=== PATIENT | male | born 1980 | race Caucasian/White ===

== ENCOUNTER 2019-07-20 19:10 | Emergency (ER) | payer SELFPAY ==
[2019-07-20 19:17] VITALS: BP 126/81; PULSE 94; RESP 18; TEMP 37; O2SAT 97; BMI 23.0
--- NOTE | 2019-07-20 19:31 | ED_ITS ---
Entered by Dot Sanchez, acting as scribe for Kailash Quan DO Jul 20, 2019 19:10 HPI - Psych General: Chief Complaint: Psychiatric Symptoms Stated Complaint: needs med refill, auditory hallucinations Time Seen by Provider: 07/20/19 19:32 PFSH ED PFSH: Social History Smoking and tobacco status: current every day smoker Current gender identity: Male Discharge Plan Discharge Patient Disposition: Left Without Being Seen Referrals: Wilma Malhotra MD [Family Provider] - Discharge Date/Time: 07/20/19 19:41 Coding Level of Care Code ED Cinder Crew Worker for Chg Fwd The documentation recorded by the scribe, Dot Sanchez, accurately reflects the service I personally performed and the decisions made by Avelina rowland Curtis L, DO Jul 20, 2019 19:10
--- NOTE | 2019-07-20 19:37 | PC.NURSE ---
PT DENIES SI, STATES HE ONLY CAME IN TO SEE IF HE COULD GET HIS CLONAZEPAM REFILLED, BUT DECIDED TO WAIT TILL TUESDAY BECAUSE HE HAS AN APPT WITH HIS DOCTOR ON THAT DAY. PT SIGNED OUT AMA, AGREED TO RETURN IF HE WANTED TO BE SEEN. PT ALSO DENIES HALLUCINATIONS.
== END 2019-07-20 19:41 | disposition left against medical advice (07) ==
PROVIDERS: Emergency Provider Family Medicine; Family Provider Family Medicine
DX: Z76.0 Encounter for issue of repeat prescription (principal); R44.0 Auditory hallucinations; F17.200 Nicotine dependence, unspecified, uncomplicated; Z53.21 Procedure and treatment not carried out due to patient leaving prior to being seen by health care provider
CPT/HCPCS: 99284

== ENCOUNTER 2019-08-02 00:23 | Emergency (ER) | payer SELFPAY ==
[2019-08-02 00:39] VITALS: BP 114/83; PULSE 86; RESP 18; TEMP 36.5; O2SAT 98; BMI 25.1
--- NOTE | 2019-08-02 00:45 | XR_ITS ---
WS: [id number] XR chest 1V portable [id number] REASON FOR EXAM: cough/congestion FINDINGS: The heart mediastinum are normal. There are scattered granulomas in both perihilar areas. The lung villaseñor are well aerated. There is no pneumonia, pleural effusion, pulmonary edema, no mass e ffect. The hilum and apices normal. No osseous abnormalities. XR/XR chest 1V portable [id number] IMPRESSION: Negative chest for active pathology. Calcified granulomas.
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
[2019-08-02 01:16] LABS: Basophils % 0.5 %; Eosinophils # 0.3 10^3/uL (0.0-0.8); Eosinophils % 4.5 %; Hematocrit 45.4 % (42.0-52.0); Hemoglobin 14.9 g/dL (11.7-16.6); Lymphocytes # 2.7 10^3/uL (0.8-4.8); Lymphocytes % 40.6 %; Mean Corpuscular HGB Conc 32.8 g/dL (30.0-36.0); Mean Corpuscular Hemoglobin 29.3 pg (28.0-34.0); Mean Corpuscular Volume 89.4 fL (80-94); Mean Platelet Volume 10.4 fL (7.4-10.4); Monocytes # 0.8 10^3/uL (0.2-0.9); Monocytes % 11.3 %; Neutrophils # 2.8 10^3/uL (1.8-7.7); Neutrophils % 42.9 %; Nucleated Red Blood Cells % 0 %; Platelet Count 334 10^3/cmm (130-400); Red Blood Count 5.08 10^6/uL (4.1-5.3); Red Cell Distribution Width 12.9 % (12.1-15.1); White Blood Count 6.6 10^3/uL (4.0-10.0)
[2019-08-02 01:45] LABS: Alanine Aminotransferase 19 U/L (0-41); Albumin Level 4.4 g/dL (3.5-5.2); Alkaline Phosphatase 101 IU/L (40-130); Anion Gap 14.4 (5-19); Aspartate Amino Transferase 20 U/L (0-40); Blood Urea Nitrogen 11 mg/dL (6-20); Calcium 9.6 mg/dL (8.5-10.5); Carbon Dioxide 28 mmol/L (22-29); Chloride 102 mmol/L (98-107); Globulin 3.8 g/dL (1.3-4.6); Glomerular Filtration Rate 74.5 mL/min (90-130); Glucose 103 mg/dL (65-115); NT Pro B Type Natriuretic Pept 25 pg/mL (0-125); Potassium 4.4 mmol/L (3.5-5.1); Sodium 140 mmol/L (136-145); Total Bilirubin 0.4 mg/dL (0.15-1.2); Total Protein 8.2 g/dL (6.6-8.7)
[2019-08-02] MEDS: dexamethasone 10 mg/mL INJ IM (01:58)
[2019-08-02 02:06] VITALS: BP 113/73; PULSE 86; RESP 16; O2SAT 96
== END 2019-08-02 02:06 | disposition home or self-care (01) ==
PROVIDERS: Physician Assistant; Emergency Provider Emergency Medicine; Family Provider Family Medicine
DX: J40 Bronchitis, not specified as acute or chronic (principal); F17.210 Nicotine dependence, cigarettes, uncomplicated; J84.10 Pulmonary fibrosis, unspecified
CPT/HCPCS: 12345; 36415; 71045; 80053; 83880; 85025; 96372; 96375; 99281; 99283; J1100

== ENCOUNTER 2019-08-03 18:27 | Emergency (ER) | payer SELFPAY ==
[2019-08-03 18:30] VITALS: BP 133/71; PULSE 111; RESP 17; TEMP 36.5; O2SAT 98; BMI 24.7
--- NOTE | 2019-08-03 18:35 | ED_ITS ---
Entered by Ingrid Tejeda, acting as scribe for May Temple HPI - General Adult General: Chief complaint: General Medical Stated complaint: COUGH Time Seen by Provider: 08/03/19 18:34 Source: patient Mode of arrival: ambulatory Limitations: no limitations History of Present Illness: HPI narrative: 39 yo m came to the er for a cough and has been going on for a week. Pt states that he was here a few days for a cough. Pt states that he just wants to get some meds and go home he does not want to be worked up. complaint: cough Onset (ago): week(s) (1 week) Location: chest (cough) Severity: mild Pain Consistency: intermittent Relieving factors: medication Exacerbating factors: none Associated symptoms: Reports cough; Deny chest pain, confusion, diaphoresis, dyspnea, headache(s), malaise, nausea, rash, palpitations, syncope or vomiting Review of Systems General: Reports: other (negative unless marked) Const: Denies: fever, chills, body aches, fatigue, malaise or diaphoresis Eyes: Denies: change in vision or blurry vision ENMT: Denies: throat pain, painful swallowing, hoarseness, ear pain, ear discharge, Change in hearing or nasal discharge Card: Denies: chest pain, palpitations, irregular heart rhythm, syncope, pre- syncope, shortness of breath on exertion or shortness of breath when lying down Resp: Reports: non-productive cough; Denies: shortness of breath, productive cough, wheezing, coughing up blood or chest congestion GI: Denies: abdominal pain, nausea, vomiting, vomiting blood, coffee grounds in vomit, diarrhea, constipation, cramping, blood in stool or black tarry stool : Denies: flank pain, difficulty urinating, painful urination, urinary frequency, urinary urgency, decreased urine ouput, urinary incontinence or blood in urine Musc: Denies: neck pain, back pain, extremity pain, extremity swelling, joint pain, joint swelling, joint warmth or joint stiffness Skin/Breast: Denies: rash, skin tenderness or yellow skin Neuro: Denies: headache, numbness in extremities, weakness in extremities, changes in sensation, lack of coordination, difficulty walking, dizziness, vertigo or confusion Endo: Denies: excessive thirst, tired all the time, cold intolerance, excessive sweating, flushing or hot flashes Chaparro/Lymph: Denies: easy bruising, easy bleeding, petechiae or enlarged lymph nodes All/Imm: Denies: hives, throat swelling, tongue swelling, facial swelling or acute wheezing PFSH ED PFSH: Social History Smoking and tobacco status: current every day smoker Current gender identity: Male Physical Exam Const: COMMON NORMALS: no apparent distress, oriented x3, no limitations, healthy appearing and well nourished EXAM LIMITATIONS: no altered mental status GENERAL APPEARANCE: cooperative, well kempt and well developed ORIENTATION/CONSCIOUSNESS: Yes awake HENMT: COMMON NORMALS: normocephalic, head/scalp atraumatic, hearing grossly normal bilaterally, external ears normal, EAC's normal, external nose normal and moist oral mucous membranes HEAD & SCALP: normal to inspection, normocephalic and atraumatic FACE & SINUS: normal facial exam and face symmetric NOSE: external nose normal and nares normal EXTERNAL EAR: Yes external ears normal EXTERNAL AUDITORY CANAL: EAC's normal MOUTH: oral and palatal mucosa normal and tongue normal Eye: COMMON NORMALS: PERRL, EOMs intact bilaterally, conjunctivae normal and no scleral icterus GENERAL EYE: normal appearance of both eyes and normal light reflex CONJUNCTIVA: Yes conjunctivae normal SCLERA: sclerae normal CORNEA: Yes corneas normal PUPIL: Yes PERRL DIRECT OPHTHALMOSCOPY: Yes normal light reflex Neck/C-Spine: COMMON NORMALS: full ROM, no lymphadenopathy, supple, no meningeal signs and no JVD GENERAL: Yes normal visual inspection and Yes trachea midline CERVICAL SPINE: Yes cervical ROM normal Chest: COMMONS NORMALS: inspection of chest normal and palpation of chest normal Resp: COMMON NORMALS: normal respiratory effort, no retractions, no use of accessory muscles and clear to auscultation bilaterally EFFORT & INSPECTION: Yes able to speak in complete sentences AUSCULTATION: clear to auscultation bilaterally Cardio: COMMON NORMALS: no JVD, regular rate, regular rhythm, S1 normal heart sound, S2 normal heart sound, no gallops, no clicks, no murmurs and no rub JUGULAR VENOUS DISTENTION: no JVD RATE: regular rate RHYTHM: regular rhyth m HEART SOUNDS: S1 normal and S2 normal GI: COMMON NORMALS: soft to palpation, non-tender, no hepatosplenomegaly and no masses INSPECTION: Yes normal to inspection PALPATION: Yes soft and Yes no hepatosplenomegaly : COMMON NORMALS: Yes no CVA tenderness BLADDER/KIDNEY EXAM: Yes no CVA tenderness Back/Pelvis: COMMON NORMALS: no CVA tenderness, thoracic and lumbar spine normal to inspection, no thoracic nor lumbar tenderness and thoraco-lumbar ROM normal Extremity: COMMON NORMALS: normal to inspection, full ROM, normal capillary refill, no joint enlargement, no clubbing, cyanosis or edema and no calf tenderness Neuro: COMMON NORMALS: oriented x3, CN's II-XII intact bilaterally, moves all extremities, no focal motor deficits and no sensory deficits noted MENINGEAL SIGNS: Yes no meningeal signs Psych: COMMON NORMALS: mental status grossly normal, thought process normal, cooperative, affect normal, speech normal and activity/motor behavior normal APPEARANCE: Yes well kempt SPEECH: Yes normal speech THOUGHT PROCESS: normal thought process Skin: COMMON NORMALS: no rashes or lesions noted, skin turgor normal, no jaundice, no petechiae and no mottling GENERAL SKIN EXAM: no rashes or lesions noted and turgor normal Course Vital Signs: Vital signs: Vital Signs Temperature 97.7 F 08/03/19 18:30 Pulse Rate 96 08/03/19 18:47 Respiratory Rate 18 08/03/19 18:47 Blood Pressure 133/71 08/03/19 18:47 Pulse Oximetry 98 08/03/19 18:47 MDM - General Adult MDM Narrative: Medical decision making narrative: Patient was refusing all work-up. He was seen here yesterday and diagnosed with bronchitis and placed on Zithromax but cannot fill it. He states that he can get this filled at a discounted rate at the [facility] [place] if prescribed by us. I will go ahead and do that. I see no acute life-threatening findings on exam other than mild tachycardia. Patient refuses all work-up but does agree to return should his symptoms change or worsen. Discharge Plan Discharge Patient Disposition: Home, Self-Care Clinical Impression: Bronchitis Condition: Stable Prescriptions: New Zithromax Z-Lui 250 mg tablet See Rx Instructions .ROUTE .COMPLEX Qty: 6 RF: 0 No Action azithromycin 250 mg tablet See Rx Instructions PO .COMPLEX Qty: 6 RF: 0 olanzapine [Zyprexa] 10 mg Tablet 20 mg PO DAILY RF: 0 albuterol sulfate 90 mcg/actuation HFA aerosol inhaler 2 inh INHALATION Q6H PRN (Reason: shortness of breath) Qty: 8 RF: 0 Discharge Orders: Discharge Order (Routine); Ordered 08/03/19 Ordered By: May Temple Referrals: Wilma Malhotra MD [Family Provider] - 1-3 days Discharge Diet: Advance as tolerated Discharge Activity: Increase activity as tolerated Patient Instructions: Acute Bronchitis (ED) Activity Restrictions/Additional Instructions: Please return to the ER immediately for any of the signs or symptoms listed on your discharge instruction sheets, worsening/changing of your symptoms, you are not getting better as quickly as expected, or for ANY other cause or concerns. Discharge Date/Time: 08/03/19 18:48 Coding Level of Care Code ED Busgirl for Chg Fwd The documentation recorded by the Nikhil byrne Stephanie Lyn, accurately reflects the service I personally performed and the decisions made by Windy rowland Eli N Aug 03, 2019 18:27
--- NOTE | 2019-08-03 18:40 | PC.NURSE ---
Patient expresses that he wanted a zpack today and maybe something for his nerves. States he was seen before and given a zpack but was not able to fill the medication, he was told that if he came to the ER then the [facility] pharmacy could fill the medication. Patient denies to provider during initial assessment stating he does not want a work up.
[2019-08-03] MEDS: ibuprofen 600 mg Tablet PO (18:46)
[2019-08-03] MEDS: azithromycin 250 mg Tablet 500 MG PO (18:46)
[2019-08-03 18:47] VITALS: BP 133/71; PULSE 96; RESP 18; O2SAT 98
== END 2019-08-03 18:48 | disposition home or self-care (01) ==
PROVIDERS: Emergency Provider Emergency Medicine; Family Provider Family Medicine
DX: J40 Bronchitis, not specified as acute or chronic (principal); F17.200 Nicotine dependence, unspecified, uncomplicated
CPT/HCPCS: 12345; 99281; 99283; Q0144

== ENCOUNTER 2019-10-23 17:12 | Emergency (ER) | payer SELFPAY ==
--- NOTE | 2019-10-23 17:26 | PC.NURSE ---
PAIN IS A GENERALIZED BODY ACHES FROM COUGHING. HISTORY OF BRONCHITIS.
[2019-10-23 17:27] VITALS: BP 124/86; PULSE 90; RESP 18; TEMP 36.9; O2SAT 98
--- NOTE | 2019-10-23 17:34 | XR_ITS ---
WS: [id number] PORTABLE CHEST HISTORY: cough COMPARISON: 08/02/2019 Lungs are clear and well expanded. No pleural effusion or pneumothorax. Cardiac size: Normal. Mediastinum/Aorta: Normal mediastinum. No osseous abnormality seen. XR/XR chest 1V portable [id number] IMPRESSION: Unremarkable portable chest.
--- NOTE | 2019-10-23 17:35 | ED_ITS ---
HPI - General Adult General: Stated complaint: cough/sob Time Seen by Provider: 10/23/19 17:21 History of Present Illness: HPI narrative: Patient complaining about cough x2- day denies fever chills any exposure to cold would he like to have something to eat while he is here and also wants a refill on his Fatou WHITE complaint: Cough Onset (ago): day(s) Associated symptoms: Reports cough; Deny chest pain, dyspnea, headache(s), nausea, rash or vomiting Treatments prior to arrival: none Review of Systems Const: Denies: fever(s), chills or body aches Eyes: Denies: change in vision or blurry vision ENMT: Denies: throat pain or nasal congestion Card: Denies: chest pain or dyspnea on exertion Resp: Reports: non-productive cough (Patient is a smoker 2 to 3 packs a day); Denies: dyspnea or productive cough GI: Denies: abdominal pain, nausea or vomiting : Denies: difficulty urinating Musc: Denies: extremity pain Skin/Breast: Denies: rash Neuro: Denies: headache(s) Psych: Denies: anxiety or depression Chaparro/Lymph: Denies: easy bruising PFSH ED PFSH: Medical History (Updated 08/20/19 @ 13:34 by Maya Ortiz DO) Anxiety Depression Schizophrenia Surgical History No pertinent past surgical history Social History Smoking and tobacco status: current every day smoker cigarettes Packs smoked per day: 0.5 Alcohol intake: never Current gender identity: Male Physical Exam Const: COMMON NORMALS: no acute distress, average body habitus and patient oriented x3 HENMT: COMMON NORMALS: normocephalic HEAD & SCALP: normal to inspection and normocephalic FACE & SINUS: normal facial exam Eye: COMMON NORMALS: conjunctivae normal GENERAL EYE: appearance normal, both eyes and all related structures CONJUNCTIVA: Yes conjunctivae normal Neck/C-Spine: COMMON NORMALS: no JVD Chest: COMMONS NORMALS: normal inspection of the chest Resp: COMMON NORMALS: normal respiratory effort and clear to auscultation bilaterally AUSCULTATION: clear to auscultation bilaterally Cardio: COMMON NORMALS: no JVD, regular rate and regular rhythm RATE: regular rate RHYTHM: regular rhythm GI: COMMON NORMALS: Normal to inspection, nondistended, normoactive bowel sounds present Extremity: COMMON NORMALS: normal to inspection and full ROM Neuro: COMMON NORMALS: patient oriented x3 Course Vital Signs: Vital signs: Vital Signs Temperature 98.5 F 10/23/19 17:27 Pulse Rate 90 10/23/19 17:27 Respiratory Rate 18 10/23/19 17:27 Blood Pressure 124/86 10/23/19 17:27 Pulse Oximetry 98 10/23/19 17:27 Discharge Plan Discharge Prescriptions: No Action clonazepam [Klonopin] 0.5 mg tablet 0.5 mg PO BID PRN (Reason: anxiety) Qty: 60 RF: 0 olanzapine [Zyprexa] 10 mg Tablet 20 mg PO DAILY RF: 0 Coding Level of Care Code ED Research Manufacturing Operator for Tracey Izquierdo
[2019-10-23 17:38] VITALS: BP 124/86; RESP 18; TEMP 36.9; O2SAT 96; BMI 23.0
== END 2019-10-23 18:03 | disposition home or self-care (01) ==
LOC: ER 18:05
PROVIDERS: Emergency Provider Nurse Practitioner Family; Family Provider Family Medicine; PCP Family Medicine
DX: R05 Cough (principal); R06.02 Shortness of breath; F17.210 Nicotine dependence, cigarettes, uncomplicated
CPT/HCPCS: 12345; 71045; 99281; 99282

== ENCOUNTER 2019-10-24 18:27 | Emergency (ER) | payer SELFPAY ==
[2019-10-24 18:37] VITALS: BP 120/69; PULSE 84; RESP 18; TEMP 36.8; O2SAT 97; BMI 23.0
--- NOTE | 2019-10-24 19:00 | XR_ITS ---
WS: [id number] PORTABLE CHEST HISTORY: cough, SOB COMPARISON: 10/23/2019 Lungs are clear and well expanded. No pleural effusion or pneumothorax. Cardiac size: Normal. Mediastinum/Aorta: Normal mediastinum. No osseous abnormality seen. XR/XR chest 1V portable [id number] IMPRESSION: Unremarkable portable chest.
--- NOTE | 2019-10-24 19:22 | ED_ITS ---
HPI - SOB/Dyspnea General: Chief Complaint: Shortness of Breath/Dyspnea Stated Complaint: sob,cough Time Seen by Provider: 10/24/19 19:18 History of Present Illness: HPI Narrative: Edgar is a pleasant 39-year-old male who comes in complaining of nonproductive cough for 1 day. He denies fever, chills, shortness of breath, vomiting, headache, neck pain or shortness of breath. Patient denies being around anybody ill but states this is because he is around smoke and he smokes. He denies any covert exposures. He is unaware of anything that makes his symptoms better or worse and he states that he has had this problem numerous times in the past. Associated symptoms: Deny abdominal pain, chest congestion, chest pain, diaphoresis, dizziness, extremity pain, fever(s), hemoptysis, lightheadedness, nausea, orthopnea, palpitations, polydipsia, polyuria, syncope or vomiting Review of Systems Const: Denies: fever(s), chills, body aches, fatigue, malaise, night sweats or diaphoresis Eyes: Denies: change in vision, blurry vision or blind spots ENMT: Denies: throat pain, odynophagia, hoarseness, ear or mastoid pain, ear discharge, change in hearing or nasal discharge Card: Denies: chest pain, palpitations, irregular heart rhythm, lightheadedness, syncope, pre-syncope, dyspnea on exertion or orthopnea Resp: Denies: dyspnea, productive cough, wheezing, hemoptysis or chest congestion GI: Denies: abdominal pain, nausea, vomiting, hematemesis, coffee ground emesis, heartburn, diarrhea, constipation, GI cramping, hematochezia or melena : Denies: flank pain, dysuria, urinary frequency, urinary urgency, oliguria, urinary incontinence or hematuria Musc: Denies: neck pain, back pain, extremity pain, extremity swelling, joint pain, joint swelling, joint redness, joint warmth or joint stiffness Skin/Breast: Denies: rash, pruritus, erythema, skin tenderness or jaundice Neuro: Denies: headache(s), numbness in extremities, weakness in extremities, sensory changes, lack of coordination, difficulty walking, dizziness, vertigo, confusion or Slurred speech present Endo: Denies: polyuria, polydipsia, tired all the time, cold intolerance, excessive sweating, flushing, hot flashes or heat intolerance Chaparro/Lymph: Denies: easy bruising, easy bleeding, petechiae, purpura or enlarged lymph nodes All/Imm: Denies: urticaria, throat swelling, tongue swelling, facial swelling or acute wheezing PFSH ED PFSH: Medical History Anxiety Depression Schizophrenia Surgical History No pertinent past surgical history Social History Smoking and tobacco status: current every day smoker cigarettes Packs smoked per day: 0.5 Alcohol intake: never Current gender identity: Male Physical Exam Const: COMMON NORMALS: no acute distress, patient oriented x3, no limitations, healthy appearing and well nourished EXAM LIMITATIONS: no altered mental s tatus GENERAL APPEARANCE: cooperative, well kempt and well developed HENMT: COMMON NORMALS: normocephalic, atraumatic, hearing grossly normal bilaterally, external ears normal, EAC's normal, Normal external nose present and moist oral mucous membranes HEAD & SCALP: normal to inspection, norm ocephalic and atraumatic FACE & SINUS: normal facial exam and face symmetric NOSE: Normal external nose present and Normal nares present EXTERNAL EAR: Yes external ears normal EXTERNAL AUDITORY CANAL: EAC's normal MOUTH: Normal oral and palatal mucosa present, lip normal and tongue normal Eye: COMMON NORMALS: Equal, round and reactive pupils present, EOMs intact bilaterally, conjunctivae normal and no scleral icterus GENERAL EYE: appearance normal, both eyes and all related structures ALIGNMENT: Yes alig nment normal PERIORBITAL: periorbital findings normal EYELID: eyelids normal CONJUNCTIVA: Yes conjunctivae normal SCLERA: sclerae normal PUPIL: Yes Equal, round and reactive pupils present Neck/C-Spine: COMMON NORMALS: full ROM, no lymphadenopathy, supple, no meningeal signs and no JVD GENERAL: Yes normal visual inspection and Yes trachea midline CERVICAL SPINE: Yes cervical ROM normal Chest: COMMONS NORMALS: normal inspection of the chest and normal palpation of entire chest wall Resp: COMMON NORMALS: normal respiratory effort, No retractions, No use of accessory muscles and clear to auscultation bilaterally EFFORT & INSPECTION: Yes able to speak in complete sentences AUSCULTATION: clear to auscultation bilaterally, no crackles, no rales, no rhonchi and no wheezes Cardio: COMMON NORMALS: no JVD, regular rate, regular rhythm, S1 normal heart sound present, S2 normal heart sound present, No gallops present (Cardio), No clicks present (Cardio), No murmurs present (Cardio) and No rub (Cardio) RATE: regular rate RHYTHM: regular rhythm HEART SOUNDS: S1 normal heart sound present, S2 normal heart sound present, no click, no gallops, no murmurs and no rubs GI: COMMON NORMALS: Soft to palpation, non-tender, No hepatosplenomegaly present and no masses PALPATION: Yes Soft to palpation, No Tenderness to palpation present (GI), No Guarding due to palpation present (GI), No Rigid due to palpation, Yes No hepatosplenomegaly present, No Hernia present, No Palpable mass present and No Pulsatile mass present : COMMON NORMALS: Yes no CVA tenderness BLADDER/KIDNEY EXAM: Yes no CVA tenderness Back/Pelvis: COMMON NORMALS: no CVA tenderness, thoracic and lumbar spine normal to inspection, no thoracic nor lumbar tenderness and thoraco-lumbar ROM normal Extremity: COMMON NORMALS: normal to inspection, full ROM, capillary refill normal, no joint enlargement, no clubbing, cyanosis or edema and no calf tenderness Neuro: COMMON NORMALS: patient oriented x3, CN's II-XII intact bilaterally, moves all extremities, no focal motor deficits and no sensory deficits noted MENINGEAL SIGNS: Yes no meningeal signs SPEECH: speech normal Psych: COMMON NORMALS: mental status grossly normal, Normal thought process present, cooperative, normal affect, speech normal and activity/motor behavior normal APPEARANCE: Yes well kempt SPEECH: Yes normal speech THOUGHT PROCESS: Normal thought process present Skin: COMMON NORMALS: no rashes or lesions noted, turgor normal, no jaundice, no petechiae and no mottling GENERAL SKIN EXAM: no rashes or lesions noted and turgor normal Course Vital Signs: Vital signs: Vital Signs Temperature 98.2 F 10/24/19 18:37 Pulse Rate 92 10/24/19 19:27 Respiratory Rate 18 10/24/19 19:27 Blood Pressure 127/78 10/24/19 19:27 Pulse Oximetry 93 10/24/19 19:27 MDM - SOB/Dyspnea MDM Narrative: Medical decision making narrative: Patient likely has underlying lung disease as he is a chronic smoker. I believe I will place him on amoxicillin for bronchitis. I see no sign of acute cardiac event, there is no pneumonia on his chest x-ray and his vital signs are stable with clear lung sounds. I believe this is likely viral bronchitis but per the patient's history he will likely have a bacterial superinfection or component to it. The patient refuses any further work-up but I do not believe blood work is likely to be helpful for for this patient. There is no evidence of pneumothorax, there is no widened mediastinum, and he does not exhibit any signs of sepsis. The patient agrees to return if his symptoms worsen. This time though he request discharge. Imaging Data^: CXR: My impression: No acute cardiopulmonary findings. Discharge Plan Discharge Patient Disposition: Home, Self-Care Clinical Impression: Cough Condition: Stable Prescriptions: New amoxicillin 500 mg capsule 500 mg PO TID 10 Days Qty: 30 RF: 0 No Action clonazepam [Klonopin] 0.5 mg tablet 0.5 mg PO BID PRN (Reason: anxiety) Qty: 60 RF: 0 ibuprofen 200 mg Tablet 200 - 800 mg PO PRN RF: 0 Discharge Orders: Discharge Order (Routine); Ordered 10/24/19 Ordered By: May Temple Referrals: Maya Ortiz DO [Primary Care Provider] - 1-3 days Discharge Diet: Advance as tolerated Discharge Activity: Increase activity as tolerated Patient Instructions: Acute Bronchitis (ED) Activity Restrictions/Additional Instructions: Please return to the ER immediately for any of the signs or symptoms listed on your discharge instruction sheets, worsening/changing of your symptoms, you are not getting better as quickly as expected, or for ANY other cause or concerns. Discharge Date/Time: 10/24/19 19:32 Coding Level of Care Code ED Manager Non Profit for [employer] Fwd Exam Comprehensive
[2019-10-24 19:27] VITALS: BP 127/78; PULSE 92; RESP 18; O2SAT 93
== END 2019-10-24 19:32 | disposition home or self-care (01) ==
PROVIDERS: Emergency Provider Emergency Medicine; PCP Family Medicine
DX: R05 Cough (principal); F17.210 Nicotine dependence, cigarettes, uncomplicated
CPT/HCPCS: 12345; 71045; 99281; 99282

== ENCOUNTER 2019-10-24 23:43 | Inpatient (IN) | payer SELFPAY ==
[2019-10-24 23:49] VITALS: BP 116/85; PULSE 83; RESP 86; TEMP 36.4; O2SAT 97; BMI 23.7
--- NOTE | 2019-10-24 23:52 | ECG_ITS ---
Measurements Intervals [place] Rate: 59 P: 14 VA: 130 QRS: 62 QRSD: 109 T: 43 QT: 384 QTc: 382 SINUS BRADYCARDIA Compared to ECG 12/05/2016 22:40:03 Sinus tachycardia no longer present Electronically Signed On 10-25-2019 16:45:36 CDT by Armando Chin M.D. [id number]
--- NOTE | 2019-10-24 23:54 | ED_ITS ---
HPI - Psych General: Chief Complaint: General Medical Stated Complaint: needs med refill Time Seen by Provider: 10/24/19 23:50 History of Present Illness: HPI Narrative: Edgar is a 39-year-old male who comes in complaining of hallucinations. He states he is hearing voices and seeing things that others are not saying. He has a history of schizophrenia. He states that the symptoms are becoming so aggravating that he is afraid he is going to hurt himself or someone else. He states he needs something to help him relax and he is requesting to go to the neuropsychiatric unit for treatment. Review of Systems General: Reports: Other (Patient not cooperative) PFS ED PFSH: Medical History Anxiety Depression Schizophrenia Surgical History No pertinent past surgical history Social History Smoking and tobacco status: current every day smoker cigarettes Packs smoked per day: 0.5 Alcohol intake: never Current gender identity: Male Physical Exam Const: COMMON NORMALS: no acute distress, patient oriented x3, no limitations, healthy appearing and well nourished EXAM LIMITATIONS: no altered mental status GENERAL APPEARANCE: cooperative and well developed HENMT: COMMON NORMALS: normocephalic, atraumatic, hearing grossly normal bilaterally, external ears normal, EAC's normal, Normal external nose present and moist oral mucous membranes HEAD & SCALP: normal to inspection, normocephalic and atraumatic FACE & SINUS: normal facial exam and face symmetric NOSE: Normal external nose present and Normal nares present EXTERNAL EAR: Yes external ears normal EXTERNAL AUDITORY CANAL: EAC's normal MOUTH: Normal oral and palatal mucosa present, lip normal and tongue normal Eye: COMMON NORMALS: Equal, round and reactive pupils present, EOMs intact bilaterally, conjunctivae normal and no scleral icterus GENERAL EYE: appearance normal, both eyes and all related structures ALIGNMENT: Yes alignment normal PERIORBITAL: periorbital findings normal EYELID: eyelids normal CONJUNCTIVA: Yes conjunctivae normal SCLERA: sclerae normal PUPIL: Yes Equal, round and reactive pupils present Neck/C-Spine: COMMON NORMALS: full ROM, no lymphadenopathy, supple, no meningeal signs and no JVD GENERAL: Yes normal visual inspection and Yes trachea midline CERVICAL SPINE: Yes cervical ROM normal Chest: COMMONS NORMALS: normal inspection of the chest and normal palpation of entire chest wall Resp: COMMON NORMALS: normal respiratory effort, No retractions, No use of accessory muscles and clear to auscultation bilaterally EFFORT & INSPECTION: Yes able to speak in complete sentences AUSCULTATION: clear to auscultation bilaterally, no crackles, no rales, no rhonchi and no wheezes Cardio: COMMON NORMALS: no JVD, regular rate, regular rhythm, S1 normal heart sound present, S2 normal heart sound present, No gallops present (Cardio), No clicks present (Cardio), No murmurs present (Cardio) and No rub (Cardio) RATE: regular rate RHYTHM: regular rhythm HEART SOUNDS: S1 normal heart sound present, S2 normal heart sound present, no click, no gallops, no murmurs and no rubs GI: COMMON NORMALS: Soft to palpation, non-tender, No hepatosplenomegaly present and no masses PALPATION: Yes Soft to palpation, No Tenderness to palpation present (GI), No Guarding due to palpation present (GI), No Rigid due to palpation, Yes No hepatosplenomegaly present, No Hernia present, No Palpable mass present and No Pulsatile mass present : COMMON NORMALS: Yes no CVA tenderness BLADDER/KIDNEY EXAM: Yes no CVA tenderness Back/Pelvis: COMMON NORMALS: no CVA tenderness, thoracic and lumbar spine normal to inspection, no thoracic nor lumbar tenderness and thoraco-lumbar ROM normal Extremity: COMMON NORMALS: normal to inspection, full ROM, capillary refill normal, no joint enlargement, no clubbing, cyanosis or edema and no calf tenderness Neuro: COMMON NORMALS: patient oriented x3, CN's II-XII intact bilaterally, moves all extremities, no focal motor deficits and no sensory deficits noted MENINGEAL SIGNS: Yes no meningeal signs SPEECH: speech normal Psych: ATTITUDE: Yes paranoid and Yes evasive ACTIVITY/MOTOR BEHAVIOR: Yes Avoids eye contact (attititude/behavior) SPEECH: Yes soft MOOD & AFFECT: Yes apathetic THOUGHT CONTENT: Yes Suicidality present and Yes Homicidality present Skin: COMMON NORMALS: no rashes or lesions noted, turgor normal, no jaundice, no petechiae and no mottling GENERAL SKIN EXAM: no rashes or lesions noted and turgor normal MDM - Psych MDM Narrative: Medical decision making narrative: The case was reviewed with Dr. Denny. He agrees to admission to the neuropsychiatric unit for further evaluation and care. Lab Data: Labs: Lab Results 10/24/19 10/25/19 Range/Units 00:08 00:03 WBC 6.2 (4.0-10.0) 10^3/ uL RBC 4.91 (4.1-5.3) 10^6/u L Hgb 14.7 (11.7-16.6) g/dL Hct 44.7 (42.0-52.0) % MCV 91.0 (80-94) fL MCH 29.9 (28.0-34.0) pg MCHC 32.9 (30.0-36.0) g/dL RDW 13.2 (12.1-15.1) % Plt Count 250 (130-400) 10^3/c mm MPV 10.0 (7.4-10.4) fL Neut % (Auto) 56.7 % Lymph % (Auto) 25.5 % [place] % (Auto) 10.6 % Eos % (Auto) 6.7 % Baso % (Auto) 0.3 % Neut # (Auto) 3.5 (1.8-7.7) 10^3/u L Lymph # (Auto) 1.6 (0.8-4.8) 10^3/u L [place] # (Auto) 0.7 (0.2-0.9) 10^3/u L Eos # (Auto) 0.4 (0.0-0.8) 10^3/u L Baso # (Auto) 0.0 (0.0-0.1) 10^3/u L Nucleated RBC % (a uto) 0 % Nucleated RBCs # 0.0 /100WBC Urine Color Yellow (Yellow) Urine Appearance Clear (CLEAR) Urine pH 7 (5-7) Ur Specific Gravit y 1.005 (1.005-1.030) Urine Protein Neg (Negative) Urine Glucose (UA) Norm (Normal) Urine Ketones Negative (Negative) Urine Blood Neg (Negative) Urine Nitrate Negative (Negative) Urine Bilirubin Neg (NEGATIVE) Urine Urobilinogen Norm (Negative) mg/dL Ur Leukocyte Carla ase Negative (Negative) Urine RBC Rare (0-2) /hpf Urine WBC Rare (0-5) /hpf Ur Squamous Epith Cells Rare (0-5) Urine Bacteria Trace (NONE) EKG Data^: EKG 1: Attestation: I personally reviewed and interpreted this EKG as follows: EKG interpretation date: 10/25/19 EKG interpretation time: 00:29 Interpretation: Sinus bradycardia at 59 beats a minute, no blocks, normal intervals, no acute ST-T wave changes. Discharge Plan Discharge Patient Disposition: Admitted As Inpatient Clinical Impression: Anxiety Schizophrenia Qualifiers: Schizophrenia type: unspecified Qualified Code(s): F20.9 - Schizophrenia, unspecified Condition: Stable Referrals: Maya Ortiz DO [Primary Care Provider] - Coding Level of Care Code ED Radio Communications Superintendent for Tracey Izquierdo
[2019-10-25] MEDS: OLANZapine 10 mg VIAL IM (00:15)
[2019-10-25 00:17] LABS: Basophils % 0.3 %; Eosinophils # 0.4 10^3/uL (0.0-0.8); Eosinophils % 6.7 %; Hematocrit 44.7 % (42.0-52.0); Hemoglobin 14.7 g/dL (11.7-16.6); Lymphocytes # 1.6 10^3/uL (0.8-4.8); Lymphocytes % 25.5 %; Mean Corpuscular HGB Conc 32.9 g/dL (30.0-36.0); Mean Corpuscular Hemoglobin 29.9 pg (28.0-34.0); Monocytes # 0.7 10^3/uL (0.2-0.9); Monocytes % 10.6 %; Neutrophils # 3.5 10^3/uL (1.8-7.7); Neutrophils % 56.7 %; Nucleated Red Blood Cells % 0 %; Platelet Count 250 10^3/cmm (130-400); Red Blood Count 4.91 10^6/uL (4.1-5.3); Red Cell Distribution Width 13.2 % (12.1-15.1); White Blood Count 6.2 10^3/uL (4.0-10.0)
[2019-10-25 00:28] LABS: Bilirubin Urine Neg (NEGATIVE); Blood Urine Neg (Negative); Glucose Urine UA Norm (Normal); Ketones Urine Negative (Negative); Leukocyte Esterase Urine Negative (Negative); Nitrate Urine Negative (Negative); Protein Urine Neg (Negative); RBC Urine RARE /hpf (0-2); Specific Gravity, Urine 1.005 (1.005-1.030); Squamous Epithelial Cell Urine RARE (0-5); Urine Appearance Clear (CLEAR); Urine Color Yellow (Yellow); Urobilinogen Urine Norm (Negative); WBC Urine RARE /hpf (0-5); pH Urine 7 (5-7)
[2019-10-25 00:29] LABS: Bacteria Urine TRACE
[2019-10-25 00:33] LABS: Amphetamines Screen Urine Negative (Negative); Barbiturates Screen Urine Negative (Negative); Benzodiazepines Screen Urine Negative (Negative); Cocaine Screen Urine Negative (Negative); Opiate Screen Urine Negative (Negative); PCP Screen Urine Negative (Negative); THC Screen Urine Positive (Negative)
[2019-10-25 00:39] LABS: Lithium 0.1 mmol/L (0.6-1.2)
[2019-10-25 00:45] LABS: Alanine Aminotransferase 27 U/L (0-41); Albumin Level 3.9 g/dL (3.5-5.2); Alkaline Phosphatase 86 IU/L (40-130); Anion Gap 12.8 (5-19); Aspartate Amino Transferase 33 U/L (0-40); Blood Urea Nitrogen 10 mg/dL (6-20); Calcium 8.4 mg/dL (8.5-10.5); Carbon Dioxide 27 mmol/L (22-29); Chloride 102 mmol/L (98-107); Creatinine Clr Calc Pharmacy 152.3505; Globulin 2.3 g/dL (1.3-4.6); Glomerular Filtration Rate 125.5 mL/min (90-130); Glucose 120 mg/dL (65-115); Osmolality Calculated 283 mOsm/kg (285-295); Phenytoin Dilantin 0.8 ug/mL (10-20); Potassium 3.8 mmol/L (3.5-5.1); Sodium 138 mmol/L (136-145); Thyroid Stimulating Hormone 0.85 uIU/mL (0.27-4.20); Total Bilirubin 0.2 mg/dL (0.15-1.2); Total Protein 6.2 g/dL (6.6-8.7); Valproic Acid Level 2.8 mcg/mL (50-100)
[2019-10-25 01:04] LABS: Acetaminophen < 5.0 ug/mL (10-30); Alcohol Level < 10 mg/dL (0-10); Salicylate < 0.3 mg/dL (3-10)
[2019-10-25 01:27] VITALS: BP 144/71; PULSE 63; RESP 18; TEMP 36.6; O2SAT 95
[2019-10-25 01:45] VITALS: BP 144/88; PULSE 59; RESP 22; TEMP 36.9; O2SAT 97
[2019-10-25 06:00] VITALS: BP 138/87; PULSE 67; RESP 20; TEMP 36.9; O2SAT 97
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
[2019-10-25 13:24] VITALS: BP 115/76; PULSE 74; RESP 18; TEMP 37; O2SAT 95
[2019-10-25 21:20] VITALS: BP 147/81; PULSE 71; RESP 24; TEMP 37.1; O2SAT 95
[2019-10-26 06:00] VITALS: RESP 20
[2019-10-26] MEDS: CLONazepam 0.5 mg Tablet PO ×2 (09:41→20:32)
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
[2019-10-26] MEDS: nicotine 21 mg Patch 1 PATCH TRANSDERMA (10:14)
--- NOTE | 2019-10-26 11:47 | P.PN_ITS ---
Subjective NPU Subjective: Interval history: Edgar presented today endorsing overwhelming anxiety but being resistant to discussions about restarting his Invega or other medications he is had in the past. He endorses a resistance to those medications secondary to side effects. We had initiated some as needed Klonopin to help with his irritability and anxiety given he had previously been on the Klonopin. However we are clear about concerns for long-term use as well as our desire not to initiated as a standing medication for post discharge. Mental Status Exam MSE Comments: This is a well-nourished well-developed white male with adequate dress limited grooming and eye contact. No abnormal movements except for psychomotor retardation. More cooperative with exam in no acute distress. Speech was more normal rate and volume. Mood described as better affect less irritable. Thought process more organized. Thought content: Patient denied any suicidal or homicidal ideation, there were no delusions reported but paranoia exists, but he seemed less guarded, he endorsed having less auditory and visual hallucinations. Attention and concentration were limited and memory was unreliable but none were formally tested. He is alert and oriented x3. Insight and judgment are impaired. Vitals/I&O/Wt Last Vital Signs Temp 98.3 F 10/26/19 22:00 Pulse 71 10/26/19 22:00 Resp 20 H 10/26/19 22:00 BP 115/77 10/26/19 22:00 Pulse Ox 96 10/26/19 22:00 Data NPU : 10/24/19 00:08 10/24/19 00:08 A&P Additional A&P Information (1) Anxiety: (2) Schizophrenia: (3) Nicotine dependence, cigarettes, with unspecified nicotine-induced d isorders: (4) Cannabis abuse: This is a 39-year-old white male with a long history of addiction and mental health issues including schizophrenia who presents off of medication and quite irritable on a 96-hour hold. 1. Continue current medication. We will offer restarting medications that have been noted as effective in is medical records. 2. Encourage individual, group and milieu therapy. 3. Continue to 15-minute checks for safety. 4. We will work to schedule outpatient resources and follow-up at discharge. Involuntary Hold Information 96 Hour Hold: 96 Hour Involuntary Admission: Yes 96 Hour Hold Ending Date: 11/03/19 96 Hour Hold Ending Time: 01:35 Attestations NPU Medical Necessity Statement*: Inpatient hospitalization is medically necessary and the clinically appropriate intervention at this time. We will offer medications and adjust as indicated. Likely length of stay 3-5 days. Coding Level of Care Code Acute Phlebotomy Tech for Tracey Izquierdo
[2019-10-26 14:00] VITALS: BP 116/78; PULSE 72; RESP 18; TEMP 37.2; O2SAT 98
[2019-10-26 22:00] VITALS: BP 115/77; PULSE 71; RESP 20; TEMP 36.8; O2SAT 96
[2019-10-27 06:00] VITALS: BP 109/71; PULSE 70; RESP 16; TEMP 36.8; O2SAT 96
[2019-10-27] MEDS: CLONazepam 0.5 mg Tablet PO ×2 (09:43→21:37)
--- NOTE | 2019-10-27 09:44 | PC.NURSE ---
PT CAME TO NURSES STATION ACTING ANXIOUS AND ACTING SLIGHTLY BIZARRE. ADMINISTERED CLONAZEPAM ORDERED. WILL CONT TO MONITOR AND FOLLOW UP NEEDED.
[2019-10-27] MEDS: nicotine 21 mg Patch 1 PATCH TRANSDERMA (10:19)
--- NOTE | 2019-10-27 12:53 | PM.NPN ---
Subjective NPU Subjective: Interval history: Patient presents today seemingly overly eager to discuss the increase in his currently as needed Klonopin and having every conversation involved if that can be increased can be made multiple doses and endorsing that is the only thing that will help his situation. Every medication for psychosis or mood stabilization that I identified he had some reason why he could not take it or why it did not help him. I expressed to him my concerns about using that as a primary treatment mechanism especially without a mood stabilizer on board. Mental Status Exam MSE Comments: This is a well-nourished well-developed white male with adequate dress limited grooming and eye contact. No abnormal movements. More cooperative with exam in no acute distress. Speech was more normal rate and volume. Mood described as pretty good, affect less irritable. Thought process more organized. Thought content: Patient denied any suicidal or homicidal ideation, there were no delusions reported and he appeared less guarded/paranoid, he endorsed having less auditory and visual hallucinations. Attention and concentration were limited and memory was unreliable but none were formally tested. He is alert and oriented x3. Insight and judgment are impaired. Vitals/I&O/Wt Last Vital Signs Temp 98.5 F 10/27/19 22:00 Pulse 101 H 10/27/19 22:00 Resp 18 10/27/19 22:00 BP 123/81 10/27/19 22:00 Pulse Ox 94 10/27/19 22:00 Data NPU : 10/24/19 00:08 10/24/19 00:08 A&P Additional A&P Information (1) Anxiety: (2) Schizophrenia: (3) Nicotine dependence, cigarettes, with unspecified nicotine-induced disorders: (4) Cannabis abuse: This is a 39-year-old white male with a long history of addiction and mental health issues including schizophrenia who presents off of medication and quite irritable on a 96-hour hold. 1. Continue current medication. We will offer restarting medications that have been noted as effective in is medical records. He remains resistant. 2. Encourage individual, group and milieu therapy. 3. Continue to 15-minute checks for safety. 4. We will work to schedule outpatient resources and follow-up at discharge. Involuntary Hold Information 96 Hour Hold: 96 Hour Involuntary Admission: Yes 96 Hour Hold Ending Date: 11/03/19 96 Hour Hold Ending Time: 01:35 Attestations NPU Medical Necessity Statement*: Inpatient hospitalization is medically necessary and the clinically appropriate intervention at this time. We will offer medications and adjust as indicated. Likely length of stay 2-4 days. Coding Level of Care Code Acute Strategic Planning Analyst for Tracey Izquierdo
[2019-10-27 14:00] VITALS: BP 118/78; PULSE 75; RESP 18; TEMP 37.2
[2019-10-27] MEDS: trazodone 50 mg Tablet PO (21:38)
[2019-10-27 22:00] VITALS: BP 123/81; PULSE 101; RESP 18; TEMP 36.9; O2SAT 94
[2019-10-28 06:00] VITALS: BP 116/83; PULSE 85; RESP 16; TEMP 36.8; O2SAT 98
[2019-10-28] MEDS: CLONazepam 0.5 mg Tablet PO (11:34)
--- NOTE | 2019-10-28 11:34 | PC.NURSE ---
Addendum entered by Sheree Chopra LPN 10/28/19 12:42: prn med effective no further c/o anxiety Original Note: PRN KLONOPIN 0.5 MG GIVEN PO PER PT C/O STATED ANXIETY. WILL CONT TO MONITOR
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
[2019-10-28 15:50] VITALS: BP 116/83; PULSE 85; RESP 16; TEMP 36.8; O2SAT 98
== END 2019-10-28 16:35 | disposition home or self-care (01) | DRG 885 ==
LOC: ER 10-25 00:33 → NP 10-25 01:22
PROVIDERS: Emergency Medicine; Admitting Provider Psychiatry & Neurology Psychiatry; PCP Family Medicine; Visit Provider Psychiatry & Neurology Psychiatry
DX: F20.9 Schizophrenia, unspecified (principal); F12.10 Cannabis abuse, uncomplicated; Z86.19 Personal history of other infectious and parasitic diseases; G89.29 Other chronic pain; M54.9 Dorsalgia, unspecified; Z79.891 Long term (current) use of opiate analgesic; F41.9 Anxiety disorder, unspecified; F32.9 Major depressive disorder, single episode, unspecified; F17.210 Nicotine dependence, cigarettes, uncomplicated
CPT/HCPCS: 12345; 36415; 80053; 80156; 80164; 80178; 80185; 80306; 80307; 81001; 84443; 85025; 93005; 96372; 99282; J3490

== ENCOUNTER 2019-11-04 17:08 | Emergency (ER) | payer SELFPAY ==
[2019-11-04 17:20] VITALS: BP 111/70; PULSE 102; RESP 18; TEMP 36.9; O2SAT 96; BMI 24.4
--- NOTE | 2019-11-04 17:35 | ED_ITS ---
HPI - Medical Clearance General Chief complaint: Medical Clearance Stated complaint: med refill Time Seen by Provider: 11/04/19 17:33 Related Information Home Medications Medication Instructions Recorded Confirmed ibuprofen 200 - 800 mg PO PRN 10/24/19 10/24/19 Previous Rx's Medication Instructions Recorded clonazepam [Klonopin] 0.5 mg PO BID PRN 30 Days #60 tab 10/28/19 Allergies Allergy/AdvReac Type Severity Reaction Status Date / Time haloperidol [From Haldol] Allergy ADR-Agitate Verified 08/20/19 13:18 d Course Vital Signs Temperature 98.5 F 11/04/19 17:20 Pulse Rate 102 H 11/04/19 17:20 Respiratory Rate 18 11/04/19 17:20 Blood Pressure 111/70 11/04/19 17:20 Pulse Oximetry 96 11/04/19 17:20 MDM - Medical Clearance MDM Narrative Medical decision making narrative: Physical exam all systems were negative except psych or patient is anxious denies any other problems heart rate is tachycardic blood pressure is good lungs are clear abdomen soft patient not suicidal or homicidal Discharge Plan Discharge Patient Disposition: Home, Self-Care Clinical Impression: Anxiety, Medication refill Condition: Stable Prescriptions: No Action ibuprofen 200 mg Tablet 200 - 800 mg PO PRN RF: 0 Klonopin 0.5 mg tablet 0.5 mg PO BID PRN (Reason: anxiety) 30 Days Qty: 60 RF: 1 Discharge Orders: Discharge Order (Routine); Ordered 11/04/19 Ordered By: Dejon Virgen Referrals: Maya Ortiz DO [Primary Care Provider] - Discharge Diet: Usual diet Discharge Activity: Resume usual activity Activity Restrictions/Additional Instructions: Follow-up with [facility] in the morning to see if they will refill your prescription
[2019-11-04 17:44] VITALS: RESP 18; TEMP 36.9; O2SAT 96
== END 2019-11-04 17:45 | disposition home or self-care (01) ==
PROVIDERS: Emergency Provider Nurse Practitioner Family; PCP Family Medicine
DX: Z76.0 Encounter for issue of repeat prescription (principal); F41.9 Anxiety disorder, unspecified
CPT/HCPCS: 99281; 99282

== ENCOUNTER 2019-11-25 12:44 | Emergency (ER) | payer SELFPAY ==
[2019-11-25 12:49] VITALS: BP 131/82; PULSE 83; RESP 18; TEMP 36.4; O2SAT 96; BMI 24.4
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
[2019-11-25 13:07] VITALS: BP 145/75; PULSE 70; RESP 16; O2SAT 97
== END 2019-11-25 13:08 | disposition home or self-care (01) ==
LOC: ER 13:09
PROVIDERS: Emergency Provider Family Medicine; PCP Family Medicine
DX: F41.9 Anxiety disorder, unspecified (principal); F17.210 Nicotine dependence, cigarettes, uncomplicated
CPT/HCPCS: 12345; 99283

== ENCOUNTER 2019-12-07 11:54 | Emergency (ER) | payer SELFPAY ==
[2019-12-07 12:00] VITALS: BP 118/72; PULSE 84; RESP 14; TEMP 36.2; O2SAT 95; BMI 24.4
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
== END 2019-12-07 12:20 | disposition home or self-care (01) ==
PROVIDERS: Emergency Provider Nurse Practitioner Family; PCP Family Medicine
DX: S60.410A Abrasion of right index finger, initial encounter (principal); X58.XXXA Exposure to other specified factors, initial encounter; F17.210 Nicotine dependence, cigarettes, uncomplicated
CPT/HCPCS: 12345; 99281

== ENCOUNTER 2019-12-27 14:30 | Inpatient (IN) | payer SELFPAY ==
[2019-12-27] VITALS (7 sets, daily range): BP systolic 100–134; BP diastolic 64–83; PULSE 66–94; RESP 16–20; TEMP 36.4–36.6; O2SAT 91–100; BMI 24.4
--- NOTE | 2019-12-27 14:59 | ECG_ITS ---
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 Measurements Intervals [place] Rate: 60 P: 24 CA: 120 QRS: 81 QRSD: 104 T: 57 QT: 383 QTc: 385 Interpretive Statements SINUS RHYTHM Compared to ECG 10/25/2019 00:29:43 Sinus bradycardia no longer present Electronically Signed On 12-28-2019 16:00:26 CDT by Armando Chin M.D. [id number]
--- NOTE | 2019-12-27 15:20 | ED_ITS ---
HPI - Psych General: Chief Complaint: Psychiatric Symptoms Stated Complaint: SI, OFF PSYCH MEDS 1 WEEK Time Seen by Provider: 12/27/19 14:59 Source: patient Mode of arrival: ambulatory Limitations: no limitations History of Present Illness: HPI Narrative: Edgar is a nice 39-year-old male who comes in complaining of suicidal ideation. Patient states he has been off his medicines for quite some time. Patient denies any other complaints or concerns. He states he is depressed and he just feels like he needs some help. He denies any other physical complaints he denies any ingestions or recent suicide attempts. Patient is withdrawn and not a good historian. Review of Systems Const: Denies: fever(s) Eyes: Denies: change in vision ENMT: Denies: throat pain Card: Denies: chest pain, palpitations, syncope, pre-syncope or dyspnea on exertion Resp: Denies: dyspnea, productive cough or non-productive cough GI: Denies: abdominal pain, nausea, vomiting or diarrhea : Denies: flank pain, dysuria, urinary frequency or urinary urgency Musc: Denies: neck pain, back pain or extremity pain Skin/Breast: Denies: rash or pruritus Neuro: Denies: headache(s), numbness in extremities, weakness in extremities or dizziness Chap[place]/Lymph: Denies: easy bruising or easy bleeding All/Imm: Denies: urticaria PFSH ED PFSH: Medical History Anxiety Depression Schizophrenia Surgical History No pertinent past surgical history Social History Smoking and tobacco status: current every day smoker cigarettes Packs smoked per day: 0.5 Alcohol intake: never Substance/Drug Use: never Current gender identity: Male Physical Exam Const: COMMON NORMALS: no acute distress, patient oriented x3, no limitations, healthy appearing and well nourished GENERAL APPEARANCE: cooperative, well kempt and well developed HENMT: COMMON NORMALS: normocephalic, atraumatic, external ears normal, EAC's normal and Normal external nose present HEAD & SCALP: normal to inspection, normocephalic and atraumatic FACE & SINUS: normal facial exam and face symmetric NOSE: Normal external nose present and Normal nares present EXTERNAL EAR: Yes external ears normal EXTERNAL AUDITORY CANAL: EAC's normal MOUTH: Normal oral and palatal mucosa present, lip normal and tongue normal Eye: COMMON NORMALS: Equal, round and reactive pupils present and conjunctivae normal GENERAL EYE: appearance normal, both eyes and all related structures ALIGNMENT: Yes alignment normal PERIORBITAL: periorbital findings normal EYELID: eyelids normal CONJUNCTIVA: Yes conjunctivae normal SCLERA: sclerae normal PUPIL: Yes Equal, round and reactive pupils present Neck/C-Spine: COMMON NORMALS: full ROM, no lymphadenopathy, supple, no meningeal signs and no JVD GENERAL: Yes normal visual inspection and Yes trachea midline Chest: COMMONS NORMALS: normal inspection of the chest and normal palpation of entire chest wall Resp: COMMON NORMALS: normal respiratory effort, No retractions and No use of accessory muscles EFFORT & INSPECTION: Yes able to speak in complete s entences and Yes symmetric chest movement AUSCULTATION: no crackles, no rales, no rhonchi and no wheezes Cardio: COMMON NORMALS: no JVD, regular rate, regular rhythm, S1 normal heart sound present and S2 normal heart sound present RATE: regular rate RHYTHM: regular rhythm HEART SOUNDS: S1 normal heart sound present, S2 normal heart sound present, no click, no gallops, no murmurs, no rubs and abnormal split S2 GI: COMMON NORMALS: Soft to palpation and No hepatosplenomegaly present PALPATION: Yes Soft to palpation, No Tenderness to palpation present (GI), No Guarding due to palpation present (GI), No Rigid due to palpation, Yes No hepatosplenomegaly present, No Hernia present, No Palpable mass present and No Pulsatile mass present : COMMON NORMALS: Yes no CVA tenderness BLADDER/KIDNEY EXAM: Yes no CVA tenderness Back/Pelvis: COMMON NORMALS: no CVA tenderness, thoracic and lumbar spine normal to inspection, no thoracic nor lumbar tenderness and thoraco-lumbar ROM normal Extremity: COMMON NORMALS: normal to inspection, full ROM, capillary refill normal, no joint enlargement, no clubbing, cyanosis or edema and no calf tenderness Neuro: COMMON NORMALS: patient oriented x3, CN's II-XII intact bilaterally, moves all extremities, no focal motor deficits and no sensory deficits noted MENINGEAL SIGNS: Yes no meningeal signs SPEECH: speech normal Psych: COMMON NORMALS: mental status grossly normal, Normal thought process present, cooperative, normal affect, speech normal and activity/motor behavior normal APPEARANCE: Yes well kempt SPEECH: Yes normal speech THOUGHT PROCESS: Normal thought process present Skin: COMMON NORMALS: no rashes or lesions noted, turgor normal, no jaundice, no petechiae and no mottling GENERAL SKIN EXAM: no rashes or lesions noted and turgor normal MDM - Psych MDM Narrative: Medical decision making narrative: The case was reviewed with Dr. Denny and he agrees to admission. Patient is voluntary admission at this time. An affidavit is placed on the chart in case the patient changes his mind and tries to leave. Lab Data: Attestation: I reviewed the patient's lab results. Labs: Lab Results 12/27/19 12/27/19 12/27/19 Range/Units 15:24 15:24 15:24 WBC 5.0 (4.0-10.0) 10^3/ uL RBC 5.26 (4.1-5.3) 10^6/u L Hgb 15.8 (11.7-16.6) g/dL Hct 47.8 (42.0-52.0) % MCV 90.9 (80-94) fL MCH 30.0 (28.0-34.0) pg MCHC 33.1 (30.0-36.0) g/dL RDW 13.1 (12.1-15.1) % Plt Count 309 (130-400) 10^3/c mm MPV 9.8 (7.4-10.4) fL Neut % (Auto) 47.5 % Lymph % (Auto) 32.3 % [place] % (Auto) 15.2 % Eos % (Auto) 4.2 % Baso % (Auto) 0.6 % Neut # (Auto) 2.35 (1.8-7.7) 10^3/u L Lymph # (Auto) 1.6 (0.8-4.8) 10^3/u L [place] # (Auto) 0.8 (0.2-0.9) 10^3/u L Eos # (Auto) 0.2 (0.0-0.8) 10^3/u L Baso # (Auto) 0.0 (0.0-0.1) 10^3/u L Nucleated RBC % (a uto) 0 % Nucleated RBCs # 0.0 /100WBC PT 13.00 (10.5-13.3) SECO NDS INR 0.95 (0.8-1.2) Sodium 141 (136-145) mmol/L Potassium 4.2 (3.5-5.1) mmol/L Chloride 103 (98-107) mmol/L Carbon Dioxide 29 (22-29) mmol/L Anion Gap 13.2 (5-19) BUN 12 (6-20) mg/dL Creatinine 1.0 (0.7-1.2) mg/dL GFR Calculation 83.2 L (90-130) mL/min Glucose 83 (65-115) mg/dL Calculated Osmolal ity 287 (285-295) mOsm/k g Calcium 10.0 (8.5-10.5) mg/dL Total Bilirubin 0.5 (0.15-1.2) mg/dL AST 28 (0-40) U/L ALT 25 (0-41) U/L Alkaline Phosphata se 88 (40-130) IU/L Total Protein 7.4 (6.6-8.7) g/dL Albumin 4.8 (3.5-5.2) g/dL Globulin 2.6 (1.3-4.6) g/dL TSH 0.69 (0.27-4.20) uIU/ mL Salicylates < 0.3 L (3-10) mg/dL Urine Opiates Scre en (Negative) ng/mL Acetaminophen < 5.0 L (10-30) ug/mL Ur Barbiturates Sc reen (Negative) ng/mL Phenytoin 0.8 L (10-20) ug/mL Valproic Acid 2.8 L (50-100) ug/mL Carbamazepine 2.0 L (4.0-12.0) ug/mL Ur Phencyclidine S crn (Negative) ng/mL Ur Amphetamines Sc reen (Negative) ng/mL U Benzodiazepines Scrn (Negative) ng/mL Urine Cocaine Scre en (Negative) ng/mL U Marijuana (THC) Screen (Negative) ng/mL Ethyl Alcohol < 10 (0-10) mg/dL 12/26/ Range/Units 15:42 WBC (4.0-10.0) 10^3/ uL RBC (4.1-5.3) 10^6/u L Hgb (11.7-16.6) g/dL Hct (42.0-52.0) % MCV (80-94) fL MCH (28.0-34.0) pg MCHC (30.0-36.0) g/dL RDW (12.1-15.1) % Plt Count (130-400) 10^3/c mm MPV (7.4-10.4) fL Neut % (Auto) % Lymph % (Auto) % [place] % (Auto) % Eos % (Auto) % Baso % (Auto) % Neut # (Auto) (1.8-7.7) 10^3/u L Lymph # (Auto) (0.8-4.8) 10^3/u L [place] # (Auto) (0.2-0.9) 10^3/u L Eos # (Auto) (0.0-0.8) 10^3/u L Baso # (Auto) (0.0-0.1) 10^3/u L Nucleated RBC % (a uto) % Nucleated RBCs # /100WBC PT (10.5-13.3) SECO NDS INR (0.8-1.2) Sodium (136-145) mmol/L Potassium (3.5-5.1) mmol/L Chloride (98-107) mmol/L Carbon Dioxide (22-29) mmol/L Anion Gap (5-19) BUN (6-20) mg/dL Creatinine (0.7-1.2) mg/dL GFR Calculation (90-130) mL/min Glucose (65-115) mg/dL Calculated Osmolal ity (285-295) mOsm/k g Calcium (8.5-10.5) mg/dL Total Bilirubin (0.15-1.2) mg/dL AST (0-40) U/L ALT (0-41) U/L Alkaline Phosphata se (40-130) IU/L Total Protein (6.6-8.7) g/dL Albumin (3.5-5.2) g/dL Globulin (1.3-4.6) g/dL TSH (0.27-4.20) uIU/ mL Salicylates (3-10) mg/dL Urine Opiates Scre en Negative (Negative) ng/mL Acetaminophen (10-30) ug/mL Ur Barbiturates Sc reen Negative (Negative) ng/mL Phenytoin (10-20) ug/mL Valproic Acid (50-100) ug/mL Carbamazepine (4.0-12.0) ug/mL Ur Phencyclidine S crn Negative (Negative) ng/mL Ur Amphetamines Sc reen Negative (Negative) ng/mL U Benzodiazepines Scrn Negative (Negative) ng/mL Urine Cocaine Scre en Negative (Negative) ng/mL U Marijuana (THC) Screen Positive H (Negative) ng/mL Ethyl Alcohol (0-10) mg/dL EKG Data^: EKG 1: Attestation: I personally reviewed and interpreted this EKG as follows: EKG interpretation date: 12/27/19 EKG interpretation time: 15:09 Interpretation: Normal sinus rhythm at 60 beats a minute, normal axis, no blocks, normal intervals. Discharge Plan Discharge Patient Disposition: Admitted As Inpatient Admit Provider: Scar Denny Clinical Impression: Suicidal ideation Condition: Stable Coding Level of Care Code ED Orthopaedic Surgeon for Chg Fwd Exam Comprehensive
--- NOTE | 2019-12-27 15:34 | PC.NURSE ---
Given 2 sandwiches and drinks
[2019-12-27 15:45] LABS: Basophils % 0.6 %; Eosinophils # 0.2 10^3/uL (0.0-0.8); Eosinophils % 4.2 %; Hematocrit 47.8 % (42.0-52.0); Hemoglobin 15.8 g/dL (11.7-16.6); Lymphocytes # 1.6 10^3/uL (0.8-4.8); Lymphocytes % 32.3 %; Mean Corpuscular HGB Conc 33.1 g/dL (30.0-36.0); Mean Corpuscular Volume 90.9 fL (80-94); Mean Platelet Volume 9.8 fL (7.4-10.4); Monocytes # 0.8 10^3/uL (0.2-0.9); Monocytes % 15.2 %; Neutrophils # 2.35 10^3/uL (1.8-7.7); Neutrophils % 47.5 %; Nucleated Red Blood Cells % 0 %; Platelet Count 309 10^3/cmm (130-400); Red Blood Count 5.26 10^6/uL (4.1-5.3); Red Cell Distribution Width 13.1 % (12.1-15.1)
[2019-12-27 15:53] LABS: INR 0.95 (0.8-1.2)
[2019-12-27 16:01] LABS: Amphetamines Screen Urine Negative (Negative); Barbiturates Screen Urine Negative (Negative); Benzodiazepines Screen Urine Negative (Negative); Cocaine Screen Urine Negative (Negative); Opiate Screen Urine Negative (Negative); PCP Screen Urine Negative (Negative); THC Screen Urine Positive (Negative)
[2019-12-27 16:06] LABS: Alanine Aminotransferase 25 U/L (0-41); Albumin Level 4.8 g/dL (3.5-5.2); Alkaline Phosphatase 88 IU/L (40-130); Anion Gap 13.2 (5-19); Aspartate Amino Transferase 28 U/L (0-40); Blood Urea Nitrogen 12 mg/dL (6-20); Carbon Dioxide 29 mmol/L (22-29); Chloride 103 mmol/L (98-107); Globulin 2.6 g/dL (1.3-4.6); Glomerular Filtration Rate 83.2 mL/min (90-130); Glucose 83 mg/dL (65-115); Osmolality Calculated 287 mOsm/kg (285-295); Phenytoin Dilantin 0.8 ug/mL (10-20); Potassium 4.2 mmol/L (3.5-5.1); Sodium 141 mmol/L (136-145); Thyroid Stimulating Hormone 0.69 uIU/mL (0.27-4.20); Total Bilirubin 0.5 mg/dL (0.15-1.2); Total Protein 7.4 g/dL (6.6-8.7); Valproic Acid Level 2.8 ug/mL (50-100)
[2019-12-27 16:44] LABS: Acetaminophen < 5.0 ug/mL (10-30); Alcohol Level < 10 mg/dL (0-10); Salicylate < 0.3 mg/dL (3-10)
[2019-12-28 06:00] VITALS: BP 102/61; PULSE 73; RESP 18; TEMP 36.7; O2SAT 94
[2019-12-28 14:00] VITALS: BP 109/73; PULSE 78; RESP 20; TEMP 36.7; O2SAT 96
--- NOTE | 2019-12-28 16:40 | P.SS_ITS ---
Short Stay Summary Providers Date of Admit/Discharge: 12/31/19 Attending Provider: Scar Denny MD Primary Care Provider: Maya Ortiz DO Chief Complaint: mhe HPI History of Present Illness Edgar Almazan is a 39 year old male who presented to the emergency room known to the provider from many visits to the emergency room, endorsing suicidal ideation, reporting he has been off of his medication, and denying any other complaints. He was reporting he needs some help but was quite withdrawn and was a fairly unengaged poor historian. He was admitted to the neuropsychiatric unit for definitive treatment of those issues. 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 I did meet with him briefly, and because he was mostly focused on getting medication and wanting to leave because he reported all he needed to do was get his medication and he would be fine, we discussed a possible vehicle, through which we could initiate his medication and have some consideration for either tapering him off of the Klonopin, or working with his outpatient provider to consider a process, based on their thoughts; but he was not interested in anything that took any time. He essentially wanted an immediate answer. I reviewed with him the history that he and I have together, which is that he has been out of assisted for only a limited period of time, and came to the hospital back in September and, at that time, was not doing well and was using. He was restarted on the medications that his outpatient team had him on, which included low dose Klonopin. Then he did not follow up at [facility] but did return to the emergency room with some questionable excuse or reason for why he did not make his appointment, and he was given some bridge medication to get to an appointment. That was in the beginning of November, and now he has run out of those medications, albeit several days before he should have, and he returns looking for a refill. We expressed this avoidance of the outpatient milieu and having t hem as the people that get to know him well and can make decisions based on that, as a necessary component which he has been avoiding. So, we discussed a plan which included continuing inpatient, which he did not want and said he was leaving AMA. But then, multiple times, he tried to reengage this copywriter to get some pills, a monthly script, something prescribed to him. But we discussed the risks, benefits, and alternatives of preceding that way, and he understood and had no choice but to accept that is how we would proceed with the benzodiazepines. He was a poor historian and an expert from his last hospitalization is included to give some historical background. given that he is not engaged in giving a full history with valuable historical data for understanding his circumstance. Mental Status This is a slender, white male, with adequate dress, grooming, and limited eye contact. No abnormal movements, except for mild psychomotor agitation. Semi- cooperative with exam in no acute distress. Speech was increased rate and decreased volume. Mood described as okay; affect congruent. Thought process, organized. Thought content: patient denied any suicidal or homicidal ideation, there were no delusions reported or noted, patient denied any auditory or visual hallucinations. Attention, concentration, and memory appeared intact but none were formally tested. He is alert and oriented times three. Insight and judgment are limited. Impulse control is limited. Assessment This is a 39 year old, white male, with a long history of schizophrenia and addiction, who presents with a UDS positive for marijuana only, but requesting a refill of his benzodiazepine without engaging in good kassy with outpatient treatment since his hospitalization here in September, who presents wanting refills on his benzodiazepines mostly, and when that was refused, he requested to leave against medical advise. Continue current medications, except we will not write for Klonopin, given overuse and lack of engagement in outpatient treatment. Encourage individual, group, and milieu therapy. Continue q-15 minute checks for safety. Encourage treatment at a sober living facility, after discharge, at the highest level of care to which he is willing to commit. Given absence of credibly lethality, and the fact that he is not on a 96-hour hold/is a voluntary patient, he will be allowed to leave against medical advise. Per his September 2019 [facility] IP eval: History of Present Illness Edgar Almazan is a 39 year old male who presents poor historian with fairly little to add. He presented to the emergency room with hallucinations endorsing irritability and concerns that he might get so worked up that he might harm someone else. He presents today very irritable and more less resistant to the interview. He was able to identify that he has been here multiple times before which is confirmed throughout chart search. His last hospitalization was in 2016 and excerpt from that hospitalization is provided below. He denies any significant changes in his psychosocial circumstance over the last couple years. He endorsed recent cannabis use but denied other illicit drug use which was confirmed by his UDS. He endorsed lethality being a better condition to speak in the morning. Per his last [facility] eval: History of Present Illness Date of Service: Mar 30, 2017 Chief Complaint: I came here to get a refill only Klonopins. HPI: Mr. Almazan is a 36-year-old male that is known to our behavioral health services to the previous diagnosis of acute psychosis in the context of polysubstance abuse who presented to the emergency department yesterday expressing suicidal ideation with a plan to jump off a bridge. 96 hour hold was placed at that time and affidavits are reviewed on the chart. The patient reports that he was kicked out of the [facility] last month and has been sleeping in his car since then. He reports that he went to his control officer appointment yesterday and told her that he wanted to come to the hospital because his Klonopin had been stolen and he wanted a refill. Patient is very irritable and disorganized during the interview and reports that there is a conspiracy involving the police and an underground organization in [place] where many people are being killed. Reports that there are 150 guys in the field that ran off into the keenan. He reports that people in the hospital must also be on the conspiracy if they're willing to keep him in the hospital against his will. Psychiatric review of systems. The patient denies that he ever threatened suicide and reports I feel suicidal all the time, not right now. He describes his mood as happy but proceeds to express homicidal/aggressive ideation, threatening to start harming people on the unit if he needs to ( I'm gonna start knockin' mother- f-ers out. ) Demanding to go to assisted instead of the hospital. He is very disorganized in his mood reporting otherwise. Is depressed and the nondepressed suicidal but not suicidal. He is apparently very paranoid and disorganized as well as impulsive, irritable, angry and agitated. He denies having any hallucinations. Patient stands up and is verbally threatening to this provider pain to be excused with security present during the interview due to his history of violence on the [facility]. PAST PSYCHIATRIC HISTORY: -Last hospitalization on the [facility] X2 in 2015 last admission was in the summer of 2016 at which time he was intoxicated with numerous different drugs and threatening this provider and destroying property in the hospital punching numerous holes in the wall due to demands to be discharged. He has had previous diagnoses of psychosis unspecified versus schizophrenia/bipolar disorder and anxiety. During his most recent admission to the [facility] he was stabilized on Invega 9 mg daily and was continued on Prozac 20 mg daily and Klonopin 1 mg twice daily at that time. -Currently does not have an outpatient mental health provider reports that he goes to acute care for his Klonopin refills. Reports that he does not need any other psychotropic medications. -Other Past medications have included Risperdal and Zyprexa per records. PAST FAMILY PSYCHIATRIC HISTORY: -Noncontributory per records. Unobtainable at this time due to patient agitation. SOCIAL HISTORY: -Unobtainable at this time due to patient agitation. He has a history of metham phetamine use and urine drug screen was also positive for amphetamines and MDMA during his last admission. Only positive for marijuana during this admission. PAST MEDICAL HISTORY: -Unobtainable at this time due to patient agitation. Per records- Hepatitis C Chronic back pain with Narcotic dependence Surgeries: (Liver biopsy, Knee surgery). Home Meds/Allergies Home Medications and Allergies Allergies Allergy/AdvReac Type Severity Reaction Status Date / Time haloperidol [From Haldol] Allergy ADR-Agitate Verified 12/07/19 12:14 d PFSH Acute PFSH: Medical History Anxiety Depression Schizophrenia Surgical History No pertinent past surgical history Social History Smoking and tobacco status: current every day smoker cigarettes Packs smoked per day: 0.5 Alcohol intake: never Substance/Drug Use: never Current gender identity: Male Vitals/I&O/Wt Last Vital Signs Temp 98.0 F 12/28/19 14:00 Pulse 78 12/28/19 14:00 Resp 20 H 12/28/19 14:00 BP 109/73 12/28/19 14:00 Pulse Ox 96 12/28/19 14:00 Weight last 48 hrs Weight 79.379 kg Hospital Course Hospital Course: Patient presented to the emergency room endorsing lethality and being off of his medication, and starting to feel unstable. He was admitted to the neuropsychiatric unit for definitive treatment of those issues, but he very quickly asked that he be discharged once it seemed to him that he might not get his wish as far as having the Klonopin prescribed the way it was without any kind of stipulation. He demanded to be discharged against medical advise, although he continued to lobby for the entire time prior to walking out the door for some kind of script to be written of some sort. It was recommended to him that he walk in to [facility], call [facility] and connect with them and follow through on that connection if there is any chance that he is going to be prescribed the Klonopin by this system. During the hospitalization, the patient had routine laboratory studies which were within normal limits, except for a few outliers. Additionally, the patient had a general medical evaluation which was within normal limits and revealed no new acute processes. Discharge Summary: At the time of discharge the patient denied all lethality, was absent psychosis, and mood and anxiety were well managed. The patient endorsed a plan to avoid all drugs of abuse and to follow-up with outpatient services, as recommended. The patient requested to leave against medical advise, and given the absence of credible lethality, he was allowed to discharge. Diagnoses at Discharge Discharge Diagnosis (1) Cannabis abuse: Status: Acute (2) Anxiety: Status: Chronic (3) Schizophrenia: Status: Chronic Qualifiers: Schizophrenia type: unspecified Qualified Code(s): F20.9 - Schizophrenia, unspecified (4) Nicotine dependence, cigarettes, with unspecified nicotine-induced disorders: Status: Chronic Discharge Plan Discharge Patient Disposition: Left Against Medical Advice Condition: Stable Prescriptions: Discontinued clonazepam [Klonopin] 0.5 mg tablet 0.5 mg PO BID PRN (Reason: anxiety) 30 Days Qty: 60 RF: 1 Discharge Orders: Discharge Order (Routine); Ordered 12/28/19 Ordered By: Scar Denny Referrals: [facility] [Outside] (Call to reschedule your psychiatric assessment) Maya Ortiz DO [Primary Care Provider] - Discharge Diet: Regular Discharge Activity: Resume usual activity Patient Instructions: Anxiety (DC) Discharge Date/Time: 12/28/19 17:40 Attestations Medical Necessity Statement*: Inpatient hospitalization was medically indicated, but not desired by the patient, and the patient demanded to be discharged and given the absence of credible lethality, he was allowed to discharge against medical advise. Time Spent in Patient Care*: greater than 30 min Specific Discharge Activities: Specific discharge activities: educating patient, discussing with counseling case manager/social workers/dc planners, documenting/other paperwork and evaluating patient/reviewing data Status at Discharge: Cognitive status at discharge: cognitively intact , Behavioral status at discharge: cooperative , Functional status at discharge: independent ambulation Overall status at discharge: patient is back to baseline Quality Metrics Clinical Quality Measures: During this hospital stay, did patient experience: None Coding Level of Care Code Acute Bead Stringer for Tracey Fwd Diagnoses Cannabis abuse F12.10 Anxiety F41.9 Schizophrenia F20.9 Schizophrenia type: unspecified Nicotine dependence, cigarettes, with unspecified nicotine-induced disorders F17.219
[2019-12-28 17:20] VITALS: BP 109/73; PULSE 78; RESP 20; TEMP 36.7; O2SAT 96
== END 2019-12-28 17:40 | disposition left against medical advice (07) | DRG 885 ==
LOC: ER 15:15 → NP 17:00
PROVIDERS: Admitting Provider Psychiatry & Neurology Psychiatry; Emergency Provider Emergency Medicine; PCP Family Medicine; Visit Provider Psychiatry & Neurology Psychiatry
DX: F20.9 Schizophrenia, unspecified (principal); R45.851 Suicidal ideations; F11.20 Opioid dependence, uncomplicated; F41.8 Other specified anxiety disorders; F17.210 Nicotine dependence, cigarettes, uncomplicated; F12.10 Cannabis abuse, uncomplicated; B19.20 Unspecified viral hepatitis C without hepatic coma; G89.29 Other chronic pain; M54.9 Dorsalgia, unspecified; Z53.29 Procedure and treatment not carried out because of patient's decision for other reasons
CPT/HCPCS: 12345; 36415; 80053; 80156; 80164; 80185; 80306; 80307; 84443; 85025; 85610; 93005; 99284

== ENCOUNTER 2020-01-11 15:08 | Emergency (ER) | payer SELFPAY ==
[2020-01-11 15:15] VITALS: BP 132/50; PULSE 68; RESP 16; TEMP 36.8; O2SAT 96; BMI 23.0
[2020-01-11 15:36] VITALS: BP 132/50; PULSE 79; RESP 18; O2SAT 96
[2020-01-11 15:38] LABS: Basophils % 0.3 %; Eosinophils # 0.2 10^3/uL (0.0-0.8); Eosinophils % 1.7 %; Hematocrit 45.3 % (42.0-52.0); Hemoglobin 14.6 g/dL (11.7-16.6); Lymphocytes # 1.3 10^3/uL (0.8-4.8); Lymphocytes % 13.2 %; Mean Corpuscular HGB Conc 32.2 g/dL (30.0-36.0); Mean Corpuscular Hemoglobin 29.4 pg (28.0-34.0); Mean Corpuscular Volume 91.1 fL (80-94); Mean Platelet Volume 9.9 fL (7.4-10.4); Monocytes # 0.8 10^3/uL (0.2-0.9); Neutrophils # 7.27 10^3/uL (1.8-7.7); Neutrophils % 76.3 %; Nucleated Red Blood Cells % 0 %; Platelet Count 305 10^3/cmm (130-400); Red Blood Count 4.97 10^6/uL (4.1-5.3); Red Cell Distribution Width 13.8 % (12.1-15.1); White Blood Count 9.5 10^3/uL (4.0-10.0)
[2020-01-11 16:01] LABS: Alanine Aminotransferase 45 U/L (0-41); Albumin Level 4.4 g/dL (3.5-5.2); Alkaline Phosphatase 83 IU/L (40-130); Anion Gap 13.3 (5-19); Aspartate Amino Transferase 50 U/L (0-40); Blood Urea Nitrogen 11 mg/dL (6-20); Calcium 9.3 mg/dL (8.5-10.5); Carbon Dioxide 31 mmol/L (22-29); Chloride 102 mmol/L (98-107); Globulin 2.8 g/dL (1.3-4.6); Glomerular Filtration Rate 83.2 mL/min (90-130); Glucose 99 mg/dL (65-115); Osmolality Calculated 290 mOsm/kg (285-295); Potassium 4.3 mmol/L (3.5-5.1); Salicylate 0.5 mg/dL (3-10); Sodium 142 mmol/L (136-145); Total Bilirubin 0.3 mg/dL (0.15-1.2); Total Protein 7.2 g/dL (6.6-8.7)
[2020-01-11 16:03] LABS: Acetaminophen < 5.0 ug/mL (10-30); Alcohol Level < 10 mg/dL (0-10)
[2020-01-11 16:09] LABS: Amphetamines Screen Urine Negative (Negative); Barbiturates Screen Urine Negative (Negative); Benzodiazepines Screen Urine Negative (Negative); Cocaine Screen Urine Negative (Negative); Opiate Screen Urine Negative (Negative); PCP Screen Urine Negative (Negative); THC Screen Urine Negative (Negative)
--- NOTE | 2020-01-11 16:55 | W.ED.PSYCH ---
HPI - Psych General: Chief Complaint: Psychiatric Symptoms Stated Complaint: SI Time Seen by Provider: 01/11/20 15:23 Source: patient Mode of arrival: ambulatory Limitations: no limitations History of Present Illness: HPI Narrative: This unfortunate gentleman presents to the emergency department because he is homeless. He states that he was released from skilled nursing about 5 months ago and has essentially not been assisted since then. He has been in the [facility] but he has been kicked out so he is ineligible for another year. He would like to go to [facility] in [place] but they require an ID which he does not have. He is therefore here to see if he can be helped. Of note is he was discharged from our psych facility 2 weeks ago. He denies suicidal or homicidal ideation. He claims he has stopped using drugs. He appears pleasant and contrite. He states that he has been sleeping in his car. complaint: other Review of Systems General: Reports: 10 or more systems reviewed and unremarkable except in HPI and below Const: Denies: fever(s), chills or body aches Eyes: Denies: change in vision or blurry vision ENMT: Denies: throat pain, enlarged tonsils, odynophagia, hoarseness, mouth pain or swelling of lips/tongue Card: Denies: palpitations, irregular heart rhythm, edema or swelling of feet/ankles Resp: Denies: dyspnea, productive cough or non-productive cough GI: Denies: abdominal pain, nausea or vomiting : Denies: flank pain, dysuria, urinary frequency, urinary urgency or urinary hesitancy Musc: Denies: neck pain, back pain or extremity swelling Skin/Breast: Denies: rash, pruritus or erythema Neuro: Denies: headache(s), numbness in extremities or weakness in extremities Endo: Denies: polyuria, polydipsia or tired all the time PFS ED PFSH: Medical History Anxiety Depression Methamphetamine use Schizophrenia Surgical History No pertinent past surgical history Social History Smoking and tobacco status: current every day smoker cigarettes Packs smoked per day: 0.5 Alcohol intake: never Current gender identity: Male Physical Exam Const: COMMON NORMALS: no acute distress, average body habitus, patient oriented x3, no limitations, healthy appearing, alert and well nourished HENMT: COMMON NORMALS: normocephalic, atraumatic and moist oral mucous membranes HEAD & SCALP: normocephalic and atraumatic Neck/C-Spine: COMMON NORMALS: no meningeal signs and no JVD Resp: COMMON NORMALS: normal respiratory effort, No retractions, No use of accessory muscles, clear to auscultation bilaterally and percussion normal AUSCULTATION: clear to auscultation bilaterally PERCUSSION: percussion normal Cardio: COMMON NORMALS: no JVD, regular rate, regular rhythm, S1 normal heart sound present, S2 normal heart sound present, No gallops present (Cardio), No clicks present (Cardio), No murmurs present (Cardio), No rub (Cardio) and Peripheral pulses 2+ throughout RATE: regular rate RHYTHM: regular rhythm HEART SOUNDS: S1 normal heart sound present and S2 normal heart sound present PERIPHERAL PULSES: Peripheral pulses 2+ throughout GI: COMMON NORMALS: Normal to inspection, nondistended, normoactive bowel sounds present, Soft to palpation, non-tender, No hepatosplenomegaly present, no masses and no bruits PALPATION: Yes Soft to palpation and Yes No hepatosplenomegaly present Extremity: COMMON NORMALS: normal to inspection, full ROM, capillary refill normal, no calf tenderness and no pedal edema Neuro: COMMON NORMALS: patient oriented x3 SENSORIUM/ORIENTATION: Yes alert MENINGEAL SIGNS: Yes no meningeal signs Skin: COMMON NORMALS: no rashes or lesions noted, no wounds, turgor normal, no jaundice, no petechiae and no mottling GENERAL SKIN EXAM: no rashes or lesions noted and turgor normal MDM - Psych MDM Narrative: Medical decision making narrative: This unfortunate 39-year-old gentleman he is probably living a consequence of his former life. He was a drug user and was in skilled nursing until about 5 months ago. Since then he has had a hard time living. He is homeless and was in a alf until he was kicked out. He is trying to get to another alf in [place], about 100 miles away. I had our home health care case manager in the ED call the [facility] in [place] and they require identification which the patient does not have. He is also required to go there as they do not reserve beds, it is first come, first served. We looked through our system to see if we had a copy of his ID so we could print it out and he can use it, but we do not so that was not successful. Evaluation in the ED was unremarkable. He was not suicidal or homicidal and was not pyschotic. He therefore did not meet admission criteria. He said he will go to his step father to see if he can help him, he is advised to obtain an ID shortly so he can be helped. Medical Records: Attestation: I reviewed the patient's medical records. Lab Data: Attestation: I reviewed the patient's lab results. Labs: Lab Results 01/11/20 01/11/20 01/11/20 Range/Units 15:32 15:32 15:40 WBC 9.5 (4.0-10.0) 10^3/ uL RBC 4.97 (4.1-5.3) 10^6/u L Hgb 14.6 (11.7-16.6) g/dL Hct 45.3 (42.0-52.0) % MCV 91.1 (80-94) fL MCH 29.4 (28.0-34.0) pg MCHC 32.2 (30.0-36.0) g/dL RDW 13.8 (12.1-15.1) % Plt Count 305 (130-400) 10^3/c mm MPV 9.9 (7.4-10.4) fL Neut % (Auto) 76.3 % Lymph % (Auto) 13.2 % [place] % (Auto) 8.0 % Eos % (Auto) 1.7 % Baso % (Auto) 0.3 % Neut # (Auto) 7.27 (1.8-7.7) 10^3/u L Lymph # (Auto) 1.3 (0.8-4.8) 10^3/u L [place] # (Auto) 0.8 (0.2-0.9) 10^3/u L Eos # (Auto) 0.2 (0.0-0.8) 10^3/u L Baso # (Auto) 0.0 (0.0-0.1) 10^3/u L Nucleated RBC % (a uto) 0 % Nucleated RBCs # 0.0 /100WBC Sodium 142 (136-145) mmol/L Potassium 4.3 (3.5-5.1) mmol/L Chloride 102 (98-107) mmol/L Carbon Dioxide 31 H (22-29) mmol/L Anion Gap 13.3 (5-19) BUN 11 (6-20) mg/dL Creatinine 1.0 (0.7-1.2) mg/dL GFR Calculation 83.2 L (90-130) mL/min Glucose 99 (65-115) mg/dL Calculated Osmolal ity 290 (285-295) mOsm/k g Calcium 9.3 (8.5-10.5) mg/dL Total Bilirubin 0.3 (0.15-1.2) mg/dL AST 50 H (0-40) U/L ALT 45 H (0-41) U/L Alkaline Phosphata se 83 (40-130) IU/L Total Protein 7.2 (6.6-8.7) g/dL Albumin 4.4 (3.5-5.2) g/dL Globulin 2.8 (1.3-4.6) g/dL Salicylates 0.5 L (3-10) mg/dL Urine Opiates Scre en Negative (Negative) ng/mL Acetaminophen < 5.0 L (10-30) ug/mL Ur Barbiturates Sc reen Negative (Negative) ng/mL Ur Phencyclidine S crn Negative (Negative) ng/mL Ur Amphetamines Sc reen Negative (Negative) ng/mL U Benzodiazepines Scrn Negative (Negative) ng/mL Urine Cocaine Scre en Negative (Negative) ng/mL U Marijuana (THC) Screen Negative (Negative) ng/mL Ethyl Alcohol < 10 (0-10) mg/dL Discharge Plan Discharge Patient Disposition: Home Clinical Impression: Homeless single person Condition: Stable Prescriptions: Continued clonazepam [Klonopin] 0.5 mg tablet 0.5 mg PO BID PRN (Reason: anxiety) 30 Days Qty: 60 RF: 1 Discharge Orders: Discharge Order (Routine); Ordered 01/11/20 Ordered By: Jaime Flores Referrals: Maya Ortiz DO [Primary Care Provider] - 1-3 days Activity Restrictions/Additional Instructions: Return for any new or worsening symptoms. It is important for you to obtain a form of identification so you can be admitted to a alf where he can be assisted. Follow-up with your primary care provider within 3 days. Discharge Date/Time: 01/11/20 17:12 Coding Level of Care Code ED Home And Family Living Professor for Tracey Izquierdo
[2020-01-11 17:09] VITALS: BP 118/71; PULSE 79; RESP 18; TEMP 37.2; O2SAT 96
== END 2020-01-11 17:12 | disposition home or self-care (01) ==
PROVIDERS: Emergency Medicine; Emergency Provider Family Medicine; PCP Family Medicine
DX: Z59.0 Homelessness (principal); F17.210 Nicotine dependence, cigarettes, uncomplicated
CPT/HCPCS: 12345; 36415; 80053; 80306; 80307; 85025; 99284

== ENCOUNTER 2020-01-12 03:45 | Emergency (ER) | payer SELFPAY ==
[2020-01-12 03:51] VITALS: BP 118/83; PULSE 68; RESP 15; TEMP 36.7; O2SAT 98; BMI 23.0
--- NOTE | 2020-01-12 04:05 | ED_ITS ---
Documented by User: KATE Herrera 01/12/20 04:30 HPI - Psych General: Chief Complaint: Psychiatric Symptoms Stated Complaint: si Time Seen by Provider: 01/12/20 04:04 History of Present Illness: HPI Narrative: Patient is a 39-year-old male who comes to the ED with SI. Patient has a past medical history of methamphetamine use, anxiety and schizophrenia. Patient is currently homeless states that he is depressed and thinking about suicide. Patient says with the stress of being homeless he is getting more depressed. He endorses having low energy. His sleep is normal and unaffected. He denies any visual hallucinations but does endorse auditory hallucinations. He says he hears voices coming from the ground, but they do not say anything in particular are telling him to hurt himself or hurt anybody else. Denies any recent alcohol or drug use. Denies HI Associated symptoms: Reports auditory hallucinations, depression and suicidal ideation; Deny homicidal ideation Review of Systems Const: Denies: fever(s), chills or fatigue Eyes: Denies: change in vision or eye discomfort ENMT: Denies: throat pain, odynophagia, nasal discharge or nasal congestion Card: Denies: chest pain, palpitations, edema, swelling of feet/ankles, dyspnea on exertion or orthopnea Resp: Denies: dyspnea, productive cough or non-productive cough GI: Denies: abdominal pain, nausea, vomiting, diarrhea, constipation or hematochezia : Denies: flank pain, difficulty urinating, dysuria or hematuria Musc: Denies: neck pain, back pain or extremity swelling Skin/Breast: Denies: rash or new lesions Neuro: Denies: headache(s), numbness in extremities or weakness in extremities Psych: Reports: depression, auditory hallucinations and suicidal ideation; Denies: homicidal ideation PFSH ED PFSH: Medical History Anxiety Depression Methamphetamine use Schizophrenia Surgical History No pertinent past surgical history Social History Smoking and tobacco status: current every day smoker cigarettes Packs smoked per day: 0.5 Alcohol intake: never Current gender identity: Male Physical Exam Const: COMMON NORMALS: no acute distress, patient oriented x3 and alert GENERAL APPEARANCE: cooperative and comfortable HENMT: COMMON NORMALS: normocephalic HEAD & SCALP: normocephalic MOUTH: Normal oral and palatal mucosa present THROAT: posterior oropharynx normal and uvula midline Eye: COMMON NORMALS: Equal, round and reactive pupils present PUPIL: Yes Equal, round and reactive pupils present Neck/C-Spine: COMMON NORMALS: supple GENERAL: Yes normal visual inspection Resp: COMMON NORMALS: normal respiratory effort, No retractions, No use of accessory muscles and clear to auscultation bilaterally AUSCULTATION: clear to auscultation bilaterally Cardio: COMMON NORMALS: regular rate, regular rhythm, S1 normal heart sound present, S2 normal heart sound present, No gallops present (Cardio), No clicks present (Cardio), No murmurs present (Cardio) and Peripheral pulses 2+ throughout RATE: regular rate RHYTHM: regular rhythm HEART SOUNDS: S1 normal heart sound present and S2 normal heart sound present PERIPHERAL PULSES: Peripheral pulses 2+ throughout GI: COMMON NORMALS: Normal to inspection, nondistended, normoactive bowel sounds present, Soft to palpation, non-tender and no masses PALPATION: Yes Soft to palpation : COMMON NORMALS: Yes no CVA tenderness BLADDER/KIDNEY EXAM: Yes no CVA tenderness Back/Pelvis: COMMON NORMALS: no CVA tenderness Neuro: COMMON NORMALS: patient oriented x3 and moves all extremities SENSORIUM/ORIENTATION: Yes alert Psych: COMMON NORMALS: Normal thought process present and cooperative APPEARANCE: Yes grossly normal ATTITUDE: Yes calm ACTIVITY/MOTOR BEHAVIOR: Yes Avoids eye contact (attititude/behavior) SPEECH: Yes excessive and Yes rapid MOOD & AFFECT: Yes euthymic mood THOUGHT PROCESS: Normal thought process present THOUGHT CONTENT: Yes Suicidality present, No Homicidality present and Yes Hallucination(s) present auditory (Hears voices coming from the ground. They do not tell him anything in particular.); not visual and not tactile ATTENTION/CONCENTRATION: Yes attention grossly intact and Yes concentration grossly intact MEMORY/COGNITION: Yes memory grossly intact and Yes cognition grossly intact INSIGHT: Fair insight present (Psych) JUDGEMENT: Fair judgement present (Psych) Skin: COMMON NORMALS: no rashes or lesions noted GENERAL SKIN EXAM: no rashes or lesions noted and dry skin MDM - Psych MDM Narrative: Medical decision making narrative: I performed the initial history and physical exam of patient. I ordered labs and contacted Dr. Denny about patient as well. Dr. Denny says he wants to come into the ED and talk with patient personally and then he will decide care plan. I discussed patient case with Dr. Hernandez and signing patient care over to him. Lab Data: Labs: Lab Results 01/12/20 01/12/20 01/12/20 Range/Units 04:17 04:17 04:18 WBC 6.9 (4.0-10.0) 10^3/ uL RBC 4.60 (4.1-5.3) 10^6/u L Hgb 13.5 (11.7-16.6) g/dL Hct 42.0 (42.0-52.0) % MCV 91.3 (80-94) fL MCH 29.3 (28.0-34.0) pg MCHC 32.1 (30.0-36.0) g/dL RDW 14.0 (12.1-15.1) % Plt Count 273 (130-400) 10^3/c mm MPV 10.3 (7.4-10.4) fL Neut % (Auto) 53.9 % Lymph % (Auto) 28.5 % Larue % (Auto) 13.3 % Eos % (Auto) 3.6 % Baso % (Auto) 0.4 % Neut # (Auto) 3.73 (1.8-7.7) 10^3/u L Lymph # (Auto) 2.0 (0.8-4.8) 10^3/u L Larue # (Auto) 0.9 (0.2-0.9) 10^3/u L Eos # (Auto) 0.3 (0.0-0.8) 10^3/u L Baso # (Auto) 0.0 (0.0-0.1) 10^3/u L Nucleated RBC % (a uto) 0 % Nucleated RBCs # 0.0 /100WBC Sodium 140 (136-145) mmol/L Potassium 4.2 (3.5-5.1) mmol/L Chloride 104 (98-107) mmol/L Carbon Dioxide 25 (22-29) mmol/L Anion Gap 15.2 (5-19) BUN 16 (6-20) mg/dL Creatinine 0.8 (0.7-1.2) mg/dL GFR Calculation 107.6 (90-130) mL/min Glucose 102 (65-115) mg/dL Calculated Osmolal ity 287 (285-295) mOsm/k g Calcium 8.7 (8.5-10.5) mg/dL Total Bilirubin 0.2 (0.15-1.2) mg/dL AST 39 (0-40) U/L ALT 36 (0-41) U/L Alkaline Phosphata se 81 (40-130) IU/L Total Protein 6.1 L (6.6-8.7) g/dL Albumin 3.7 (3.5-5.2) g/dL Globulin 2.4 (1.3-4.6) g/dL Urine Color Yellow (Yellow) Urine Appearance Clear (CLEAR) Urine pH 6.5 (5-7) Ur Specific Gravit y 1.010 (1.005-1.030) Urine Protein Neg (Negative) Urine Glucose (UA) Norm (Normal) Urine Ketones Negative (Negative) Urine Blood Neg (Negative) Urine Nitrate Negative (Negative) Urine Bilirubin Neg (NEGATIVE) Urine Urobilinogen Norm (Negative) mg/dL Ur Leukocyte Carla ase Negative (Negative) Salicylates 1.9 L (3-10) mg/dL Urine Opiates Scre en (Negative) ng/mL Acetaminophen < 5.0 L (10-30) ug/mL Ur Barbiturates Sc reen (Negative) ng/mL Ur Phencyclidine S crn (Negative) ng/mL Ur Amphetamines Sc reen (Negative) ng/mL U Benzodiazepines Scrn (Negative) ng/mL Urine Cocaine Scre en (Negative) ng/mL U Marijuana (THC) Screen (Negative) ng/mL Ethyl Alcohol < 10 (0-10) mg/dL 01/12/20 Range/Units 04:18 WBC (4.0-10.0) 10^3/ uL RBC (4.1-5.3) 10^6/u L Hgb (11.7-16.6) g/dL Hct (42.0-52.0) % MCV (80-94) fL MCH (28.0-34.0) pg MCHC (30.0-36.0) g/dL RDW (12.1-15.1) % Plt Count (130-400) 10^3/c mm MPV (7.4-10.4) fL Neut % (Auto) % Lymph % (Auto) % Larue % (Auto) % Eos % (Auto) % Baso % (Auto) % Neut # (Auto) (1.8-7.7) 10^3/u L Lymph # (Auto) (0.8-4.8) 10^3/u L Larue # (Auto) (0.2-0.9) 10^3/u L Eos # (Auto) (0.0-0.8) 10^3/u L Baso # (Auto) (0.0-0.1) 10^3/u L Nucleated RBC % (a uto) % Nucleated RBCs # /100WBC Sodium (136-145) mmol/L Potassium (3.5-5.1) mmol/L Chloride (98-107) mmol/L Carbon Dioxide (22-29) mmol/L Anion Gap (5-19) BUN (6-20) mg/dL Creatinine (0.7-1.2) mg/dL GFR Calculation (90-130) mL/min Glucose (65-115) mg/dL Calculated Osmolal ity (285-295) mOsm/k g Calcium (8.5-10.5) mg/dL Total Bilirubin (0.15-1.2) mg/dL AST (0-40) U/L ALT (0-41) U/L Alkaline Phosphata se (40-130) IU/L Total Protein (6.6-8.7) g/dL Albumin (3.5-5.2) g/dL Globulin (1.3-4.6) g/dL Urine Color (Yellow) Urine Appearance (CLEAR) Urine pH (5-7) Ur Specific Gravit y (1.005-1.030) Urine Protein (Negative) Urine Glucose (UA) (Normal) Urine Ketones (Negative) Urine Blood (Negative) Urine Nitrate (Negative) Urine Bilirubin (NEGATIVE) Urine Urobilinogen (Negative) mg/dL Ur Leukocyte Carla ase (Negative) Salicylates (3-10) mg/dL Urine Opiates Scre en Negative (Negative) ng/mL Acetaminophen (10-30) ug/mL Ur Barbiturates Sc reen Negative (Negative) ng/mL Ur Phencyclidine S crn Negative (Negative) ng/mL Ur Amphetamines Sc reen Negative (Negative) ng/mL U Benzodiazepines Scrn Negative (Negative) ng/mL Urine Cocaine Scre en Negative (Negative) ng/mL U Marijuana (THC) Screen Positive H (Negative) ng/mL Ethyl Alcohol (0-10) mg/dL Discharge Plan Discharge Patient Disposition: Home Clinical Impression: Methamphetamine use, Homeless single person, Anxiety, Schizophrenia, Cannabis a buse Condition: Stable Prescriptions: No Action clonazepam [Klonopin] 0.5 mg tablet 0.5 mg PO BID PRN (Reason: anxiety) 30 Days Qty: 60 RF: 1 Discharge Orders: Discharge Order (Routine); Ordered 01/12/20 Ordered By: Kailash Quan Discharge Diet: Usual diet Discharge Activity: Resume usual activity Activity Restrictions/Additional Instructions: Follow-up with [facility] [place] as directed by Dr. Denny. Discharge Date/Time: 01/12/20 07:41 Sign Out Sign Out Data: Patient Sign Out occurred on 01/12/20 at 04:29. Patient's care was discussed, and care was transferred from to May Temple. Patient Sign Out occurred on 01/12/20 at 07:36. Patient's care was discussed, and care was transferred from to Kailash Quan DO. Coding Level of Care Code ED Tax Examining Technician for Chg Fwd Exam Comprehensive Documented by User: May Temple 01/12/20 04:32 HPI - Psych General: Chief Complaint: Psychiatric Symptoms Stated Complaint: si Time Seen by Provider: 01/12/20 04:04 PFS ED PFSH: Medical History Anxiety Depression Methamphetamine use Schizophrenia Surgical History No pertinent past surgical history Social History Smoking and tobacco status: current every day smoker cigarettes Packs smoked per day: 0.5 Alcohol intake: never Current gender identity: Male MDM - Psych Lab Data: Labs: Lab Results 01/12/20 01/12/20 01/12/20 Range/Units 04:17 04:17 04:18 WBC 6.9 (4.0-10.0) 10^3/ uL RBC 4.60 (4.1-5.3) 10^6/u L Hgb 13.5 (11.7-16.6) g/dL Hct 42.0 (42.0-52.0) % MCV 91.3 (80-94) fL MCH 29.3 (28.0-34.0) pg MCHC 32.1 (30.0-36.0) g/dL RDW 14.0 (12.1-15.1) % Plt Count 273 (130-400) 10^3/c mm MPV 10.3 (7.4-10.4) fL Neut % (Auto) 53.9 % Lymph % (Auto) 28.5 % Larue % (Auto) 13.3 % Eos % (Auto) 3.6 % Baso % (Auto) 0.4 % Neut # (Auto) 3.73 (1.8-7.7) 10^3/u L Lymph # (Auto) 2.0 (0.8-4.8) 10^3/u L Larue # (Auto) 0.9 (0.2-0.9) 10^3/u L Eos # (Auto) 0.3 (0.0-0.8) 10^3/u L Baso # (Auto) 0.0 (0.0-0.1) 10^3/u L Nucleated RBC % (a uto) 0 % Nucleated RBCs # 0.0 /100WBC Sodium 140 (136-145) mmol/L Potassium 4.2 (3.5-5.1) mmol/L Chloride 104 (98-107) mmol/L Carbon Dioxide 25 (22-29) mmol/L Anion Gap 15.2 (5-19) BUN 16 (6-20) mg/dL Creatinine 0.8 (0.7-1.2) mg/dL GFR Calculation 107.6 (90-130) mL/min Glucose 102 (65-115) mg/dL Calculated Osmolal ity 287 (285-295) mOsm/k g Calcium 8.7 (8.5-10.5) mg/dL Total Bilirubin 0.2 (0.15-1.2) mg/dL AST 39 (0-40) U/L ALT 36 (0-41) U/L Alkaline Phosphata se 81 (40-130) IU/L Total Protein 6.1 L (6.6-8.7) g/dL Albumin 3.7 (3.5-5.2) g/dL Globulin 2.4 (1.3-4.6) g/dL Urine Color Yellow (Yellow) Urine Appearance Clear (CLEAR) Urine pH 6.5 (5-7) Ur Specific Gravit y 1.010 (1.005-1.030) Urine Protein Neg (Negative) Urine Glucose (UA) Norm (Normal) Urine Ketones Negative (Negative) Urine Blood Neg (Negative) Urine Nitrate Negative (Negative) Urine Bilirubin Neg (NEGATIVE) Urine Urobilinogen Norm (Negative) mg/dL Ur Leukocyte Carla ase Negative (Negative) Salicylates 1.9 L (3-10) mg/dL Urine Opiates Scre en (Negative) ng/mL Acetaminophen < 5.0 L (10-30) ug/mL Ur Barbiturates Sc reen (Negative) ng/mL Ur Phencyclidine S crn (Negative) ng/mL Ur Amphetamines Sc reen (Negative) ng/mL U Benzodiazepines Scrn (Negative) ng/mL Urine Cocaine Scre en (Negative) ng/mL U Marijuana (THC) Screen (Negative) ng/mL Ethyl Alcohol < 10 (0-10) mg/dL 01/12/20 Range/Units 04:18 WBC (4.0-10.0) 10^3/ uL RBC (4.1-5.3) 10^6/u L Hgb (11.7-16.6) g/dL Hct (42.0-52.0) % MCV (80-94) fL MCH (28.0-34.0) pg MCHC (30.0-36.0) g/dL RDW (12.1-15.1) % Plt Count (130-400) 10^3/c mm MPV (7.4-10.4) fL Neut % (Auto) % Lymph % (Auto) % Larue % (Auto) % Eos % (Auto) % Baso % (Auto) % Neut # (Auto) (1.8-7.7) 10^3/u L Lymph # (Auto) (0.8-4.8) 10^3/u L Larue # (Auto) (0.2-0.9) 10^3/u L Eos # (Auto) (0.0-0.8) 10^3/u L Baso # (Auto) (0.0-0.1) 10^3/u L Nucleated RBC % (a uto) % Nucleated RBCs # /100WBC Sodium (136-145) mmol/L Potassium (3.5-5.1) mmol/L Chloride (98-107) mmol/L Carbon Dioxide (22-29) mmol/L Anion Gap (5-19) BUN (6-20) mg/dL Creatinine (0.7-1.2) mg/dL GFR Calculation (90-130) mL/min Glucose (65-115) mg/dL Calculated Osmolal ity (285-295) mOsm/k g Calcium (8.5-10.5) mg/dL Total Bilirubin (0.15-1.2) mg/dL AST (0-40) U/L ALT (0-41) U/L Alkaline Phosphata se (40-130) IU/L Total Protein (6.6-8.7) g/dL Albumin (3.5-5.2) g/dL Globulin (1.3-4.6) g/dL Urine Color (Yellow) Urine Appearance (CLEAR) Urine pH (5-7) Ur Specific Gravit y (1.005-1.030) Urine Protein (Negative) Urine Glucose (UA) (Normal) Urine Ketones (Negative) Urine Blood (Negative) Urine Nitrate (Negative) Urine Bilirubin (NEGATIVE) Urine Urobilinogen (Negative) mg/dL Ur Leukocyte Carla ase (Negative) Salicylates (3-10) mg/dL Urine Opiates Scre en Negative (Negative) ng/mL Acetaminophen (10-30) ug/mL Ur Barbiturates Sc reen Negative (Negative) ng/mL Ur Phencyclidine S crn Negative (Negative) ng/mL Ur Amphetamines Sc reen Negative (Negative) ng/mL U Benzodiazepines Scrn Negative (Negative) ng/mL Urine Cocaine Scre en Negative (Negative) ng/mL U Marijuana (THC) Screen Positive H (Negative) ng/mL Ethyl Alcohol (0-10) mg/dL EKG Data^: EKG 1: Attestation: I personally reviewed and interpreted this EKG as follows: EKG interpretation date: 01/12/20 EKG interpretation time: 04:10 Interpretation: Normal sinus rhythm at 61 beats a minute, benign early repolarization, no acute ST-T wave changes. Discharge Plan Discharge Patient Disposition: Home Clinical Impression: Methamphetamine use, Homeless single person, Anxiety, Schizophrenia, Cannabis abuse Condition: Stable Prescriptions: No Action clonazepam [Klonopin] 0.5 mg tablet 0.5 mg PO BID PRN (Reason: anxiety) 30 Days Qty: 60 RF: 1 Discharge Orders: Discharge Order (Routine); Ordered 01/12/20 Ordered By: Kailash Quan Discharge Diet: Usual diet Discharge Activity: Resume usual activity Activity Restrictions/Additional Instructions: Follow-up with [facility] [place] as directed by Dr. Denny. Discharge Date/Time: 01/12/20 07:41 Sign Out Sign Out Data: Patient Sign Out occurred on 01/12/20 at 04:29. Patient's care was discussed, and care was transferred from to May Temple. Patient Sign Out occurred on 01/12/20 at 07:36. Patient's care was discussed, and care was transferred from to Kailash Quan DO. Coding Level of Care Code ED Tax Examining Technician for Chg Fwd Exam Comprehensive Documented by User: Kailash Quan DO 01/14/20 15:44 HPI - Psych General: Chief Complaint: Psychiatric Symptoms Stated Complaint: si Time Seen by Provider: 01/12/20 04:04 PFSH ED PFSH: Medical History Anxiety Depression Methamphetamine use Schizophrenia Surgical History No pertinent past surgical history Social History Smoking and tobacco status: current every day smoker cigarettes Packs smoked per day: 0.5 Alcohol intake: never Current gender identity: Male MDM - Psych MDM Narrative: Medical decision making narrative: Signed out to me by Dr. Hernandez initially seen by Michael Byers. Patient has suicidal ideation reviewed the chart with Dr. Denny who came to the ER to see the patient. He does not feel the patient needs to be admitted at this time see his consultation note patient was discharged home per his recommendation. Lab Data: Labs: Lab Results 01/12/20 01/12/20 01/12/20 Range/Units 04:17 04:17 04:18 WBC 6.9 (4.0-10.0) 10^3/ uL RBC 4.60 (4.1-5.3) 10^6/u L Hgb 13.5 (11.7-16.6) g/dL Hct 42.0 (42.0-52.0) % MCV 91.3 (80-94) fL MCH 29.3 (28.0-34.0) pg MCHC 32.1 (30.0-36.0) g/dL RDW 14.0 (12.1-15.1) % Plt Count 273 (130-400) 10^3/c mm MPV 10.3 (7.4-10.4) fL Neut % (Auto) 53.9 % Lymph % (Auto) 28.5 % Larue % (Auto) 13.3 % Eos % (Auto) 3.6 % Baso % (Auto) 0.4 % Neut # (Auto) 3.73 (1.8-7.7) 10^3/u L Lymph # (Auto) 2.0 (0.8-4.8) 10^3/u L Larue # (Auto) 0.9 (0.2-0.9) 10^3/u L Eos # (Auto) 0.3 (0.0-0.8) 10^3/u L Baso # (Auto) 0.0 (0.0-0.1) 10^3/u L Nucleated RBC % (a uto) 0 % Nucleated RBCs # 0.0 /100WBC Sodium 140 (136-145) mmol/L Potassium 4.2 (3.5-5.1) mmol/L Chloride 104 (98-107) mmol/L Carbon Dioxide 25 (22-29) mmol/L Anion Gap 15.2 (5-19) BUN 16 (6-20) mg/dL Creatinine 0.8 (0.7-1.2) mg/dL GFR Calculation 107.6 (90-130) mL/min Glucose 102 (65-115) mg/dL Calculated Osmolal ity 287 (285-295) mOsm/k g Calcium 8.7 (8.5-10.5) mg/dL Total Bilirubin 0.2 (0.15-1.2) mg/dL AST 39 (0-40) U/L ALT 36 (0-41) U/L Alkaline Phosphata se 81 (40-130) IU/L Total Protein 6.1 L (6.6-8.7) g/dL Albumin 3.7 (3.5-5.2) g/dL Globulin 2.4 (1.3-4.6) g/dL Urine Color Yellow (Yellow) Urine Appearance Clear (CLEAR) Urine pH 6.5 (5-7) Ur Specific Gravit y 1.010 (1.005-1.030) Urine Protein Neg (Negative) Urine Glucose (UA) Norm (Normal) Urine Ketones Negative (Negative) Urine Blood Neg (Negative) Urine Nitrate Negative (Negative) Urine Bilirubin Neg (NEGATIVE) Urine Urobilinogen Norm (Negative) mg/dL Ur Leukocyte Carla ase Negative (Negative) Salicylates 1.9 L (3-10) mg/dL Urine Opiates Scre en (Negative) ng/mL Acetaminophen < 5.0 L (10-30) ug/mL Ur Barbiturates Sc reen (Negative) ng/mL Ur Phencyclidine S crn (Negative) ng/mL Ur Amphetamines Sc reen (Negative) ng/mL U Benzodiazepines Scrn (Negative) ng/mL Urine Cocaine Scre en (Negative) ng/mL U Marijuana (THC) Screen (Negative) ng/mL Ethyl Alcohol < 10 (0-10) mg/dL 01/12/20 Range/Units 04:18 WBC (4.0-10.0) 10^3/ uL RBC (4.1-5.3) 10^6/u L Hgb (11.7-16.6) g/dL Hct (42.0-52.0) % MCV (80-94) fL MCH (28.0-34.0) pg MCHC (30.0-36.0) g/dL RDW (12.1-15.1) % Plt Count (130-400) 10^3/c mm MPV (7.4-10.4) fL Neut % (Auto) % Lymph % (Auto) % Larue % (Auto) % Eos % (Auto) % Baso % (Auto) % Neut # (Auto) (1.8-7.7) 10^3/u L Lymph # (Auto) (0.8-4.8) 10^3/u L Larue # (Auto) (0.2-0.9) 10^3/u L Eos # (Auto) (0.0-0.8) 10^3/u L Baso # (Auto) (0.0-0.1) 10^3/u L Nucleated RBC % (a uto) % Nucleated RBCs # /100WBC Sodium (136-145) mmol/L Potassium (3.5-5.1) mmol/L Chloride (98-107) mmol/L Carbon Dioxide (22-29) mmol/L Anion Gap (5-19) BUN (6-20) mg/dL Creatinine (0.7-1.2) mg/dL GFR Calculation (90-130) mL/min Glucose (65-115) mg/dL Calculated Osmolal ity (285-295) mOsm/k g Calcium (8.5-10.5) mg/dL Total Bilirubin (0.15-1.2) mg/dL AST (0-40) U/L ALT (0-41) U/L Alkaline Phosphata se (40-130) IU/L Total Protein (6.6-8.7) g/dL Albumin (3.5-5.2) g/dL Globulin (1.3-4.6) g/dL Urine Color (Yellow) Urine Appearance (CLEAR) Urine pH (5-7) Ur Specific Gravit y (1.005-1.030) Urine Protein (Negative) Urine Glucose (UA) (Normal) Urine Ketones (Negative) Urine Blood (Negative) Urine Nitrate (Negative) Urine Bilirubin (NEGATIVE) Urine Urobilinogen (Negative) mg/dL Ur Leukocyte Carla ase (Negative) Salicylates (3-10) mg/dL Urine Opiates Scre en Negative (Negative) ng/mL Acetaminophen (10-30) ug/mL Ur Barbiturates Sc reen Negative (Negative) ng/mL Ur Phencyclidine S crn Negative (Negative) ng/mL Ur Amphetamines Sc reen Negative (Negative) ng/mL U Benzodiazepines Scrn Negative (Negative) ng/mL Urine Cocaine Scre en Negative (Negative) ng/mL U Marijuana (THC) Screen Positive H (Negative) ng/mL Ethyl Alcohol (0-10) mg/dL Discharge Plan Discharge Patient Disposition: Home Clinical Impression: Methamphetamine use, Homeless single person, Anxiety, Schizophrenia, Cannabis abuse Condition: Stable Prescriptions: No Action clonazepam [Klonopin] 0.5 mg tablet 0.5 mg PO BID PRN (Reason: anxiety) 30 Days Qty: 60 RF: 1 Discharge Orders: Discharge Order (Routine); Ordered 01/12/20 Ordered By: Kailash Quan Discharge Diet: Usual diet Discharge Activity: Resume usual activity Activity Restrictions/Additional Instructions: Follow-up with [facility] [place] as directed by Dr. Denny. Discharge Date/Time: 01/12/20 07:41 Sign Out Sign Out Data: Patient Sign Out occurred on 01/12/20 at 04:29. Patient's care was discussed, and care was transferred from to May Temple. Patient Sign Out occurred on 01/12/20 at 07:36. Patient's care was discussed, and care was transferred from to Kailash Quan DO. Coding Level of Care Code ED Tax Examining Technician for [place] Fwd Exam Comprehensive
--- NOTE | 2020-01-12 04:37 | ECG_ITS ---
[facility] Test Date: 2020-01-12 Pat Name: Edgar Almazan Department: Room: Gender: Male Visual Supervisor: : 1980 Requested By: Michael Byers Order Number: [id number] Ponce MD: Zhen Tristan M.D. Measurements Intervals [place] Rate: 61 P: 46 [place]: 134 QRS: 69 QRSD: 104 T: 59 QT: 396 QTc: 401 Interpretive Statements SINUS RHYTHM WITH SINUS ARRHYTHMIA Compared to ECG 12/27/2019 15:09:21 No significant changes Electronically Signed On 01-13-2020 18:09:59 CDT by Zhen Tristan M.D. [email or web address] [id number] f
[2020-01-12 04:56] LABS: Basophils % 0.4 %; Eosinophils # 0.3 10^3/uL (0.0-0.8); Eosinophils % 3.6 %; Hemoglobin 13.5 g/dL (11.7-16.6); Lymphocytes % 28.5 %; Mean Corpuscular HGB Conc 32.1 g/dL (30.0-36.0); Mean Corpuscular Hemoglobin 29.3 pg (28.0-34.0); Mean Corpuscular Volume 91.3 fL (80-94); Mean Platelet Volume 10.3 fL (7.4-10.4); Monocytes # 0.9 10^3/uL (0.2-0.9); Monocytes % 13.3 %; Neutrophils # 3.73 10^3/uL (1.8-7.7); Neutrophils % 53.9 %; Nucleated Red Blood Cells % 0 %; Platelet Count 273 10^3/cmm (130-400); White Blood Count 6.9 10^3/uL (4.0-10.0)
[2020-01-12 05:11] LABS: Alanine Aminotransferase 36 U/L (0-41); Albumin Level 3.7 g/dL (3.5-5.2); Alkaline Phosphatase 81 IU/L (40-130); Anion Gap 15.2 (5-19); Aspartate Amino Transferase 39 U/L (0-40); Blood Urea Nitrogen 16 mg/dL (6-20); Calcium 8.7 mg/dL (8.5-10.5); Carbon Dioxide 25 mmol/L (22-29); Chloride 104 mmol/L (98-107); Creatinine Clr Calc Pharmacy 131.7159; Globulin 2.4 g/dL (1.3-4.6); Glomerular Filtration Rate 107.6 mL/min (90-130); Glucose 102 mg/dL (65-115); Osmolality Calculated 287 mOsm/kg (285-295); Potassium 4.2 mmol/L (3.5-5.1); Salicylate 1.9 mg/dL (3-10); Sodium 140 mmol/L (136-145); Total Bilirubin 0.2 mg/dL (0.15-1.2); Total Protein 6.1 g/dL (6.6-8.7)
[2020-01-12 05:19] LABS: Acetaminophen < 5.0 ug/mL (10-30); Alcohol Level < 10 mg/dL (0-10)
[2020-01-12 05:31] LABS: Add Urine Microscopic? NO
[2020-01-12 05:43] LABS: Amphetamines Screen Urine Negative (Negative); Barbiturates Screen Urine Negative (Negative); Benzodiazepines Screen Urine Negative (Negative); Cocaine Screen Urine Negative (Negative); Opiate Screen Urine Negative (Negative); PCP Screen Urine Negative (Negative); THC Screen Urine Positive (Negative)
[2020-01-12 05:47] LABS: Bilirubin Urine Neg (NEGATIVE); Blood Urine Neg (Negative); Glucose Urine UA Norm (Normal); Ketones Urine Negative (Negative); Leukocyte Esterase Urine Negative (Negative); Nitrate Urine Negative (Negative); Protein Urine Neg (Negative); Urine Appearance Clear (CLEAR); Urine Color Yellow (Yellow); Urobilinogen Urine Norm (Negative); pH Urine 6.5 (5-7)
--- NOTE | 2020-01-12 06:36 | PC.NURSE ---
DR CIFUENTES HERE TALKING TO PT AT THIS TIME ABOUT HIS CARE.
[2020-01-12 07:40] VITALS: BP 146/87; PULSE 80; RESP 18; O2SAT 97
--- NOTE | 2020-01-12 07:51 | P.CONIM_ITS ---
Providers/Reason for Consult Consulting Physican/Specialty*: Scar Denny M.D. Psychiatry Reason for Consult*: Evaluation for safety for discharge. Requesting Physcian: Michael Byers Attending Physician: Kailash Quan M.D. Psych Consult HPI History of Present Illness Edgar Almazan is a 39 year old male who presented to the emergency room reporting that he needed a place to stay. The local homeless half-way angle back to for about a year and he started trying to get to the [employer] mission in [place]. He was evaluated by a different emergency room doctor and discharged last evening. He returned this morning reporting that he still didn't have a place to stay and at one point had endorsed wanting to go to neuropsych unit and some whisperings of lethality. A psychiatric evaluation was requested due to that issue. Edgar is known to this brief writer from his discharge t wice recently where he stayed overnight only to demand and may discharge the next morning. At the heart of the issue is his desire to have Klonopin prescribed to him. After his last discharge where Klonopin prescription was refused he did go to his follow-up appointment at the [facility] where he was evaluated and recommendation for medication for schizophrenia was suggested. He refused the medication that was recommended. That was 2 days ago. So we discussed the fact that if he were admitted to the hospital he would not get any Klonopin. We discussed the importance of him following up and accepting the antipsychotic medication for his wellness. He reported that Klonopin is the only medication that works for him and we discussed the fact that I doubted that that was true. Additionally we discussed his safety and he never at any point during our interview suggested that he was having thoughts to hurt or kill himself or anyone else. He spoke at length about his being homeless and having conflicts with his family and having no place to stay. He discussed that his parking officer recommended that he get the [place] but he just doesn't have the resources to get there. We discussed the fact that he follow through on some of the recommendations that we have made he would likely have Medicaid by now and might be able to utilize that resource just reinforcing that him having follow- up for schizophrenia could have multiple benefits. Ultimately he requested to be discharged and reported a plan to try to get [place] someway. An excerpt of his last evaluation by this brief writer a couple weeks ago is included below and there have been no substantive changes per his report. Per last [facility] eval: History of Present Illness Edgar Almazan is a 39 year old male who presented to the emergency room known to the provider from many visits to the emergency room, endorsing suicidal ideation, reporting he has been off of his medication, and denying any other complaints. He was reporting he needs some help but was quite withdrawn and was a fairly unengaged poor historian. He was admitted to the neuropsychiatric unit for definitive treatment of those issues. This morning, once it was clear to him that this brief writer had no plans of starting his Klonopin, during the hospitalization, or of giving him refills, he asked to leave against medical advise. I did meet with him briefly, and because he was mostly focused on getting medication and wanting to leave because he reported all he needed to do was get his medication and he would be fine, we discussed a possible vehicle, through which we could initiate his medication and have some consideration for either tapering him off of the Klonopin, or working with his outpatient provider to consider a process, based on their thoughts; but he was not interested in anything that took any time. He essentially wanted an immediate answer. I reviewed with him the history that he and I have together, which is that he has been out of custodial for only a limited period of time, and came to the hospital back in September and, at that time, was not doing well and was using. He was restarted on the medications that his outpatient team had him on, which included low dose Klonopin. Then he did not follow up at [facility] but did return to the emergency room with some questionable excuse or reason for why he did not make his appointment, and he was given some bridge medication to get to an appointment. That was in the beginning of November, and now he has run out of those medications, albeit several days before he should have, and he returns looking for a refill. We expressed this avoidance of the outpatient milieu and having them as the people that get to know him well and can make decisions based on that, as a necessary component which he has been avoiding. So, we discussed a plan which included continuing inpatient, which he did not want and said he was leaving AMA. But then, multiple times, he tried to reengage this brief writer to get some pills, a monthly script, something prescribed to him. But we discussed the risks, benefits, and alternatives of preceding that way, and he understood and had no choice but to accept that is how we would proceed with the benzodiazepines. He was a poor historian and an expert from his last hospitalization is included to give some historical background. given that he is not engaged in giving a full history with valuable historical data for understanding his circumstance. Mental Status This is a slender, white male, with adequate dress, grooming, and limited eye contact. No abnormal movements, except for mild psychomotor agitation. Semi- cooperative with exam in no acute distress. Speech was increased rate and decreased volume. Mood described as okay; affect congruent. Thought process, organized. Thought content: patient denied any suicidal or homicidal ideation, there were no delusions reported or noted, patient denied any auditory or visual hallucinations. Attention, concentration, and memory appeared intact but none were formally tested. He is alert and oriented times three. Insight and judgment are limited. Impulse control is limited. Assessment This is a 39 year old, white male, with a long history of schizophrenia and addiction, who presents with a UDS positive for marijuana only, but requesting a refill of his benzodiazepine without engaging in good kassy with outpatient treatment since his hospitalization here in September, who presents wanting refills on his benzodiazepines mostly, and when that was refused, he requested to leave against medical advise. Continue current medications, except we will not write for Klonopin, given overuse and lack of engagement in outpatient treatment. Encourage individual, group, and milieu therapy. Continue q-15 minute checks for safety. Encourage treatment at a sober living facility, after discharge, at the highest level of care to which he is willing to commit. Given absence of credibly lethality, and the fact that he is not on a 96-hour hold/is a voluntary patient, he will be allowed to leave against medical advise. Per his September 2019 [facility] eval: History of Present Illness Edgar Almazan is a 39 year old male who presents poor historian with fairly little to add. He presented to the emergency room with hallucinations endorsing irritability and concerns that he might get so worked up that he might harm someone else. He presents today very irritable and more less resistant to the interview. He was able to identify that he has been here multiple times before which is confirmed throughout chart search. His last hospitalization was in 2017 and excerpt from that hospitalization is provided below. He denies any significant changes in his psychosocial circumstance over the last couple years. He endorsed recent cannabis use but denied other illicit drug use which was confirmed by his UDS. He endorsed lethality being a better condition to speak in the morning. Per his last [facility] eval: History of Present Illness Date of Service: Mar 30, 2017 Chief Complaint: I came here to get a refill only Klonopins. HPI: Mr. Almazan is a 36-year-old male that is known to our behavioral health services to the previous diagnosis of acute psychosis in the context of polysubstance abuse who presented to the emergency department yesterday expressing suicidal ideation with a plan to jump off a bridge. 96 hour hold was placed at that time and affidavits are reviewed on the chart. The patient reports that he was kicked out of the [facility] last month and has been sleeping in his car since then. He reports that he went to his parking officer appointment yesterday and told her that he wanted to come to the hospital because his Klonopin had been stolen and he wanted a refill. Patient is very irritable and disorganized during the interview and reports that there is a conspiracy involving the police and an underground organization in [place] where many people are being killed. Reports that there are 150 guys in the field that ran off into the keen[place]. He reports that people in the hospital must also be on the conspiracy if they're willing to keep him in the hospital against his will. Psychiatric review of systems. The patient denies that he ever threatened suicide and reports I feel suicidal all the time, not right now. He describes his mood as happy but proceeds to express homicidal/aggressive ideation, threatening to start harming people on the unit if he needs to ( I'm gonna start knockin' mother- f-ers out. ) Demanding to go to custodial instead of the hospital. He is very disorganized in his mood reporting otherwise. Is depressed and the nondepressed suicidal but not suicidal. He is apparently very paranoid and disorganized as well as impulsive, irritable, angry and agitated. He denies having any hallucinations. Patient stands up and is verbally threatening to this provider pain to be excused with security present during the interview due to his history of violence on the [facility]. PAST PSYCHIATRIC HISTORY: -Last hospitalization on the NPU X2 in 2015 last admission was in the summer of 2016 at which time he was intoxicated with numerous different drugs and threatening this provider and destroying property in the hospital punching numerous holes in the wall due to demands to be discharged. He has had previous diagnoses of psychosis unspecified versus schizophrenia/bipolar disorder and anxiety. During his most recent admission to the [facility] he was stabilized on Invega 9 mg daily and was continued on Prozac 20 mg daily and Klonopin 1 mg twice daily at that time. -Currently does not have an outpatient mental health provider reports that he goes to acute care for his Klonopin refills. Reports that he does not need any other psychotropic medications. -Other Past medications have included Risperdal and Zyprexa per records. PAST FAMILY PSYCHIATRIC HISTORY: -Noncontributory per records. Unobtainable at this time due to patient agitation. SOCIAL HISTORY: -Unobtainable at this time due to patient agitation. He has a history of methamphetamine use and urine drug screen was also positive for amphetamines and MDMA during his last admission. Only positive for marijuana during this admission. PAST MEDICAL HISTORY: -Unobtainable at this time due to patient agitation. Per records- Hepatitis C Chronic back pain with Narcotic dependence Surgeries: (Liver biopsy, Knee surgery). PFSH NPU PFSH: Medical History Anxiety Depression Methamphetamine use Schizophrenia Surgical History No pertinent past surgical history Social History Smoking and tobacco status: current every day smoker cigarettes Packs smoked per day: 0.5 Alcohol intake: never Current gender identity: Male Mental Status Exam MSE Comments: This is a well-nourished, well-developed, white male, unkempt with adequate eye contact. No abnormal movements except for psychomotor retardation. Cooperative with exam in no acute distress. Speech was decreased rate and volume. Mood described as tired; affect congruent. Thought process, organized. Thought content: patient denied any suicidal or homicidal ideation, there were no delusions reported but some paranoid and persecutory ideation was apparent, patient denied any auditory or visual hallucinations. Attention, concentration, and appeared intact but memory was mostly reliable but none were formally tested. He is alert and oriented times three. Insight and judgment are limited and impulse control is limited.. Vitals/I&O/Wt Last Vital Signs Temp 98.1 F 01/12/20 03:51 Pulse 80 01/12/20 07:40 Resp 18 01/12/20 07:40 BP 146/87 01/12/20 07:40 Pulse Ox 97 01/12/20 07:40 Weight last 48 hrs Weight 74.843 kg A&P Assessment and plan (1) Anxiety: Status: Chronic (2) Cannabis abuse: Status: Acute (3) Schizophrenia: Status: Chronic (4) Nicotine dependence, cigarettes, with unspecified nicotine-induced disorders: Status: Chronic (5) Methamphetamine use: Status: Acute (6) Homeless single person: Status: Acute Additional A&P Information This is a 39-year-old white male with a long history of addiction and mental health issues including schizophrenia who presents off of medication and homeless looking for half-way and/or ride to [place] 1. Continue to encourage engagement in outpatient treatment and initiation of appropriate medications. 2. No credible lethality present. 3. Agree with allowing patient to discharge. Involuntary Hold Information 96 Hour Hold: 96 Hour Involuntary Admission: No 96 Hour Hold Ending Date: 11/03/19 96 Hour Hold Ending Time: 01:35 Attestations NPU Medical Necessity Statement*: Inpatient hospitalization is not medically necessary nor is it clinically appropriate intervention at this time. Patient appropriate for outpatient treatment and needs to be on his antipsychotics and abuses Klonopin and should not be written for that medication. Agree with discharge. Coding Level of Care Code Acute Cream Gatherer for Tracey Izquierdo Diagnoses Anxiety F41.9 Cannabis abuse F12.10 Schizophrenia F20.9 Nicotine dependence, cigarettes, with unspecified nicotine-induced disorders F17.219 Methamphetamine use F15.10 Homeless single person Z59.0
--- NOTE | 2020-01-12 08:08 | ED_ITS ---
HPI - Psych General: Chief Complaint: Psychiatric Symptoms Stated Complaint: si Time Seen by Provider: 01/12/20 04:04 [facility] ED PFSH: Medical History Anxiety Depression Methamphetamine use Schizophrenia Surgical History No pertinent past surgical history Social History Smoking and tobacco status: current every day smoker cigarettes Packs smoked per day: 0.5 Alcohol intake: never Current gender identity: Male MDM - Psych MDM Narrative: Medical decision making narrative: Patient initially seen by KATE Herrera and then signed out to Dr. Hernandez. Dr. Hernandez had consulted Dr. Denny for admission he wanted to come and see the patient in the emergency room. Dr. Denny came and seen the patient emergency room discussed with me he does not feel the patient needs admission at this time. See his consultation note for details he instructed that the patient could be discharged and referred to [facility]. Patient was discharged as per his recommendations. Lab Data: Labs: Lab Results 01/12/20 01/12/20 01/12/20 Range/Units 04:17 04:17 04:18 WBC 6.9 (4.0-10.0) 10^3/ uL RBC 4.60 (4.1-5.3) 10^6/u L Hgb 13.5 (11.7-16.6) g/dL Hct 42.0 (42.0-52.0) % MCV 91.3 (80-94) fL MCH 29.3 (28.0-34.0) pg MCHC 32.1 (30.0-36.0) g/dL RDW 14.0 (12.1-15.1) % Plt Count 273 (130-400) 10^3/c mm MPV 10.3 (7.4-10.4) fL Neut % (Auto) 53.9 % Lymph % (Auto) 28.5 % Stephenson % (Auto) 13.3 % Eos % (Auto) 3.6 % Baso % (Auto) 0.4 % Neut # (Auto) 3.73 (1.8-7.7) 10^3/u L Lymph # (Auto) 2.0 (0.8-4.8) 10^3/u L Stephenson # (Auto) 0.9 (0.2-0.9) 10^3/u L Eos # (Auto) 0.3 (0.0-0.8) 10^3/u L Baso # (Auto) 0.0 (0.0-0.1) 10^3/u L Nucleated RBC % (a uto) 0 % Nucleated RBCs # 0.0 /100WBC Sodium 140 (136-145) mmol/L Potassium 4.2 (3.5-5.1) mmol/L Chloride 104 (98-107) mmol/L Carbon Dioxide 25 (22-29) mmol/L Anion Gap 15.2 (5-19) BUN 16 (6-20) mg/dL Creatinine 0.8 (0.7-1.2) mg/dL GFR Calculation 107.6 (90-130) mL/min Glucose 102 (65-115) mg/dL Calculated Osmolal ity 287 (285-295) mOsm/k g Calcium 8.7 (8.5-10.5) mg/dL Total Bilirubin 0.2 (0.15-1.2) mg/dL AST 39 (0-40) U/L ALT 36 (0-41) U/L Alkaline Phosphata se 81 (40-130) IU/L Total Protein 6.1 L (6.6-8.7) g/dL Albumin 3.7 (3.5-5.2) g/dL Globulin 2.4 (1.3-4.6) g/dL Urine Color Yellow (Yellow) Urine Appearance Clear (CLEAR) Urine pH 6.5 (5-7) Ur Specific Gravit y 1.010 (1.005-1.030) Urine Protein Neg (Negative) Urine Glucose (UA) Norm (Normal) Urine Ketones Negative (Negative) Urine Blood Neg (Negative) Urine Nitrate Negative (Negative) Urine Bilirubin Neg (NEGATIVE) Urine Urobilinogen Norm (Negative) mg/dL Ur Leukocyte Carla ase Negative (Negative) Salicylates 1.9 L (3-10) mg/dL Urine Opiates Scre en (Negative) ng/mL Acetaminophen < 5.0 L (10-30) ug/mL Ur Barbiturates Sc reen (Negative) ng/mL Ur Phencyclidine S crn (Negative) ng/mL Ur Amphetamines Sc reen (Negative) ng/mL U Benzodiazepines Scrn (Negative) ng/mL Urine Cocaine Scre en (Negative) ng/mL U Marijuana (THC) Screen (Negative) ng/mL Ethyl Alcohol < 10 (0-10) mg/dL 01/12/20 Range/Units 04:18 WBC (4.0-10.0) 10^3/ uL RBC (4.1-5.3) 10^6/u L Hgb (11.7-16.6) g/dL Hct (42.0-52.0) % MCV (80-94) fL MCH (28.0-34.0) pg MCHC (30.0-36.0) g/dL RDW (12.1-15.1) % Plt Count (130-400) 10^3/c mm MPV (7.4-10.4) fL Neut % (Auto) % Lymph % (Auto) % Stephenson % (Auto) % Eos % (Auto) % Baso % (Auto) % Neut # (Auto) (1.8-7.7) 10^3/u L Lymph # (Auto) (0.8-4.8) 10^3/u L Stephenson # (Auto) (0.2-0.9) 10^3/u L Eos # (Auto) (0.0-0.8) 10^3/u L Baso # (Auto) (0.0-0.1) 10^3/u L Nucleated RBC % (a uto) % Nucleated RBCs # /100WBC Sodium (136-145) mmol/L Potassium (3.5-5.1) mmol/L Chloride (98-107) mmol/L Carbon Dioxide (22-29) mmol/L Anion Gap (5-19) BUN (6-20) mg/dL Creatinine (0.7-1.2) mg/dL GFR Calculation (90-130) mL/min Glucose (65-115) mg/dL Calculated Osmolal ity (285-295) mOsm/k g Calcium (8.5-10.5) mg/dL Total Bilirubin (0.15-1.2) mg/dL AST (0-40) U/L ALT (0-41) U/L Alkaline Phosphata se (40-130) IU/L Total Protein (6.6-8.7) g/dL Albumin (3.5-5.2) g/dL Globulin (1.3-4.6) g/dL Urine Color (Yellow) Urine Appearance (CLEAR) Urine pH (5-7) Ur Specific Gravit y (1.005-1.030) Urine Protein (Negative) Urine Glucose (UA) (Normal) Urine Ketones (Negative) Urine Blood (Negative) Urine Nitrate (Negative) Urine Bilirubin (NEGATIVE) Urine Urobilinogen (Negative) mg/dL Ur Leukocyte Carla ase (Negative) Salicylates (3-10) mg/dL Urine Opiates Scre en Negative (Negative) ng/mL Acetaminophen (10-30) ug/mL Ur Barbiturates Sc reen Negative (Negative) ng/mL Ur Phencyclidine S crn Negative (Negative) ng/mL Ur Amphetamines Sc reen Negative (Negative) ng/mL U Benzodiazepines Scrn Negative (Negative) ng/mL Urine Cocaine Scre en Negative (Negative) ng/mL U Marijuana (THC) Screen Positive H (Negative) ng/mL Ethyl Alcohol (0-10) mg/dL Discharge Plan Discharge Patient Disposition: Home Clinical Impression: Methamphetamine use, Homeless single person, Anxiety, Schizophrenia, Cannabis abuse Condition: Stable Prescriptions: No Action clonazepam [Klonopin] 0.5 mg tablet 0.5 mg PO BID PRN (Reason: anxiety) 30 Days Qty: 60 RF: 1 Discharge Orders: Discharge Order (Routine); Ordered 01/12/20 Ordered By: Kailash Quan Discharge Diet: Usual diet Discharge Activity: Resume usual activity Activity Restrictions/Additional Instructions: Follow-up with [facility] as directed by Dr. Denny. Discharge Date/Time: 01/12/20 07:41 Sign Out Sign Out Data: Patient Sign Out occurred on 01/12/20 at 04:29. Patient's care was discussed, and care was transferred from to [facility]. Patient Sign Out occurred on 01/12/20 at 07:36. Patient's care was discussed, and care was transferred from to Kailash Quan DO. Coding Level of Care Code ED Senior Vice President for Tracey Izquierdo
== END 2020-01-12 07:41 | disposition home or self-care (01) ==
PROVIDERS: Physician Assistant; Emergency Provider Family Medicine
DX: F41.9 Anxiety disorder, unspecified (principal); F20.9 Schizophrenia, unspecified; F15.90 Other stimulant use, unspecified, uncomplicated; F12.90 Cannabis use, unspecified, uncomplicated; Z59.0 Homelessness; F17.210 Nicotine dependence, cigarettes, uncomplicated
CPT/HCPCS: 12345; 80053; 80306; 80307; 81003; 85025; 93005; 99284

== ENCOUNTER 2020-01-16 21:47 | Emergency (ER) | payer SELFPAY ==
[2020-01-16 21:51] VITALS: BP 117/74; PULSE 87; RESP 18; TEMP 36.2; O2SAT 98; BMI 24.4
== END 2020-01-17 00:22 | disposition left against medical advice (07) ==
LOC: ER 21:55
PROVIDERS: Emergency Provider Emergency Medicine
DX: Z53.21 Procedure and treatment not carried out due to patient leaving prior to being seen by health care provider (principal)
CPT/HCPCS: 99281

== ENCOUNTER 2020-01-21 23:57 | Emergency (ER) | payer SELFPAY ==
[2020-01-22 00:12] VITALS: BP 112/69; PULSE 62; RESP 18; TEMP 35.9; O2SAT 99; BMI 24.4
--- NOTE | 2020-01-22 00:22 | ED_ITS ---
HPI - General Adult General: Chief complaint: General Medical Stated complaint: med refill Time Seen by Provider: 01/22/20 00:18 History of Present Illness: HPI narrative: Patient is a 39-year-old male who comes to the ED because he is homeless. Patient has no complaints and says he feels fine. Denies medical or psych complaints. Associated symptoms: Deny chest pain, dyspnea, headache(s), nausea, rash, palpitations or vomiting Review of Systems Const: Denies: fever(s), chills or fatigue Eyes: Denies: change in vision or eye discomfort ENMT: Denies: throat pain, odynophagia, nasal discharge or nasal congestion Card: Denies: chest pain, palpitations, edema, swelling of feet/ankles, dyspnea on exertion or orthopnea Resp: Denies: dyspnea, productive cough or non-productive cough GI: Denies: abdominal pain, nausea, vomiting, diarrhea, constipation or hematochezia : Denies: flank pain, difficulty urinating, dysuria or hematuria Musc: Denies: neck pain, back pain or extremity swelling Skin/Breast: Denies: rash or new lesions Neuro: Denies: headache(s), numbness in extremities or weakness in extremities Psych: Denies: suicidal ideation or homicidal ideation PFS ED PFSH: Medical History Anxiety Depression Methamphetamine use Schizophrenia Surgical History No pertinent past surgical history Social History Smoking and tobacco status: current every day smoker cigarettes Packs smoked per day: 0.5 Alcohol intake: never Current gender identity: Male Physical Exam Const: COMMON NORMALS: no acute distress, patient oriented x3, healthy appearing and alert GENERAL APPEARANCE: cooperative and comfortable HENMT: COMMON NORMALS: normocephalic HEAD & SCALP: normocephalic MOUTH: Normal oral and palatal mucosa present THROAT: posterior oropharynx normal and uvula midline Neck/C-Spine: COMMON NORMALS: supple GENERAL: Yes normal visual inspection Resp: COMMON NORMALS: normal respiratory effort, No retractions, No use of accessory muscles and clear to auscultation bilaterally AUSCULTATION: clear to auscultation bilaterally Cardio: COMMON NORMALS: regular rate, regular rhythm, S1 normal heart sound present, S2 normal heart sound present, No gallops present (Cardio), No clicks present (Cardio), No murmurs present (Cardio) and Peripheral pulses 2+ throughout RATE: regular rate RHYTHM: regular rhythm HEART SOUNDS: S1 normal heart sound present and S2 normal heart sound present PERIPHERAL PULSES: Peripheral pulses 2+ throughout GI: COMMON NORMALS: Normal to inspection, nondistended, normoactive bowel sounds present, Soft to palpation, non-tender and no masses PALPATION: Yes Soft to palpation : COMMON NORMALS: Yes no CVA tenderness BLADDER/KIDNEY EXAM: Yes no CVA tenderness Back/Pelvis: COMMON NORMALS: no CVA tenderness Extremity: COMMON NORMALS: normal to inspection Neuro: COMMON NORMALS: patient oriented x3 and moves all extremities SENSORIUM/ORIENTATION: Yes alert Psych: COMMON NORMALS: mental status grossly normal, Normal thought process present, cooperative, speech normal, denies homicidal ideation and denies suicidal ideation SPEECH: Yes normal speech THOUGHT PROCESS: Normal thought process present Skin: COMMON NORMALS: no rashes or lesions noted GENERAL SKIN EXAM: no rashes or lesions noted and dry skin Course Vital Signs: Vital signs: Vital Signs Temperature 96.6 F L 01/22/20 00:12 Pulse Rate 62 01/22/20 00:12 Respiratory Rate 18 01/22/20 00:12 Blood Pressure 112/69 01/22/20 00:12 Pulse Oximetry 99 01/22/20 00:12 MDM - General Adult MDM Narrative: Medical decision making narrative: Patient is a 39-year-old ma le comes to the ED because he is homeless. He had no medical or psych complaints. Patient was told to come contact [facility] and will return to the hospital tomorrow during the day to be put in touch with some potential services that could assist him. Patient understood and agreed with plan. Discharge Plan Discharge Patient Disposition: Home Clinical Impression: Homeless Condition: Stable Prescriptions: No Action clonazepam [Klonopin] 0.5 mg tablet 0.5 mg PO BID PRN (Reason: anxiety) 30 Days Qty: 60 RF: 1 Discharge Orders: Discharge Order (Routine); Ordered 01/22/20 Ordered By: Michael Byers Discharge Diet: Regular Discharge Activity: Resume usual activity Activity Restrictions/Additional Instructions: Follow-up with medical provider as directed. Contact [facility] tomorrow during the day to see if they have any services that can assist you. Return to the ER or your medical provider if condition worsens. Please read and understand discharge instructions. If any questions, please ask. 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
[2020-01-22 01:20] VITALS: BP 126/78; PULSE 74; RESP 14; TEMP 36.6; O2SAT 99
== END 2020-01-22 01:22 | disposition home or self-care (01) ==
PROVIDERS: Emergency Provider Physician Assistant
DX: Z59.0 Homelessness (principal); F17.210 Nicotine dependence, cigarettes, uncomplicated
CPT/HCPCS: 12345; 99281

== ENCOUNTER 2020-02-24 01:08 | Inpatient (IN) | payer SELFPAY ==
[2020-02-24] VITALS (7 sets, daily range): BP systolic 105–115; BP diastolic 58–74; PULSE 66–84; RESP 15–18; TEMP 36.7–37.2; O2SAT 96–100; BMI 24.4
--- NOTE | 2020-02-24 02:11 | W.ED.PSYCH ---
HPI - Psych General: Chief Complaint: Psychiatric Symptoms Stated Complaint: si, self check in Time Seen by Provider: 02/24/20 01:38 History of Present Illness: HPI Narrative: 39-year-old male presents saying he has had suicidal ideation. He states his plan was to jump off of a bridge. He is attempted suicide in the past. He has been depressed. He is homeless currently, which is affecting his depression as well. He denies any medical complaints. MD complaint: suicidal ideation and feels depressed Onset (ago): day(s) Duration: constant History of same: Yes Relieving factors: none Exacerbating factors: none Context: not taking psychiatric medications Associated psychiatric symptoms: depression and suicidal ideation Associated symptoms: Deny auditory hallucinations or visual hallucinations If self harm: admits thoughts of self harm Review of Systems Const: Denies: fever(s) or chills Eyes: Denies: change in vision ENMT: Denies: swelling of lips/tongue or sinus pain Card: Denies: chest pain, palpitations or irregular heart rhythm Resp: Denies: dyspnea, productive cough, non-productive cough or wheezing GI: Denies: abdominal pain, nausea, vomiting or melena : Denies: difficulty urinating Musc: Denies: neck pain or back pain Skin/Breast: Denies: rash, pruritus or erythema Neuro: Denies: headache(s), dizziness or vertigo Psych: Denies: anxiety, visual hallucinations or auditory hallucinations PFSH ED PFSH: Medical History (Updated 02/24/20 @ 03:08 by Yves Tucker DO) Anxiety Depression Methamphetamine use Schizophrenia Surgical History No pertinent past surgical history Social History Smoking and tobacco status: current every day smoker cigarettes Packs smoked per day: 0.5 Alcohol intake: never Current gender identity: Male Physical Exam Const: GENERAL APPEARANCE: well developed ORIENTATION/CONSCIOUSNESS: Yes oriented to person, Yes oriented to place and Yes oriented to time HENMT: COMMON NORMALS: normocephalic, external ears normal and Normal external nose present HEAD & SCALP: normocephalic FACE & SINUS: normal facial exam NOSE: Normal external nose present and No nasal discharge present EXTERNAL EAR: Yes external ears normal MOUTH: tongue normal Eye: COMMON NORMALS: Equal, round and reactive pupils present, EOMs intact bilaterally and conjunctivae normal EYELID: eyelids normal CONJUNCTIVA: Yes conjunctivae normal PUPIL: Yes Equal, round and reactive pupils present Neck/C-Spine: GENERAL: No tracheal deviation Chest: COMMONS NORMALS: normal inspection of the chest CHEST: No tenderness Resp: COMMON NORMALS: clear to auscultation bilaterally EFFORT & INSPECTION: No tachypneic, No respiratory distress, No retractions, No uses accessory muscles and No tracheal deviation AUSCULTATION: clear to auscultation bilaterally, no rhonchi, no wheezes and lung sounds not diminished Cardio: COMMON NORMALS: regular rate and regular rhythm RATE: regular rate RHYTHM: regular rhythm HEART SOUNDS: no murmurs PERIPHERAL PULSES: radial pulses present GI: INSPECTION: No abdominal distension AUSCULTATION: No Hyperactive bowel sounds present and No Hypoactive bowel sounds present PALPATION: No Guarding due to palpation present (GI) and No Rigid due to palpation PERCUSSION: no dullness to percussion and no tympanic to percussion Neuro: SENSORIUM/ORIENTATION: Yes oriented to person, Yes oriented to place and Yes oriented to time Psych: COMMON NORMALS: Normal thought process present and speech normal APPEARANCE: Yes grossly normal ATTITUDE: Yes calm ACTIVITY/MOTOR BEHAVIOR: Yes appropriate eye contact SPEECH: Yes normal speech MOOD & AFFECT: Yes depressed mood THOUGHT PROCESS: Normal thought process present THOUGHT CONTENT: Yes Suicidality present ATTENTION/CONCENTRATION: Yes attention grossly intact MEMORY/COGNITION: Yes memory grossly intact INSIGHT: Fair insight present (Psych) JUDGEMENT: Fair judgement present (Psych) Skin: COMMON NORMALS: no rashes or lesions noted GENERAL SKIN EXAM: no rashes or lesions noted MDM - Psych MDM Narrative: Medical decision making narrative: Patient is medically very stable. He has been very cooperative here. Unknown whether this is a case of someone who is homeless looking for a place to stay, or if he truly is suicidal. He states his plan is to jump off a bridge, which is a fairly lethal plan. Spoke with psychiatry. They will accept. Lab Data: Labs: Lab Results 02/24/20 02/24/20 02/24/20 Range/Units 01:50 01:50 02:10 WBC 5.6 (4.0-10.0) 10^3/ uL RBC 5.27 (4.1-5.3) 10^6/u L Hgb 15.9 (11.7-16.6) g/dL Hct 48.0 (42.0-52.0) % MCV 91.1 (80-94) fL MCH 30.2 (28.0-34.0) pg MCHC 33.1 (30.0-36.0) g/dL RDW 12.9 (12.1-15.1) % Plt Count 274 (130-400) 10^3/c mm MPV 9.9 (7.4-10.4) fL Neut % (Auto) 49.0 % Lymph % (Auto) 34.4 % [place] % (Auto) 12.4 % Eos % (Auto) 3.4 % Baso % (Auto) 0.4 % Neut # (Auto) 2.73 (1.8-7.7) 10^3/u L Lymph # (Auto) 1.9 (0.8-4.8) 10^3/u L [place] # (Auto) 0.7 (0.2-0.9) 10^3/u L Eos # (Auto) 0.2 (0.0-0.8) 10^3/u L Baso # (Auto) 0.0 (0.0-0.1) 10^3/u L Nucleated RBC % (a uto) 0 % Nucleated RBCs # 0.0 /100WBC Sodium (136-145) mmol/L Potassium (3.5-5.1) mmol/L Chloride (98-107) mmol/L Carbon Dioxide (22-29) mmol/L Anion Gap (5-19) BUN (6-20) mg/dL Creatinine (0.7-1.2) mg/dL GFR Calculation (90-130) mL/min Glucose (65-115) mg/dL Calculated Osmolal ity (285-295) mOsm/k g Calcium (8.5-10.5) mg/dL Total Bilirubin (0.15-1.2) mg/dL AST (0-40) U/L ALT (0-41) U/L Alkaline Phosphata se (40-130) IU/L Total Protein (6.6-8.7) g/dL Albumin (3.5-5.2) g/dL Globulin (1.3-4.6) g/dL Urine Color Yellow (Yellow) Urine Appearance Clear (CLEAR) Urine pH 5 (5-7) Ur Specific Gravit y 1.025 (1.005-1.030) Urine Protein Neg (Negative) Urine Glucose (UA) Norm (Normal) Urine Ketones Negative (Negative) Urine Blood Neg (Negative) Urine Nitrate Negative (Negative) Urine Bilirubin Neg (Negative) Urine Urobilinogen 1 H (Negative) mg/dL Ur Leukocyte Carla ase Negative (Negative) Salicylates (3-10) mg/dL Urine Opiates Scre en Negative (Negative) ng/mL Acetaminophen (10-30) ug/mL Ur Barbiturates Sc reen Negative (Negative) ng/mL Ur Phencyclidine S crn Negative (Negative) ng/mL Ur Amphetamines Sc reen Negative (Negative) ng/mL U Benzodiazepines Scrn Negative (Negative) ng/mL Urine Cocaine Scre en Negative (Negative) ng/mL U Marijuana (THC) Screen Positive H (Negative) ng/mL Ethyl Alcohol (0-10) mg/dL 02/24/20 Range/Units 02:10 WBC (4.0-10.0) 10^3/ uL RBC (4.1-5.3) 10^6/u L Hgb (11.7-16.6) g/dL Hct (42.0-52.0) % MCV (80-94) fL MCH (28.0-34.0) pg MCHC (30.0-36.0) g/dL RDW (12.1-15.1) % Plt Count (130-400) 10^3/c mm MPV (7.4-10.4) fL Neut % (Auto) % Lymph % (Auto) % [place] % (Auto) % Eos % (Auto) % Baso % (Auto) % Neut # (Auto) (1.8-7.7) 10^3/u L Lymph # (Auto) (0.8-4.8) 10^3/u L [place] # (Auto) (0.2-0.9) 10^3/u L Eos # (Auto) (0.0-0.8) 10^3/u L Baso # (Auto) (0.0-0.1) 10^3/u L Nucleated RBC % (a uto) % Nucleated RBCs # /100WBC Sodium 137 (136-145) mmol/L Potassium 4.0 (3.5-5.1) mmol/L Chloride 102 (98-107) mmol/L Carbon Dioxide 29 (22-29) mmol/L Anion Gap 10.0 (5-19) BUN 11 (6-20) mg/dL Creatinine 0.8 (0.7-1.2) mg/dL GFR Calculation 107.6 (90-130) mL/min Glucose 108 (65-115) mg/dL Calculated Osmolal ity 284 L (285-295) mOsm/k g Calcium 9.9 (8.5-10.5) mg/dL Total Bilirubin 0.5 (0.15-1.2) mg/dL AST 34 (0-40) U/L ALT 32 (0-41) U/L Alkaline Phosphata se 96 (40-130) IU/L Total Protein 7.2 (6.6-8.7) g/dL Albumin 4.6 (3.5-5.2) g/dL Globulin 2.6 (1.3-4.6) g/dL Urine Color (Yellow) Urine Appearance (CLEAR) Urine pH (5-7) Ur Specific Gravit y (1.005-1.030) Urine Protein (Negative) Urine Glucose (UA) (Normal) Urine Ketones (Negative) Urine Blood (Negative) Urine Nitrate (Negative) Urine Bilirubin (Negative) Urine Urobilinogen (Negative) mg/dL Ur Leukocyte Carla ase (Negative) Salicylates 0.6 L (3-10) mg/dL Urine Opiates Scre en (Negative) ng/mL Acetaminophen < 5.0 L (10-30) ug/mL Ur Barbiturates Sc reen (Negative) ng/mL Ur Phencyclidine S crn (Negative) ng/mL Ur Amphetamines Sc reen (Negative) ng/mL U Benzodiazepines Scrn (Negative) ng/mL Urine Cocaine Scre en (Negative) ng/mL U Marijuana (THC) Screen (Negative) ng/mL Ethyl Alcohol < 10 (0-10) mg/dL Discharge Plan Discharge Patient Disposition: Admitted As Inpatient Clinical Impression: Suicidal ideation Condition: Stable Coding Level of Care Code ED Biofuels 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
[2020-02-24 02:14] LABS: Add Urine Microscopic? NO
[2020-02-24 02:16] LABS: Basophils % 0.4 %; Eosinophils # 0.2 10^3/uL (0.0-0.8); Eosinophils % 3.4 %; Hemoglobin 15.9 g/dL (11.7-16.6); Lymphocytes # 1.9 10^3/uL (0.8-4.8); Lymphocytes % 34.4 %; Mean Corpuscular HGB Conc 33.1 g/dL (30.0-36.0); Mean Corpuscular Hemoglobin 30.2 pg (28.0-34.0); Mean Corpuscular Volume 91.1 fL (80-94); Mean Platelet Volume 9.9 fL (7.4-10.4); Monocytes # 0.7 10^3/uL (0.2-0.9); Monocytes % 12.4 %; Neutrophils # 2.73 10^3/uL (1.8-7.7); Nucleated Red Blood Cells % 0 %; Platelet Count 274 10^3/cmm (130-400); Red Blood Count 5.27 10^6/uL (4.1-5.3); Red Cell Distribution Width 12.9 % (12.1-15.1); White Blood Count 5.6 10^3/uL (4.0-10.0)
[2020-02-24 02:21] LABS: Bilirubin Urine Neg (Negative); Blood Urine Neg (Negative); Glucose Urine UA Norm (Normal); Ketones Urine Negative (Negative); Leukocyte Esterase Urine Negative (Negative); Nitrate Urine Negative (Negative); Protein Urine Neg (Negative); Specific Gravity, Urine 1.025 (1.005-1.030); Urine Appearance Clear (CLEAR); Urine Color Yellow (Yellow); Urobilinogen Urine 1 mg/dL (Negative); pH Urine 5 (5-7)
[2020-02-24 02:29] LABS: Amphetamines Screen Urine Negative (Negative); Barbiturates Screen Urine Negative (Negative); Benzodiazepines Screen Urine Negative (Negative); Cocaine Screen Urine Negative (Negative); Opiate Screen Urine Negative (Negative); PCP Screen Urine Negative (Negative); THC Screen Urine Positive (Negative)
[2020-02-24 02:32] LABS: Alanine Aminotransferase 32 U/L (0-41); Albumin Level 4.6 g/dL (3.5-5.2); Alkaline Phosphatase 96 IU/L (40-130); Aspartate Amino Transferase 34 U/L (0-40); Blood Urea Nitrogen 11 mg/dL (6-20); Calcium 9.9 mg/dL (8.5-10.5); Carbon Dioxide 29 mmol/L (22-29); Chloride 102 mmol/L (98-107); Globulin 2.6 g/dL (1.3-4.6); Glomerular Filtration Rate 107.6 mL/min (90-130); Glucose 108 mg/dL (65-115); Osmolality Calculated 284 mOsm/kg (285-295); Salicylate 0.6 mg/dL (3-10); Sodium 137 mmol/L (136-145); Total Bilirubin 0.5 mg/dL (0.15-1.2); Total Protein 7.2 g/dL (6.6-8.7)
[2020-02-24 02:36] LABS: Acetaminophen < 5.0 ug/mL (10-30); Alcohol Level < 10 mg/dL (0-10)
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
== END 2020-02-24 18:17 | disposition left against medical advice (07) | DRG 881 ==
LOC: ER 03:08 → NP 03:19
PROVIDERS: Emergency Medicine; Admitting Provider Psychiatry & Neurology Psychiatry; Visit Provider Psychiatry & Neurology Psychiatry
DX: F32.9 Major depressive disorder, single episode, unspecified (principal); R45.851 Suicidal ideations; Z91.5 Personal history of self-harm; Z59.0 Homelessness; F12.10 Cannabis abuse, uncomplicated; B19.20 Unspecified viral hepatitis C without hepatic coma; F41.9 Anxiety disorder, unspecified; F20.9 Schizophrenia, unspecified; G89.29 Other chronic pain; M54.9 Dorsalgia, unspecified; Z79.891 Long term (current) use of opiate analgesic; F17.210 Nicotine dependence, cigarettes, uncomplicated; Z53.29 Procedure and treatment not carried out because of patient's decision for other reasons
CPT/HCPCS: 12345; 80053; 80306; 80307; 81003; 85025; 99284

== ENCOUNTER 2020-03-02 21:49 | Inpatient (IN) | payer SELFPAY ==
[2020-03-02 21:55] VITALS: BP 125/83; PULSE 75; RESP 16; TEMP 36; O2SAT 96; BMI 24.4
--- NOTE | 2020-03-02 22:06 | ED_ITS ---
HPI - Psych General: Chief Complaint: Psychiatric Symptoms Stated Complaint: suicidal Time Seen by Provider: 03/02/20 22:04 History of Present Illness: HPI Narrative: Patient says he is wanting to kill himself and throw himself in front of a car car. He said he was headed up to [place] and looked down the ground seen cigarette [place] and startedgetting short of breath by looking at cigarette butts and said that he said he wanted to kill himself by jumping out in front of a car. He is not happy with where he is staying and that he wants get up to [place] he said he is willing to get on schizophrenia meds now. He is desiring help MD complaint: suicidal ideation Onset (ago): day(s) Duration: constant and getting worse History of same: Yes Relieving factors: none Context: not taking psychiatric medications and significant life stressor Associated psychiatric symptoms: depression and suicidal ideation Associated symptoms: Reports no associated symptoms, depression and suicidal ideation If self harm: admits thoughts of self harm and has plan Review of Systems Const: Denies: fever(s), chills or body aches Eyes: Denies: change in vision or blurry vision ENMT: Denies: throat pain or nasal congestion Card: Denies: chest pain or dyspnea on exertion Resp: Denies: dyspnea, productive cough or non-productive cough GI: Denies: abdominal pain, nausea or vomiting : Denies: difficulty urinating Musc: Denies: extremity pain Skin/Breast: Denies: rash Neuro: Denies: headache(s) Psych: Reports: depression and suicidal ideation; Denies: anxiety Chaparro/Lymph: Denies: easy bruising [facility] ED PFSH: Medical History (Updated 03/03/20 @ 00:01 by ADAMARIS Mike) Anxiety Depression Methamphetamine use Schizophrenia Surgical History No pertinent past surgical history Social History Smoking and tobacco status: current every day smoker cigarettes Packs smoked per day: 0.5 Alcohol intake: never Current gender identity: Male Physical Exam Const: COMMON NORMALS: no acute distress, average body habitus and patient oriented x3 HENMT: COMMON NORMALS: normocephalic HEAD & SCALP: normal to inspection and normocephalic FACE & SINUS: normal facial exam Eye: COMMON NORMALS: conjunctivae normal GENERAL EYE: appearance normal, both eyes and all related structures CONJUNCTIVA: Yes conjunctivae normal Neck/C-Spine: COMMON NORMALS: no JVD Chest: COMMONS NORMALS: normal inspection of the chest Resp: COMMON NORMALS: normal respiratory effort and clear to auscultation bilaterally AUSCULTATION: clear to auscultation bilaterally Cardio: COMMON NORMALS: no JVD, regular rate and regular rhythm RATE: regular rate RHYTHM: regular rhythm GI: COMMON NORMALS: Normal to inspection, nondistended, normoactive bowel sounds present Extremity: COMMON NORMALS: normal to inspection and full ROM Neuro: COMMON NORMALS: patient oriented x3 MDM - Psych MDM Narrative: Medical decision making narrative: Dr. Denny agreed to take patient for admission Lab Data: Labs: Lab Results 03/02/20 03/02/20 03/02/20 Range/Units 22:05 22:05 22:21 WBC 6.0 (4.0-10.0) 10^3/ uL RBC 5.15 (4.1-5.3) 10^6/u L Hgb 15.4 (11.7-16.6) g/dL Hct 46.5 (42.0-52.0) % MCV 90.3 (80-94) fL MCH 29.9 (28.0-34.0) pg MCHC 33.1 (30.0-36.0) g/dL RDW 12.7 (12.1-15.1) % Plt Count 283 (130-400) 10^3/c mm MPV 9.8 (7.4-10.4) fL Neut % (Auto) 43.8 % Lymph % (Auto) 39.5 % [place] % (Auto) 12.4 % Eos % (Auto) 3.5 % Baso % (Auto) 0.5 % Neut # (Auto) 2.64 (1.8-7.7) 10^3/u L Lymph # (Auto) 2.4 (0.8-4.8) 10^3/u L [place] # (Auto) 0.8 (0.2-0.9) 10^3/u L Eos # (Auto) 0.2 (0.0-0.8) 10^3/u L Baso # (Auto) 0.0 (0.0-0.1) 10^3/u L Nucleated RBC % (a uto) 0 % Nucleated RBCs # 0.0 /100WBC Sodium 140 (136-145) mmol/L Potassium 4.2 (3.5-5.1) mmol/L Chloride 101 (98-107) mmol/L Carbon Dioxide 28 (22-29) mmol/L Anion Gap 15.2 (5-19) BUN 12 (6-20) mg/dL Creatinine 0.9 (0.7-1.2) mg/dL GFR Calculation 93.9 (90-130) mL/min Glucose 102 (65-115) mg/dL Calculated Osmolal ity 290 (285-295) mOsm/k g Calcium 9.7 (8.5-10.5) mg/dL Total Bilirubin 0.4 (0.15-1.2) mg/dL AST 24 (0-40) U/L ALT 31 (0-41) U/L Alkaline Phosphata se 108 (40-130) IU/L Total Protein 7.4 (6.6-8.7) g/dL Albumin 4.7 (3.5-5.2) g/dL Globulin 2.7 (1.3-4.6) g/dL Urine Color Yellow (Yellow) Urine Appearance Clear (CLEAR) Urine pH 6 (5-7) Ur Specific Gravit y 1.020 (1.005-1.030) Urine Protein Neg (Negative) Urine Glucose (UA) Norm (Normal) Urine Ketones Negative (Negative) Urine Blood Neg (Negative) Urine Nitrate Negative (Negative) Urine Bilirubin Neg (Negative) Urine Urobilinogen 1 H (Negative) mg/dL Ur Leukocyte Carla ase Negative (Negative) Salicylates < 0.3 L (3-10) mg/dL Urine Opiates Scre en (Negative) ng/mL Acetaminophen < 5.0 L (10-30) ug/mL Ur Barbiturates Sc reen (Negative) ng/mL Ur Phencyclidine S crn (Negative) ng/mL Ur Amphetamines Sc reen (Negative) ng/mL U Benzodiazepines Scrn (Negative) ng/mL Urine Cocaine Scre en (Negative) ng/mL U Marijuana (THC) Screen (Negative) ng/mL Ethyl Alcohol < 10 (0-10) mg/dL 03/02/20 Range/Units 22:21 WBC (4.0-10.0) 10^3/ uL RBC (4.1-5.3) 10^6/u L Hgb (11.7-16.6) g/dL Hct (42.0-52.0) % MCV (80-94) fL MCH (28.0-34.0) pg MCHC (30.0-36.0) g/dL RDW (12.1-15.1) % Plt Count (130-400) 10^3/c mm MPV (7.4-10.4) fL Neut % (Auto) % Lymph % (Auto) % [place] % (Auto) % Eos % (Auto) % Baso % (Auto) % Neut # (Auto) (1.8-7.7) 10^3/u L Lymph # (Auto) (0.8-4.8) 10^3/u L [place] # (Auto) (0.2-0.9) 10^3/u L Eos # (Auto) (0.0-0.8) 10^3/u L Baso # (Auto) (0.0-0.1) 10^3/u L Nucleated RBC % (a uto) % Nucleated RBCs # /100WBC Sodium (136-145) mmol/L Potassium (3.5-5.1) mmol/L Chloride (98-107) mmol/L Carbon Dioxide (22-29) mmol/L Anion Gap (5-19) BUN (6-20) mg/dL Creatinine (0.7-1.2) mg/dL GFR Calculation (90-130) mL/min Glucose (65-115) mg/dL Calculated Osmolal ity (285-295) mOsm/k g Calcium (8.5-10.5) mg/dL Total Bilirubin (0.15-1.2) mg/dL AST (0-40) U/L ALT (0-41) U/L Alkaline Phosphata se (40-130) IU/L Total Protein (6.6-8.7) g/dL Albumin (3.5-5.2) g/dL Globulin (1.3-4.6) g/dL Urine Color (Yellow) Urine Appearance (CLEAR) Urine pH (5-7) Ur Specific Gravit y (1.005-1.030) Urine Protein (Negative) Urine Glucose (UA) (Normal) Urine Ketones (Negative) Urine Blood (Negative) Urine Nitrate (Negative) Urine Bilirubin (Negative) Urine Urobilinogen (Negative) mg/dL Ur Leukocyte Carla ase (Negative) Salicylates (3-10) mg/dL Urine Opiates Scre en Negative (Negative) ng/mL Acetaminophen (10-30) ug/mL Ur Barbiturates Sc reen Negative (Negative) ng/mL Ur Phencyclidine S crn Negative (Negative) ng/mL Ur Amphetamines Sc reen Negative (Negative) ng/mL U Benzodiazepines Scrn Positive H (Negative) ng/mL Urine Cocaine Scre en Negative (Negative) ng/mL U Marijuana (THC) Screen Negative (Negative) ng/mL Ethyl Alcohol (0-10) mg/dL Discharge Plan Discharge Patient Disposition: Admitted As Inpatient Clinical Impression: Suicidal ideation Schizophrenia Qualifiers: Schizophrenia type: other Qualified Code(s): F20.89 - Other schizophrenia Condition: Stable Coding Level of Care Code ED Ship Surveyor for Tracey Fwd Exam Comprehensive
[2020-03-02 22:14] LABS: Basophils % 0.5 %; Eosinophils # 0.2 10^3/uL (0.0-0.8); Eosinophils % 3.5 %; Hematocrit 46.5 % (42.0-52.0); Hemoglobin 15.4 g/dL (11.7-16.6); Lymphocytes # 2.4 10^3/uL (0.8-4.8); Lymphocytes % 39.5 %; Mean Corpuscular HGB Conc 33.1 g/dL (30.0-36.0); Mean Corpuscular Hemoglobin 29.9 pg (28.0-34.0); Mean Corpuscular Volume 90.3 fL (80-94); Mean Platelet Volume 9.8 fL (7.4-10.4); Monocytes # 0.8 10^3/uL (0.2-0.9); Monocytes % 12.4 %; Neutrophils # 2.64 10^3/uL (1.8-7.7); Neutrophils % 43.8 %; Nucleated Red Blood Cells % 0 %; Platelet Count 283 10^3/cmm (130-400); Red Blood Count 5.15 10^6/uL (4.1-5.3); Red Cell Distribution Width 12.7 % (12.1-15.1)
[2020-03-02 22:22] LABS: Add Urine Microscopic? NO
[2020-03-02 22:33] LABS: Amphetamines Screen Urine Negative (Negative); Barbiturates Screen Urine Negative (Negative); Benzodiazepines Screen Urine Positive (Negative); Cocaine Screen Urine Negative (Negative); Opiate Screen Urine Negative (Negative); PCP Screen Urine Negative (Negative); THC Screen Urine Negative (Negative)
[2020-03-02 22:34] LABS: Bilirubin Urine Neg (Negative); Blood Urine Neg (Negative); Glucose Urine UA Norm (Normal); Ketones Urine Negative (Negative); Leukocyte Esterase Urine Negative (Negative); Nitrate Urine Negative (Negative); Protein Urine Neg (Negative); Urine Appearance Clear (CLEAR); Urine Color Yellow (Yellow); Urobilinogen Urine 1 mg/dL (Negative); pH Urine 6 (5-7)
[2020-03-02 22:41] LABS: Alanine Aminotransferase 31 U/L (0-41); Albumin Level 4.7 g/dL (3.5-5.2); Alkaline Phosphatase 108 IU/L (40-130); Anion Gap 15.2 (5-19); Aspartate Amino Transferase 24 U/L (0-40); Blood Urea Nitrogen 12 mg/dL (6-20); Calcium 9.7 mg/dL (8.5-10.5); Carbon Dioxide 28 mmol/L (22-29); Chloride 101 mmol/L (98-107); Globulin 2.7 g/dL (1.3-4.6); Glomerular Filtration Rate 93.9 mL/min (90-130); Glucose 102 mg/dL (65-115); Osmolality Calculated 290 mOsm/kg (285-295); Potassium 4.2 mmol/L (3.5-5.1); Sodium 140 mmol/L (136-145); Total Bilirubin 0.4 mg/dL (0.15-1.2); Total Protein 7.4 g/dL (6.6-8.7)
[2020-03-02 22:51] LABS: Acetaminophen < 5.0 ug/mL (10-30); Alcohol Level < 10 mg/dL (0-10); Salicylate < 0.3 mg/dL (3-10)
[2020-03-03 00:41] VITALS: BP 107/68; PULSE 82; RESP 16; TEMP 36.6; O2SAT 99
--- NOTE | 2020-03-03 00:43 | PC.NURSE ---
all dangerous items removed from exam room
[2020-03-03 00:45] VITALS: BP 116/74; PULSE 72; RESP 16; O2SAT 96
[2020-03-03 00:46] VITALS: RESP 16
[2020-03-03 02:29] VITALS: BP 107/68; PULSE 82; RESP 20; TEMP 36.6; O2SAT 99
[2020-03-03 06:00] VITALS: BP 96/59; PULSE 62; RESP 17; TEMP 36.8; O2SAT 95
--- NOTE | 2020-03-03 14:32 | PM.NDC ---
Diagnoses at Discharge Discharge Diagnosis (1) Suicidal ideation: Status: Resolved Problem details: The patient denies suicidal or homicidal ideation, plan or intent. (2) Schizophrenia: Status: Chronic Qualifiers: Schizophrenia type: other Qualified Code(s): F20.89 - Other schizophrenia Reason for Visit Reason for Visit: suicidal Hospital Course Discharge Summary The patient came and suicidal, stating that he wanted to jump in front of a car. Today he feels much better and denies suicidal or homicidal ideation, plan or intent. He is asking for a plan, which is not recognized to his affective for schizophrenia and is denied. He says he wants to leave. Involuntary Hold Information 96 Hour Hold: 96 Hour Involuntary Admission: No 96 Hour Hold Ending Date: 11/03/19 96 Hour Hold Ending Time: 01:35 Mental Status Exam MSE Comments: This is a well-nourished, well-developed, white male, unkempt with adequate eye contact. No abnormal movements except for psychomotor retardation. Cooperative with exam in no acute distress. Speech was decreased rate and volume. Mood described as tired; affect congruent. Thought process, organized. Thought content: patient denied any suicidal or homicidal ideation, there were no delusions reported but some paranoid and persecutory ideation was apparent, patient denied any auditory or visual hallucinations. Attention, concentration, and appeared intact but memory was mostly reliable but none were formally tested. He is alert and oriented times three. Insight and judgment are limited and impulse control is limited. Physical Exam Narrative: EXAM NARRATIVE: Const: GENERAL APPEARANCE: well developed ORIENTATION/CONSCIOUSNESS: oriented to person, oriented to place and oriented to time HENMT: normocephalic FACE & SINUS: normal facial exam NOSE: Normal external nose present and No nasal discharge present EXTERNAL EAR: external ears normal MOUTH: tongue normal Eye: Equal, round and reactive pupils present, EOMs intact bilaterally and conjunctivae normal EYELID: eyelids normal PUPIL: Equal, round and reactive pupils present Neck/C-Spine: GENERAL: No tracheal deviation Chest: normal inspection of the chest CHEST: No tenderness Resp: EFFORT & INSPECTION: No tachypneic, No respiratory distress, No retractions, No uses accessory muscles and No tracheal deviation AUSCULTATION: clear to auscultation bilaterally, no rhonchi, no wheezes and lung sounds not diminished Cardio: RATE: regular rate RHYTHM: regular rhythm HEART SOUNDS: no murmurs PERIPHERAL PULSES: radial pulses present GI: INSPECTION: No abdominal distension AUSCULTATION: No Hyperactive bowel sounds present and No Hypoactive bowel sounds present PALPATION: No Guarding due to palpation present (GI) and No Rigid due to palpation PERCUSSION: no dullness to percussion and no tympanic to percussion Neuro: SENSORIUM/ORIENTATION: oriented to person, oriented to place and oriented to time Psych: Normal thought process present and speech normal APPEARANCE: grossly normal ATTITUDE: calm ACTIVITY/MOTOR BEHAVIOR: appropriate eye contact SPEECH: normal speech MOOD & AFFECT: depressed mood CONTENT: Suicidality absent ATTENTION/CONCENTRATION: attention grossly intact MEMORY/COGNITION: memory grossly intact INSIGHT: Fair insight JUDGEMENT: Fair judgement Skin: no rashes or lesions noted Discharge Data Data Completed and Pending: Labs from last 24 hours 03/02/20 03/02/20 03/02/20 22:21 22:21 22:05 WBC RBC Hgb Hct MCV MCH MCHC RDW Plt Count MPV Neut % (Auto) Lymph % (Auto) [place] % (Auto) Eos % (Auto) Baso % (Auto) Neut # (Auto) Lymph # (Auto) [place] # (Auto) Eos # (Auto) Baso # (Auto) Nucleated RBC % (a uto) Nucleated RBCs # Sodium 140 Potassium 4.2 Chloride 101 Carbon Dioxide 28 Anion Gap 15.2 BUN 12 Creatinine 0.9 GFR Calculation 93.9 Glucose 102 Calculated Osmolal ity 290 Calcium 9.7 Total Bilirubin 0.4 AST 24 ALT 31 Alkaline Phosphata se 108 Total Protein 7.4 Albumin 4.7 Globulin 2.7 Urine Color Yellow Urine Appearance Clear Urine pH 6 Ur Specific Gravit y 1.020 Urine Protein Neg Urine Glucose (UA) Norm Urine Ketones Negative Urine Blood Neg Urine Nitrate Negative Urine Bilirubin Neg Urine Urobilinogen 1 H Ur Leukocyte Carla ase Negative Salicylates < 0.3 L Urine Opiates Scre en Negative Acetaminophen < 5.0 L Ur Barbiturates Sc reen Negative Ur Phencyclidine S crn Negative Ur Amphetamines Sc reen Negative U Benzodiazepines Scrn Positive H Urine Cocaine Scre en Negative U Marijuana (THC) Screen Negative Ethyl Alcohol < 10 03/02/20 22:05 WBC 6.0 RBC 5.15 Hgb 15.4 Hct 46.5 MCV 90.3 MCH 29.9 MCHC 33.1 RDW 12.7 Plt Count 283 MPV 9.8 Neut % (Auto) 43.8 Lymph % (Auto) 39.5 [place] % (Auto) 12.4 Eos % (Auto) 3.5 Baso % (Auto) 0.5 Neut # (Auto) 2.64 Lymph # (Auto) 2.4 [place] # (Auto) 0.8 Eos # (Auto) 0.2 Baso # (Auto) 0.0 Nucleated RBC % (a uto) 0 Nucleated RBCs # 0.0 Sodium Potassium Chloride Carbon Dioxide Anion Gap BUN Creatinine GFR Calculation Glucose Calculated Osmolal ity Calcium Total Bilirubin AST ALT Alkaline Phosphata se Total Protein Albumin Globulin Urine Color Urine Appearance Urine pH Ur Specific Gravit y Urine Protein Urine Glucose (UA) Urine Ketones Urine Blood Urine Nitrate Urine Bilirubin Urine Urobilinogen Ur Leukocyte Carla ase Salicylates Urine Opiates Scre en Acetaminophen Ur Barbiturates Sc reen Ur Phencyclidine S crn Ur Amphetamines Sc reen U Benzodiazepines Scrn Urine Cocaine Scre en U Marijuana (THC) Screen Ethyl Alcohol Vitals: Last Vital Signs Temp 98.2 F 03/03/20 06:00 Pulse 62 03/03/20 06:00 Resp 17 03/03/20 06:00 BP 96/59 03/03/20 06:00 Pulse Ox 95 03/03/20 06:00 Discharge Plan Discharge Patient Disposition: Home Condition: Stable Prescriptions: Discontinued clonazepam [Klonopin] 0.5 mg tablet 0.5 mg PO BID PRN (Reason: anxiety) 30 Days Qty: 60 RF: 1 Discharge Orders: Discharge Order (Routine); Ordered 03/03/20 Ordered By: Samm Quijano Referrals: [facility] [Other] (Please Call [facility] for appointment for intake.) Discharge Diet: Usual diet Discharge Activity: Resume usual activity Discharge Attestations NPU Time Spent in Discharge Care*: greater than 30 min Specific Discharge Activities: Specific discharge activities: educating patient, discussing with pcp/other providers, discussing with caseworker intake/social workers/dc planners, documenting/other paperwork and evaluating patient/reviewing data Other discharge activites (optional): Risk assessment. Status at Discharge: Cognitive status at discharge: cognitively intact, Behavioral status at discharge: cooperative, Functional status at discharge: independent ambulation Overall status at discharge: patient is back to baseline Coding Level of Care Code Acute Floor Scrubber for Chg Fwd Diagnoses Suicidal ideation R45.851 Schizophrenia F20.89 Schizophrenia type: other
[2020-03-03 15:10] VITALS: BP 96/59; PULSE 62; RESP 17; TEMP 36.8; O2SAT 95
== END 2020-03-03 15:11 | disposition home or self-care (01) | DRG 885 ==
LOC: ER 03-03 00:01 → NP 03-03 00:14
PROVIDERS: Emergency Medicine; Admitting Provider Psychiatry & Neurology Psychiatry; Emergency Provider Psychiatry & Neurology Psychiatry; Visit Provider Psychiatry & Neurology Psychiatry
DX: F20.89 Other schizophrenia (principal); R45.851 Suicidal ideations; F41.8 Other specified anxiety disorders; F17.210 Nicotine dependence, cigarettes, uncomplicated
CPT/HCPCS: 12345; 80053; 80306; 80307; 81003; 85025; 99284

== ENCOUNTER 2020-03-11 00:37 | Emergency (ER) | payer SELFPAY ==
[2020-03-11 00:50] VITALS: BP 104/64; PULSE 69; RESP 14; TEMP 36.2; O2SAT 98; BMI 25.1
--- NOTE | 2020-03-11 00:58 | W.ED.ANXIETY ---
HPI - Anxiety General: Chief Complaint: Anxiety Stated Complaint: anxiety Time Seen by Provider: 03/11/20 00:58 History of Present Illness: MD complaint: anxiety Onset (ago): hour(s) Severity: mild Place: outdoors History of similar episodes: Yes Provoking factors: emotional stress (homeless) Relieving factors: nothing (Patient currently does not take any meds for his anxiety.) Associated symptoms: Deny chest pain, chills, fever(s), headache(s), nausea, palpitations or vomiting Review of Systems Const: Denies: fever(s), chills or fatigue Eyes: Denies: change in vision or eye discomfort ENMT: Denies: throat pain, odynophagia, nasal discharge or nasal congestion Card: Denies: chest pain, palpitations, edema, swelling of feet/ankles, dyspnea on exertion or orthopnea Resp: Denies: dyspnea, productive cough or non-productive cough GI: Denies: abdominal pain, nausea, vomiting, diarrhea, constipation or hematochezia : Denies: flank pain, difficulty urinating, dysuria or hematuria Musc: Denies: neck pain, back pain or extremity swelling Skin/Breast: Denies: rash or new lesions Neuro: Denies: headache(s), numbness in extremities or weakness in extremities Psych: Reports: anxiety; Denies: suicidal ideation or homicidal ideation PFSH ED PFSH: Medical History Anxiety Depression Methamphetamine use Schizophrenia Surgical History No pertinent past surgical history Social History Smoking and tobacco status: current every day smoker cigarettes Packs smoked per day: 0.5 Alcohol intake: never Current gender identity: Male Physical Exam Const: COMMON NORMALS: no acute distress, patient oriented x3 and alert GENERAL APPEARANCE: cooperative, comfortable and anxious HENMT: COMMON NORMALS: normocephalic HEAD & SCALP: normocephalic MOUTH: Normal oral and palatal mucosa present THROAT: posterior oropharynx normal and uvula midline Eye: COMMON NORMALS: Equal, round and reactive pupils present PUPIL: Yes Equal, round and reactive pupils present Neck/C-Spine: COMMON NORMALS: supple GENERAL: Yes normal visual inspection Resp: COMMON NORMALS: normal respiratory effort, No retractions, No use of accessory muscles and clear to auscultation bilaterally AUSCULTATION: clear to auscultation bilaterally Cardio: COMMON NORMALS: regular rate, regular rhythm, S1 normal heart sound present, S2 normal heart sound present, No gallops present (Cardio), No clicks present (Cardio), No murmurs present (Cardio) and Peripheral pulses 2+ throughout RATE: regular rate RHYTHM: regular rhythm HEART SOUNDS: S1 normal heart sound present and S2 normal heart sound present PERIPHERAL PULSES: Peripheral pulses 2+ throughout GI: COMMON NORMALS: Normal to inspection, nondistended, normoactive bowel sounds present, Soft to palpation, non-tender and no masses PALPATION: Yes Soft to palpation : COMMON NORMALS: Yes no CVA tenderness BLADDER/KIDNEY EXAM: Yes no CVA tenderness Back/Pelvis: COMMON NORMALS: no CVA tenderness Extremity: COMMON NORMALS: normal to inspection Neuro: COMMON NORMALS: patient oriented x3 and moves all extremities SENSORIUM/ORIENTATION: Yes alert Psych: COMMON NORMALS: Normal thought process present and speech normal APPEARANCE: Yes grossly normal ATTITUDE: Yes calm ACTIVITY/MOTOR BEHAVIOR: Yes appropriate eye contact SPEECH: Yes normal speech MOOD & AFFECT: Yes anxious (mild) THOUGHT PROCESS: Normal thought process present THOUGHT CONTENT: Yes Normal thought content present ATTENTION/CONCENTRATION: Yes attention grossly intact and Yes concentration grossly intact MEMORY/COGNITION: Yes memory grossly intact and Yes cognition grossly intact INSIGHT: Good insight present (Psych) JUDGEMENT: Good judgement present (Psych) Skin: COMMON NORMALS: no rashes or lesions noted GENERAL SKIN EXAM: no rashes or lesions noted and dry skin Course Vital Signs: Vital signs: Vital Signs Temperature 97.6 F 03/11/20 01:06 Pulse Rate 69 03/11/20 01:20 Respiratory Rate 16 03/11/20 01:20 Blood Pressure 106/66 03/11/20 01:20 Pulse Oximetry 99 03/11/20 01:20 MDM - Anxiety MDM Narrative: Medical decision making narrative: Patient is a 39-year-old male who comes to the ED with anxiety. Patient is homeless and has a history of anxiety and schizophrenia. Denies SI or HI. Patient was given 1 g of Ativan p.o. and discharge. Patient will follow up with dental assistant medical assistant in 5 to 7 days. Return to ED precautions given. Patient understood and agree with plan. Discharge Plan Discharge Patient Disposition: Home Clinical Impression: Anxiety Condition: Stable Discharge Orders: Discharge Order (Routine); Ordered 03/11/20 Ordered By: Michael Byers Discharge Diet: Regular Discharge Activity: Resume usual activity Patient Instructions: Anxiety (ED) Activity Restrictions/Additional Instructions: Follow-up with medical provider as directed. Return to the ER or your medical provider if condition worsens or you develop other psychiatric symptoms. Please read and understand discharge instructions. If any questions, please ask. Discharge Date/Time: 03/11/20 01:21 Coding Level of Care Code ED Caramel Candy Maker Helper for Adelitag Fwd Exam Comprehensive
[2020-03-11 01:06] VITALS: BP 106/66; PULSE 62; RESP 16; TEMP 36.4; O2SAT 99
[2020-03-11] MEDS: LORazepam 1 mg Tablet PO (01:17)
[2020-03-11 01:20] VITALS: BP 106/66; PULSE 69; RESP 16; O2SAT 99
== END 2020-03-11 01:21 | disposition home or self-care (01) ==
PROVIDERS: Emergency Provider Physician Assistant
DX: F41.9 Anxiety disorder, unspecified (principal); F17.210 Nicotine dependence, cigarettes, uncomplicated
CPT/HCPCS: 12345; 99281; 99283

== ENCOUNTER 2020-03-18 18:31 | Emergency (ER) | payer SELFPAY ==
[2020-03-18 19:41] VITALS: BP 127/73; PULSE 87; RESP 14; TEMP 36.5; O2SAT 97; BMI 24.4
--- NOTE | 2020-03-18 20:08 | W.ED.ANXIETY ---
HPI - Anxiety General: Chief Complaint: Anxiety Stated Complaint: anxiety, depression Time Seen by Provider: 03/18/20 20:04 History of Present Illness: HPI narrative: Patient states he needs a place to stay. Patient says he is not depressed or suicidal or homicidal. Patient states he did not get his Klonopin prescription filled that Dr. Quijano had wrote. Patient says he does have a history of anxiety MD complaint: anxiety Onset (ago): year(s) History of similar episodes: Yes Associated symptoms: Deny chest pain, chills, fever(s), headache(s), nausea or vomiting Review of Systems Const: Denies: fever(s), chills or body aches Eyes: Denies: change in vision or blurry vision ENMT: Denies: throat pain or nasal congestion Card: Denies: chest pain or dyspnea on exertion Resp: Denies: dyspnea, productive cough or non-productive cough GI: Denies: abdominal pain, nausea or vomiting : Denies: difficulty urinating Musc: Denies: extremity pain Skin/Breast: Denies: rash Neuro: Denies: headache(s) Psych: Reports: anxiety; Denies: depression (Patient on my interview with him states he is not depressed he was just looking for a place to stay tonight), suicidal ideation or homicidal ideation [place]/Lymph: Denies: easy bruising [facility] ED PFSH: Medical History (Updated 03/18/20 @ 20:12 by ADAMARIS Mike) Anxiety Depression Methamphetamine use Schizophrenia Surgical History No pertinent past surgical history Social History Smoking and tobacco status: current every day smoker cigarettes Packs smoked per day: 0.5 Alcohol intake: never Current gender identity: Male Physical Exam Const: COMMON NORMALS: no acute distress Psych: COMMON NORMALS: mental status grossly normal, cooperative and normal affect OTHER: Again questioned patient about depression patient is he is not really depressed he is anxious says he just needs a place to stay patient appears to be able to make good judgments Course Vital Signs: Vital signs: Vital Signs Temperature 97.7 F 03/18/20 19:41 Pulse Rate 87 03/18/20 19:41 Respiratory Rate 16 03/18/20 20:11 Blood Pressure 127/73 03/18/20 19:41 Pulse Oximetry 98 03/18/20 20:11 Discharge Plan Discharge Patient Disposition: Home Clinical Impression: Anxiety, Homelessness Condition: Stable Discharge Orders: Discharge Order (Routine); Ordered 03/18/20 Ordered By: Dejon Virgen Patient Instructions: Anxiety (ED) Activity Restrictions/Additional Instructions: Contact your brother sleeping stay with him again go to the homeless residential. Take your medication as you have been prescribed. Follow-up behavioral health care as needed. If you have any homicidal thoughts or suicidal thoughts please return here immediately Discharge Date/Time: 03/18/20 20:12 Coding Level of Care Code ED Regional Environmental Manager for Chg Fwd Exam Expanded Problem Focused
[2020-03-18 20:11] VITALS: RESP 16; O2SAT 98
--- NOTE | 2020-03-18 21:49 | PC.SOCIAL ---
Called to the ED waiting room to give patient options on homeless shelters. Patient was given information on the 2 shelters here [place] [facility] and one in [place]. He reports he is not a so [facility] would not be an option. He says he has not been to either [facility] or [facility]. He was told they may not accept anyone at night but he could try. He complains of not feeling well again and being cold. He is very soft spoken and hard to understand because he is speaking so quietly. Asked him if he was detoxing and he didn't thing he was. Reports he gets subutex prescribed through [facility]. He says he is from [place] and thinks he has a way to get back there.
== END 2020-03-18 20:12 | disposition home or self-care (01) ==
PROVIDERS: Emergency Provider Nurse Practitioner Family
DX: F41.9 Anxiety disorder, unspecified (principal); Z59.0 Homelessness; F17.210 Nicotine dependence, cigarettes, uncomplicated
CPT/HCPCS: 12345; 99282

== ENCOUNTER 2020-03-19 02:36 | Emergency (ER) | payer SELFPAY ==
[2020-03-19 02:40] VITALS: BP 150/92; PULSE 93; RESP 16; TEMP 36.2; O2SAT 99; BMI 24.4
--- NOTE | 2020-03-19 02:46 | ED_ITS ---
HPI - General Adult General: Chief complaint: General Medical Stated complaint: foot pain, headache Time Seen by Provider: 03/19/20 02:37 Source: patient Mode of arrival: ambulatory Limitations: no limitations History of Present Illness: HPI narrative: 39-year-old male who is well-known to the ER states has been having bilateral foot pain as he states he is homeless and has been walking with bad shoes. He states his pain is a 5 out of 10. Denies any other injuries. Patient denies any other complaints at this time. He states he had a mild headache earlier but since resolved. Associated symptoms: Deny chest pain, dyspnea, headache(s), nausea, rash or vomiting Review of Systems Const: Denies: fever(s), chills, body aches or change in appetite Eyes: Denies: blurry vision or eye discomfort ENMT: Denies: throat pain or dental pain Card: Denies: chest pain Resp: Denies: dyspnea GI: Denies: abdominal pain, nausea, vomiting or diarrhea : Denies: dysuria Musc: Denies: neck pain or back pain Skin/Breast: Denies: rash Neuro: Denies: headache(s) Psych: Denies: depression Chaparro/Lymph: Denies: easy bruising All/Imm: Denies: urticaria PFSH ED PFSH: Medical History (Updated 03/19/20 @ 02:44 by Jefe Hennessy MD) Anxiety Depression Methamphetamine use Schizophrenia Surgical History No pertinent past surgical history Social History Smoking and tobacco status: current every day smoker cigarettes Packs smoked per day: 0.5 Alcohol intake: never Current gender identity: Male Physical Exam Const: COMMON NORMALS: no acute distress, patient oriented x3 and healthy appearing HENMT: COMMON NORMALS: normocephalic and atraumatic HEAD & SCALP: normocephalic and atraumatic Eye: COMMON NORMALS: Equal, round and reactive pupils present and EOMs intact bilaterally PUPIL: Yes Equal, round and reactive pupils present Neck/C-Spine: COMMON NORMALS: full ROM and supple Chest: COMMONS NORMALS: normal inspection of the chest and normal palpation of entire chest wall Resp: COMMON NORMALS: normal respiratory effort, No retractions, No use of accessory muscles and clear to auscultation bilaterally AUSCULTATION: clear to auscultation bilaterally Cardio: COMMON NORMALS: regular rate, regular rhythm and No murmurs present (Cardio) RATE: regular rate RHYTHM: regular rhythm GI: COMMON NORMALS: Normal to inspection, nondistended, normoactive bowel sounds present, Soft to palpation, non-tender and no masses PALPATION: Yes Soft to palpation Extremity: COMMON NORMALS: full ROM NARRATIVE EXTREMITY EXAM: Blisters to bilateral feet Neuro: COMMON NORMALS: patient oriented x3, moves all extremities and no focal motor deficits Psych: COMMON NORMALS: mental status grossly normal, Normal thought process present and cooperative THOUGHT PROCESS: Normal thought process present Skin: COMMON NORMALS: no rashes or lesions noted and no wounds GENERAL SKIN EXAM: no rashes or lesions noted Course Vital Signs: Vital signs: Vital Signs Temperature 97.2 F L 03/19/20 02:40 Pulse Rate 93 03/19/20 02:40 Respiratory Rate 16 03/19/20 02:40 Blood Pressure 150/92 03/19/20 02:40 Pulse Oximetry 99 03/19/20 02:40 MDM - General Adult MDM Narrative: Medical decision making narrative: Edgar presents here with foot pain from walking. He does have a couple small blisters but no signs of any infection. Patient given Toradol here and is stable for discharge. Discharge Plan Discharge Patient Disposition: Home Clinical Impression: Bilateral foot pain Condition: Stable Discharge Orders: Discharge Order (Routine); Ordered 03/19/20 Ordered By: Jefe Hennessy Discharge Diet: Advance as tolerated Discharge Activity: Resume usual activity Patient Instructions: Arthralgia (ED) Coding Level of Care Code ED Arts Administrator Or Manager for Tracey Izquierdo
[2020-03-19] MEDS: ketorolac 60 mg/2 mL INJ IM (02:51)
[2020-03-19 02:53] VITALS: BP 150/92; PULSE 88; RESP 16; O2SAT 98
== END 2020-03-19 02:54 | disposition home or self-care (01) ==
PROVIDERS: Emergency Provider Emergency Medicine
DX: M79.671 Pain in right foot (principal); M79.672 Pain in left foot; F17.210 Nicotine dependence, cigarettes, uncomplicated
CPT/HCPCS: 12345; 96372; 99281; 99283; J1885

== ENCOUNTER 2020-03-26 17:55 | Inpatient (IN) | payer SELFPAY ==
[2020-03-26 18:13] VITALS: BP 122/67; PULSE 83; RESP 18; TEMP 36.6; O2SAT 98; BMI 24.4
--- NOTE | 2020-03-26 18:36 | ECG_ITS ---
[facility] Test Date: 2020-03-26 Pat Name: Edgar Almazan Department: Room: Gender: Male Sales Advisor: : 1980 Requested By: May Hopson Order Number: [id number] Ponce MD: ARYA SEARS Measurements Intervals [place] Rate: 63 P: 13 IA: 137 QRS: 53 QRSD: 109 T: 38 QT: 377 QTc: 387 Interpretive Statements SINUS RHYTHM Compared to ECG 01/12/2020 04:10:55 Sinus arrhythmia no longer present Electronically Signed On 03-27-2020 21:05:05 CDT by ARYA SEARS [id number]
[2020-03-26] MEDS: LORazepam 2 mg Tablet PO (18:57)
--- NOTE | 2020-03-26 19:06 | ED_ITS ---
HPI - Psych General: Chief Complaint: Psychiatric Symptoms Stated Complaint: Anxiety Time Seen by Provider: 03/26/20 18:16 Source: patient Mode of arrival: ambulatory Limitations: no limitations History of Present Illness: HPI Narrative: Edgar is a 39-year-old male well- known to me from previous visits. He comes in stating he is suicidal with a plan to cut his wrist. Patient states he is homeless and this makes him feel hopeless and depressed. He otherwise denies any complaints. Patient has been hospitalized multiple times in the past for similar problems. Review of Systems Const: Denies: fever(s), chills, body aches, fatigue, malaise or diaphoresis Eyes: Denies: change in vision, blurry vision, photophobia, eye discomfort, eye discharge, eye redness or yellow eyes ENMT: Denies: throat pain, odynophagia, hoarseness, swelling of lips/tongue, ear or mastoid pain, ear discharge, change in hearing or nasal discharge Card: Denies: chest pain, palpitations, irregular heart rhythm, edema, lightheadedness, syncope, pre-syncope, dyspnea on exertion or orthopnea Resp: Denies: dyspnea, productive cough, non-productive cough, wheezing, hemoptysis or chest congestion GI: Denies: abdominal pain, nausea, vomiting, hematemesis, coffee ground emesis, heartburn, diarrhea, constipation, GI cramping, hematochezia or melena : Denies: flank pain, dysuria, urinary frequency, urinary urgency or hematuria Musc: Denies: neck pain, back pain, extremity pain, extremity swelling, joint pain, joint swelling, joint redness, joint warmth or joint stiffness Skin/Breast: Denies: rash, pruritus, erythema, skin pain or skin tenderness Neuro: Denies: headache(s), numbness in extremities, weakness in extremities, sensory changes, lack of coordination, difficulty walking, dizziness, vertigo, confusion, Slurred speech present or seizure-like activity Chaparro/Lymph: Denies: easy bruising, easy bleeding, petechiae, purpura or en larged lymph nodes All/Imm: Denies: urticaria, throat swelling, tongue swelling, facial swelling or acute wheezing PFS ED PFSH: Medical History Anxiety Depression Methamphetamine use Schizophrenia Surgical History No pertinent past surgical history Social History Smoking and tobacco status: current every day smoker cigarettes Packs smoked per day: 0.5 Alcohol intake: never Current gender identity: Male Physical Exam Const: COMMON NORMALS: no acute distress, patient oriented x3, no limitations and alert GENERAL APPEARANCE: cooperative HENMT: COMMON NORMALS: normocephalic, atraumatic, external ears normal, EAC's normal and Normal external nose present HEAD & SCALP: normal to inspection, normocephalic and atraumatic FACE & SINUS: normal facial exam and face symmetric NOSE: Normal external nose present and Normal nares present EXTERNAL EAR: Yes external ears normal EXTERNAL AUDITORY CANAL: EAC's normal MOUTH: Normal oral and palatal mucosa present, lip normal and tongue normal Eye: COMMON NORMALS: Equal, round and reactive pupils present and conjunctivae normal GENERAL EYE: appearance normal, both eyes and all related structures ALIGNMENT: Yes alignment normal PERIORBITAL: periorbital findings normal EYELID: eyelids normal CONJUNCTIVA: Yes conjunctivae normal SCLERA: sclerae normal PUPIL: Yes Equal, round and reactive pupils present Neck/C-Spine: COMMON NORMALS: full ROM, no lymphadenopathy, supple, no meningeal signs and no JVD GENERAL: Yes normal visual inspection and Yes trachea midline Chest: COMMONS NORMALS: normal inspection of the chest and normal palpation of entire chest wall Resp: COMMON NORMALS: normal respiratory effort, No retractions, No use of accessory muscles and clear to auscultation bilaterally EFFORT & INSPECTION: Yes able to speak in complete sentences and Yes symmetric chest movement AUSCULTATION: clear to auscultation bilaterally, no crackles, no rales, no rhonchi and no wheezes Cardio: COMMON NORMALS: no JVD, regular rate, regular rhythm, S1 normal heart sound present and S2 normal heart sound present RATE: regular rate RHYTHM: regular rhythm HEART SOUNDS: S1 normal heart sound present, S2 normal heart sound present, no click, no gallops, no murmurs and no rubs GI: COMMON NORMALS: Soft to palpation and No hepatosplenomegaly present PALPATION: Yes Soft to palpation, No Tenderness to palpation present (GI), No Guarding due to palpation present (GI), No Rigid due to palpation, Yes No hepatosplenomegaly present, No Hernia present, No Palpable mass present and No Pulsatile mass present : COMMON NORMALS: Yes no CVA tenderness BLADDER/KIDNEY EXAM: Yes no CVA tenderness Back/Pelvis: COMMON NORMALS: no CVA tenderness, thoracic and lumbar spine normal to inspection, no thoracic nor lumbar tenderness and thoraco-lumbar ROM normal Extremity: COMMON NORMALS: normal to inspection, full ROM, capillary refill normal, no joint enlargement, no clubbing, cyanosis or edema and no calf tenderness Neuro: COMMON NORMALS: patient oriented x3, CN's II-XII intact bilaterally, moves all extremities, no focal motor deficits and no sensory deficits noted SENSORIUM/ORIENTATION: Yes alert MENINGEAL SIGNS: Yes no meningeal signs SPEECH: speech normal Psych: COMMON NORMALS: mental status grossly normal, Normal thought process present, cooperative, normal affect, speech normal and activity/motor behavior normal SPEECH: Yes normal speech THOUGHT PROCESS: Normal thought process present Skin: COMMON NORMALS: no rashes or lesions noted, turgor normal, no jaundice, no petechiae and no mottling GENERAL SKIN EXAM: no rashes or lesions noted and turgor normal MDM - Psych MDM Narrative: Medical decision making narrative: The case was reviewed with Dr. Khan, he agrees to admit the patient for further evaluation and care. EKG Data^: EKG 1: Attestation: I personally reviewed and interpreted this EKG as follows: EKG interpretation date: 03/26/20 EKG interpretation time: 18:44 Interpretation: Normal sinus rhythm at 63 beats a minute, no blocks, normal intervals, no acute ST-T wave changes. Discharge Plan Discharge Patient Disposition: Admitted As Inpatient Clinical Impression: Suicidal ideation Condition: Stable Prescriptions: No Action No Known Home Medications RF: 0 Coding Level of Care Code ED Senior Quality Manager for [facility] [employer] [facility] [employer] [place]
[2020-03-26 19:18] LABS: Basophils % 0.4 %; Eosinophils # 0.1 10^3/uL (0.0-0.8); Eosinophils % 1.5 %; Hematocrit 42.6 % (42.0-52.0); Hemoglobin 13.9 g/dL (11.7-16.6); Lymphocytes # 1.9 10^3/uL (0.8-4.8); Lymphocytes % 27.7 %; Mean Corpuscular HGB Conc 32.6 g/dL (30.0-36.0); Mean Corpuscular Hemoglobin 30.5 pg (28.0-34.0); Mean Corpuscular Volume 93.6 fL (80-94); Mean Platelet Volume 10.3 fL (7.4-10.4); Monocytes # 0.6 10^3/uL (0.2-0.9); Neutrophils # 4.12 10^3/uL (1.8-7.7); Neutrophils % 61.1 %; Nucleated Red Blood Cells % 0 %; Platelet Count 275 10^3/cmm (130-400); Red Blood Count 4.55 10^6/uL (4.1-5.3); White Blood Count 6.8 10^3/uL (4.0-10.0)
[2020-03-26 19:24] LABS: Add Urine Microscopic? YES; Bilirubin Urine Neg (Negative); Blood Urine Neg (Negative); Glucose Urine UA Norm (Normal); Ketones Urine Negative (Negative); Leukocyte Esterase Urine Negative (Negative); Nitrate Urine Negative (Negative); Protein Urine Neg (Negative); Specific Gravity, Urine 1.015 (1.005-1.030); Urine Appearance Hazy (CLEAR); Urine Color Yellow (Yellow); Urobilinogen Urine Norm (Negative); pH Urine 7 (5-7)
[2020-03-26 19:33] LABS: Anion Gap 10.9 (5-19); Blood Urea Nitrogen 14 mg/dL (6-20); Carbon Dioxide 30 mmol/L (22-29); Chloride 104 mmol/L (98-107); Potassium 3.9 mmol/L (3.5-5.1); Sodium 141 mmol/L (136-145)
[2020-03-26 19:34] LABS: Alanine Aminotransferase 26 U/L (0-41); Albumin Level 4.4 g/dL (3.5-5.2); Alkaline Phosphatase 95 IU/L (40-130); Aspartate Amino Transferase 23 U/L (0-40); Calcium 9.4 mg/dL (8.5-10.5); Globulin 2.4 g/dL (1.3-4.6); Glomerular Filtration Rate 107.6 mL/min (90-130); Glucose 85 mg/dL (65-115); Osmolality Calculated 292 mOsm/kg (285-295); Total Bilirubin 0.2 mg/dL (0.15-1.2); Total Protein 6.8 g/dL (6.6-8.7)
[2020-03-26 19:49] LABS: Acetaminophen < 5.0 ug/mL (10-30); Alcohol Level < 10 mg/dL (0-10); Salicylate < 0.3 mg/dL (3-10)
[2020-03-26 20:03] LABS: Add Urine Culture? No; Amorphous Sediment Urine 3+ /hpf; Bacteria Urine TRACE /hpf; RBC Urine 0-4 /hpf (0-2)
[2020-03-26 21:13] VITALS: BP 113/70; PULSE 95; O2SAT 98
[2020-03-26 21:16] LABS: Amphetamines Screen Urine Negative (Negative); Barbiturates Screen Urine Negative (Negative); Benzodiazepines Screen Urine Negative (Negative); Cocaine Screen Urine Negative (Negative); Opiate Screen Urine Negative (Negative); PCP Screen Urine Negative (Negative); THC Screen Urine Positive (Negative)
--- NOTE | 2020-03-26 21:57 | PC.NURSE ---
Report called to Britt MOREL on the NPU unit.
[2020-03-26 22:46] VITALS: BP 119/82; PULSE 76; RESP 17; TEMP 36.4; O2SAT 98
[2020-03-27 05:37] VITALS: BP 125/82; PULSE 66; RESP 17; TEMP 36.9; O2SAT 97
[2020-03-27 13:48] VITALS: BP 113/74; PULSE 70; RESP 20; TEMP 36.1; O2SAT 96
[2020-03-27 14:50] VITALS: BP 113/74; PULSE 70; RESP 20; TEMP 36.1; O2SAT 96
--- NOTE | 2020-03-27 14:52 | PM.SDS ---
Short Stay Summary Providers Date of Admit/Discharge: 03/27/20 Attending Provider: Ori Khan MD Chief Complaint: Anxiety HPI History of Present Illness Edgar Almazan is a 39 year old male who is now admitted to the neuropsychiatric unit for the fifth time with complaint of having suicidal thoughts of slashing his wrist. He is a homeless man who is well-known to this facility. He struggles to maintain his personal life. With each hospitalization, he has become much more self-directed and what he is looking for and using the system for his own advantage. In the past he has come to the emergency room in the hospital specifically looking for benzodiazepines. He has a history of benzodiazepine abuse. But primarily he is homeless and from time to time needs brief periods of supervision. The patient was admitted last night with a complaint of suicidal ideation with the intention of slashing his wrist. Less than 24 hours later, he has rejected attempts by social work to find placement at the [facility] homeless [facility] in [place] and says that he is ready to leave and go stay with friends. He denies suicidal or homicidal ideation. He denies the presence of auditory or visual hallucinations. He does ask if I know any physicians that we will prescribe Klonopin to him. Otherwise he makes no requests. Past psychiatric history is well-documented in his 4 prior hospitalizations the last being only 4 weeks ago. Review of Systems Narrative: Review of Systems Constitutional: Complains of: Fatigue Eyes: Complains of: No eye symptoms ENT/Mouth: Complains of: No ENTM symptoms Cardiovascular: Complains of: No cardiac symptoms Respiratory: Complains of: No respiratory symptoms GI: Complains of: No GI symptoms Neuro: Complains of: No neuro symptoms Musculoskeletal: Complains of: No musculoskeletal symptoms Skin: Complains of: No skin symptoms Hematologic/Lymphatic: Complains of: No hematologic/lymphatic symptoms Endocrine: Complains of: No endocrine symptoms : Complains of: No symptoms Psych: Denies complaints of: Depression, Suicide ideation Home Meds/Allergies Home Medications and Allergies Home Medications Medication Instructions Recorded Confirmed Type No Known Home Medications 03/26/20 03/26/20 History Allergies Allergy/AdvReac Type Severity Reaction Status Date / Time haloperidol [From Haldol] AdvReac ADR-Agitate Verified 03/26/20 18:15 d PFSH Acute PFSH: Medical History Anxiety Depression Methamphetamine use Schizophrenia Surgical History No pertinent past surgical history Social History Smoking and tobacco status: current every day smoker cigarettes Packs smoked per day: 0.5 Alcohol intake: never Current gender identity: Male Vitals/I&O/Wt Last Vital Signs Temp 97 F L 03/27/20 14:50 Pulse 70 03/27/20 14:50 Resp 20 H 03/27/20 14:50 BP 113/74 03/27/20 14:50 Pulse Ox 96 03/27/20 14:50 Weight last 48 hrs Weight 79.379 kg Physical Exam Narrative: EXAM NARRATIVE: Discharge Mental Status Exam: Appearance: hygiene is good; no gross neurological deficits., gait is unremarkable; AIMS=0 Speech: Speech is of normal rate and rhythm and easily understood. Thought processes: Thought processes are abstract. Judgment is adequate for safety. Associations: intact Psychotic processes: There is no indication of guarding or paranoia. There is no attention to the internal stimuli. Auditory and visual hallucinations are denied. Judgment: Insight is fair. Problem solving skills are adequate for safety. Orientation: The patient is oriented to person, place time and situation. Memory: no deficits noted in immediate, intermediate, or remote spheres. Attention: The patient is alert and interpersonally engaged. Language: Verbalizations are coherent. Fund of knowledge: Fund of knowledge is adequate. Affect/Mood: Affect is consistent with a euthymic mood. denied suicidal ideation Affective range is appropriate. Psychosis: perception unimpaired except through cognitive distortion; reality testing intact. Diagnoses at Discharge Discharge Diagnosis (1) Suicidal ideation: Status: Acute (2) Homeless single person: Status: Acute Other Information Additional DC diagnoses/information: The patient was admitted to the adult psychiatric unit and entered into the form of individual and group therapies as part of the unit protocol. They were provided 24-hour access to medication supervision and therapeutic activities by trained psychiatric nursing. Before he could be engaged in a therapeutic program, he decided found a place to go and stay that was safe. He was no longer having suicidal thoughts. HE was permitted to leave. Discharge Plan Discharge Patient Disposition: Home Condition: Stable Prescriptions: No Action No Known Home Medications RF: 0 Discharge Orders: Discharge Order (Routine); Ordered 03/27/20 Ordered By: Ori Khan Referrals: [facility] [Outside] Discharge Date/Time: 03/27/20 15:08 Attestations Medical Necessity Statement*: Patient was discharged. Time Spent in Patient Care*: greater than 30 min Status at Discharge: Cognitive status at discharge: cognitively intact, Behavioral status at discharge: cooperative, Quality Metrics Clinical Quality Measures: During this hospital stay, did patient experience: None Coding Level of Care Code Acute Digital Sales Executive for Chg Fwd Diagnoses Suicidal ideation R45.851 Homeless single person Z59.0
--- NOTE | 2020-03-28 16:46 | PC.RESP ---
Smoking Cessation information sent to patient.
== END 2020-03-27 15:08 | disposition home or self-care (01) | DRG 880 ==
LOC: ER 19:34 → NP 21:32
PROVIDERS: Family Medicine; Admitting Provider Psychiatry & Neurology Psychiatry; Visit Provider Psychiatry & Neurology Psychiatry
DX: F41.8 Other specified anxiety disorders (principal); R45.851 Suicidal ideations; Z76.5 Malingerer [conscious simulation]; F20.9 Schizophrenia, unspecified; F17.210 Nicotine dependence, cigarettes, uncomplicated; Z59.0 Homelessness
CPT/HCPCS: 12345; 36415; 80053; 80306; 80307; 81001; 85025; 93005; 99284

== ENCOUNTER 2020-04-01 14:54 | Emergency (ER) | payer SELFPAY ==
[2020-04-01 15:05] VITALS: BP 119/75; PULSE 97; RESP 18; TEMP 36.7; O2SAT 98; BMI 24.4
--- NOTE | 2020-04-01 15:58 | W.ED.ANXIETY ---
HPI - Anxiety General: Chief Complaint: Anxiety Stated Complaint: mhe Time Seen by Provider: 04/01/20 15:34 Source: patient Mode of arrival: ambulatory Limitations: no limitations History of Present Illness: HPI narrative: 39-year-old male is very well-known to the ER states that he is ran out of his Klonopin and has been having increasing anxiety. He states he felt like he had an anxiety attack. He denies any suicidal homicidal ideations. Patient denies any worsening or improving factors. MD complaint: anxiety Associated symptoms: Deny chest pain, chills, fever(s), headache(s), nausea or vomiting Review of Systems Const: Denies: fever(s), chills, body aches or change in appetite Eyes: Denies: blurry vision or eye discomfort ENMT: Denies: throat pain or dental pain Card: Denies: chest pain Resp: Denies: dyspnea GI: Denies: abdominal pain, nausea, vomiting or diarrhea : Denies: dysuria Musc: Denies: neck pain or back pain Skin/Breast: Denies: rash Neuro: Denies: headache(s) Psych: Reports: anxiety; Denies: depression Chaparro/Lymph: Denies: easy bruising All/Imm: Denies: urticaria PFSH ED PFSH: Medical History Anxiety Depression Methamphetamine use Schizophrenia Surgical History No pertinent past surgical history Social History Smoking and tobacco status: current every day smoker cigarettes Packs smoked per day: 0.5 Alcohol intake: never Current gender identity: Male Physical Exam Const: COMMON NORMALS: no acute distress, patient oriented x3 and healthy appearing HENMT: COMMON NORMALS: normocephalic and atraumatic HEAD & SCALP: normocephalic and atraumatic Eye: COMMON NORMALS: Equal, round and reactive pupils present and EOMs intact bilaterally PUPIL: Yes Equal, round and reactive pupils present Neck/C-Spine: COMMON NORMALS: full ROM and supple Chest: COMMONS NORMALS: normal inspection of the chest and normal palpation of entire chest wall Resp: COMMON NORMALS: normal respiratory effort, No retractions, No use of accessory muscles and clear to auscultation bilaterally AUSCULTATION: clear to auscultation bilaterally Cardio: COMMON NORMALS: regular rate, regular rhythm and No murmurs present (Cardio) RATE: regular rate RHYTHM: regular rhythm GI: COMMON NORMALS: Normal to inspection, nondistended, normoactive bowel sounds present, Soft to palpation, non-tender and no masses PALPATION: Yes Soft to palpation Extremity: COMMON NORMALS: normal to inspection and full ROM Neuro: COMMON NORMALS: patient oriented x3, moves all extremities and no focal motor deficits Psych: COMMON NORMALS: mental status grossly normal, Normal thought process present and cooperative MOOD & AFFECT: Yes anxious THOUGHT PROCESS: Normal thought process present Skin: COMMON NORMALS: no rashes or lesions noted and no wounds GENERAL SKIN EXAM: no rashes or lesions noted Course Vital Signs: Vital signs: Vital Signs Temperature 98.1 F 04/01/20 15:05 Pulse Rate 97 04/01/20 15:05 Respiratory Rate 18 04/01/20 15:05 Blood Pressure 119/75 04/01/20 15:05 Pulse Oximetry 98 04/01/20 15:05 MDM - Anxiety MDM Narrative: Medical decision making narrative: Patient presents here with anxiety. We will give him Ativan here and prescribe him Vistaril. He is to follow-up with his PCP. Patient is not suicidal or homicidal. Patient is stable for discharge is return if worsening. Discharge Plan Discharge Patient Disposition: Home Clinical Impression: Anxiety Condition: Stable Prescriptions: New Vistaril 25 mg capsule 25 mg PO Q8H PRN (Reason: anxiety) Qty: 30 RF: 0 Discharge Orders: Discharge Order (Routine); Ordered 04/01/20 Ordered By: Jefe Hennessy Discharge Diet: Advance as tolerated Discharge Activity: Resume usual activity Patient Instructions: Anxiety (ED) Coding Level of Care Code ED Php Magento Developer for Tracey Izquierdo
[2020-04-01] MEDS: LORazepam 1 mg Tablet PO (16:09)
[2020-04-01 16:11] VITALS: RESP 18; TEMP 36.7; O2SAT 98
== END 2020-04-01 16:11 | disposition home or self-care (01) ==
PROVIDERS: Emergency Provider Emergency Medicine
DX: F41.9 Anxiety disorder, unspecified (principal); F17.210 Nicotine dependence, cigarettes, uncomplicated
CPT/HCPCS: 12345; 99281; 99283

== ENCOUNTER 2020-04-03 21:04 | Emergency (ER) | payer SELFPAY ==
[2020-04-03 21:17] VITALS: BP 145/85; PULSE 119; RESP 17; TEMP 37.1; O2SAT 98; BMI 24.4
--- NOTE | 2020-04-03 21:29 | W.ED.ANXIETY ---
HPI - Anxiety General: Chief Complaint: Anxiety Stated Complaint: anxiety Time Seen by Provider: 04/03/20 21:08 Source: patient Mode of arrival: ambulatory Limitations: no limitations History of Present Illness: HPI narrative: 39-year-old male who is well-known to the ED states he has been having anxiety and is out of his Klonopin. He is requesting a Klonopin refill. He denies any SI or HI. Denies any worsening or improving factors. Associated symptoms: Deny chest pain, chills, fever(s), headache(s), nausea or vomiting Review of Systems Const: Denies: fever(s), chills, body aches or change in appetite Eyes: Denies: blurry vision or eye discomfort ENMT: Denies: throat pain or dental pain Card: Denies: chest pain Resp: Denies: dyspnea GI: Denies: abdominal pain, nausea, vomiting or diarrhea : Denies: dysuria Musc: Denies: neck pain or back pain Skin/Breast: Denies: rash Neuro: Denies: headache(s) Psych: Reports: anxiety Chaparro/Lymph: Denies: easy bruising All/Imm: Denies: urticaria PFS ED PFSH: Medical History (Updated 04/03/20 @ 21:29 by Jefe Hennessy MD) Anxiety Depression Methamphetamine use Schizophrenia Surgical History No pertinent past surgical history Social History Smoking and tobacco status: current every day smoker cigarettes Packs smoked per day: 0.5 Alcohol intake: never Current gender identity: Male Physical Exam Const: COMMON NORMALS: no acute distress, patient oriented x3 and healthy appearing HENMT: COMMON NORMALS: normocephalic and atraumatic HEAD & SCALP: normocephalic and atraumatic Eye: COMMON NORMALS: Equal, round and reactive pupils present and EOMs intact bilaterally PUPIL: Yes Equal, round and reactive pupils present Neck/C-Spine: COMMON NORMALS: full ROM and supple Chest: COMMONS NORMALS: normal inspection of the chest and normal palpation of entire chest wall Resp: COMMON NORMALS: normal respiratory effort, No retractions, No use of accessory muscles and clear to auscultation bilaterally AUSCULTATION: clear to auscultation bilaterally Cardio: COMMON NORMALS: regular rate, regular rhythm and No murmurs present (Cardio) RATE: regular rate RHYTHM: regular rhythm GI: COMMON NORMALS: Normal to inspection, nondistended, normoactive bowel sounds present, Soft to palpation, non-tender and no masses PALPATION: Yes Soft to palpation Extremity: COMMON NORMALS: normal to inspection and full ROM Neuro: COMMON NORMALS: patient oriented x3, moves all extremities and no focal motor deficits Psych: COMMON NORMALS: mental status grossly normal, Normal thought process present and cooperative THOUGHT PROCESS: Normal thought process present Skin: COMMON NORMALS: no rashes or lesions noted and no wounds GENERAL SKIN EXAM: no rashes or lesions noted Course Vital Signs: Vital signs: Vital Signs Temperature 98.8 F 04/03/20 21:17 Pulse Rate 119 H 04/03/20 21:17 Respiratory Rate 17 04/03/20 21:17 Blood Pressure 145/85 04/03/20 21:17 Pulse Oximetry 98 04/03/20 21:17 MDM - Anxiety MDM Narrative: Medical decision making narrative: Patient presents with anxiety requesting Klonopin. I informed him we cannot refill his Klonopin in the ER. He is well-appearing here and not suicidal or homicidal. Patient is stable for discharge. Discharge Plan Discharge Patient Disposition: Home Clinical Impression: Anxiety Condition: Stable Prescriptions: No Action Vistaril 25 mg capsule 25 mg PO Q8H PRN (Reason: anxiety) Qty: 30 RF: 0 Discharge Orders: Discharge Order (Routine); Ordered 04/03/20 Ordered By: Jefe Hennessy Discharge Diet: Advance as tolerated Discharge Activity: Resume usual activity Patient Instructions: Anxiety (ED) Coding Level of Care Code ED Wet Cleaner Machine for Chg Fwd Exam Comprehensive
[2020-04-03] MEDS: LORazepam 1 mg Tablet PO (21:40)
== END 2020-04-03 21:41 | disposition home or self-care (01) ==
PROVIDERS: Emergency Provider Emergency Medicine
DX: F41.9 Anxiety disorder, unspecified (principal); F17.210 Nicotine dependence, cigarettes, uncomplicated
CPT/HCPCS: 12345; 99281; 99282

== ENCOUNTER 2020-04-05 03:09 | Inpatient (IN) | payer SELFPAY ==
[2020-04-05 03:14] VITALS: BP 121/76; PULSE 78; RESP 20; TEMP 37.1; O2SAT 100; BMI 23.7
--- NOTE | 2020-04-05 03:18 | ECG_ITS ---
[facility] Test Date: 2020-04-05 Pat Name: Edgar Almazan Department: Room: Gender: Male [employer] Grinder: : 1980 Requested By: May Hopson Order Number: [id number] Ponce MD: Jenny Villarreal M.D. Measurements Intervals [place] Rate: 74 P: 49 OR: 130 QRS: 93 QRSD: 105 T: 55 QT: 373 QTc: 415 Interpretive Statements SINUS RHYTHM BORDERLINE RIGHT AXIS DEVIATION [QRS AXIS > 90] MINIMAL VOLTAGE CRITERIA FOR LVH, CONSIDER NORMAL VARIANT [MEETS CRITERIA IN ONE OF: R(aVL), S(V1), R(V5), R(V5/V6)+S(V1)] Compared to ECG 03/26/2020 18:44:36 No significant changes Electronically Signed On 04-05-2020 11:28:59 SLOT ROUTER by Jenny Villarreal M.D. [id number]
--- NOTE | 2020-04-05 03:20 | ED_ITS ---
HPI - General Adult General: Chief complaint: Psychiatric Symptoms Stated complaint: mhe Time Seen by Provider: 04/05/20 03:18 Source: patient Mode of arrival: ambulatory Limitations: no limitations History of Present Illness: HPI narrative: Edgar is a 39-year-old male well- known to me from previous visits. Comes in tonight stating suicidal. States his anxiety and depression are out of control. Patient also admits to homelessness. Patient does not have a specific plan on what he is going to do but he states he wants to come in to get help. Associated symptoms: Deny chest pain, dyspnea, headache(s), nausea, rash, palpitations, syncope or vomiting Review of Systems Const: Denies: fever(s) Eyes: Denies: change in vision or blurry vision ENMT: Denies: throat pain, hoarseness or swelling of lips/tongue Card: Denies: chest pain, palpitations, syncope, pre-syncope or dyspnea on exertion Resp: Denies: dyspnea, productive cough, non-productive cough, wheezing, change in phlegm color or hemoptysis GI: Denies: abdominal pain, nausea, vomiting or diarrhea : Denies: flank pain, dysuria, urinary frequency or urinary urgency Musc: Denies: neck pain, back pain or extremity pain Skin/Breast: Denies: rash or pruritus Neuro: Denies: headache(s), numbness in extremities, weakness in extremities or dizziness [place]/Lymph: Denies: easy bruising, easy bleeding, petechiae or purpura All/Imm: Denies: urticaria or throat swelling PFSH ED PFSH: Medical History Anxiety Depression Methamphetamine use Schizophrenia Surgical History No pertinent past surgical history Social History Smoking and tobacco status: current every day smoker cigarettes Packs smoked per day: 0.5 Alcohol intake: never Current gender identity: Male Physical Exam Const: COMMON NORMALS: no acute distress, patient oriented x3, no limitations and alert GENERAL APPEARANCE: cooperative HENMT: COMMON NORMALS: normocephalic, atraumatic, external ears normal, EAC's normal and Normal external nose present HEAD & SCALP: normal to inspection, normocephalic and atraumatic FACE & SINUS: normal facial exam and face symmetric NOSE: Normal external nose present and Normal nares present EXTERNAL EAR: Yes external ears normal EXTERNAL AUDITORY CANAL: EAC's normal MOUTH: Normal oral and palatal mucosa present, lip normal and tongue normal Eye: COMMON NORMALS: Equal, round and reactive pupils present and conjunctivae normal GENERAL EYE: appearance normal, both eyes and all related structures ALIGNMENT: Yes alignment normal PERIORBITAL: periorbital findings normal EYELID: eyelids normal CONJUNCTIVA: Yes conjunctivae normal SCLERA: sclerae normal PUPIL: Yes Equal, round and reactive pupils present Neck/C-Spine: COMMON NORMALS: full ROM, no lymphadenopathy, supple, no meningeal signs and no JVD GENERAL: Yes normal visual inspection and Yes trachea midline Chest: COMMONS NORMALS: normal inspection of the chest and normal palpation of entire chest wall Resp: COMMON NORMALS: normal respiratory effort, No retractions, No use of accessory muscles and clear to auscultation bilaterally EFFORT & INSPECTION: Yes able to speak in complete sentences and Yes symmetric chest movement AUSCULTATION: clear to auscultation bilaterally, no crackles, no rales, no rhonchi and no wheezes Cardio: COMMON NORMALS: no JVD, regular rate, regular rhythm, S1 normal heart sound present and S2 normal heart sound present RATE: regular rate RHYTHM: regular rhythm HEART SOUNDS: S1 normal heart sound present, S2 normal heart sound present, no click, no gallops, no murmurs and no rubs GI: COMMON NORMALS: Soft to palpation and No hepatosplenomegaly present PALPATION: Yes Soft to palpation, No Tenderness to palpation present (GI), No Guarding due to palpation present (GI), No Rigid due to palpation, Yes No hepatosplenomegaly present, No Hernia present, No Palpable mass present and No Pulsatile mass present : COMMON NORMALS: Yes no CVA tenderness BLADDER/KIDNEY EXAM: Yes no CVA tenderness Back/Pelvis: COMMON NORMALS: no CVA tenderness, thoracic and lumbar spine normal to inspection, no thoracic nor lumbar tenderness and thoraco-lumbar ROM normal Extremity: COMMON NORMALS: normal to inspection, full ROM, capillary refill normal, no joint enlargement, no clubbing, cyanosis or edema and no calf tenderness Neuro: COMMON NORMALS: patient oriented x3, CN's II-XII intact bilaterally, moves all extremities, no focal motor deficits and no sensory deficits noted SENSORIUM/ORIENTATION: Yes alert MENINGEAL SIGNS: Yes no meningeal signs SPEECH: speech normal Psych: COMMON NORMALS: mental status grossly normal, Normal thought process present, cooperative, normal affect, speech normal and activity/motor behavior normal SPEECH: Yes normal speech THOUGHT PROCESS: Normal thought process present Skin: COMMON NORMALS: no rashes or lesions noted, turgor normal, no jaundice, no petechiae and no mottling GENERAL SKIN EXAM: no rashes or lesions noted and turgor normal Course Vital Signs: Vital signs: Vital Signs Temperature 98.8 F 04/05/20 03:14 Pulse Rate 78 04/05/20 03:14 Respiratory Rate 20 H 04/05/20 03:14 Blood Pressure 121/76 04/05/20 03:14 Pulse Oximetry 100 04/05/20 03:14 MDM - General Adult MDM Narrative: Medical decision making narrative: Case reviewed with Dr. David sharpe, he agrees to admission. EKG Data^: EKG 1: Attestation: I personally reviewed and interpreted this EKG as follows: EKG interpretation date: 04/05/20 EKG interpretation time: 03:56 Interpretation: Normal sinus rhythm 74 beats a minute, LVH, no acute ST-T wave changes. Normal QTC. Discharge Plan Discharge Patient Disposition: Admitted As Inpatient Clinical Impression: Suicidal ideation, Anxiety, Schizophrenia Condition: Stable Prescriptions: No Action Vistaril 25 mg capsule 25 mg PO Q8H PRN (Reason: anxiety) Qty: 30 RF: 0 Coding Level of Care Code ED Batch Tank [employer] for Chg Fwd Exam Comprehensive
[2020-04-05 03:24] VITALS: BP 129/68; PULSE 78; RESP 18; O2SAT 98
[2020-04-05 04:10] VITALS: BP 136/74; PULSE 93; RESP 16; O2SAT 97
--- NOTE | 2020-04-05 04:24 | PC.NURSE ---
notified provider of pt's request for pain -throat pain 10/06. Provide pt with meal. Notified pt, no pain medication until after the lab/urine results, to ensure no overdose.
--- NOTE | 2020-04-05 04:25 | PC.NURSE ---
Provide pt with sandwich and drink, okayed by provider
[2020-04-05 04:26] LABS: Basophils % 0.5 %; Eosinophils # 0.3 10^3/uL (0.0-0.8); Eosinophils % 3.8 %; Hematocrit 40.2 % (42.0-52.0); Hemoglobin 13.6 g/dL (11.7-16.6); Lymphocytes # 1.5 10^3/uL (0.8-4.8); Lymphocytes % 17.7 %; Mean Corpuscular HGB Conc 33.8 g/dL (30.0-36.0); Mean Corpuscular Hemoglobin 30.4 pg (28.0-34.0); Mean Corpuscular Volume 89.7 fL (80-94); Mean Platelet Volume 10.1 fL (7.4-10.4); Monocytes # 1.1 10^3/uL (0.2-0.9); Monocytes % 12.6 %; Neutrophils # 5.69 10^3/uL (1.8-7.7); Neutrophils % 65.2 %; Nucleated Red Blood Cells % 0 %; Platelet Count 277 10^3/cmm (130-400); Red Blood Count 4.48 10^6/uL (4.1-5.3); Red Cell Distribution Width 12.7 % (12.1-15.1); White Blood Count 8.7 10^3/uL (4.0-10.0)
[2020-04-05] MEDS: LORazepam 1 mg Tablet PO (04:29)
[2020-04-05 04:46] LABS: Amphetamines Screen Urine Positive (Negative); Barbiturates Screen Urine Negative (Negative); Benzodiazepines Screen Urine Positive (Negative); Cocaine Screen Urine Negative (Negative); Opiate Screen Urine Negative (Negative); PCP Screen Urine Negative (Negative); THC Screen Urine Positive (Negative)
[2020-04-05 04:47] LABS: Alanine Aminotransferase 39 U/L (0-41); Albumin Level 4.2 g/dL (3.5-5.2); Alkaline Phosphatase 101 IU/L (40-130); Anion Gap 11.8 (5-19); Aspartate Amino Transferase 58 U/L (0-40); Blood Urea Nitrogen 12 mg/dL (6-20); Calcium 8.9 mg/dL (8.5-10.5); Carbon Dioxide 29 mmol/L (22-29); Chloride 103 mmol/L (98-107); Globulin 2.4 g/dL (1.3-4.6); Glomerular Filtration Rate 93.9 mL/min (90-130); Glucose 135 mg/dL (65-115); Osmolality Calculated 292 mOsm/kg (285-295); Potassium 3.8 mmol/L (3.5-5.1); Sodium 140 mmol/L (136-145); Total Bilirubin 0.6 mg/dL (0.15-1.2); Total Protein 6.6 g/dL (6.6-8.7)
[2020-04-05 04:54] LABS: Acetaminophen < 5.0 ug/mL (10-30); Alcohol Level < 10 mg/dL (0-10); Salicylate < 0.3 mg/dL (3-10)
--- NOTE | 2020-04-05 05:53 | PC.NURSE ---
Skin assessment revealed two scratches on right hip.
[2020-04-05 06:00] VITALS: BP 112/74; PULSE 91; RESP 19; TEMP 36.5; O2SAT 94
--- NOTE | 2020-04-05 10:51 | P.HP_ITS ---
Providers/Chief Complaint Admitting Physician: Scar Denny MD Chief Complaint: mhe HPI NPU History of Present Illness Edgar Almazan is a 39 year old male who presented to the emergency department with the following report: Chief complaint: Psychiatric Symptoms Stated complaint: mhe Time Seen by Provider: 04/05/20 03:18 Source: patient Mode of arrival: ambulatory Limitations: no limitations History of Present Illness: HPI narrative: Edgar is a 39-year-old male well- known to me from previous visits. Comes in tonight stating suicidal. States his anxiety and depression are out of control. Patient also admits to homelessness. Patient does not have a specific plan on what he is going to do but he states he wants to come in to get help. Associated symptoms: Deny chest pain, dyspnea, headache(s), nausea, rash, palpitations, syncope or vomiting> He was admitted to the neuropsychiatric unit for definitive treatment of those issues. Today he presents clearly out of that and likely an active withdrawal reporting that he is in pain and wants to and is anxious etc. All attempts to get him to really engage in a meaningful conversation for evaluation were thwarted by his level of lethargy and unresponsiveness. We reviewed a recent evaluation by this flex o writer operator and have included an excerpt below given his lack of ability to be an accurate historian. Per his 02/24/2020 inpatient evaluation: History of Present Illness Edgar Almazan is a 39 year old male who presented to the emergency department with the following report: Chief Complaint: Psychiatric Symptoms Stated Complaint: si, self check in Time Seen by Provider: 02/24/20 01:38 History of Present Illness: HPI Narrative: 39-year-old male presents saying he has had suicidal ideation. He states his plan was to jump off of a bridge. He is attempted suicide in the past. He has been depressed. He is homeless currently, which is affecting his depression as well. He denies any medical complaints. complaint: suicidal ideation and feels depressed Onset (ago): day(s) Duration: constant History of same: Yes Relieving factors: none Exacerbating factors: none Context: not taking psychiatric medications Associated psychiatric symptoms: depression and suicidal ideation Associated symptoms: Deny auditory hallucinations or visual hallucinations If self harm: admits thoughts of self harm He was admitted to the neuropsychiatric unit for definitive treatment of those issues. Unfortunately once on the unit Edgar behaved in the way that he has done now about 3 times this year where he presented to the emergency room procl aiming a need to be admitted and make dramatic changes and then within 24 hours of coming to the unit he is endorsing having to leave, and he discharges AMA. We spoke about the fact that his circumstances likely would not improve and that he allow psychiatric medication to be prescribed and taken and stopped his pursuit of Klonopin/benzodiazepines. We reviewed the previous note from this flex o writer operator which was a d?j? vu of this exact situation and he acknowledged that it represented an accurate reflection of his recent visits here and his psychosocial circumstances. An excerpt of that note is included below. Per his last [facility] eval 01/12/2020: History of Present Illness Edgar Almazan is a 39 year old male who presented to the emergency room reporting that he needed a place to stay. [place] [facility] [place] [facility] for about a year and he started trying to get to the [facility] [place]. He was evaluated by a different emergency room doctor and disc harged last evening. He returned this morning reporting that he still didn't have a place to stay and at one point had endorsed wanting to go to neuropsych unit and some whisperings of lethality. A psychiatric evaluation was requested due to that issue. Edgar is known to this flex o writer operator from his discharge twice recently where he stayed overnight only to demand and may discharge the next morning. At the heart of the issue is his desire to have Klonopin prescribed to him. After his last discharge where Klonopin prescription was refused he did go to his follow-up appointment at the [facility] where he was evaluated and recommendation for medication for schizophrenia was suggested. He refused the medication that was recommended. That was 2 days ago. So we discussed the fact that if he were admitted to the hospital he would not get any Klonopin. We discussed the importance of him following up and accepting the antipsychotic medication for his wellness. He reported that Klonopin is the only medication that works for him and we discussed the fact that I doubted that that was true. Additionally we discussed his safety and he never at any point during our interview suggested that he was having thoughts to hurt or kill himself or anyone else. He spoke at length about his being homeless and having conflicts with his family and having no place to stay. He discussed that his grant officer recommended that he get the [place] but he just doesn't have the resources to get there. We discussed the fact that he follow through on some of the recommendations that we have made he would likely have Medicaid by now and might be able to utilize that resource just reinforcing that him having follow- up for schizophrenia could have multiple benefits. Ultimately he requested to be discharged and reported a plan to try to get [place] someway. An excerpt of his last evaluation by this flex o writer operator a couple weeks ago is included below and there have been no substantive changes per his report. Per last [facility] eval: History of Present Illness Edgar Almazan is a 39 year old male who presented to the emergency room known to the provider from many visits to the emergency room, endorsing suicidal ideation, reporting he has been off of his medication, and denying any other complaints. He was reporting he needs some help but was quite withdrawn and was a fairly unengaged poor historian. He was admitted to the neuropsychiatric unit for definitive treatment of those issues. This morning, once it was clear to him that this flex o writer operator had no plans of starting his Klonopin, during the hospitaliz ation, or of giving him refills, he asked to leave against medical advise. I did meet with him briefly, and because he was mostly focused on getting medication and wanting to leave because he reported all he needed to do was get his medication and he would be fine, we discussed a possible vehicle, through which we could initiate his medication and have some consideration for either tapering him off of the Klonopin, or working with his outpatient provider to consider a process, based on their thoughts; but he was not interested in anything that took any time. He essentially wanted an immediate answer. I reviewed with him the history that he and I have together, which is that he has been out of assisted for only a limited period of time, and came to the hospital back in September and, at that time, was not doing well and was using. He was restarted on the medications that his outpatient team had him on, which included low dose Klonopin. Then he did not follow up at [facility] but did return to the emergency room with some questionable excuse or reason for why he did not make his appointment, and he was given some bridge medication to get to an appointment. That was in the beginning of November, and now he has run out of those medications, albeit several days before he should have, and he returns looking for a refill. We expressed this avoidance of the outpatient milieu and having them as the people that get to know him well and can make decisions based on that, as a necessary component which he has been avoiding. So, we discussed a plan which included continuing inpatient, which he did not want and said he was leaving AMA. But then, multiple times, he tried to reengage this flex o writer operator to get some pills, a monthly script, something prescribed to him. But we discussed the risks, benefits, and alter natives of preceding that way, and he understood and had no choice but to accept that is how we would proceed with the benzodiazepines. He was a poor historian and an expert from his last hospitalization is included to give some historical background. given that he is not engaged in giving a full history with valuable historical data for understanding his circumstance. Mental Status This is a slender, white male, with adequate dress, grooming, and limited eye contact. No abnormal movements, except for mild psychomotor agitation. Semi- cooperative with exam in no acute distress. Speech was increased rate and decreased volume. Mood described as okay; affect congruent. Thought process, organized. Thought content: patient denied any suicidal or homicidal ideation, there were no delusions reported or noted, patient denied any auditory or visual hallucinations. Attention, concentration, and memory appeared intact but none were formally tested. He is alert and oriented times three. Insight and judgment are limited. Impulse control is limited. Assessment This is a 39 year old, white male, with a long history of schizophrenia and addiction, who presents with a UDS positive for marijuana only, but requesting a refill of his benzodiazepine without engaging in good kassy with outpatient chapincito atment since his hospitalization here in September, who presents wanting refills on his benzodiazepines mostly, and when that was refused, he requested to leave against medical advise. Continue current medications, except we will not write for Klonopin, given overuse and lack of engagement in outpatient treatment. Encourage individual, group, and milieu therapy. Continue q-15 minute checks for safety. Encourage treatment at a sober living facility, after discharge, at the highest level of care to which he is willing to commit. Given absence of credibly lethality, and the fact that he is not on a 96-hour hold/is a voluntary patient, he will be allowed to leave against medical advise. Per his September 2019 [facility] IP eval: History of Present Illness Edgar Almazan is a 39 year old male who presents poor historian with fairly little to add. He presented to the emergency room with hallucinations endorsing irritability and concerns that he might get so worked up that he might harm someone else. He presents today very irritable and more less resistant to the interview. He was able to identify that he has been here multiple times before which is confirmed throughout chart search. His last hospitalization was in 2016 and excerpt from that hospitalization is provided below. He denies any significant changes in his psychosocial circumstance over the last couple years. He endorsed recent cannabis use but denied other illicit drug use which was confirmed by his UDS. He endorsed lethality being a better condition to speak in the morning. Per his last [facility] eval: History of Present Illness Date of Service: Mar 30, 2017 Chief Complaint: I came here to get a refill only Klonopins. HPI: Mr. Almazan is a 36-year-old male that is known to our behavioral health services to the previous diagnosis of acute psychosis in the context of polysubstance abuse who presented to the emergency department yesterday expressing suicidal ideation with a plan to jump off a bridge. 96 hour hold was placed at that time and affidavits are reviewed on the chart. The patient reports that he was kicked out of the [facility] house last month and has been sleeping in his car since then. He reports that he went to his grant officer appointment yesterday and told her that he wanted to come to the hospital because his Klonopin had been stolen and he wanted a refill. Patient is very irritable and disorganized during the interview and reports that there is a conspiracy involving the police and an underground organization in [place] where many people are being killed. Reports that there are 150 guys in the field that ran off into the [place]. He reports that people in the hospital must also be on the conspiracy if they're willing to keep him in the hospital against his will. Psychiatric review of systems. The patient denies that he ever threatened suicide and reports I feel suicidal all the time, not right now. He describes his mood as happy but proceeds to express homicidal/aggressive i deation, threatening to start harming people on the unit if he needs to ( I'm gonna start knockin' mother- f-ers out. ) Demanding to go to assisted instead of the hospital. He is very disorganized in his mood reporting otherwise. Is depressed and the nondepressed suicidal but not suicidal. He is apparently very paranoid and disorganized as well as impulsive, irritable, angry and agitated. He denies having any hallucinations. Patient stands up and is verbally threatening to this provider pain to be excused with security present during the interview due to his history of violence on the NPU. PAST PSYCHIATRIC HISTORY: -Last hospitalization on the NPU X2 in 2015 last admission was in the summer of 2016 at which time he was intoxicated with numerous different drugs and threatening this provider and destroying property in the hospital punching numerous holes in the wall due to demands to be discharged. He has had previous diagnoses of psychosis unspecified versus schizophrenia/bipolar disorder and anxiety. During his most recent admission to the NPU he was stabilized on Invega 9 mg daily and was continued on Prozac 20 mg daily and Klonopin 1 mg twice daily at that time. -Currently does not have an outpatient mental health provider reports that he goes to acute care for his Klonopin refills. Reports that he does not need any other psychotropic medications. -Other Past medications have included Risperdal and Zyprexa per records. PAST FAMILY PSYCHIATRIC HISTORY: -Noncontributory per records. Unobtainable at this time due to patient agitation. SOCIAL HISTORY: -Unobtainable at this time due to patient agitation. He has a history of methamphetamine use and urine drug screen was also positive for amphetamines and MDMA during his last admission. Only positive for marijuana during this admission. PAST MEDICAL HISTORY: -Unobtainable at this time due to patient agitation. Per records- Hepatitis C Chronic back pain with Narcotic dependence Surgeries: (Liver biopsy, Knee surgery). PENDING SALE TO [facility] NPU PFSH: Medical History Anxiety Depression Methamphetamine use Schizophrenia Surgical History No pertinent past surgical history Social History Smoking and tobacco status: current every day smoker cigarettes Packs smoked per day: 0.5 Alcohol intake: never Current gender identity: Male Mental status examination 02/24/2020: This is a slender white male with appendectomy and eye contact. No abnormal movements, cooperative with exam in no acute distress. Speech was normal rate and volume. Mood described as okay, affect anxious. Thought process organized. Thought content: Patient denied any suicidal or homicidal ideation, there were no delusions reported or noted, he denied any auditory visual hallucinations. Attention and concentration were intact and memory was mostly reliable but none were formally tested. He is alert and oriented x3. Insight and judgment are limited, impulse control is limited. Assessment: This is a 39-year-old white male with a long history of mental health difficulties as well as addiction who presents with reports of the need to finally start his medications and get on track with his recovery but then when he got to the neuropsychiatric unit he demanded to leave AGAINST MEDICAL ADVICE. 1. No medications initiated. 2. Continue every 15 minute checks while hospitalized. 3. Encourage individual, group and milieu therapy. 4. Encourage initiation of a sober living treatment facility at the highest level care to which he is willing to commit. 5. No credible lethality or grounds to initiate a 96-hour hold so he was discharged. Meds NPU Home Medications Medication Instructions Recorded Confirmed Last Taken Type hydroxyzine pamoate [Vistaril] 25 mg PO Q8H PRN #30 cap 04/01/20 Unknown Rx Allergies Allergy/AdvReac Type Severity Reaction Status Date / Time haloperidol [From Haldol] AdvReac ADR-Agitate Verified 04/05/20 03:21 d PENDING SALE TO [facility] NPU PFSH: Medical History Anxiety Depression Methamphetamine use Schizophrenia Surgical History No pertinent past surgical history Social History Smoking and tobacco status: current every day smoker cigarettes Packs smoked per day: 0.5 Alcohol intake: never Current gender identity: Male Mental Status Exam MSE Comments: This is a well-nourished, well-developed white male, unkempt with limited grooming and eye contact. No abnormal movements except for severe psychomotor retardation. Limited cooperation with exam in moderate distress. Speech was limited and decreased rate and volume. Mood described as depressed and anxious, affect subdued. Thought process linear. Thought content: Patient endorsed suicidal ideation denied homicidal ideation, there are no delusions r eported or noted, he denied any auditory or visual hallucinations. Attention and concentration were limited and memory was unreliable but none were formally tested. He is intermittently alert and oriented x3. Insight and judgment are impaired, impulse control is impaired. Vitals/I&O/Wt Last Vital Signs Temp 99.0 F 04/05/20 21:15 Pulse 88 04/05/20 21:15 Resp 18 04/05/20 21:15 BP 118/65 04/05/20 21:15 Pulse Ox 96 04/05/20 21:15 Weight last 48 hrs Weight 79.379 kg Weight 77.111 kg Data NPU : 04/05/20 03:46 04/05/20 03:46 A&P Assessment and plan (1) Suicidal ideation: Status: Acute (2) Homeless single person: Status: Acute (3) Methamphetamine use: Status: Acute (4) Cannabis abuse: Status: Acute (5) Anxiety: Status: Chronic (6) Schizophrenia: Status: Chronic Qualifiers: Schizophrenia type: unspecified Qualified Code(s): F20.9 - Sc hizophrenia, unspecified (7) Nicotine dependence, cigarettes, with unspecified nicotine-induced diso rders: Status: Chronic Additional A&P Information Edgar presents to the emergency room as he has multiple times homeless, not on his medication, actively using substances and not the greatest historian not able to actively participate in treatment and endorsing active suicidality. 1. Continue current patient. We will investigate possible medication and level of nonadherence in the morning. 2. Continue every 15 minute checks for safety. 3. Encourage individual, group and milieu therapy. 4. Generally the next outcome is, asking for benzodiazepines or discharge. 5. Encourage follow-up insulin treatment at the highest level of care to which he is willing to commit. Involuntary Hold Information 96 Hour Hold: 96 Hour Involuntary Admission: No 96 Hour Hold Ending Date: 11/03/19 96 Hour Hold Ending Time: 01:35 Attestations NPU Medical Necessity Statement*: Inpatient hospitalization is medically necessary and the clinically appropriate intervention at this time. We will monitor medications and make changes as indicated. He will be in the hospital for over 2 midnights. Likely length of stay 2 to 4 days because of his general unwillingness to actually engage in treatment. Coding Level of Care Code Acute Door Opener for g Fwd Diagnoses Suicidal ideation R45.851 Homeless single person Z59.0 Methamphetamine use F15.10 Cannabis abuse F12.10 Anxiety F41.9 Schizophrenia F20.9 Schizophrenia type: unspecified Nicotine dependence, cigarettes, with unspecified nicotine-induced disorders F17.219
[2020-04-05] MEDS: acetaminophen 325 mg Tablet 650 MG PO (11:31)
[2020-04-05 14:00] VITALS: BP 103/62; PULSE 93; RESP 20; TEMP 36; O2SAT 97
[2020-04-05 21:15] VITALS: BP 118/65; PULSE 88; RESP 18; TEMP 37.2; O2SAT 96
[2020-04-06] MEDS: benztropine 1 mg Tablet PO (01:29)
[2020-04-06] MEDS: OLANZapine 5 mg ODT PO (01:29)
--- NOTE | 2020-04-06 01:41 | PC.NURSE ---
PT NOTED TO BE AWAKE IN HIS ROOM. PT HAVING MULTIPLE EPISODES OF YELLING OUT AND CURSING AT UNKNOWN PERSON. PT GETTING LOUDER AND LOUDER. SECURITY CALLED FOR EXTRA STAFF SUPPORT AND PT GIVEN ZYPREXA FOR ANXIETY, AND COGENTIN FOR AUDITORY HALLUCINATIONS.
[2020-04-06 06:00] VITALS: RESP 15
[2020-04-06 14:00] VITALS: BP 119/74; PULSE 72; RESP 18; TEMP 37.2
[2020-04-06 16:50] VITALS: BP 119/74; PULSE 72; RESP 18; TEMP 37.2
--- NOTE | 2020-04-06 16:53 | PC.NURSE ---
CLIENT REQUESTING TO LEAVE AGAINST MEDICAL ADVICE DR CIFUENTES NOTIFIED CLIENT HAS FILLED OUT THE NECESSARY PAPERWORK AND IS PREPARING TO BE DISCHARGED AMA.
== END 2020-04-06 17:09 | disposition home or self-care (01) | DRG 880 ==
LOC: ER 04:12 → NP 04:15
PROVIDERS: Admitting Provider Psychiatry & Neurology Psychiatry; Emergency Provider Emergency Medicine; Visit Provider Psychiatry & Neurology Psychiatry
DX: F41.8 Other specified anxiety disorders (principal); F11.23 Opioid dependence with withdrawal; R45.851 Suicidal ideations; Z59.0 Homelessness; Z91.5 Personal history of self-harm; F12.10 Cannabis abuse, uncomplicated; B19.20 Unspecified viral hepatitis C without hepatic coma; G89.29 Other chronic pain; M54.9 Dorsalgia, unspecified; F17.210 Nicotine dependence, cigarettes, uncomplicated
CPT/HCPCS: 12345; 80053; 80306; 80307; 85025; 93005; 99284

== ENCOUNTER 2020-04-06 20:04 | Emergency (ER) | payer SELFPAY ==
[2020-04-06 20:14] VITALS: BP 113/80; PULSE 72; RESP 14; TEMP 36.6; O2SAT 97; BMI 24.4
[2020-04-06 20:48] VITALS: BP 115/68; PULSE 60; RESP 18; O2SAT 97
--- NOTE | 2020-04-06 21:31 | XR_ITS ---
WS: [id number] XR chest 2V* [id number] REASON FOR EXAM: cough FINDINGS: The chest is unchanged compared to previous examination of 10/24/2019. The heart and mediastinum are within normal limits. No active pulmonary parenchymal or pleural disease is noted. The bony thorax demonstrates no significant abnormality. XR/XR chest 2V* [id number] IMPRESSION: No acute chest abnormality.
--- NOTE | 2020-04-06 23:06 | ED_ITS ---
HPI - General Adult General: Chief complaint: General Medical Stated complaint: COUGH Time Seen by Provider: 04/06/20 20:48 History of Present Illness: HPI narrative: 39-year-old male, well-known to the emergency department, complains of cough and some shortness of breath. He was here yesterday, but did not complain of the symptoms. He says he has had this cough for several days. He denies any contact with anyone with coronavirus. He is homeless. He also asks about a ride to [employer]. Onset (ago): day(s) Radiation: non-radiation Severity: moderate Relieving factors: none Exacerbating factors: none Associated symptoms: Reports cough and dyspnea; Deny chest pain, fevers/chills, nausea, rash, palpitations or vomiting Review of Systems Const: Denies: fever(s) or chills Card: Denies: chest pain or palpitations Resp: Reports: dyspnea GI: Denies: nausea or vomiting Skin/Breast: Denies: rash [facility] ED PFSH: Medical History (Updated 04/06/20 @ 23:06 by Yves Tucker DO) Anxiety Depression Methamphetamine use Schizophrenia Surgical History No pertinent past surgical history Social History Smoking and tobacco status: current every day smoker cigarettes Packs smoked per day: 0.5 Alcohol intake: never Current gender identity: Male Physical Exam Const: GENERAL APPEARANCE: well developed and disheveled ORIENTATION/CONSCIOUSNESS: Yes oriented to person, Yes oriented to place and Yes oriented to time HENMT: COMMON NORMALS: normocephalic, external ears normal and Normal external nose present HEAD & SCALP: normocephalic FACE & SINUS: normal facial exam NOSE: Normal external nose present and No nasal discharge present EXTERNAL EAR: Yes external ears normal MOUTH: tongue normal THROAT: posterior oropharynx normal; no peritonsillar mass Eye: COMMON NORMALS: Equal, round and reactive pupils present, EOMs intact bilaterally and conjunctivae normal EYELID: eyelids normal CONJUNCTIVA: Yes conjunctivae normal PUPIL: Yes Equal, round and reactive pupils present Neck/C-Spine: GENERAL: No tracheal deviation Chest: COMMONS NORMALS: normal inspection of the chest CHEST: No tenderness Resp: COMMON NORMALS: clear to auscultation bilaterally EFFORT & INSPECTION: No tachypneic, No respiratory distress, No retractions, No uses accessory muscles and No tracheal deviation AUSCULTATION: clear to auscultation bilaterally, no rhonchi, no wheezes and lung sounds not diminished Cardio: COMMON NORMALS: regular rate and regular rhythm RATE: regular rate RHYTHM: regular rhythm HEART SOUNDS: no murmurs PERIPHERAL PULSES: radial pulses present GI: INSPECTION: No abdominal distension AUSCULTATION: No Hyperactive bowel sounds present and No Hypoactive bowel sounds present PALPATION: No Guarding due to palpation present (GI) and No Rigid due to palpation PERCUSSION: no dullness to percussion and no tympanic to percussion Neuro: SENSORIUM/ORIENTATION: Yes oriented to person, Yes oriented to place and Yes oriented to time Skin: COMMON NORMALS: no rashes or lesions noted GENERAL SKIN EXAM: no rashes or lesions noted Course Vital Signs: Vital signs: Vital Signs Temperature 97.9 F 04/06/20 20:14 Pulse Rate 60 04/06/20 20:48 Respiratory Rate 18 04/06/20 20:48 Blood Pressure 115/68 04/06/20 20:48 Pulse Oximetry 97 04/06/20 20:48 MDM - General Adult MDM Narrative: Medical decision making narrative: Chest x-ray is negative. He is given 1 dose of dexamethasone here and albuterol inhaler for home. He knows to isolate until he hears from us coronavirus test. Discharge Plan Discharge Patient Disposition: Home Clinical Impression: Bronchitis Condition: Stable Prescriptions: New albuterol sulfate 90 mcg/actuation aerosol powdr breath activated 2 inh INHALATION Q4H PRN (Reason: shortness of breath) Qty: 1 RF: 0 No Action Vistaril 25 mg capsule 25 mg PO Q8H PRN (Reason: anxiety) Qty: 30 RF: 0 Discharge Orders: Discharge Order (Routine); Ordered 04/06/20 Ordered By: Yves Tucker Discharge Diet: Advance as tolerated Discharge Activity: Increase activity as tolerated Patient Instructions: Acute Bronchitis (ED) Coding Level of Care Code ED Top Trimmer for Tracey Izquierdo
[2020-04-06] MEDS: dexamethasone 4 mg Tablet 10 MG PO (23:19)
[2020-04-06] MEDS: doxycycline 100 mg Tablet PO (23:20)
[2020-04-06 23:23] VITALS: BP 127/76; PULSE 69; RESP 16; O2SAT 96
[2020-04-09 11:23] LABS: Quest SARS-CoV-2 RNA NOT DETECTED (NOT DETECTED)
--- NOTE | 2020-04-09 17:47 | PC.NURSE ---
pt called and informed of covid results
--- NOTE | 2020-04-09 17:52 | PC.NURSE ---
Message left for pt to call back to receive his covid results
--- NOTE | 2020-04-10 17:13 | PC.NURSE ---
left another message with pt in attempts to give COVID results. sending letter to next of kin to have pt contact ER>
== END 2020-04-06 23:24 | disposition home or self-care (01) ==
PROVIDERS: Emergency Provider Emergency Medicine
DX: J40 Bronchitis, not specified as acute or chronic (principal); F17.210 Nicotine dependence, cigarettes, uncomplicated
CPT/HCPCS: 12345; 71046; 87635; 99281; 99283; J8540

== ENCOUNTER 2020-05-07 21:30 | Emergency (ER) | payer SELFPAY ==
[2020-05-07 21:42] VITALS: BP 126/73; PULSE 91; RESP 18; TEMP 36.6; O2SAT 96; BMI 24.4
--- NOTE | 2020-05-07 22:07 | ED_ITS ---
HPI - Anxiety General: Chief Complaint: Anxiety Stated Complaint: Anxiety/Depression Time Seen by Provider: 05/07/20 21:50 Source: patient Mode of arrival: ambulatory Limitations: no limitations History of Present Illness: HPI narrative: 39 year old male presents to the ED with complaint of anxiety with depression, reports now he is in a warm place, feels much better - reports no place to stay - has no place to go, reports depression symptoms due to homeless status. He denies suicidal/homicidal ideations plans or thoughts, states living with his brother and [id number], reports they fight all the time and is not a good place for him to be. He is requesting Klonopin upon exam. He is requesting something to eat in a warm place to stay. MD complaint: anxiety Severity: mild Quality: intermittent History of similar episodes: Yes Provoking factors: emotional stress Relieving factors: other (Being here) Exacerbating factors: thinking about event (No place to go) Associated symptoms: Deny chest pain, chills, diaphoresis, fever(s), headache(s), nausea, palpitations or vomiting Review of Systems General: Reports: 10 or more systems reviewed and unremarkable except in HPI and below Const: Denies: fever(s), chills or diaphoresis Eyes: Denies: blurry vision or eye redness ENMT: Denies: throat pain, dental pain or disequilibrium Card: Denies: chest pain, palpitations or irregular heart rhythm Resp: Denies: dyspnea, productive cough, non-productive cough or wheezing GI: Denies: abdominal pain, nausea or vomiting : Denies: dysuria Musc: Denies: back pain Skin/Breast: Denies: rash or pruritus Neuro: Denies: headache(s), weakness in extremities or behavioral changes Psych: Reports: anxiety, depression and auditory hallucinations (denies change from baseline, reports mumbling); Denies: sleeping less, sleeping more, change in appetite, irritability, visual hallucinations, tactile hallucinations, suicidal ideation or homicidal ideation [place]/Lymph: Denies: easy bruising PFSH ED PFSH: Medical History (Updated 05/07/20 @ 23:44 by MAJRORIE Almanza) Anxiety Depression Methamphetamine use Schizophrenia Surgical History No pertinent past surgical history Social History Smoking and tobacco status: current every day smoker cigarettes Packs smoked per day: 0.5 Alcohol intake: never Current gender identity: Male Physical Exam Const: COMMON NORMALS: no acute distress, patient oriented x3, healthy appearing and alert GENERAL APPEARANCE: cooperative, comfortable and well hydrated HENMT: COMMON NORMALS: normocephalic, Normal external nose present and moist oral mucous membranes HEAD & SCALP: normocephalic NOSE: Normal external nose present Eye: COMMON NORMALS: Equal, round and reactive pupils present and EOMs intact bilaterally GENERAL EYE: appearance normal, both eyes and all related structures PUPIL: Yes Equal, round and reactive pupils present Neck/C-Spine: COMMON NORMALS: full ROM and no lymphadenopathy GENERAL: Yes normal visual inspection and Yes trachea midline CERVICAL SPINE: Yes cervical ROM normal Lymph: LYMPHATIC: no lymphadenopathy noted Chest: COMMONS NORMALS: normal inspection of the chest Resp: COMMON NORMALS: normal respiratory effort and clear to auscultation bilaterally AUSCULTATION: clear to auscultation bilaterally Cardio: COMMON NORMALS: regular rhythm, S1 normal heart sound present and S2 normal heart sound present RHYTHM: regular rhythm HEART SOUNDS: S1 normal heart sound present and S2 normal heart sound present GI: COMMON NORMALS: Soft to palpation and non-tender INSPECTION: Yes normal to inspection PALPATION: Yes Soft to palpation : COMMON NORMALS: Yes no CVA tenderness BLADDER/KIDNEY EXAM: Yes no CVA tenderness Back/Pelvis: COMMON NORMALS: no CVA tenderness and thoracic and lumbar spine normal to inspection Extremity: COMMON NORMALS: normal to inspection and capillary refill normal Neuro: COMMON NORMALS: patient oriented x3 and no focal motor deficits SENSORIUM/ORIENTATION: Yes alert Psych: COMMON NORMALS: mental status grossly normal, cooperative, normal affect, speech normal, denies homicidal ideation and denies suicidal ideation APPEARANCE: Yes disheveled ATTITUDE: Yes calm, No Withdrawn affect present, No agitated and No aggressive ACTIVITY/MOTOR BEHAVIOR: Yes appropriate eye contact, No psychomotor agitation, No psychomotor slowing, Yes fidgeting and Yes restless SPEECH: Yes normal speech and No delayed MOOD & AFFECT: No depressed mood, No irritable, No sad, No tearful and No fearful THOUGHT PROCESS: Circumstantial thought process present, No confused and no flight of ideas THOUGHT CONTENT: Yes Normal thought content present, No Suicidality present, No Homicidality present, No Phobia(s) present, No delusions and Yes Hallucination(s) present (states mumbling - denies change, always there ) auditory ATTENTION/CONCENTRATION: Yes attention grossly intact MEMORY/COGNITION: Yes memory grossly intact INSIGHT: Good insight present (Psych) JUDGEMENT: Good judgement present (Psych) Skin: COMMON NORMALS: no rashes or lesions noted and turgor normal GENERAL SKIN EXAM: no rashes or lesions noted and turgor normal Course ED course: 39-year-old male patient presents to the emergency department with concerns plaints of anxiety with depression. Is requesting a place to stay, social services director contacted to assist with placement. Meal and drink was provided. He reports feeling much better, he is hopeful [facility] placement can be completed so he can follow-up with behavioral health for medication needed. He requested a new start in life, states has been in and out of [facility], reports unstable home life. He states feels safe and comfortable here. Denies suicidal/homicidal ideation plans or thoughts. I did discuss with him that Klonopin would not be prescribed, he is okay with that and agrees to try hydroxyzine which has been prescribed for him in the past. Vital Signs: Vital signs: Vital Signs Temperature 97.8 F 05/07/20 21:42 Pulse Rate 91 05/07/20 21:42 Respiratory Rate 18 05/07/20 21:42 Blood Pressure 126/73 05/07/20 21:42 Pulse Oximetry 96 05/07/20 21:42 Discharge Plan Discharge Patient Disposition: Home Clinical Impression: Anxiety, Homeless Condition: Stable Prescriptions: New hydroxyzine HCl 25 mg tablet 25 mg PO Q6H PRN (Reason: anxiety) Qty: 14 RF: 0 No Action albuterol sulfate 90 mcg/actuation aerosol powdr breath activated 2 inh INHALATION Q4H PRN (Reason: shortness of breath) Qty: 1 RF: 0 Vistaril 25 mg capsule 25 mg PO Q8H PRN (Reason: anxiety) Qty: 30 RF: 0 Discharge Orders: Discharge ED (Routine); Ordered 05/07/20 Ordered By: Ludivina Neely Discharge Diet: Usual diet Discharge Activity: Resume usual activity Patient Instructions: Anxiety (ED) Activity Restrictions/Additional Instructions: conference services director has provided instruction with entrance into homeless shelters please follow instructions provided Follow-up with behavioral health for appointment for anxiety treatment Return to the emergency department if you develop suicidal or homicidal ideation thoughts or plans Prescription has been provided for hydroxyzine to help with anxiety Coding Level of Care Code ED [employer] Extension Educator for Tracey Fwd Exam Comprehensive
[2020-05-07] MEDS: hyDROXYzine 25 mg Capsule PO (22:18)
--- NOTE | 2020-05-08 00:53 | PC.SOCIAL ---
Patient seen per provider request. He reports being homeless. I am familiar with this patient from previous encounters with similar circumstances. He was provided with local homeless resources. He reports he did not follow up with them. He was staying with family and it was not a good environment. He said he has been to [facility] in the past but believes it has been over a year. He promised to go over there in the morning and check on staying. He was also told to follow [facility] as he missed his last medication appointment. Provider said he could stay in the waiting room until he could go to [facility]. He was told this was only for this evening and he needed to follow through on more appropriate housing resources. Discussed this with Stephen in security.
--- NOTE | 2020-05-08 08:37 | DCPLANNER ---
mechanical project manager had message to help patient that is homeless. mechanical project manager called phone number [phone], there was no answer and not able to leave a message.
== END 2020-05-08 00:05 | disposition home or self-care (01) ==
PROVIDERS: Emergency Provider Nurse Practitioner Family
DX: F41.9 Anxiety disorder, unspecified (principal); Z59.0 Homelessness; F17.210 Nicotine dependence, cigarettes, uncomplicated
CPT/HCPCS: 12345; 99281; 99283

== ENCOUNTER 2020-05-14 17:14 | Observation (INO) | payer SELFPAY ==
[2020-05-14 17:27] VITALS: BP 138/85; PULSE 70; RESP 18; TEMP 36.5; O2SAT 97; BMI 23.7
[2020-05-14 17:30] VITALS: BP 126/79; PULSE 71; RESP 16; O2SAT 99
--- NOTE | 2020-05-14 17:30 | ED_ITS ---
Documented by User: MARJORIE Almanza 05/14/20 23:54 HPI - Psych General: Chief Complaint: Psychiatric Symptoms Stated Complaint: anxiety Time Seen by Provider: 05/14/20 17:19 Source: patient Mode of arrival: ambulatory Limitations: no limitations History of Present Illness: HPI Narrative: Pleasant 39-year-old male patient presents to the emergency department requesting admission to the psychiatric unit. He reports increased hallucinations, auditory, hears murmuring. He also states onset of suicidal ideations that started today. Reports thoughts of wanting to just go jump off a building or jump off a bridge. Reports increased depression symptoms with stress secondary to homeless status. States currently living with his brother and his brother's , reports living environment is hostile. Reports lots of arguing which makes him feel uncomfortable. States does not have another place to go. He reports living situation has increased his depression, increased schizophrenic symptoms, auditory hallucinations. MD complaint: suicidal ideation and feels depressed Onset (ago): day(s) (1) Duration: intermittent and getting worse History of same: Yes Relieving factors: medication Context: not taking psychiatric medications (Past 30 days) Associated psychiatric symptoms: suicidal ideation and auditory hallucinations Associated symptoms: Reports auditory hallucinations, depression and suicidal ideation; Deny visual hallucinations or homicidal ideation Treatments prior to arrival: none If self harm: admits thoughts of self harm Details of plan: States would jump off a building or bridge Review of Systems General: Reports: 10 or more systems reviewed and unremarkable except in HPI and below Const: Denies: fever(s), chills or diaphoresis Eyes: Denies: blurry vision or eye redness ENMT: Denies: throat pain, dental pain or disequilibrium Card: Denies: chest pain, palpitations or irregular heart rhythm Resp: Denies: dyspnea, productive cough, non-productive cough or wheezing GI: Denies: abdominal pain, nausea or vomiting : Denies: dysuria Musc: Denies: back pain Skin/Breast: Denies: rash or pruritus Neuro: Denies: headache(s), weakness in extremities or behavioral changes Psych: Reports: anxiety, depression, hopelessness, difficulty concentrating, auditory hallucinations and suicidal ideation; Denies: change in appetite, irritability, visual hallucinations or homicidal ideation [place]/Lymph: Denies: easy bruising [facility] ED PFSH: Medical History (Updated 05/14/20 @ 20:03 by Jefe Hennessy MD) Anxiety Depression Methamphetamine use Schizophrenia Surgical History No pertinent past surgical history Social History Smoking and tobacco status: current every day smoker cigarettes Packs smoked per day: 0.5 Alcohol intake: never Current gender identity: Male Physical Exam Const: COMMON NORMALS: no acute distress, average body habitus, patient oriented x3, healthy appearing, alert and well nourished GENERAL APPEARANCE: cooperative, comfortable, disheveled and well hydrated; not in distress, not combative and not ill appearing NUTRITIONAL APPEARANCE: thin ORIENTATION/CONSCIOUSNESS: Yes awake, Yes oriented to person, Yes oriented to place and Yes oriented to time HENMT: COMMON NORMALS: normocephalic, atraumatic, Normal external nose present and moist oral mucous membranes HEAD & SCALP: normocephalic and atraumatic FACE & SINUS: normal facial exam NOSE: Normal external nose present MOUTH: Normal oral and palatal mucosa present Eye: COMMON NORMALS: Equal, round and reactive pupils present and EOMs intact bilaterally GENERAL EYE: appearance normal, both eyes and all related structures PUPIL: Yes Equal, round and reactive pupils present Neck/C-Spine: COMMON NORMALS: full ROM and no lymphadenopathy GENERAL: Yes normal visual inspection and Yes trachea midline CERVICAL SPINE: Yes cervical ROM normal Lymph: LYMPHATIC: no lymphadenopathy noted Chest: COMMONS NORMALS: normal inspection of the chest Resp: COMMON NORMALS: normal respiratory effort and clear to auscultation bilaterally AUSCULTATION: clear to auscultation bilaterally Cardio: COMMON NORMALS: regular rhythm, S1 normal heart sound present, S2 normal heart sound present and Peripheral pulses 2+ throughout RHYTHM: regular rhythm HEART SOUNDS: S1 normal heart sound present and S2 normal heart sound present PERIPHERAL PULSES: Peripheral pulses 2+ throughout GI: COMMON NORMALS: Soft to palpation and non-tender INSPECTION: Yes normal to inspection PALPATION: Yes Soft to palpation : COMMON NORMALS: Yes no CVA tenderness BLADDER/KIDNEY EXAM: Yes no CVA tenderness Back/Pelvis: COMMON NORMALS: no CVA tenderness and thoracic and lumbar spine normal to inspection Extremity: COMMON NORMALS: normal to inspection and capillary refill normal Neuro: COMMON NORMALS: patient oriented x3 and no focal motor deficits SENSORIUM/ORIENTATION: Yes alert, Yes oriented to person, Yes oriented to place and Yes oriented to time Psych: COMMON NORMALS: mental status grossly normal, Normal thought process present, cooperative, normal affect, speech normal, activity/motor behavior normal and denies homicidal ideation APPEARANCE: Yes unkempt and Yes disheveled ATTITUDE: Yes calm ACTIVITY/MOTOR BEHAVIOR: Yes appropriate eye contact, Yes fidgeting and Yes Avoids eye contact (attititude/behavior) SPEECH: Yes normal speech MOOD & AFFECT: Yes Flat affect present THOUGHT PROCESS: Normal thought process present THOUGHT CONTENT: Yes Normal thought content present, Yes Suicidality present, No Homicidality present and No Phobia(s) present ATTENTION/CONCENTRATION: Yes attention grossly intact and Yes concentration grossly intact MEMORY/COGNITION: Yes memory grossly intact INSIGHT: Good insight present (Psych) JUDGEMENT: Good judgement present (Psych) Skin: COMMON NORMALS: no rashes or lesions noted and turgor normal GENERAL SKIN EXAM: no rashes or lesions noted and turgor normal MDM - Psych Lab Data: Labs: Lab Results 05/14/20 05/14/20 05/14/20 Range/Units 18:10 18:10 18:10 WBC 8.5 (4.0-10.0) 10^3/ uL RBC 5.40 H (4.1-5.3) 10^6/u L Hgb 16.1 (11.7-16.6) g/dL Hct 49.0 (42.0-52.0) % MCV 90.7 (80-94) fL MCH 29.8 (28.0-34.0) pg MCHC 32.9 (30.0-36.0) g/dL RDW 12.7 (12.1-15.1) % Plt Count 277 (130-400) 10^3/c mm MPV 9.8 (7.4-10.4) fL Neut % (Auto) 56.6 % Lymph % (Auto) 32.0 % [place] % (Auto) 9.3 % Eos % (Auto) 1.3 % Baso % (Auto) 0.4 % Neut # (Auto) 4.85 (1.8-7.7) 10^3/u L Lymph # (Auto) 2.7 (0.8-4.8) 10^3/u L [place] # (Auto) 0.8 (0.2-0.9) 10^3/u L Eos # (Auto) 0.1 (0.0-0.8) 10^3/u L Baso # (Auto) 0.0 (0.0-0.1) 10^3/u L Nucleated RBC % (a uto) 0 % Nucleated RBCs # 0.0 /100WBC Sodium 140 (136-145) mmol/L Potassium 5.0 (3.5-5.1) mmol/L Chloride 101 (98-107) mmol/L Carbon Dioxide 33 H (22-29) mmol/L Anion Gap 11.0 (5-19) BUN 11 (6-20) mg/dL Creatinine 0.9 (0.7-1.2) mg/dL GFR Calculation 93.9 (90-130) mL/min Glucose 94 (65-115) mg/dL Calculated Osmolal ity 289 (285-295) mOsm/k g Calcium 10.0 (8.5-10.5) mg/dL Total Bilirubin 0.4 (0.15-1.2) mg/dL AST 25 (0-40) U/L ALT 30 (0-41) U/L Alkaline Phosphata se 100 (40-130) IU/L Total Protein 7.6 (6.6-8.7) g/dL Albumin 4.6 (3.5-5.2) g/dL Globulin 3.0 (1.3-4.6) g/dL Urine Color (Yellow) Urine Appearance (CLEAR) Urine pH (5-7) Ur Specific Gravit y (1.005-1.030) Urine Protein (Negative) Urine Glucose (UA) (Normal) Urine Ketones (Negative) Urine Blood (Negative) Urine Nitrate (Negative) Urine Bilirubin (Negative) Urine Urobilinogen (Negative) mg/dL Ur Leukocyte Acrla ase (Negative) Salicylates 0.7 L (3-10) mg/dL Urine Opiates Scre en Negative (Negative) ng/mL Acetaminophen < 5.0 L (10-30) ug/mL Ur Barbiturates Sc reen Negative (Negative) ng/mL Ur Phencyclidine S crn Negative (Negative) ng/mL Ur Amphetamines Sc reen Negative (Negative) ng/mL U Benzodiazepines Scrn Negative (Negative) ng/mL Urine Cocaine Scre en Negative (Negative) ng/mL U Marijuana (THC) Screen Negative (Negative) ng/mL Ethyl Alcohol < 10 (0-10) mg/dL 05/14/20 Range/Units 18:10 WBC (4.0-10.0) 10^3/ uL RBC (4.1-5.3) 10^6/u L Hgb (11.7-16.6) g/dL Hct (42.0-52.0) % MCV (80-94) fL MCH (28.0-34.0) pg MCHC (30.0-36.0) g/dL RDW (12.1-15.1) % Plt Count (130-400) 10^3/c mm MPV (7.4-10.4) fL Neut % (Auto) % Lymph % (Auto) % [place] % (Auto) % Eos % (Auto) % Baso % (Auto) % Neut # (Auto) (1.8-7.7) 10^3/u L Lymph # (Auto) (0.8-4.8) 10^3/u L [place] # (Auto) (0.2-0.9) 10^3/u L Eos # (Auto) (0.0-0.8) 10^3/u L Baso # (Auto) (0.0-0.1) 10^3/u L Nucleated RBC % (a uto) % Nucleated RBCs # /100WBC Sodium (136-145) mmol/L Potassium (3.5-5.1) mmol/L Chloride (98-107) mmol/L Carbon Dioxide (22-29) mmol/L Anion Gap (5-19) BUN (6-20) mg/dL Creatinine (0.7-1.2) mg/dL GFR Calculation (90-130) mL/min Glucose (65-115) mg/dL Calculated Osmolal ity (285-295) mOsm/k g Calcium (8.5-10.5) mg/dL Total Bilirubin (0.15-1.2) mg/dL AST (0-40) U/L ALT (0-41) U/L Alkaline Phosphata se (40-130) IU/L Total Protein (6.6-8.7) g/dL Albumin (3.5-5.2) g/dL Globulin (1.3-4.6) g/dL Urine Color Straw (Yellow) Urine Appearance Clear (CLEAR) Urine pH 7 (5-7) Ur Specific Gravit y 1.005 (1.005-1.030) Urine Protein Neg (Negative) Urine Glucose (UA) Norm (Normal) Urine Ketones Negative (Negative) Urine Blood Neg (Negative) Urine Nitrate Negative (Negative) Urine Bilirubin Neg (Negative) Urine Urobilinogen Norm (Negative) mg/dL Ur Leukocyte Carla ase Negative (Negative) Salicylates (3-10) mg/dL Urine Opiates Scre en (Negative) ng/mL Acetaminophen (10-30) ug/mL Ur Barbiturates Sc reen (Negative) ng/mL Ur Phencyclidine S crn (Negative) ng/mL Ur Amphetamines Sc reen (Negative) ng/mL U Benzodiazepines Scrn (Negative) ng/mL Urine Cocaine Scre en (Negative) ng/mL U Marijuana (THC) Screen (Negative) ng/mL Ethyl Alcohol (0-10) mg/dL Discharge Plan Discharge Patient Disposition: Admitted As Inpatient Admit Provider: Scar Denny Clinical Impression: Suicidal ideation Condition: Stable Coding Level of Care Code ED [facility] [employer] Associate for Chg Fwd Exam Comprehensive Documented by User: Jefe Hennessy MD 05/14/20 20:05 HPI - Psych General: Chief Complaint: Psychiatric Symptoms Stated Complaint: anxiety Time Seen by Provider: 05/14/20 17:19 [facility] ED PFSH: Medical History (Updated 05/14/20 @ 20:03 by Jefe Hennessy MD) Anxiety Depression Methamphetamine use Schizophrenia Surgical History No pertinent past surgical history Social History Smoking and tobacco status: current every day smoker cigarettes Packs smoked per day: 0.5 Alcohol intake: never Current gender identity: Male MDM - Psych MDM Narrative: Medical decision making narrative: Edgar presents here with suicidal ideation. Patient was seen in the ER by Dr. Denny and will admit to the psychiatric unit for observation. Patient has been well-appearing here. Lab Data: Labs: Lab Results 05/14/20 05/14/20 05/14/20 Range/Units 18:10 18:10 18:10 WBC 8.5 (4.0-10.0) 10^3/ uL RBC 5.40 H (4.1-5.3) 10^6/u L Hgb 16.1 (11.7-16.6) g/dL Hct 49.0 (42.0-52.0) % MCV 90.7 (80-94) fL MCH 29.8 (28.0-34.0) pg MCHC 32.9 (30.0-36.0) g/dL RDW 12.7 (12.1-15.1) % Plt Count 277 (130-400) 10^3/c mm MPV 9.8 (7.4-10.4) fL Neut % (Auto) 56.6 % Lymph % (Auto) 32.0 % [place] % (Auto) 9.3 % Eos % (Auto) 1.3 % Baso % (Auto) 0.4 % Neut # (Auto) 4.85 (1.8-7.7) 10^3/u L Lymph # (Auto) 2.7 (0.8-4.8) 10^3/u L [place] # (Auto) 0.8 (0.2-0.9) 10^3/u L Eos # (Auto) 0.1 (0.0-0.8) 10^3/u L Baso # (Auto) 0.0 (0.0-0.1) 10^3/u L Nucleated RBC % (a uto) 0 % Nucleated RBCs # 0.0 /100WBC Sodium 140 (136-145) mmol/L Potassium 5.0 (3.5-5.1) mmol/L Chloride 101 (98-107) mmol/L Carbon Dioxide 33 H (22-29) mmol/L Anion Gap 11.0 (5-19) BUN 11 (6-20) mg/dL Creatinine 0.9 (0.7-1.2) mg/dL GFR Calculation 93.9 (90-130) mL/min Glucose 94 (65-115) mg/dL Calculated Osmolal ity 289 (285-295) mOsm/k g Calcium 10.0 (8.5-10.5) mg/dL Total Bilirubin 0.4 (0.15-1.2) mg/dL AST 25 (0-40) U/L ALT 30 (0-41) U/L Alkaline Phosphata se 100 (40-130) IU/L Total Protein 7.6 (6.6-8.7) g/dL Albumin 4.6 (3.5-5.2) g/dL Globulin 3.0 (1.3-4.6) g/dL Urine Color (Yellow) Urine Appearance (CLEAR) Urine pH (5-7) Ur Specific Gravit y (1.005-1.030) Urine Protein (Negative) Urine Glucose (UA) (Normal) Urine Ketones (Negative) Urine Blood (Negative) Urine Nitrate (Negative) Urine Bilirubin (Negative) Urine Urobilinogen (Negative) mg/dL Ur Leukocyte Carla ase (Negative) Salicylates 0.7 L (3-10) mg/dL Urine Opiates Scre en Negative (Negative) ng/mL Acetaminophen < 5.0 L (10-30) ug/mL Ur Barbiturates Sc reen Negative (Negative) ng/mL Ur Phencyclidine S crn Negative (Negative) ng/mL Ur Amphetamines Sc reen Negative (Negative) ng/mL U Benzodiazepines Scrn Negative (Negative) ng/mL Urine Cocaine Scre en Negative (Negative) ng/mL U Marijuana (THC) Screen Negative (Negative) ng/mL Ethyl Alcohol < 10 (0-10) mg/dL 05/14/ Range/Units 18:10 WBC (4.0-10.0) 10^3/ uL RBC (4.1-5.3) 10^6/u L Hgb (11.7-16.6) g/dL Hct (42.0-52.0) % MCV (80-94) fL MCH (28.0-34.0) pg MCHC (30.0-36.0) g/dL RDW (12.1-15.1) % Plt Count (130-400) 10^3/c mm MPV (7.4-10.4) fL Neut % (Auto) % Lymph % (Auto) % [place] % (Auto) % Eos % (Auto) % Baso % (Auto) % Neut # (Auto) (1.8-7.7) 10^3/u L Lymph # (Auto) (0.8-4.8) 10^3/u L [place] # (Auto) (0.2-0.9) 10^3/u L Eos # (Auto) (0.0-0.8) 10^3/u L Baso # (Auto) (0.0-0.1) 10^3/u L Nucleated RBC % (a uto) % Nucleated RBCs # /100WBC Sodium (136-145) mmol/L Potassium (3.5-5.1) mmol/L Chloride (98-107) mmol/L Carbon Dioxide (22-29) mmol/L Anion Gap (5-19) BUN (6-20) mg/dL Creatinine (0.7-1.2) mg/dL GFR Calculation (90-130) mL/min Glucose (65-115) mg/dL Calculated Osmolal ity (285-295) mOsm/k g Calcium (8.5-10.5) mg/dL Total Bilirubin (0.15-1.2) mg/dL AST (0-40) U/L ALT (0-41) U/L Alkaline Phosphata se (40-130) IU/L Total Protein (6.6-8.7) g/dL Albumin (3.5-5.2) g/dL Globulin (1.3-4.6) g/dL Urine Color Straw (Yellow) Urine Appearance Clear (CLEAR) Urine pH 7 (5-7) Ur Specific Gravit y 1.005 (1.005-1.030) Urine Protein Neg (Negative) Urine Glucose (UA) Norm (Normal) Urine Ketones Negative (Negative) Urine Blood Neg (Negative) Urine Nitrate Negative (Negative) Urine Bilirubin Neg (Negative) Urine Urobilinogen Norm (Negative) mg/dL Ur Leukocyte Carla ase Negative (Negative) Salicylates (3-10) mg/dL Urine Opiates Scre en (Negative) ng/mL Acetaminophen (10-30) ug/mL Ur Barbiturates Sc reen (Negative) ng/mL Ur Phencyclidine S crn (Negative) ng/mL Ur Amphetamines Sc reen (Negative) ng/mL U Benzodiazepines Scrn (Negative) ng/mL Urine Cocaine Scre en (Negative) ng/mL U Marijuana (THC) Screen (Negative) ng/mL Ethyl Alcohol (0-10) mg/dL Discharge Plan Discharge Patient Disposition: Admitted As Inpatient Admit Provider: Scar Denny Clinical Impression: Suicidal ideation Condition: Stable Coding Level of Care Code ED [facility] Clinical [employer] Associate for [facility] Fwd Exam Comprehensive
[2020-05-14 17:44] VITALS: BP 131/79; PULSE 74; RESP 18; O2SAT 98
[2020-05-14 18:29] LABS: Basophils % 0.4 %; Eosinophils # 0.1 10^3/uL (0.0-0.8); Eosinophils % 1.3 %; Hemoglobin 16.1 g/dL (11.7-16.6); Lymphocytes # 2.7 10^3/uL (0.8-4.8); Mean Corpuscular HGB Conc 32.9 g/dL (30.0-36.0); Mean Corpuscular Hemoglobin 29.8 pg (28.0-34.0); Mean Corpuscular Volume 90.7 fL (80-94); Mean Platelet Volume 9.8 fL (7.4-10.4); Monocytes # 0.8 10^3/uL (0.2-0.9); Monocytes % 9.3 %; Neutrophils # 4.85 10^3/uL (1.8-7.7); Neutrophils % 56.6 %; Nucleated Red Blood Cells % 0 %; Platelet Count 277 10^3/cmm (130-400); Red Cell Distribution Width 12.7 % (12.1-15.1); White Blood Count 8.5 10^3/uL (4.0-10.0)
[2020-05-14 18:38] LABS: Alanine Aminotransferase 30 U/L (0-41); Albumin Level 4.6 g/dL (3.5-5.2); Alkaline Phosphatase 100 IU/L (40-130); Aspartate Amino Transferase 25 U/L (0-40); Blood Urea Nitrogen 11 mg/dL (6-20); Carbon Dioxide 33 mmol/L (22-29); Chloride 101 mmol/L (98-107); Glomerular Filtration Rate 93.9 mL/min (90-130); Glucose 94 mg/dL (65-115); Osmolality Calculated 289 mOsm/kg (285-295); Salicylate 0.7 mg/dL (3-10); Sodium 140 mmol/L (136-145); Total Bilirubin 0.4 mg/dL (0.15-1.2); Total Protein 7.6 g/dL (6.6-8.7)
[2020-05-14 18:40] LABS: Acetaminophen < 5.0 ug/mL (10-30); Alcohol Level < 10 mg/dL (0-10)
[2020-05-14 20:01] LABS: Add Urine Microscopic? NO
[2020-05-14 20:15] LABS: Bilirubin Urine Neg (Negative); Blood Urine Neg (Negative); Glucose Urine UA Norm (Normal); Ketones Urine Negative (Negative); Leukocyte Esterase Urine Negative (Negative); Nitrate Urine Negative (Negative); Protein Urine Neg (Negative); Specific Gravity, Urine 1.005 (1.005-1.030); Urine Appearance Clear (CLEAR); Urine Color Straw (Yellow); Urobilinogen Urine Norm (Negative); pH Urine 7 (5-7)
[2020-05-14 20:23] LABS: Amphetamines Screen Urine Negative (Negative); Barbiturates Screen Urine Negative (Negative); Benzodiazepines Screen Urine Negative (Negative); Cocaine Screen Urine Negative (Negative); Opiate Screen Urine Negative (Negative); PCP Screen Urine Negative (Negative); THC Screen Urine Negative (Negative)
[2020-05-14 20:45] VITALS: BP 109/69; PULSE 78; RESP 16; TEMP 36.8; O2SAT 97
[2020-05-14 20:53] VITALS: BP 124/75; PULSE 59; RESP 18; TEMP 36.7; O2SAT 98
[2020-05-14 22:00] VITALS: BP 124/75; PULSE 59; RESP 18; TEMP 36.7; O2SAT 98
[2020-05-14] MEDS: trazodone 50 mg Tablet PO (22:13)
[2020-05-14] MEDS: hyDROXYzine 25 mg Capsule 50 MG PO (22:13)
[2020-05-15 06:00] VITALS: BP 110/66; PULSE 76; RESP 18; TEMP 36.7; O2SAT 97
--- NOTE | 2020-05-15 08:05 | PC.NURSE ---
INFLUENZA VACCINE 0.5 MG GIVEN IM IN RIGHT DELTOID. PT EDUCATED ON MED GIVEN AND VERBALIZED UNDERSTANDING. WILL CONT TO MONITOR INJECTION SITE FOR ANY REDNESS, SWELLING, OR IRRITATION. LOT [id number] EXP 11/26/20
--- NOTE | 2020-05-15 09:40 | P.SS_ITS ---
Short Stay Summary Providers Date of Admit/Discharge: 05/19/20 Attending Provider: Scar Denny MD Chief Complaint: anxiety HPI History of Present Illness Edgar Almazan is a 39 year old male who presented to the emergency department with the following report: Chief Complaint: Psychiatric Symptoms Stated Complaint: anxiety Time Seen by Provider: 05/14/20 17:19 Source: patient Mode of arrival: ambulatory Limitations: no limitations History of Present Illness: HPI Narrative: Pleasant 39-year-old male patient presents to the emergency department requesting admission to the psychiatric unit. He reports increased hallucinations, auditory, hears murmuring. He also states onset of suicidal ideations that started today. Reports thoughts of wanting to just go jump off a building or jump off a bridge. Reports increased depression symptoms with stress secondary to homeless status. States currently living with his brother and his brother's , reports living environment is hostile. Reports lots of arguing which makes him feel uncomfortable. States does not have another place to go. He reports living situation has increased his depression, increased schizophrenic symptoms, auditory hallucinations. MD complaint: suicidal ideation and feels depressed Onset (ago): day(s) (1) Duration: intermittent and getting worse History of same: Yes Relieving factors: medication Context: not taking psychiatric medications (Past 30 days) Associated psychiatric symptoms: suicidal ideation and auditory hallucinations Associated symptoms: Reports auditory hallucinations, depression and suicidal ideation; Deny visual hallucinations or homicidal ideation Treatments prior to arrival: none If self harm: admits thoughts of self harm Details of plan: States would jump off a building or bridge. He was admitted to the neuropsychiatric unit for definitive treatment of those issues. Edgar presented today much as he was expected to present already discussing being discharged to [place]. This is further confirmation of the malingering nature of his visits. He did not want to talk about anything, did not identifies a clear favor/supportive nature of what we are doing only wanted to make sure we could do it more expeditiously. An excerpt of his previous stay evaluation is included here for context. With a long conversation about his overutilization of the services and challenging him to follow through with his outpatient appointments and using those resources that help him get the resources we know he needs but will never be maximized with his current tanisha ction and behaviors. Per his 04/05/2020 [facility] inpatient eval: History of Present Illness Edgar Almazan is a 39 year old male who presented to the emergency department with the following report: Chief complaint: Psychiatric Symptoms Stated complaint: mhe Time Seen by Provider: 04/05/20 03:18 Source: patient Mode of arrival: ambulatory Limitations: no limitations History of Present Illness: HPI narrative: Edgar is a 39-year-old male well- known to me from previous visits. Comes in tonight stating suicidal. States his anxiety and depression are out of control. Patient also admits to homeless ness. Patient does not have a specific plan on what he is going to do but he states he wants to come in to get help. Associated symptoms: Deny chest pain, dyspnea, headache(s), nausea, rash, palpitations, syncope or vomiting> He was admitted to the neuropsychiatric unit for definitive treatment of those issues. Today he presents clearly out of that and likely an active withdrawal reporting that he is in pain and wants to and is anxious etc. All attempts to get him to really engage in a meaningful conversation for evaluation were thwarted by his level of lethargy and unresponsiveness. We reviewed a recent evaluation by this promotion writer and have included an excerpt below given his lack of ability to be an accurate historian. Per his 02/24/2020 inpatient evaluation: History of Present Illness Edgar Almazan is a 39 year old male who presented to the emergency department with the following report: Chief Complaint: Psychiatric Symptoms Stated Complaint: si, self check in Time Seen by Provider: 02/24/20 01:38 History of Present Illness: HPI Narrative: 39-year-old male presents saying he has had suicidal ideation. He states his plan was to jump off of a bridge. He is attempted suicide in the past. He has been depressed. He is homeless currently, which is affecting his depression as well. He denies any medical complaints. MD complaint: suicidal ideation and feels depressed Onset (ago): day(s) Duration: constant History of same: Yes Relieving factors: none Exacerbating factors: none Context: not taking psychiatric medications Associated psychiatric symptoms: depression and suicidal ideation Associated symptoms: Deny auditory hallucinations or visual hallucinations If self harm: admits thoughts of self harm He was admitted to the neuropsychiatric unit for definitive treatment of those issues. Unfortunately once on the unit Edgar behaved in the way that he has done now about 3 times this year where he presented to the emergency room proclaiming a need to be admitted and make dramatic changes and then within 24 hours of coming to the unit he is endorsing having to leave, and he discharges AMA. We spoke about the fact that his circumstances likely would not improve and that he allow psychiatric medication to be prescribed and taken and stopped his pursuit of Klonopin/benzodiazepines. We reviewed the previous note from this promotion writer which was a d?j? vu of this exact situation and he acknowledged that it represented an accurate reflection of his recent visits here and his psychosocial circumstances. An excerpt of that note is included below. Per his last [facility] eval 01/12/2020: History of Present Illness Edgar Almazan is a 39 year old male who presented to the emergency room reporting that he needed a place to stay. The local homeless detention angle back to for about a year and he started trying to get to the [facility] in [place]. He was evaluated by a different emergency room doctor and discharged last evening. He returned this morning reporting that he still didn't have a place to stay and at one point had endorsed wanting to go to neuropsych unit and some whisperings of lethality. A psychiatric evaluation was requested due to that issue. Edgar is known to this promotion writer from his discharge twice recently where he stayed overnight only to demand and may discharge the next morning. At the heart of the issue is his desire to have Klonopin prescribed to him. After his last discharge where Klonopin prescription was refused he did go to his follow-up appointment at the [facility] where he was evaluated and recommendation for medication for schizophrenia was suggested. He refused the medication that was recommended. That was 2 days ago. So we discussed the fact that if he were admitted to the hospital he would not get any Klonopin. We discussed the importance of him following up and accepting the antipsychotic medication for his wellness. He reported that Klonopin is the only medication that works for him and we discussed the fact that I doubted that that was true. Additionally we discussed his safety and he never at any point during our interview suggested that he was having thoughts to hurt or kill himself or anyone else. He spoke at length about his being homeless and having conflicts with his family and having no place to stay. He discussed that his senior major gifts officer recommended that he get the [place] but he just doesn't have the resources to get there. We discussed the fact that he follow through on some of the recommendations that we have made he would likely have Medicaid by now and might be able to utilize that resource just reinforcing that him having follow- up for schizophrenia could have multiple benefits. Ultimately he requested to be discharged and reported a plan to try to get [place] someway. An excerpt of his last evaluation by this promotion writer a couple weeks ago is included below and there have been no substantive changes per his report. Per last [facility] eval: History of Present Illness Edgar Almazan is a 39 year old male who presented to the emergency room known to the provider from many visits to the emergency room, endorsing suicidal ideation, reporting he has been off of his medication, and denying any other complaints. He was reporting he needs some help but was quite withdrawn and was a fairly unengaged poor historian. He was admitted to the neuropsychiatric unit for definitive treatment of those issues. This morning, once it was clear to him that this promotion writer had no plans of starting his Klonopin, during the hospitalization, or of giving him refills, he asked to leave against medical advise. I did meet with him briefly, and because he was mostly focused on getting medication and wanting to leave because he reported all he needed to do was get his medication and he would be fine, we discussed a possible vehicle, through which we could initiate his medication and have some consideration for either tapering him off of the Klonopin, or working with his outpatient provider to consider a process, based on their thoughts; but he was not interested in anything that took any time. He essentially wanted an immediate answer. I reviewed with him the history that he and I have together, which is that he has been out of [facility] for only a limited period of time, and came to the hospital back in September and, at that time, was not doing well and was using. He was restarted on the medications that his outpatient team had him on, which included low dose Klonopin. Then he did not follow up at [facility] but did return to the emergency room with some questionable excuse or reason for why he did not make his appointment, and he was given some bridge medication to get to an appointment. That was in the beginning of November, and now he has run out of those medications, albeit several days before he should have, and he returns looking for a refill. We expressed this avoidance of the outpatient milieu and having them as the people that get to know him well and can make decisions based on that, as a necessary component which he has been avoiding. So, we discussed a plan which included continuing inpatient, which he did not want and said he was leaving AMA. But then, multiple times, he tried to reengage this promotion writer to get some pills, a monthly script, something prescribed to him. But we discussed the risks, benefits, and alternatives of preceding that way, and he understood and had no choice but to accept that is how we would proceed with the benzodiazepines. He was a poor historian and an expert from his last hospitalization is included to give some historical background. given that he is not engaged in giving a full history with valuable historical data for understanding his circumstance. Mental Status This is a slender, white male, with adequate dress, grooming, and limited eye contact. No abnormal movements, except for mild psychomotor agitation. Semi- cooperative with exam in no acute distress. Speech was increased rate and decreased volume. Mood described as okay; affect congruent. Thought process, organized. Thought content: patient denied any suicidal or homicidal ideation, there were no delusions reported or noted, patient denied any auditory or visual hallucinations. Attention, concentration, and memory appeared intact but none were formally tested. He is alert and oriented times three. Insight and judgment are limited. Impulse control is limited. Assessment This is a 39 year old, white male, with a long history of schizophrenia and addiction, who presents with a UDS positive for marijuana only, but requesting a refill of his benzodiazepine without engaging in good kassy with outpatient treatment since his hospitalization here in September, who presents wanting refills on his benzodiazepines mostly, and when that was refused, he requested to leave against medical advise. Continue current medications, except we will not write for Klonopin, given overuse and lack of engagement in outpatient treatment. Encourage individual, group, and milieu therapy. Continue q-15 minute checks for safety. Encourage treatment at a sober living facility, after discharge, at the highest level of care to which he is willing to commit. Given absence of credibly lethality, and the fact that he is not on a 96-hour hold/is a voluntary patient, he will be allowed to leave against medical advise. Per his September 2019 [facility] IP eval: History of Present Illness Edgar Almazan is a 39 year old male who presents poor historian with fairly little to add. He presented to the emergency room with hallucinations endorsing irritability and concerns that he might get so worked up that he might harm someone else. He presents today very irritable and more less resistant to the interview. He was able to identify that he has been here multiple times before which is confirmed throughout chart search. His last hospitalization was in 2016 and excerpt from that hospitalization is provided below. He denies any significant changes in his psychosocial circumstance over the last couple years. He endorsed recent cannabis use but denied other illicit drug use which was confirmed by his UDS. He endorsed lethality being a better condition to speak in the morning. Per his last [facility] eval: History of Present Illness Date of Service: Mar 30, 2017 Chief Complaint: I came here to get a refill only Klonopins. HPI: Mr. Almazan is a 36-year-old male that is known to our behavioral health services to the previous diagnosis of acute psychosis in the context of polysubstance abuse who presented to the emergency department yesterday expressing suicidal ideation with a plan to jump off a bridge. 96 hour hold was placed at that time and affidavits are reviewed on the chart. The patient reports that he was kicked out of the [facility] last month and has been sleeping in his car since then. He reports that he went to his senior major gifts officer appointment yesterday and told her that he wanted to come to the hospital because his Klonopin had been stolen and he wanted a refill. Patient is very irritable and disorganized during the interview and reports that there is a conspiracy involving the police and an underground organization in [place] where many people are being killed. Reports that there are 150 guys in the field that ran off into the [place]. He reports that people in the hospital must also be on the conspiracy if they're w illing to keep him in the hospital against his will. Psychiatric review of systems. The patient denies that he ever threatened suicide and reports I feel suicidal all the time, not right now. He describes his mood as happy but proceeds to express homicidal/aggressive ideation, threatening to start harming people on the unit if he needs to ( I'm gonna start knockin' mother- f-ers out. ) Demanding to go to [facility] instead of the hospital. He is very disorganized in his mood reporting otherwise. Is depressed and the nondepressed suicidal but not suicidal. He is apparently very paranoid and disorganized as well as impulsive, irritable, angry and agitated. He denies having any hallucinations. Patient stands up and is verbally threatening to this provider pain to be excused with security present during the interview due to his history of violence on the [facility]. PAST PSYCHIATRIC HISTORY: -Last hospitalization on the [facility] X2 in 2015 last admission was in the summer of 2016 at which time he was intoxicated with numerous different drugs and threatening this provider and destroying property in the hospital punching numerous holes in the wall due to demands to be discharged. He has had previous diagnoses of psychosis unspecified versus schizophrenia/bipolar disorder and anxiety. During his most recent admission to the [facility] he was stabilized on Invega 9 mg daily and was continued on Prozac 20 mg daily and Klonopin 1 mg twice daily at that time. -Currently does not have an outpatient mental health provider reports that he goes to acute care for his Klonopin refills. Reports that he does not need any other psychotropic medications. -Other Past medications have included Risperdal and Zyprexa per records. PAST FAMILY PSYCHIATRIC HISTORY: -Noncontributory per records. Unobtainable at this time due to patient agitation. SOCIAL HISTORY: -Unobtainable at this time due to patient agitation. He has a history of methamphetamine use and urine drug screen was also positive for amphetamines and MDMA during his last admission. Only positive for marijuana during this admission. PAST MEDICAL HISTORY: -Unobtainable at this time due to patient agitation. Per records- Hepatitis C Chronic back pain with Narcotic dependence Surgeries: (Liver biopsy, Knee surgery). [facility] PFSH: Medical History Anxiety Depression Methamphetamine use Schizophrenia Surgical History No pertinent past surgical history Social History Smoking and tobacco status: current every day smoker cigarettes Packs smoked per day: 0.5 Alcohol intake: never Current gender identity: Male Mental status examination 02/24/2020: This is a slender white male with appendectomy and eye contact. No abnormal movements, cooperative with exam in no acute distress. Speech was normal rate and volume. Mood described as okay, affect anxious. Thought process organized. Thought content: Patient denied any suicidal or homicidal ideation, there were no delusions reported or noted, he denied any auditory visual hallucinations. Attention and concentration were intact and memory was mostly reliable but none were formally tested. He is alert and oriented x3. Insight and judgment are limited, impulse control is limited. Assessment: This is a 39-year-old white male with a long history of mental health difficulties as well as addiction who presents with reports of the need to finally start his medications and get on track with his recovery but then when he got to the neuropsychiatric unit he demanded to leave AGAINST MEDICAL ADVICE. 1. No medications initiated. 2. Continue every 15 minute checks while hospitalized. 3. Encourage individual, group and milieu therapy. 4. Encourage initiation of a sober living treatment facility at the highest level care to which he is willing to commit. 5. No credible lethality or grounds to initiate a 96-hour hold so he was discharged. Current mental status examination: This is a slender white male with limited dress grooming and eye contact. No abnormal movements except for mild psychomotor agitation. Semi-cooperative with exam in mild distress. Speech was slightly anxious rate and volume. Mood described as okay affect irritable. Thought process linear. Content: He denied any suicidal homicidal ideation, delusions reported or noted, he denied auditory visual hallucinations but appeared to possibly be attending to internal stimuli. Attention and concentration were intact and memory was unreliable but none were formally tested. He was alert and oriented x3. Insight judgment limited impulse control is impaired. Assessment and plan. This is a 39-year-old white male with a long history of schizo affective disorder/psychotic disorder and addiction who presents desiring to get to [place] but still struggling with his mental health and addiction but continuing to be unable to engage with the system in a way that is functional only showing up in the emergency room when he requires or desires a place that is warm to sleep more in attempt to get benzodiazepines. 1. Continue current medication. Offered antipsychotic or mood stabilizer but he was not agreeable. 2. Encourage individual, group and milieu therapy. 3. Keep expected to discharge. 4. Encourage sober living treatment as aftercare at the highest level of care to which he is willing to commit. Home Meds/Allergies Home Medications and Allergies Home Medications Medication Instructions Recorded Confirmed Type No Known Home Medications 05/14/20 05/14/20 History Allergies Allergy/AdvReac Type Severity Reaction Status Date / Time haloperidol [From Haldol] AdvReac ADR-Agitate Verified 04/05/20 03:21 d PFSH Acute PFSH: Medical History (Updated 05/16/20 @ 00:00 by ) Anxiety Depression Methamphetamine use Schizophrenia Surgical History No pertinent past surgical history Social History Smoking and tobacco status: current every day smoker cigarettes Packs smoked per day: 0.5 Alcohol intake: never Current gender identity: Male Vitals/I&O/Wt Last Vital Signs Temp 98.1 F 05/15/20 06:00 Pulse 76 05/15/20 06:00 Resp 18 05/15/20 06:00 BP 110/66 05/15/20 06:00 Pulse Ox 97 05/15/20 06:00 Weight last 48 hrs Weight 77.111 kg Hospital Course Hospital Course Edgar presented to the emergency department desiring to be admitted at least in part due to the weather and circumstances. He was brought on to the neuropsychiatric unit under observation status with a plan to assist him in navigating himself to [place] where he has not worn out is welcome in the shelters like here, as the best option to connect him resources and avoid the hole in the [facility] community resources. He slowly acclimated to the individual, group and milieu therapies provided. He did not take any medicatio n. He showed limited improvement. He was able to contract for safety at the time of discharge. During the hospitalization he had routine laboratory studies which were within normal limits except for some outliers. Additionally he had a general medical evaluation which was also within normal limits and revealed no new acute processes. Discharge Summary At the time of discharge, he denied lethality and his psychosis was limited. His mood and anxiety were better managed. He endorsed a plan to avoid all drugs of abuse and follow-up with the aftercare recommendations of the treatment team. He was evaluated and deemed to be absent credible lethality, was a voluntary patient home we had great concerns for malingering and so he was discharged. Diagnoses at Discharge Discharge Diagnosis (1) Homeless single person: Status: Acute (2) Methamphetamine use: Status: Acute (3) Cannabis abuse: Status: Acute (4) Anxiety: Status: Chronic (5) Schizophrenia: Status: Chronic Qualifiers: Schizophrenia type: unspecified Qualified Code(s): F20.9 - Schizophrenia, unspecified (6) Nicotine dependence, cigarettes, with unspecified nicotine-induced disorders: Status: Chronic Discharge Plan Discharge Patient Disposition: Home Condition: Stable Prescriptions: Continued No Known Home Medications RF: 0 Discharge Orders: Discharge Order (Routine); Ordered 05/15/20 Ordered By: Scar Denny Referrals: [facility] [Other] (At discharge you will be sent to [facility] in [place], they will help coordinate housing resources for you. If you are at risk of becoming homeless or currently without a safe, stable place to stay, please call [phone] or visit us at [facility] [place] [address]. One of the [facility] service coordinators will meet with you to help identify resources and options that may meet your individual needs. Hours of Operation: Tuesday: 9am ? 5pm Tuesday: 9am ? noon and 1pm ? 5pm Tuesday: 9am ? 5pm : 10am ? 5pm Tuesday: 9am ? 5pm* *[facility] is closed the first Tuesday of every month ) [facility] [Other] (They also offer the buddhism program for recovery from substance abuse. ) [facility] [Other] (Please follow up for your walk in assessment within 3-5 days of discharge. No call-ahead is necessary, just walk in and be seen. Bring your I.D., social security card or number, and insurance information We accept Medicare, Medicaid, numerous private insurance providers and accept self-pay on a sliding scale for those who qualify. ) [facility] [Other] (Overnight ments detention from 03/30- when temperatures are predicted to be 32 degrees or lower. Open between 10pm and 4am. YOU MUST REGISTER AT ONE DOOR FIRST DUE TO COVID) Discharge Diet: Regular Discharge Activity: Resume usual activity Attestations Medical Necessity Statement*: Inpatient hospitalization was not medically necessary or the clinically appropriate intervention at this time. We continue to try to navigate our relationship with Edgar but recently his intersections with the hospital have been mostly transactional with him leaving before the ink is dry on his voluntary commitment first thing the next morning. We agreed to assist him in connecting with resources and try to challenge him to continue with outpatient treatment to maintain his functionality. There is no indication for inpatient hospitalization at this time. Time Spent in Patient Care*: greater than 30 min Specific Discharge Activities: Specific discharge activities: educating patient, discussing with gearcase assembler/social workers/dc planners, documenting/other paperwork and evaluating patient/reviewing data Status at Discharge: Cognitive status at discharge: cognitively intact , Behavioral status at discharge: cooperative , Quality Metrics Clinical Quality Measures: During this hospital stay, did patient experience: None Coding Level of Care Code Acute Flask Maker for g Fwd Diagnoses Homeless single person Z59.0 Methamphetamine use F15.10 Cannabis abuse F12.10 Anxiety F41.9 Schizophrenia F20.9 Schizophrenia type: unspecified Nicotine dependence, cigarettes, with unspecified nicotine-induced disorders F17.219
[2020-05-15 10:01] VITALS: BP 110/66; PULSE 76; RESP 18; TEMP 36.7; O2SAT 97
== END 2020-05-15 10:30 | disposition home or self-care (01) ==
LOC: ER 20:03 → NP 20:28
PROVIDERS: Nurse Practitioner Family; Admitting Provider Psychiatry & Neurology Psychiatry; Emergency Provider Emergency Medicine; Visit Provider Psychiatry & Neurology Psychiatry
DX: R45.851 Suicidal ideations (principal); F41.9 Anxiety disorder, unspecified; F32.9 Major depressive disorder, single episode, unspecified; R44.3 Hallucinations, unspecified; R44.0 Auditory hallucinations; F20.9 Schizophrenia, unspecified; F17.210 Nicotine dependence, cigarettes, uncomplicated
CPT/HCPCS: 12345; 36415; 80053; 80306; 80307; 81003; 85025; 90471; 90686; 99284; 99285; G0378

== ENCOUNTER 2020-06-06 16:13 | Emergency (ER) | payer SELFPAY ==
[2020-06-06 16:15] VITALS: BP 122/79; PULSE 89; RESP 18; TEMP 36.3; O2SAT 99; BMI 24.4
--- NOTE | 2020-06-06 16:45 | PC.PHAR ---
PT STATES HE HAS BEEN OUT OF HIS RISPERIDONE 1MG TAKES 1MG PO BID-EXT MED HISTORY SHOWS LAST FILLED ON 05/28/2020 25D/S
[2020-06-06 17:04] VITALS: BP 138/86; PULSE 88; RESP 14; O2SAT 96
--- NOTE | 2020-06-06 17:12 | W.ED.PSYCH ---
HPI - Psych General: Chief Complaint: Psychiatric Symptoms Stated Complaint: mhe/anxiety Time Seen by Provider: 06/06/20 17:11 Source: patient Mode of arrival: ambulatory Limitations: no limitations History of Present Illness: HPI Narrative: 39-year-old male patient comes in for being out of his medication. Patient appears well. Patient denies any suicidal or homicidal thoughts. Patient does not have his routine medication. Patient was recently kicked out of the house by his brother. Reassured patient that cost of risperidone is pretty reasonable. Patient will need a prescription he states. Review of Systems General: Reports: 10 or more systems reviewed and unremarkable except in HPI and below Psych: Reports: other PFS ED PFSH: Medical History (Updated 06/06/20 @ 17:27 by ADAMARIS Cancino) Anxiety Depression Methamphetamine use Schizophrenia Surgical History No pertinent past surgical history Social History Smoking and tobacco status: current every day smoker cigarettes Packs smoked per day: 0.5 Alcohol intake: never Current gender identity: Male Physical Exam Const: COMMON NORMALS: no acute distress and patient oriented x3 GENERAL APPEARANCE: cooperative HENMT: COMMON NORMALS: normocephalic and Normal external nose present HEAD & SCALP: normal to inspection and normocephalic NOSE: Normal external nose present MOUTH: Normal oral and palatal mucosa present Eye: GENERAL EYE: appearance normal, both eyes and all related structures Neck/C-Spine: COMMON NORMALS: full ROM Chest: COMMONS NORMALS: normal inspection of the chest Resp: COMMON NORMALS: normal respiratory effort EFFORT & INSPECTION: Yes able to speak in complete sentences Cardio: COMMON NORMALS: regular rate and regular rhythm RATE: regular rate RHYTHM: regular rhythm GI: COMMON NORMALS: non-tender Extremity: COMMON NORMALS: normal to inspection Neuro: COMMON NORMALS: patient oriented x3 and moves all extremities Psych: COMMON NORMALS: mental status grossly normal and cooperative Skin: COMMON NORMALS: no rashes or lesions noted GENERAL SKIN EXAM: no rashes or lesions noted MDM - Psych MDM Narrative: Medical decision making narrative: 39-year-old male patient comes in today needing a dose of his routine medication for schizophrenia. Patient has been without his medication and prescription. Patient is homeless and has recently been kicked out of the house by his brother. Patient denies any suicidal or homicidal thoughts. Patient appears well. Patient appears in no acute distress. We will get patient his dose of risperidone now and then write a prescription for 1 month. Patient should follow-up with behavioral health and social human services assistants for further care. Discharge Plan Discharge Patient Disposition: Home Clinical Impression: Schizophrenia Qualifiers: Schizophrenia type: unspecified Qualified Code(s): F20.9 - Schizophrenia, unspecified Condition: Stable Prescriptions: Continued risperidone 1 mg tablet 1 mg PO BID 30 Days Qty: 60 RF: 0 Discharge Orders: Discharge ED (Routine); Ordered 06/06/20 Ordered By: Jose L Duncan Discharge Diet: Usual diet Discharge Activity: Resume usual activity Activity Restrictions/Additional Instructions: Continue prescriptions as directed. Take risperidone 2 times a day. Healthy diet and exercise. Return to emergency department for new concerns. Coding Level of Care Code ED Legal Support Specialist for Tracey Izquierdo Exam Comprehensive
[2020-06-06] MEDS: risperiDONE 1 mg Tablet PO (18:28)
== END 2020-06-06 18:31 | disposition home or self-care (01) ==
PROVIDERS: Emergency Provider Nurse Practitioner Family
DX: F20.9 Schizophrenia, unspecified (principal); F17.210 Nicotine dependence, cigarettes, uncomplicated
CPT/HCPCS: 12345; 99284

== ENCOUNTER 2020-06-07 22:52 | Emergency (ER) | payer SELFPAY ==
[2020-06-07 22:55] VITALS: BP 143/84; PULSE 85; RESP 16; TEMP 36.2; O2SAT 98; BMI 24.4
--- NOTE | 2020-06-07 23:05 | ECG_ITS ---
[facility] Test Date: 2020-06-07 Pat Name: Edgar Almazan Department: Room: Gender: Male Hotel Maid: : 1980 Requested By: Ludivina Mishra Order Number: [id number] Ponce MD: Jenny Villarreal M.D. Measurements Intervals [place] Rate: 71 P: 45 ME: 135 QRS: 58 QRSD: 111 T: 44 QT: 371 QTc: 406 Interpretive Statements SINUS RHYTHM MODERATE INTRAVENTRICULAR CONDUCTION DELAY [110+ ms QRS DURATION] Compared to ECG 04/05/2020 03:56:10 Intraventricular conduction delay now present Electronically Signed On 06-09-2020 17:32:46 MECHANICAL HANDYMAN by Jenny Villarreal M.D. [id number]
--- NOTE | 2020-06-07 23:06 | ED_ITS ---
HPI - Psych General: Chief Complaint: Psychiatric Symptoms Stated Complaint: Homeless, SI now Time Seen by Provider: 06/07/20 22:53 Source: patient Mode of arrival: ambulatory Limitations: no limitations History of Present Illness: HPI Narrative: 39-year-old male patient presents to the emergency department with suicidal ideations. He reports worsening thoughts past 24 hours. States kicked out of his brother's house, has walked 10 miles to get to the hospital tonight. He reports is homeless, is requesting placement into homeless [facility]. He reports increased depression symptoms as his living situation is not stable. He denies homicidal ideation thoughts or plans; has history of psychiatric inpatient admission; he also has history of suicide attempt. When asked if he had a plan, reports thoughts of jumping off a bridge. States not getting along with his brother and his [id number]. MD complaint: suicidal ideation and feels depressed Onset (ago): day(s) (1-2) Duration: constant and getting worse History of same: Yes Relieving factors: none Exacerbating factors: medication and therapy Context: significant life stressor Associated psychiatric symptoms: depression and suicidal ideation Associated symptoms: Reports depression and suicidal ideation; Deny auditory hallucinations, visual hallucinations, delusions or homicidal ideation Treatments prior to arrival: none If self harm: admits thoughts of self harm and has plan Details of plan: Jumping off a bridge Review of Systems General: Reports: 10 or more systems reviewed and unremarkable except in HPI and below Const: Denies: fever(s), chills or diaphoresis Eyes: Denies: blurry vision or eye redness ENMT: Denies: throat pain, dental pain or disequilibrium Card: Denies: chest pain, palpitations, irregular heart rhythm, swelling of feet/ankles, dyspnea on exertion or orthopnea Resp: Denies: dyspnea, productive cough, non-productive cough, wheezing or chest congestion GI: Denies: abdominal pain, nausea, vomiting, diarrhea or constipation : Denies: difficulty urinating, dysuria, urinary urgency, urinary incontinence or hematuria Musc: Denies: back pain Skin/Breast: Denies: rash or pruritus Neuro: Denies: headache(s), weakness in extremities or behavioral changes Psych: Reports: anxiety, depression, hopelessness, difficulty concentrating and suicidal ideation; Denies: paranoia, visual hallucinations, auditory hallucinations or homicidal ideation [place]/Lymph: Denies: easy bruising [facility] ED PFS: Medical History (Updated 06/08/20 @ 00:30 by MARJORIE Almanza) Anxiety Depression Methamphetamine use Schizophrenia Surgical History No pertinent past surgical history Social History Smoking and tobacco status: current every day smoker cigarettes Packs smoked per day: 0.5 Alcohol intake: never Current gender identity: Male Physical Exam Const: COMMON NORMALS: no acute distress, patient oriented x3, healthy appearing and alert GENERAL APPEARANCE: cooperative, comfortable and well hydrated HENMT: COMMON NORMALS: normocephalic, Normal external nose present and moist oral mucous membranes HEAD & SCALP: normocephalic NOSE: Normal external nose present Eye: COMMON NORMALS: Equal, round and reactive pupils present and EOMs intact bilaterally GENERAL EYE: appearance normal, both eyes and all related structures PUPIL: Yes Equal, round and reactive pupils present Neck/C-Spine: COMMON NORMALS: full ROM and no lymphadenopathy GENERAL: Yes normal visual inspection and Yes trachea midline CERVICAL SPINE: Yes cervical ROM normal Lymph: LYMPHATIC: no lymphadenopathy noted Chest: COMMONS NORMALS: normal inspection of the chest and normal palpation of entire chest wall Resp: COMMON NORMALS: normal respiratory effort and clear to auscultation bilaterally AUSCULTATION: clear to auscultation bilaterally Cardio: COMMON NORMALS: regular rhythm, S1 normal heart sound present, S2 normal heart sound present and Peripheral pulses 2+ throughout RHYTHM: regular rhythm HEART SOUNDS: S1 normal heart sound present and S2 normal heart sound present PERIPHERAL PULSES: Peripheral pulses 2+ throughout GI: COMMON NORMALS: Soft to palpation and non-tender INSPECTION: Yes normal to inspection PALPATION: Yes Soft to palpation : COMMON NORMALS: Yes no CVA tenderness BLADDER/KIDNEY EXAM: Yes no CVA tenderness Back/Pelvis: COMMON NORMALS: no CVA tenderness and thoracic and lumbar spine normal to inspection Extremity: COMMON NORMALS: normal to inspection and capillary refill normal Neuro: COMMON NORMALS: patient oriented x3 and no focal motor deficits SENSORIUM/ORIENTATION: Yes alert Psych: COMMON NORMALS: mental status grossly normal, cooperative, normal affect, speech normal, activity/motor behavior normal, denies hallucinations and denies homicidal ideation APPEARANCE: Yes unkempt and Yes disheveled ATTITUDE: Yes calm, No paranoid, No Guarded attititude/behavior present, No aggressive and No hostile ACTIVITY/MOTOR BEHAVIOR: Yes appropriate eye contact SPEECH: Yes normal speech MOOD & AFFECT: Yes Flat affect present THOUGHT PROCESS: Circumstantial thought process present THOUGHT CONTENT: Yes Normal thought content present and No delusions ATTENTION/CONCENTRATION: Yes attention grossly intact and Yes attention grossly impaired MEMORY/COGNITION: Yes memory grossly intact INSIGHT: Good insight present (Psych) JUDGEMENT: Good judgement present (Psych) Skin: COMMON NORMALS: no rashes or lesions noted and turgor normal GENERAL SKIN EXAM: no rashes or lesions noted and turgor normal MDM - Psych MDM Narrative: Medical decision making narrative: 39-year-old male patient presents to the emergency department with increased depression symptoms x1 to 2 days; continued suicidal ideations, is requesting admission into the psychiatric unit as he does not have a place to stay and is homeless. Patient had discussion with Dr. Denny did not meet inpatient psychiatric admission requirements. Patient was discharged from the emergency department; food and drink was offered as well as social service referral due to homeless status. Patient became belligerent and verbally aggressive towards staff. [facility] was contacted along with security. He was removed from the premises. Lab Data: Labs: Lab Results 06/07/20 06/07/20 06/07/20 Range/Units 23:14 23:14 23:28 WBC 8.0 (4.0-10.0) 10^3/ uL RBC 5.22 (4.1-5.3) 10^6/u L Hgb 15.6 (11.7-16.6) g/dL Hct 46.7 (42.0-52.0) % MCV 89.5 (80-94) fL MCH 29.9 (28.0-34.0) pg MCHC 33.4 (30.0-36.0) g/dL RDW 12.4 (12.1-15.1) % Plt Count 296 (130-400) 10^3/c mm MPV 10.0 (7.4-10.4) fL Neut % (Auto) 56.9 % Lymph % (Auto) 31.6 % Douglas % (Auto) 8.4 % Eos % (Auto) 2.4 % Baso % (Auto) 0.4 % Neut # (Auto) 4.56 (1.8-7.7) 10^3/u L Lymph # (Auto) 2.5 (0.8-4.8) 10^3/u L Douglas # (Auto) 0.7 (0.2-0.9) 10^3/u L Eos # (Auto) 0.2 (0.0-0.8) 10^3/u L Baso # (Auto) 0.0 (0.0-0.1) 10^3/u L Nucleated RBC % (a uto) 0 % Nucleated RBCs # 0.0 /100WBC Sodium 137 (136-145) mmol/L Potassium 3.6 (3.5-5.1) mmol/L Chloride 100 (98-107) mmol/L Carbon Dioxide 28 (22-29) mmol/L Anion Gap 12.6 (5-19) BUN 14 (6-20) mg/dL Creatinine 0.8 (0.7-1.2) mg/dL GFR Calculation 107.6 (90-130) mL/min Glucose 143 H (65-115) mg/dL Calculated Osmolal ity 287 (285-295) mOsm/k g Calcium 9.3 (8.5-10.5) mg/dL Total Bilirubin 0.3 (0.15-1.2) mg/dL AST 31 (0-40) U/L ALT 42 H (0-41) U/L Alkaline Phosphata se 98 (40-130) IU/L Total Protein 7.3 (6.6-8.7) g/dL Albumin 4.4 (3.5-5.2) g/dL Globulin 2.9 (1.3-4.6) g/dL Urine Color Yellow (Yellow) Urine Appearance Clear (CLEAR) Urine pH 5 (5-7) Ur Specific Gravit y 1.020 (1.005-1.030) Urine Protein Neg (Negative) Urine Glucose (UA) Norm (Normal) Urine Ketones Negative (Negative) Urine Blood Neg (Negative) Urine Nitrate Negative (Negative) Urine Bilirubin Neg (Negative) Urine Urobilinogen Norm (Negative) mg/dL Ur Leukocyte Carla ase Negative (Negative) Salicylates < 0.3 L (3-10) mg/dL Urine Opiates Scre en (Negative) ng/mL Acetaminophen < 5.0 L (10-30) ug/mL Ur Barbiturates Sc reen (Negative) ng/mL Ur Phencyclidine S crn (Negative) ng/mL Ur Amphetamines Sc reen (Negative) ng/mL U Benzodiazepines Scrn (Negative) ng/mL Urine Cocaine Scre en (Negative) ng/mL U Marijuana (THC) Screen (Negative) ng/mL Ethyl Alcohol < 10 (0-10) mg/dL 06/07/20 Range/Units 23:28 WBC (4.0-10.0) 10^3/ uL RBC (4.1-5.3) 10^6/u L Hgb (11.7-16.6) g/dL Hct (42.0-52.0) % MCV (80-94) fL MCH (28.0-34.0) pg MCHC (30.0-36.0) g/dL RDW (12.1-15.1) % Plt Count (130-400) 10^3/c mm MPV (7.4-10.4) fL Neut % (Auto) % Lymph % (Auto) % Douglas % (Auto) % Eos % (Auto) % Baso % (Auto) % Neut # (Auto) (1.8-7.7) 10^3/u L Lymph # (Auto) (0.8-4.8) 10^3/u L Douglas # (Auto) (0.2-0.9) 10^3/u L Eos # (Auto) (0.0-0.8) 10^3/u L Baso # (Auto) (0.0-0.1) 10^3/u L Nucleated RBC % (a uto) % Nucleated RBCs # /100WBC Sodium (136-145) mmol/L Potassium (3.5-5.1) mmol/L Chloride (98-107) mmol/L Carbon Dioxide (22-29) mmol/L Anion Gap (5-19) BUN (6-20) mg/dL Creatinine (0.7-1.2) mg/dL GFR Calculation (90-130) mL/min Glucose (65-115) mg/dL Calculated Osmolal ity (285-295) mOsm/k g Calcium (8.5-10.5) mg/dL Total Bilirubin (0.15-1.2) mg/dL AST (0-40) U/L ALT (0-41) U/L Alkaline Phosphata se (40-130) IU/L Total Protein (6.6-8.7) g/dL Albumin (3.5-5.2) g/dL Globulin (1.3-4.6) g/dL Urine Color (Yellow) Urine Appearance (CLEAR) Urine pH (5-7) Ur Specific Gravit y (1.005-1.030) Urine Protein (Negative) Urine Glucose (UA) (Normal) Urine Ketones (Negative) Urine Blood (Negative) Urine Nitrate (Negative) Urine Bilirubin (Negative) Urine Urobilinogen (Negative) mg/dL Ur Leukocyte Carla ase (Negative) Salicylates (3-10) mg/dL Urine Opiates Scre en Negative (Negative) ng/mL Acetaminophen (10-30) ug/mL Ur Barbiturates Sc reen Negative (Negative) ng/mL Ur Phencyclidine S crn Negative (Negative) ng/mL Ur Amphetamines Sc reen Negative (Negative) ng/mL U Benzodiazepines Scrn Negative (Negative) ng/mL Urine Cocaine Scre en Negative (Negative) ng/mL U Marijuana (THC) Screen Negative (Negative) ng/mL Ethyl Alcohol (0-10) mg/dL Discharge Plan Discharge Patient Disposition: Home Clinical Impression: Suicidal ideation Depression Qualifiers: Depression Type: reactive depression Qualified Code(s): F32.9 - Major depressive disorder, single episode, unspecified Condition: Stable Prescriptions: No Action risperidone 1 mg tablet 1 mg PO BID 30 Days Qty: 60 RF: 0 Discharge Orders: Discharge ED (Routine); Ordered 06/08/20 Ordered By: Ludivina Neely Discharge Diet: Usual diet Discharge Activity: Resume usual activity Patient Instructions: Depression (ED), Suicide Prevention for Adults (ED) Activity Restrictions/Additional Instructions: Return the emergency department if you develop worsening symptoms Continue follow-up with your primary care provider Referral been made for homeless [facility] placement Coding Level of Care Code ED Trust Vault Custodian for Tracey Fwd Exam Comprehensive
[2020-06-07 23:36] LABS: Add Urine Microscopic? NO
[2020-06-07 23:45] LABS: Basophils % 0.4 %; Eosinophils # 0.2 10^3/uL (0.0-0.8); Eosinophils % 2.4 %; Hematocrit 46.7 % (42.0-52.0); Hemoglobin 15.6 g/dL (11.7-16.6); Lymphocytes # 2.5 10^3/uL (0.8-4.8); Lymphocytes % 31.6 %; Mean Corpuscular HGB Conc 33.4 g/dL (30.0-36.0); Mean Corpuscular Hemoglobin 29.9 pg (28.0-34.0); Mean Corpuscular Volume 89.5 fL (80-94); Monocytes # 0.7 10^3/uL (0.2-0.9); Monocytes % 8.4 %; Neutrophils # 4.56 10^3/uL (1.8-7.7); Neutrophils % 56.9 %; Nucleated Red Blood Cells % 0 %; Platelet Count 296 10^3/cmm (130-400); Red Blood Count 5.22 10^6/uL (4.1-5.3); Red Cell Distribution Width 12.4 % (12.1-15.1)
[2020-06-07 23:49] LABS: Bilirubin Urine Neg (Negative); Blood Urine Neg (Negative); Glucose Urine UA Norm (Normal); Ketones Urine Negative (Negative); Leukocyte Esterase Urine Negative (Negative); Nitrate Urine Negative (Negative); Protein Urine Neg (Negative); Urine Appearance Clear (CLEAR); Urine Color Yellow (Yellow); Urobilinogen Urine Norm (Negative); pH Urine 5 (5-7)
[2020-06-07 23:57] LABS: Amphetamines Screen Urine Negative (Negative); Barbiturates Screen Urine Negative (Negative); Benzodiazepines Screen Urine Negative (Negative); Cocaine Screen Urine Negative (Negative); Opiate Screen Urine Negative (Negative); PCP Screen Urine Negative (Negative); THC Screen Urine Negative (Negative)
[2020-06-08] LABS: Alanine Aminotransferase 42 U/L (0-41); Albumin Level 4.4 g/dL (3.5-5.2); Alkaline Phosphatase 98 IU/L (40-130); Anion Gap 12.6 (5-19); Aspartate Amino Transferase 31 U/L (0-40); Blood Urea Nitrogen 14 mg/dL (6-20); Calcium 9.3 mg/dL (8.5-10.5); Carbon Dioxide 28 mmol/L (22-29); Chloride 100 mmol/L (98-107); Globulin 2.9 g/dL (1.3-4.6); Glomerular Filtration Rate 107.6 mL/min (90-130); Glucose 143 mg/dL (65-115); Osmolality Calculated 287 mOsm/kg (285-295); Potassium 3.6 mmol/L (3.5-5.1); Sodium 137 mmol/L (136-145); Total Bilirubin 0.3 mg/dL (0.15-1.2); Total Protein 7.3 g/dL (6.6-8.7)
[2020-06-08 00:05] LABS: Acetaminophen < 5.0 ug/mL (10-30); Alcohol Level < 10 mg/dL (0-10); Salicylate < 0.3 mg/dL (3-10)
--- NOTE | 2020-06-08 01:28 | PC.NURSE ---
Patient requested to speak to me (charge nurse) regarding him being discharged. Patient was upset because we sen his blood and were not admitting him. Patient stated it was against the law to draw blood and not keep him. I advised him that the psychiatrist cleared him and he was cleared by the ER provider and would be discharged. Patient became angry and stated he would fuck me up and kill us all. Patient began yelling and cursing at staff. Security and law enforcement were called. R.D. from security arrived and asked the patient to leave the grounds and patient responded with i'll bring my boys up here and we'll beat your ass. Patient was escorted out the front door and met by law enforcement.
--- NOTE | 2020-06-09 14:29 | DCPLANNER ---
loan operations manager had message to speak with patient about getting [facility] a homeless [facility]. loan operations manager called [phone], unable to speak with patient and unable to leave a voicemail for patient.
== END 2020-06-08 00:35 | disposition home or self-care (01) ==
PROVIDERS: Emergency Provider Nurse Practitioner Family
DX: R45.851 Suicidal ideations (principal); F32.9 Major depressive disorder, single episode, unspecified; F17.210 Nicotine dependence, cigarettes, uncomplicated
CPT/HCPCS: 12345; 80053; 80306; 80307; 81003; 85025; 93005; 99284

== ENCOUNTER 2020-06-25 18:48 | Emergency (ER) | payer SELFPAY ==
[2020-06-25 19:03] VITALS: BP 121/78; PULSE 81; RESP 16; TEMP 36.6; O2SAT 98; BMI 23.7
--- NOTE | 2020-06-25 19:07 | ED_ITS ---
HPI - COVID General: Chief Complaint: COVID symptoms Stated Complaint: COVID SYMPTOMS/EXPOSED:NO TASTE/SMELL,ACHY Time Seen by Provider: 06/25/20 19:06 Triage information: No fever, cough or shortness of breath . No known COVID + exposure last 14 days History of Present Illness: HPI Narrative: Patient is a 40-year-old male comes to the ED with Covid symptoms. Patient says he started developing a dry cough, mild fever and lost his taste and smell. All the symptoms started today. Denies any chest pain, shortness of breath, nausea/vomiting, bladder or bowel symptoms. COVID 19 common symptoms: positive fever(s) and non-productive cough; negative chills, productive cough, dyspnea, fatigue, headache(s), throat pain, nasal congestion, nausea, vomiting or diarrhea COVID 19 other sytmptoms: negative chest pain COVID Results: SARS-CoV-2 RNA (RT-PCR) Not detected (NOT DETECTED) 04/06/20 21:48 04/06/20 Nasal/Oral Coronavirus 2019 PCR Pending 06/25/20 19:22 06/25/20 Review of Systems Const: Reports: fever(s) and other (Lost his taste and smell); Denies: chills or fatigue Eyes: Denies: change in vision or eye discomfort ENMT: Denies: throat pain, odynophagia, nasal discharge or nasal congestion Card: Denies: chest pain, palpitations, edema, swelling of feet/ankles, dyspnea on exertion or orthopnea Resp: Reports: non-productive cough; Denies: dyspnea or productive cough GI: Denies: abdominal pain, nausea, vomiting, diarrhea, constipation or hematochezia : Denies: flank pain, difficulty urinating, dysuria or hematuria Musc: Denies: neck pain, back pain or extremity swelling Skin/Breast: Denies: rash or new lesions Neuro: Denies: headache(s), numbness in extremities or weakness in extremities PFS ED PFSH: Medical History Anxiety Depression Methamphetamine use Schizophrenia Surgical History No pertinent past surgical history Social History Smoking and tobacco status: current every day smoker cigarettes Packs smoked per day: 0.5 Alcohol intake: never Current gender identity: Male Physical Exam Const: COMMON NORMALS: no acute distress, patient oriented x3, healthy appearing and alert GENERAL APPEARANCE: cooperative and comfortable HENMT: COMMON NORMALS: normocephalic HEAD & SCALP: normocephalic MOUTH: Normal oral and palatal mucosa present THROAT: posterior oropharynx normal and uvula midline Neck/C-Spine: COMMON NORMALS: supple GENERAL: Yes normal visual inspection Resp: COMMON NORMALS: normal respiratory effort, No retractions, No use of accessory muscles and clear to auscultation bilaterally EFFORT & INSPECTION: Yes able to speak in complete sentences, No tachypneic, No respiratory distress and No labored AUSCULTATION: clear to auscultation bilaterally Cardio: COMMON NORMALS: regular rate, regular rhythm, S1 normal heart sound present, S2 normal heart sound present, No gallops present (Cardio), No clicks present (Cardio), No murmurs present (Cardio) and Peripheral pulses 2+ throughout RATE: regular rate RHYTHM: regular rhythm HEART SOUNDS: S1 normal heart sound present and S2 normal heart sound present PERIPHERAL PULSES: Peripheral pulses 2+ throughout GI: COMMON NORMALS: Normal to inspection, nondistended, normoactive bowel sounds present, Soft to palpation, non-tender and no masses PALPATION: Yes Soft to palpation : COMMON NORMALS: Yes no CVA tenderness BLADDER/KIDNEY EXAM: Yes no CVA tenderness Back/Pelvis: COMMON NORMALS: no CVA tenderness Extremity: COMMON NORMALS: normal to inspection Neuro: COMMON NORMALS: patient oriented x3 and moves all extremities SENSORIUM/ORIENTATION: Yes alert Skin: GENERAL SKIN EXAM: dry skin Course Vital Signs: Vital signs: Vital Signs Temperature 97.8 F 06/25/20 19:03 Pulse Rate 81 06/25/20 19:03 Respiratory Rate 16 06/25/20 19:03 Blood Pressure 121/78 06/25/20 19:03 Pulse Oximetry 98 06/25/20 19:23 MDM - COVID MDM Narrative: Medical decision making narrative: Patient is a 40-year-old male who comes to the ED with Covid symptoms. Physical exam is unremarkable and lungs are clear to auscultation bilaterally and no signs of respiratory distress. Vitals stable. Covid testing performed and results pending. Chest x-ray showed no acute findings. Patient was discharged and given self quarantine instructions. Return to ED precautions given. Follow-up with PCP in 7 to 10 days for reevaluation. I told him hospital will contact him with Covid results. Patient understood and agreed with plan. Lab Data: Attestation: I reviewed the patient's lab results. Imaging Data: CXR: Attestation: I personally reviewed and interpreted this imaging study as follows: My impression: Chest x-ray showed no acute findings. COVID Results: SARS-CoV-2 RNA (RT-PCR) Not detected (NOT DETECTED) 04/06/20 21:48 04/06/20 Nasal/Oral Coronavirus 2019 PCR Pending 06/25/20 19:22 06/25/20 Discharge Plan Discharge Patient Disposition: Home Clinical Impression: Viral syndrome Condition: Stable Prescriptions: No Action risperidone 1 mg tablet 1 mg PO BID 30 Days Qty: 60 RF: 0 Discharge Orders: Discharge ED (Routine); Ordered 06/25/20 Ordered By: Michael Byers Discharge Diet: Regular Discharge Activity: Limit activity as instructed Patient Instructions: Viral Syndrome (ED) Activity Restrictions/Additional Instructions: Follow-up with medical provider as directed in 7-10 days. COVID testing was performed and sent to lab and results will be back in 1 to 2 days. [facility] should contact you to let you know Covid results, but you can also contact [facility] to find out results as well. Self quarantine until you get Covid results. If positive self quarantine for the next 12 days. Take ibuprofen or Tylenol for fevers. Drink plenty of fluids and stay hydrated. Symptom management with [id number] cough and nasal decongestant meds. Return to the ER or your medical provider if condition worsens. Please read and understand discharge instructions. If any questions, please ask Coding Level of Care Code ED Java Integration Developer for Tracey Izquierdo Exam Comprehensive
--- NOTE | 2020-06-25 19:07 | XR_ITS ---
WS: [id number] Exam: XR chest 1V portable [id number] Date/Time of Exam: 06/25/2020 7:12 PM Reason For Exam: covid symptoms Comparison 04/06/2020 Findings: The lungs are clear and fully expanded. Costophrenic angles are sharp. No infiltrates. Bronchovascula r relief appears normal. Cardiac silhouette is unremarkable. Bony elements are intact. XR/XR chest 1V portable [id number] IMPRESSION: Unremarkable chest radiograph.
[2020-06-25 19:23] VITALS: O2SAT 98
[2020-06-26 15:17] LABS: Coronavirus Test Green County DETECTED
--- NOTE | 2020-06-26 16:07 | PC.NURSE ---
Phone no longer in service. Letter sent to patient.
== END 2020-06-25 19:46 | disposition home or self-care (01) ==
PROVIDERS: Emergency Provider Physician Assistant
DX: B34.9 Viral infection, unspecified (principal); F17.210 Nicotine dependence, cigarettes, uncomplicated; U07.1 COVID-19
CPT/HCPCS: 12345; 71045; 87635; 99281; 99283

== ENCOUNTER 2020-06-29 14:21 | Emergency (ER) | payer SELFPAY ==
[2020-06-29 14:34] VITALS: BP 138/87; PULSE 65; RESP 18; TEMP 36.4; O2SAT 99; BMI 23.7
--- NOTE | 2020-06-29 14:42 | ED_ITS ---
HPI - Psych General: Chief Complaint: Psychiatric Symptoms Stated Complaint: SI, COVID + Time Seen by Provider: 06/29/20 14:34 Source: patient Mode of arrival: ambulatory Limitations: no limitations History of Present Illness: HPI Narrative: 40-year-old male who is very well- known to the ER states has been having depression and is out of his Risperdal and needs a refill. He states that he had suicidal thoughts early in the week but denies any current suicidal thoughts to me. Patient was recently Covid positive. Denies any symptoms. Denies any worsening improving factors. Associated symptoms: Reports depression Review of Systems Const: Denies: fever(s), chills, body aches or change in appetite Eyes: Denies: blurry vision or eye discomfort ENMT: Denies: throat pain or dental pain Card: Denies: chest pain Resp: Denies: dyspnea GI: Denies: abdominal pain, nausea, vomiting or diarrhea : Denies: dysuria Musc: Denies: neck pain or back pain Skin/Breast: Denies: rash Neuro: Denies: headache(s) Psych: Reports: depression Chaparro/Lymph: Denies: easy bruising All/Imm: Denies: urticaria PFSH ED PFSH: Medical History (Updated 06/29/20 @ 14:48 by Jefe Hennessy MD) Anxiety Depression Methamphetamine use Schizophrenia Surgical History No pertinent past surgical history Social History Smoking and tobacco status: current every day smoker cigarettes Packs smoked per day: 0.5 Alcohol intake: never Current gender identity: Male Physical Exam Const: COMMON NORMALS: no acute distress, patient oriented x3 and healthy appearing HENMT: COMMON NORMALS: normocephalic and atraumatic HEAD & SCALP: normocephalic and atraumatic Eye: COMMON NORMALS: Equal, round and reactive pupils present and EOMs intact bilaterally PUPIL: Yes Equal, round and reactive pupils present Neck/C-Spine: COMMON NORMALS: full ROM and supple Chest: COMMONS NORMALS: normal inspection of the chest and normal palpation of entire chest wall Resp: COMMON NORMALS: normal respiratory effort, No retractions, No use of accessory muscles and clear to auscultation bilaterally AUSCULTATION: clear t o auscultation bilaterally Cardio: COMMON NORMALS: regular rate, regular rhythm and No murmurs present (Cardio) RATE: regular rate RHYTHM: regular rhythm GI: COMMON NORMALS: Normal to inspection, nondistended, normoactive bowel sounds present, Soft to palpation, non-tender and no masses PALPATION: Yes Soft to palpation Extremity: COMMON NORMALS: normal to inspection and full ROM Neuro: COMMON NORMALS: patient oriented x3, moves all extremities and no focal motor deficits Psych: COMMON NORMALS: mental status grossly normal, Normal thought process present and cooperative THOUGHT PROCESS: Normal thought process present Skin: COMMON NORMALS: no rashes or lesions noted and no wounds GENERAL SKIN EXAM: no rashes or lesions noted MDM - Psych MDM Narrative: Medical decision making narrative: Edgar presents here with depression is chronic in nature. He denies any suicidal homicidal thoughts to me. I did have psychiatrist Dr. Denny evaluate him and he agrees he is not actively suicidal and recommended start him on risperidone. Patient is stable for discharge and return if worsening. Discharge Plan Discharge Patient Disposition: Home Clinical Impression: Depression Qualifiers: Depression Type: unspecified Qualified Code(s): F32.9 - Major depressive disorder, single episode, unspecified Condition: Stable Prescriptions: Continued risperidone 1 mg tablet 1 mg PO BID 30 Days Qty: 60 RF: 0 Discharge Orders: Discharge ED (Routine); Ordered 06/29/20 Ordered By: Jefe Hennessy Discharge Diet: Advance as tolerated Discharge Activity: Resume usual activity Patient Instructions: Depression (ED) Coding Level of Care Code ED Assistant Shift Supervisor for Tracey Fwd Exam Comprehensive
--- NOTE | 2020-06-29 14:48 | PM.PSYCN ---
Providers/Reason for Consult Consulting Physican/Specialty*: Scar Denny MD. Psychiatry. Reason for Consult*: Safety for discharge. Requesting Physcian: Jefe Hennessy Psych Consult HPI History of Present Illness Edgar Almazan is a 40 year old male presenting to department and due to some mention of suicidal thoughts without a plan a psychiatric consult was requested. Edgar is known to this freelance writer from multiple inpatient hospitalizations. He was able to clearly articulate the absence of any thoughts to harm himself, kill himself or harm feeling well. He reports that he had been started on risk for gall and had run out of the medication. He identified that he has stable housing at this point with someone who is allowing him to stay with him. He reports that overall he is doing well and that the mention of suicidal thinking was simply because of a knee-jerk response about how he has thoughts like it regularly, denies any real feelings or thoughts like that and has no desire for inpatient hospitalization. He has had 7+ evaluations/consults since the beginning 2019 all of which have quickly turned to discharges as he was clearly having secondary gains. We have since challenged him to utilize [facility] [place] appropriately and seek more intense treatment for his substance use issues. He was just advised that he is positive for Covid and instructed what to do should his symptoms worsen. Psychiatric history: As above. Remainder of his substance abuse, developmental, family, psychosocial, legal and medical histories are unchanged since the last evaluation except for some increase in stability because he has had a place to stay at least recently. [facility] NPU PFS: Medical History (Updated 06/29/20 @ 14:48 by Jefe Hennessy MD) Anxiety Depression Methamphetamine use Schizophrenia Surgical History No pertinent past surgical history Social History Smoking and tobacco status: current every day smoker cigarettes Packs smoked per day: 0.5 Alcohol intake: never Current gender identity: Male Mental Status Exam MSE Comments: This is a well-nourished, well-developed white male, with limited grooming and eye contact. No abnormal movements except for psychomotor retardation. Cooperative with exam in no acute distress. Speech was decreased rate and volume. Mood described as okay, affect subdued. Thought process organized. Thought content: Patient denied suicidal or homicidal ideation, there are no delusions reported or noted, he denied any auditory or visual hallucinations. Attention and concentration were intact and memory was reliable but none were formally tested. He is alert and oriented x3. Insight and judgment are improving, impulse control is impaired, but improving. Vitals/I&O/Wt Last Vital Signs Temp 97.6 F 06/29/20 14:34 Pulse 65 06/29/20 14:34 Resp 18 06/29/20 14:34 BP 138/87 06/29/20 14:34 Pulse Ox 99 06/29/20 14:34 Weight last 48 hrs Weight 77.111 kg A&P Assessment and plan (1) Viral syndrome: Status: Acute (2) Depression: Status: Acute Qualifiers: Depression Type: unspecified Qualified Code(s): F32.9 - Major depressive disorder, single episode, unspecified (3) Homeless single person: Status: Acute (4) Methamphetamine use: Status: Acute (5) Cannabis abuse: Status: Acute (6) Anxiety: Status: Chronic (7) Schizophrenia: Status: Chronic Qualifiers: Schizophrenia type: unspecified Qualified Code(s): F20.9 - Schizophrenia, unspecified (8) Nicotine dependence, cigarettes, with unspecified nicotine-induced disorders: Status: Chronic Additional A&P Information This is a 40-year-old white male with a long history of schizophrenia and addiction to multiple substances who presents with some overall stability, recent positive Covid PCR, interest in a possible medication refill and not desiring inpatient services. 1. Continue current medication. Agree giving Risperdal refill would be a supportive intervention. 2. No credible lethality or need for antidepressant. 3. Encourage follow-up at outpatient services. 4. Encourage engaging or continuing sober living treatment at the highest level of care to which he is willing to commit. Involuntary Hold Information 96 Hour Hold: 96 Hour Involuntary Admission: No 96 Hour Hold Ending Date: 11/03/19 96 Hour Hold Ending Time: 01:35 Attestations NPU Medical Necessity Statement*: N/A. Please see primary provider note for details, but no need for inpatient psychiatric services at this time. Coding Level of Care Code Acute Brick Molder Hand for Tracey Izquierdo Diagnoses Viral syndrome B34.9 Depression F32.9 Depression Type: unspecified Homeless single person Z59.0 Methamphetamine use F15.10 Cannabis abuse F12.10 Anxiety F41.9 Schizophrenia F20.9 Schizophrenia type: unspecified Nicotine dependence, cigarettes, with unspecified nicotine-induced disorders F17.219
--- NOTE | 2020-06-29 14:58 | PC.NURSE ---
Pt reports he did not know he was COVID positive despite a letter being sent. Pt now notified of being COVID positive.
== END 2020-06-29 14:59 | disposition home or self-care (01) ==
PROVIDERS: Emergency Provider Emergency Medicine
DX: F32.9 Major depressive disorder, single episode, unspecified (principal); F17.210 Nicotine dependence, cigarettes, uncomplicated
CPT/HCPCS: 12345; 99284

== ENCOUNTER 2020-07-01 20:55 | Emergency (ER) | payer SELFPAY ==
[2020-07-01 21:48] VITALS: BP 158/99; PULSE 78; RESP 18; TEMP 36.3; O2SAT 99; BMI 25.1
--- NOTE | 2020-07-02 00:08 | W.ED.GENADLT ---
HPI - General Adult General: Chief complaint: General Medical Stated complaint: stress unit Time Seen by Provider: 07/01/20 23:59 Source: patient Mode of arrival: ambulatory Limitations: no limitations History of Present Illness: HPI narrative: 40-year-old male states he just found out today that he was diagnosed with Covid. He was diagnosed 4 to 5 days ago. He states that he 1 make sure he did not need any treatment. He denies any symptoms. He denies any fever body aches or shortness of breath. He also states that he is homeless and would like a place a Tuesday and was inquiring about the stress unit. He denies any suicidal or homicidal ideations. Associated symptoms: Deny chest pain, dyspnea, headache(s), nausea, rash or vomiting Review of Systems Const: Denies: fever(s), chills, body aches or change in appetite Eyes: Denies: blurry vision or eye discomfort ENMT: Denies: throat pain or dental pain Card: Denies: chest pain Resp: Denies: dyspnea GI: Denies: abdominal pain, nausea, vomiting or diarrhea : Denies: dysuria Musc: Denies: neck pain or back pain Skin/Breast: Denies: rash Neuro: Denies: headache(s) Psych: Denies: depression Chaparro/Lymph: Denies: easy bruising All/Imm: Denies: urticaria PFSH ED PFSH: Medical History Anxiety Depression Methamphetamine use Schizophrenia Surgical History No pertinent past surgical history Social History Smoking and tobacco status: current every day smoker cigarettes Packs smoked per day: 0.5 Alcohol intake: never Current gender identity: Male Physical Exam Const: COMMON NORMALS: no acute distress, patient oriented x3 and healthy appearing HENMT: COMMON NORMALS: normocephalic and atraumatic HEAD & SCALP: normocephalic and atraumatic Eye: COMMON NORMALS: Equal, round and reactive pupils present and EOMs intact bilaterally PUPIL: Yes Equal, round and reactive pupils present Neck/C-Spine: COMMON NORMALS: full ROM and supple Chest: COMMONS NORMALS: normal inspection of the chest and normal palpation of entire chest wall Resp: COMMON NORMALS: normal respiratory effort, No retractions, No use of accessory muscles and clear to auscultation bilaterally AUSCULTATION: clear to auscultation bilaterally Cardio: COMMON NORMALS: regular rate, regular rhythm and No murmurs present (Cardio) RATE: regular rate RHYTHM: regular rhythm GI: COMMON NORMALS: Normal to inspection, nondistended, normoactive bowel sounds present, Soft to palpation, non-tender and no masses PALPATION: Yes Soft to palpation Extremity: COMMON NORMALS: normal to inspection and full ROM Neuro: COMMON NORMALS: patient oriented x3, moves all extremities and no focal motor deficits Psych: COMMON NORMALS: mental status grossly normal, Normal thought process present and cooperative THOUGHT PROCESS: Normal thought process present Skin: COMMON NORMALS: no rashes or lesions noted and no wounds GENERAL SKIN EXAM: no rashes or lesions noted Course Vital Signs: Vital signs: Vital Signs Temperature 97.4 F L 07/01/20 21:48 Pulse Rate 78 07/01/20 21:48 Respiratory Rate 18 07/01/20 21:48 Blood Pressure 158/99 07/01/20 21:48 Pulse Oximetry 99 07/01/20 21:48 MDM - General Adult MDM Narrative: Medical decision making narrative: Edgar presents here as a history of Covid. He has no Covid symptoms and is well-appearing. He is homeless and stated to me that he wants a place to stay. He denies any suicidal or homicidal ideations to me. I did speak to Dr. Denny of psychiatry who knows him well who agrees he is stable for discharge. Patient stable for discharge is return if worsening. He understands agrees to plan. Discharge Plan Discharge Patient Disposition: Home Clinical Impression: Homeless single person, COVID-19 Condition: Stable Prescriptions: No Action risperidone 1 mg tablet 1 mg PO BID 30 Days Qty: 60 RF: 0 Discharge Orders: Discharge ED (Routine); Ordered 07/02/20 Ordered By: Jefe Hennessy Discharge Diet: Advance as tolerated Discharge Activity: Resume usual activity Patient Instructions: Depression (ED) Coding Level of Care Code ED Research Consultant for Tracey Izquierdo
--- NOTE | 2020-07-02 00:18 | PC.NURSE ---
Pt in COVID waiting room. NO needs
--- NOTE | 2020-07-02 00:18 | PC.NURSE ---
Pt in COVID waiting room, no needs
[2020-07-02 00:19] VITALS: BP 104/68; PULSE 67; RESP 14; O2SAT 98
== END 2020-07-02 00:20 | disposition home or self-care (01) ==
PROVIDERS: Emergency Provider Emergency Medicine
DX: Z59.0 Homelessness (principal); U07.1 COVID-19; F17.210 Nicotine dependence, cigarettes, uncomplicated
CPT/HCPCS: 12345; 99281

== ENCOUNTER 2020-07-02 00:46 | Emergency (ER) | payer SELFPAY ==
[2020-07-02 01:36] VITALS: BP 104/62; PULSE 64; RESP 14; TEMP 36.8; O2SAT 98; BMI 18.3
--- NOTE | 2020-07-02 01:47 | W.ED.GENADLT ---
HPI - General Adult General: Chief complaint: General Medical Stated complaint: stress unit Time Seen by Provider: 07/02/20 01:41 Source: patient Mode of arrival: ambulatory Limitations: no limitations History of Present Illness: HPI narrative: 40-year-old male is very well-known to the ER. I just seen him roughly 1 hour ago. He states he went outside is very cold and he could not find a place to go. He told me word for word that he came back in and trying to get out of the cold. I asked him if he had any medical complaints he said no had any psychiatric complaints and he told me no. He does have Covid but he states he is not have any symptoms. Associated symptoms: Deny chest pain, dyspnea, headache(s), nausea, rash or vomiting Review of Systems Const: Denies: fever(s), chills, body aches or change in appetite Eyes: Denies: blurry vision or eye discomfort ENMT: Denies: throat pain or dental pain Card: Denies: chest pain Resp: Denies: dyspnea GI: Denies: abdominal pain, nausea, vomiting or diarrhea : Denies: dysuria Musc: Denies: neck pain or back pain Skin/Breast: Denies: rash Neuro: Denies: headache(s) Psych: Denies: depression Chaparro/Lymph: Denies: easy bruising All/Imm: Denies: urticaria PFSH ED PFSH: Medical History (Updated 07/02/20 @ 03:34 by Jefe Hennessy MD) Anxiety Depression Methamphetamine use Schizophrenia Surgical History No pertinent past surgical history Social History Smoking and tobacco status: current every day smoker cigarettes Packs smoked per day: 0.5 Alcohol intake: never Current gender identity: Male Physical Exam Const: COMMON NORMALS: no acute distress, patient oriented x3 and healthy appearing HENMT: COMMON NORMALS: normocephalic and atraumatic HEAD & SCALP: normocephalic and atraumatic Eye: COMMON NORMALS: Equal, round and reactive pupils present and EOMs intact bilaterally PUPIL: Yes Equal, round and reactive pupils present Neck/C-Spine: COMMON NORMALS: full ROM and supple Chest: COMMONS NORMALS: normal inspection of the chest and normal palpation of entire chest wall Resp: COMMON NORMALS: normal respiratory effort, No retractions, No use of accessory muscles and clear to auscultation bilaterally AUSCULTATION: clear to auscultation bilaterally Cardio: COMMON NORMALS: regular rate, regular rhythm and No murmurs present (Cardio) RATE: regular rate RHYTHM: regular rhythm GI: COMMON NORMALS: Normal to inspection, nondistended, normoactive bowel sounds present, Soft to palpation, non-tender and no masses PALPATION: Yes Soft to palpation Extremity: COMMON NORMALS: normal to inspection and full ROM Neuro: COMMON NORMALS: patient oriented x3, moves all extremities and no focal motor deficits Psych: COMMON NORMALS: mental status grossly normal, Normal thought process present and cooperative THOUGHT PROCESS: Normal thought process present Skin: COMMON NORMALS: no rashes or lesions noted and no wounds GENERAL SKIN EXAM: no rashes or lesions noted Course Vital Signs: Vital signs: Vital Signs Temperature 98.2 F 07/02/20 01:36 Pulse Rate 64 07/02/20 01:36 Respiratory Rate 14 07/02/20 01:36 Blood Pressure 104/62 07/02/20 01:36 Pulse Oximetry 98 07/02/20 01:36 MDM - General Adult MDM Narrative: Medical decision making narrative: Edgar presents with homelessness. He told me he wanted to get out of the cold. He denies any medical complaints at this time or suicidality. He is stable for discharge and is to follow-up his PCP. Discharge Plan Discharge Patient Disposition: Home Clinical Impression: Homeless single person, COVID-19 Condition: Stable Prescriptions: No Action risperidone 1 mg tablet 1 mg PO BID 30 Days Qty: 60 RF: 0 Discharge Orders: Discharge ED (Routine); Ordered 07/02/20 Ordered By: Jefe Hennessy Discharge Diet: Advance as tolerated Discharge Activity: Resume usual activity Patient Instructions: Upper Respiratory Infection (ED) Coding Level of Care Code ED Tanyard Worker for Adelitag Fwd Exam Comprehensive
--- NOTE | 2020-07-02 03:35 | PC.NURSE ---
Pt resting with eyes closed in covid waiting room.
--- NOTE | 2020-07-02 04:49 | PC.NURSE ---
Pt resting with eyes closed in chair in [facility] waiting room
[2020-07-02 05:43] VITALS: RESP 14; O2SAT 95
== END 2020-07-02 05:46 | disposition home or self-care (01) ==
PROVIDERS: Emergency Provider Emergency Medicine
DX: Z59.0 Homelessness (principal); U07.1 COVID-19; F17.210 Nicotine dependence, cigarettes, uncomplicated
CPT/HCPCS: 12345; 99281

== ENCOUNTER 2020-07-07 18:35 | Emergency (ER) | payer SELFPAY ==
[2020-07-07 18:54] VITALS: BP 114/77; PULSE 74; RESP 14; TEMP 36.9; O2SAT 99; BMI 24.4
--- NOTE | 2020-07-07 18:54 | W.ED.PSYCH ---
HPI - Psych General: Chief Complaint: Psychiatric Symptoms Stated Complaint: Hearing voices, trying to get into stress unit Time Seen by Provider: 07/07/20 18:49 Source: patient Mode of arrival: ambulatory Limitations: no limitations History of Present Illness: HPI Narrative: 40-year-old male states that he wants to go to the stress unit. Tells me that he is abandoned in this town and is homeless and has nowhere to go. He states he did go to [place] for a homeless assisted. He states he has been hearing voices denies any suicidal homicidal ideations. He denies any worsening or improving factors. Associated symptoms: Deny depression Review of Systems Const: Denies: fever(s), chills, body aches or change in appetite Eyes: Denies: blurry vision or eye discomfort ENMT: Denies: throat pain or dental pain Card: Denies: chest pain Resp: Denies: dyspnea GI: Denies: abdominal pain, nausea, vomiting or diarrhea : Denies: dysuria Musc: Denies: neck pain or back pain Skin/Breast: Denies: rash Neuro: Denies: headache(s) Psych: Denies: depression Chaparro/Lymph: Denies: easy bruising All/Imm: Denies: urticaria PFSH ED PFSH: Medical History (Updated 07/07/20 @ 19:57 by Jefe Hennessy MD) Anxiety Depression Methamphetamine use Schizophrenia Surgical History No pertinent past surgical history Social History Smoking and tobacco status: current every day smoker cigarettes Packs smoked per day: 0.5 Alcohol intake: never Current gender identity: Male Physical Exam Const: COMMON NORMALS: no acute distress, patient oriented x3 and healthy appearing HENMT: COMMON NORMALS: normocephalic and atraumatic HEAD & SCALP: normocephalic and atraumatic Eye: COMMON NORMALS: Equal, round and reactive pupils present and EOMs intact bilaterally PUPIL: Yes Equal, round and reactive pupils present Neck/C-Spine: COMMON NORMALS: full ROM and supple Chest: COMMONS NORMALS: normal inspection of the chest and normal palpation of entire chest wall Resp: COMMON NORMALS: normal respiratory effort, No retractions, No use of accessory muscles and clear to auscultation bilaterally AUSCULTATION: clear to auscultation bilaterally Cardio: COMMON NORMALS: regular rate, regular rhythm and No murmurs present (Cardio) RATE: regular rate RHYTHM: regular rhythm GI: COMMON NORMALS: Normal to inspection, nondistended, normoactive bowel sounds present, Soft to palpation, non-tender and no masses PALPATION: Yes Soft to palpation Extremity: COMMON NORMALS: normal to inspection and full ROM Neuro: COMMON NORMALS: patient oriented x3, moves all extremities and no focal motor deficits Psych: COMMON NORMALS: mental status grossly normal, Normal thought process present and cooperative THOUGHT PROCESS: Normal thought process present Skin: COMMON NORMALS: no rashes or lesions noted and no wounds GENERAL SKIN EXAM: no rashes or lesions noted MDM - Psych MDM Narrative: Medical decision making narrative: Edgar presents here with depression homelessness. He informed me he really wanted a place to stay had no suicidal complaints to me specifically. I did have Dr. Denny speak to him and he does not feel it he warrants admission and will discharge him. He is to follow-up and return if worsening. He understands agrees to plan. Discharge Plan Discharge Patient Disposition: Home Clinical Impression: Homeless single person, Depression Condition: Stable Prescriptions: No Action risperidone 1 mg tablet 1 mg PO BID 30 Days Qty: 60 RF: 0 Discharge Orders: Discharge ED (Routine); Ordered 07/07/20 Ordered By: Jefe Hennessy Discharge Activity: Resume usual activity Patient Instructions: Depression (ED) Coding Level of Care Code ED Special Agent In Charge for Tracey Fwsanthosh Exam Comprehensive
== END 2020-07-07 22:03 | disposition home or self-care (01) ==
PROVIDERS: Emergency Provider Emergency Medicine
DX: F32.9 Major depressive disorder, single episode, unspecified (principal); Z59.0 Homelessness; F17.210 Nicotine dependence, cigarettes, uncomplicated
CPT/HCPCS: 12345; 99284

== ENCOUNTER 2020-07-13 09:08 | Emergency (ER) | payer SELFPAY ==
[2020-07-13 09:18] VITALS: BP 131/93; PULSE 71; RESP 16; TEMP 36.2; O2SAT 100; BMI 24.4
[2020-07-13 09:22] VITALS: RESP 18
[2020-07-13] MEDS: ibuprofen 600 mg Tablet PO (09:31)
--- NOTE | 2020-07-13 09:34 | ED_ITS ---
HPI - Extremity Problem General: Chief complaint: Extremity Problem,Nontraumatic Stated complaint: COLD/ARM PAIN Time Seen by Provider: 07/13/20 09:22 History of Present Illness: HPI Narrative: Patient complains about left elbow pain related to the cold says joint started hurting because he has been out walking the cold. Denies any injury to his other extremities does not complain about cold or frostbite. MD Complaint: joint pain Onset (ago): hour(s) Pain Consistency: constant Location: left and upper extremity Severity scale (1-10): 3 Quality: aching Radiation: none Relieving factors: immobilization Exacerbating factors: range of motion Associated symptoms: Reports no associated symptoms; Deny chest pain, fever(s) or rash Context: other (Has been out in the cold. But patient is not sleeping and cold just been walking around) Review of Systems Narrative: Well-known to the ER patient says he is homeless. Patient not aware of shelters that been made available during his cold weather here in [place] now he is aware. Const: Denies: fever(s), chills or body aches Eyes: Denies: change in vision or blurry vision ENMT: Denies: throat pain or nasal congestion Card: Denies: chest pain or dyspnea on exertion Resp: Denies: dyspnea, productive cough or non-productive cough GI: Denies: abdominal pain, nausea or vomiting : Denies: difficulty urinating Musc: Reports: joint pain (Left elbow area hurting since he has been on the cold no injury); Denies: extremity pain Skin/Breast: Denies: rash Neuro: Denies: headache(s) Psych: Denies: anxiety or depression Chaparro/Lymph: Denies: easy bruising PFS ED PFSH: Medical History (Updated 07/13/20 @ 09:27 by ADAMARIS Mike) Anxiety Depression Methamphetamine use Schizophrenia Surgical History No pertinent past surgical history Social History Smoking and tobacco status: current every day smoker cigarettes Packs smoked per day: 0.5 Alcohol intake: never Current gender identity: Male Physical Exam Narrative: EXAM NARRATIVE: Physical exam appears normal no evidence of being cold Const: COMMON NORMALS: no acute distress, average body habitus and patient oriented x3 HENMT: COMMON NORMALS: normocephalic HEAD & SCALP: normal to inspection and normocephalic FACE & SINUS: normal facial exam Eye: COMMON NORMALS: conjunctivae normal GENERAL EYE: appearance normal, both eyes and all related structures CONJUNCTIVA: Yes conjunctivae normal Neck/C-Spine: COMMON NORMALS: no JVD Chest: COMMONS NORMALS: normal inspection of the chest Resp: COMMON NORMALS: normal respiratory effort and clear to auscultation bilaterally AUSCULTATION: clear to auscultation bilaterally Cardio: COMMON NORMALS: no JVD GI: INSPECTION: Yes normal to inspection Extremity: COMMON NORMALS: normal to inspection and full ROM LEFT UPPER EXTREMITY: Yes upper arm (Normal) and Yes elbow joint (Normal) OTHER: All extremities are warm patient denies. Cold neurovascular status intact Neuro: COMMON NORMALS: patient oriented x3 Course Vital Signs: Vital signs: Vital Signs Temperature 97.2 F L 07/13/20 09:18 Pulse Rate 71 07/13/20 09:18 Respiratory Rate 18 07/13/20 09:22 Blood Pressure 131/93 07/13/20 09:18 Pulse Oximetry 100 07/13/20 09:18 MDM - Extremity (Nontraumatic) MDM Narrative: Medical decision making narrative: Patient been made aware [facility] have us and are the [facility] here in [place]. Patient states she is going to go to those. Discharge Plan Discharge Patient Disposition: Home Clinical Impression: Arthralgia Qualifiers: Joint pain location: elbow Laterality: left Qualified Code(s): M25.522 - Pain in left elbow Condition: Stable Prescriptions: No Action risperidone 1 mg tablet 1 mg PO BID 30 Days Qty: 60 RF: 3 Discharge Orders: Discharge ED (Routine); Ordered 07/13/20 Ordered By: Dejon Virgen Discharge Diet: Usual diet Discharge Activity: Increase activity as tolerated Patient Instructions: Arthralgia (ED) Activity Restrictions/Additional Instructions: Can take ibuprofen for pain are Tylenol also. [facility]. Follow-up with your primary care as needed. Coding Level of Care Code ED Dietary Cook for Tracey Izquierdo
[2020-07-13 09:36] VITALS: RESP 18
== END 2020-07-13 09:36 | disposition home or self-care (01) ==
PROVIDERS: Emergency Provider Nurse Practitioner Family
DX: M25.522 Pain in left elbow (principal); F17.210 Nicotine dependence, cigarettes, uncomplicated
CPT/HCPCS: 99282

== ENCOUNTER 2020-07-20 12:07 | Emergency (ER) | payer SELFPAY ==
[2020-07-20 12:13] VITALS: BP 132/66; PULSE 80; RESP 18; TEMP 36.5; O2SAT 98; BMI 24.4
--- NOTE | 2020-07-20 12:21 | ED_ITS ---
HPI - General Adult General: Chief complaint: General Medical Stated complaint: THROAT PAIN, LOSING TASTE IN MOUTH Time Seen by Provider: 07/20/20 12:17 Source: patient Mode of arrival: ambulatory Limitations: no limitations History of Present Illness: HPI narrative: 40-year-old male is very well-known to the ER states he had a sore throat over the last 3 to 4 days. He denies any vomiting or diarrhea. He denies any fevers. He states pain is a 2 out of 10. He has had no difficulty swallowing. He denies worsening or improving factors. Associated symptoms: Deny chest pain, dyspnea, headache(s), nausea, rash or vomiting Review of Systems Const: Denies: fever(s), chills, body aches or change in appetite Eyes: Denies: blurry vision or eye discomfort ENMT: Reports: throat pain Card: Denies: chest pain Resp: Denies: dyspnea GI: Denies: abdominal pain, nausea, vomiting or diarrhea : Denies: dysuria Musc: Denies: neck pain or back pain Skin/Breast: Denies: rash Neuro: Denies: headache(s) Psych: Denies: depression Chaparro/Lymph: Denies: easy bruising All/Imm: Denies: urticaria PFSH ED PFSH: Medical History (Updated 07/20/20 @ 12:21 by Jefe Hennessy MD) Anxiety Depression Methamphetamine use Schizophrenia Surgical History No pertinent past surgical history Social History Smoking and tobacco status: current every day smoker cigarettes Packs smoked per day: 0.5 Alcohol intake: never Current gender identity: Male Physical Exam Const: COMMON NORMALS: no acute distress, patient oriented x3 and healthy appearing HENMT: COMMON NORMALS: normocephalic and atraumatic HEAD & SCALP: normocephalic and atraumatic THROAT: posterior oropharynx normal, tonsils normal and uvula midline Eye: COMMON NORMALS: Equal, round and reactive pupils present and EOMs intact bilaterally PUPIL: Yes Equal, round and reactive pupils present Neck/C-Spine: COMMON NORMALS: full ROM and supple Chest: COMMONS NORMALS: normal inspection of the chest and normal palpation of entire chest wall Resp: COMMON NORMALS: normal respiratory effort, No retractions, No use of accessory muscles and clear to auscultation bilaterally AUSCULTATION: clear to auscultation bilaterally Cardio: COMMON NORMALS: regular rate, regular rhythm and No murmurs present (Cardio) RATE: regular rate RHYTHM: regular rhythm GI: COMMON NORMALS: Normal to inspection, nondistended, normoactive bowel sounds present, Soft to palpation, non-tender and no masses PALPATION: Yes Soft to palpation Extremity: COMMON NORMALS: normal to inspection and full ROM Neuro: COMMON NORMALS: patient oriented x3, moves all extremities and no focal motor deficits Psych: COMMON NORMALS: mental status grossly normal, Normal thought process present and cooperative THOUGHT PROCESS: Normal thought process present Skin: COMMON NORMALS: no rashes or lesions noted and no wounds GENERAL SKIN EXAM: no rashes or lesions noted Course Vital Signs: Vital signs: Vital Signs Temperature 97.7 F 07/20/20 12:13 Pulse Rate 80 07/20/20 12:13 Respiratory Rate 18 07/20/20 12:13 Blood Pressure 132/66 07/20/20 12:13 Pulse Oximetry 98 07/20/20 12:13 MDM - General Adult MDM Narrative: Medical decision making narrative: Edgar presents with a sore throat. His exam here is benign he has no signs of abscess or pharyngitis. He is stable for discharge and is to take ibuprofen. He is to return if worsening. He understands agrees to plan Discharge Plan Discharge Patient Disposition: Home Clinical Impression: Sore throat Condition: Stable Prescriptions: No Action risperidone 1 mg tablet 1 mg PO BID 30 Days Qty: 60 RF: 3 Discharge Orders: Discharge ED (Routine); Ordered 07/20/20 Ordered By: Jefe Hennessy Discharge Diet: Advance as tolerated Discharge Activity: Resume usual activity Patient Instructions: Strep Throat (ED) Coding Level of Care Code ED Director Geophysical Laboratory for Tracey Izquierdo
[2020-07-20] MEDS: naproxen 500 mg Tablet PO (12:32)
== END 2020-07-20 12:32 | disposition home or self-care (01) ==
PROVIDERS: Emergency Provider Emergency Medicine
DX: J02.9 Acute pharyngitis, unspecified (principal); F17.210 Nicotine dependence, cigarettes, uncomplicated
CPT/HCPCS: 99282

== ENCOUNTER 2020-07-22 04:49 | Emergency (ER) | payer SELFPAY ==
[2020-07-22 04:53] VITALS: BP 129/82; PULSE 82; RESP 18; TEMP 36.7; O2SAT 97; BMI 24.4
--- NOTE | 2020-07-22 05:02 | ED_ITS ---
HPI - Psych General: Chief Complaint: Psychiatric Symptoms Stated Complaint: hearing voices Time Seen by Provider: 07/22/20 04:51 Source: patient Mode of arrival: ambulatory Limitations: no limitations History of Present Illness: HPI Narrative: 40-year-old male who is very well- known to the ER states to me that he is homeless he is sick of being homeless. He states that while he is on the streets he hears voices at times. He denies any suicidal or homicidal thoughts. Patient is well-appearing here. He denies any hallucinations currently. He denies any worsening improving factors. Associated symptoms: Reports auditory hallucinations; Deny depression Review of Systems Const: Denies: fever(s), chills, body aches or change in appetite Eyes: Denies: blurry vision or eye discomfort ENMT: Denies: throat pain or dental pain Card: Denies: chest pain Resp: Denies: dyspnea GI: Denies: abdominal pain, nausea, vomiting or diarrhea : Denies: dysuria Musc: Denies: neck pain or back pain Skin/Breast: Denies: rash Neuro: Denies: headache(s) Psych: Reports: auditory hallucinations; Denies: depression Chaparro/Lymph: Denies: easy bruising All/Imm: Denies: urticaria PFSH ED PFSH: Medical History (Updated 07/22/20 @ 04:58 by Jefe Hennessy MD) Anxiety Depression Methamphetamine use Schizophrenia Surgical History No pertinent past surgical history Social History Smoking and tobacco status: current every day smoker cigarettes Packs smoked per day: 0.5 Alcohol intake: never Current gender identity: Male Physical Exam Const: COMMON NORMALS: no acute distress, patient oriented x3 and healthy appearing HENMT: COMMON NORMALS: normocephalic and atraumatic HEAD & SCALP: normocephalic and atraumatic Eye: COMMON NORMALS: Equal, round and reactive pupils present and EOMs intact bilaterally PUPIL: Yes Equal, round and reactive pupils present Neck/C-Spine: COMMON NORMALS: full ROM and supple Chest: COMMONS NORMALS: normal inspection of the chest and normal palpation of entire chest wall Resp: COMMON NORMALS: normal respiratory effort, No retractions, No use of accessory muscles and clear to auscultation bilaterally AUSCULTATION: clear to auscultation bilaterally Cardio: COMMON NORMALS: regular rate, regular rhythm and No murmurs present (Cardio) RATE: regular rate RHYTHM: regular rhythm GI: COMMON NORMALS: Normal to inspection, nondistended, normoactive bowel sounds present, Soft to palpation, non-tender and no masses PALPATION: Yes Soft to palpation Extremity: COMMON NORMALS: normal to inspection and full ROM Neuro: COMMON NORMALS: patient oriented x3, moves all extremities and no focal motor deficits Psych: COMMON NORMALS: mental status grossly normal, Normal thought process present and cooperative THOUGHT PROCESS: Normal thought process present Skin: COMMON NORMALS: no rashes or lesions noted and no wounds GENERAL SKIN EXAM: no rashes or lesions noted MDM - Psych MDM Narrative: Medical decision making narrative: Patient presents with hallucinations that are chronic in nature. He has no suicidal or homicidal thoughts. He is well-appearing here and is stable for discharge. He is to follow-up outpatient. He is return if worsening. He understands and agrees to plan. Discharge Plan Discharge Patient Disposition: Home Clinical Impression: Homeless single person, Hearing voices Condition: Stable Prescriptions: No Action risperidone 1 mg tablet 1 mg PO BID 30 Days Qty: 60 RF: 3 Discharge Orders: Discharge ED (Routine); Ordered 07/22/20 Ordered By: Jefe Hennessy Discharge Diet: Advance as tolerated Discharge Activity: Resume usual activity Patient Instructions: Depression (ED) Coding Level of Care Code ED Derrick Engineer for Tracey Izquierdo
[2020-07-22 05:05] VITALS: BP 107/87; PULSE 60; RESP 18; O2SAT 96
== END 2020-07-22 05:10 | disposition home or self-care (01) ==
PROVIDERS: Emergency Provider Emergency Medicine
DX: R44.0 Auditory hallucinations (principal); Z59.0 Homelessness; F17.210 Nicotine dependence, cigarettes, uncomplicated
CPT/HCPCS: 99281

== ENCOUNTER 2020-07-27 16:54 | Emergency (ER) | payer SELFPAY ==
[2020-07-27 16:59] VITALS: BP 145/95; PULSE 73; RESP 18; TEMP 36.3; O2SAT 100; BMI 24.4
--- NOTE | 2020-07-27 17:19 | ED_ITS ---
HPI - General Adult General: Chief complaint: General Medical Stated complaint: Wants to see doctor about medication Time Seen by Provider: 07/27/20 17:08 Source: patient Mode of arrival: ambulatory Limitations: no limitations History of Present Illness: HPI narrative: Patient is a 40-year-old male who presents to ED today telling me he would like to use our phone and would like a place to rest. Patient tells me he is currently homeless. He apparently had been staying at his brother's home but states he no longer wants to stay there. He tells me he has a tent and is currently hitch hiking. He states he had 10 more miles to go and just wanted a place to rest . He tells me he did stop at the homeless assisted but that the individual there was rude to him. Patient te lls me he is not suicidal or homicidal. I asked him repeatedly what I could do for him today-he responded to use our phone and to get him something to eat. Associated symptoms: Reports no associated symptoms; Deny chest pain, dyspnea, headache(s) or rash Treatments prior to arrival: none Review of Systems Const: Denies: fever(s) or chills Eyes: Denies: change in vision Card: Denies: chest pain Resp: Denies: dyspnea GI: Denies: abdominal pain Musc: Denies: neck pain, back pain, extremity pain or joint pain Skin/Breast: Denies: rash Neuro: Denies: headache(s) Psych: Denies: visual hallucinations, auditory hallucinations, suicidal ideation or homicidal ideation [facility] ED PFSH: Medical History (Updated 07/22/20 @ 04:58 by Jefe Hennessy MD) Anxiety Depression Methamphetamine use Schizophrenia Surgical History No pertinent past surgical history Social History Smoking and tobacco status: current every day smoker cigarettes Packs smoked per day: 0.5 Alcohol intake: never Current gender identity: Male Physical Exam Const: COMMON NORMALS: no acute distress, average body habitus, patient oriented x3, no limitations, healthy appearing, alert and well nourished GENERAL APPEARANCE: cooperative ORIENTATION/CONSCIOUSNESS: Yes awake, Yes oriented to person, Yes oriented to place and Yes oriented to time HENMT: COMMON NORMALS: normocephalic and atraumatic HEAD & SCALP: normocephalic and atraumatic Resp: COMMON NORMALS: normal respiratory effort and clear to auscultation bilaterally AUSCULTATION: clear to auscultation bilaterally Cardio: COMMON NORMALS: regular rate and regular rhythm RATE: regular rate RHYTHM: regular rhythm Neuro: COMMON NORMALS: patient oriented x3, moves all extremities and gait normal SENSORIUM/ORIENTATION: Yes alert, Yes oriented to person, Yes oriented to place and Yes oriented to time Psych: COMMON NORMALS: mental status grossly normal, Normal thought process present, cooperative, normal affect, speech normal, denies hallucinations, denie s homicidal ideation and denies suicidal ideation APPEARANCE: Yes grossly normal ATTITUDE: Yes calm ACTIVITY/MOTOR BEHAVIOR: Yes appropriate eye contact and Yes hyperactivity SPEECH: Yes normal speech MOOD & AFFECT: Yes euthymic mood THOUGHT PROCESS: Normal thought process present THOUGHT CONTENT: Yes Normal thought content present ATTENTION/CONCENTRATION: Yes attention grossly intact and Yes concentration grossly intact MEMORY/COGNITION: Yes memory grossly intact and Yes cognition grossly intact INSIGHT: Fair insight present (Psych) JUDGEMENT: Fair judgement present (Psych) Skin: COMMON NORMALS: no rashes or lesions noted GENERAL SKIN EXAM: no rashes or lesions noted Course Vital Signs: Vital signs: Vital Signs Temperature 97.4 F L 07/27/20 16:59 Pulse Rate 73 07/27/20 16:59 Respiratory Rate 18 07/27/20 16:59 Blood Pressure 145/95 07/27/20 16:59 Pulse Oximetry 100 07/27/20 16:59 MDM - General Adult MDM Narrative: Medical decision making narrative: Patient is not suicidal or homicidal. He is not acutely psychotic. I have no grounds to place patient on any type of mental hold. Patient tells me he would like to use her telephone and get something to eat. Both of these were provided for patient. Patient is stable to be discharged at this time. Discharge Plan Discharge Patient Disposition: Home Clinical Impression: Homeless single person Condition: Stable Prescriptions: No Action risperidone 1 mg tablet 1 mg PO BID 30 Days Qty: 60 RF: 3 Discharge Orders: Discharge ED (Routine); Ordered 07/27/20 Ordered By: Glory Reyes Coding Level of Care Code ED Bilingual Teacher Assistant for Tracey Izquierdo
== END 2020-07-27 17:35 | disposition home or self-care (01) ==
PROVIDERS: Emergency Provider Physician Assistant
DX: Z59.0 Homelessness (principal); F17.210 Nicotine dependence, cigarettes, uncomplicated
CPT/HCPCS: 99281

== ENCOUNTER 2020-07-30 15:49 | Emergency (ER) | payer SELFPAY ==
[2020-07-30 16:09] VITALS: BP 114/69; PULSE 87; RESP 18; TEMP 36.5; O2SAT 97; BMI 25.8
--- NOTE | 2020-07-30 16:58 | W.ED.GENADLT ---
HPI - General Adult General: Chief complaint: General Medical Stated complaint: FEELING SICK, HOMELESS, WANTS HELP FINDING HALF-WAY Time Seen by Provider: 07/30/20 16:17 Source: patient Mode of arrival: ambulatory Limitations: no limitations History of Present Illness: HPI narrative: The patient is a 40 year old male with a history of anxiety, schizophrenia, who is currently homeless. He is here because he wants to go to a homeless detention in [place], [place]. He wants to get out of [place] as he believes it is not a healthy place for him to be in at this time. He however does not have the means to get to get to [place] and would like some assistance to get to [place]. He has no physical or psychiatric complaints. Associated symptoms: Deny dyspnea, headache(s), nausea, rash, palpitations or vomiting Review of Systems General: Reports: 10 or more systems reviewed and unremarkable except in HPI and below Const: Denies: fever(s), chills or body aches Eyes: Denies: change in vision or blurry vision ENMT: Denies: throat pain, enlarged tonsils, odynophagia, hoarseness, mouth pain or swelling of lips/tongue Card: Denies: palpitations, irregular heart rhythm, edema or swelling of feet/ankles Resp: Denies: dyspnea, productive cough or non-productive cough GI: Denies: abdominal pain, nausea or vomiting : Denies: flank pain, dysuria, urinary frequency, urinary urgency or urinary hesitancy Musc: Denies: neck pain, back pain or extremity swelling Skin/Breast: Denies: rash, pruritus or erythema Neuro: Denies: headache(s), numbness in extremities or weakness in extremities Endo: Denies: polyuria, polydipsia or tired all the time PFS ED PFSH: Medical History (Reviewed 07/30/20 @ 21:41 by Jaime Flores MD, [facility]) Anxiety Depression Methamphetamine use Schizophrenia Surgical History (Reviewed 07/30/20 @ 21:41 by Jaime Flores MD, [facility]) No pertinent past surgical history Social History (Reviewed 07/30/20 @ 21:41 by Jaime Flores MD, [facility]) Smoking and tobacco status: current every day smoker cigarettes Packs smoked per day: 0.5 Alcohol intake: never Current gender identity: Male Physical Exam Const: COMMON NORMALS: no acute distress, average body habitus, patient oriented x3, no limitations, healthy appearing, alert and well nourished HENMT: COMMON NORMALS: normocephalic, atraumatic and moist oral mucous membranes HEAD & SCALP: normocephalic and atraumatic Neck/C-Spine: COMMON NORMALS: no meningeal signs and no JVD Resp: COMMON NORMALS: normal respiratory effort, No retractions, No use of accessory muscles, clear to auscultation bilaterally and percussion normal AUSCULTATION: clear to auscultation bilaterally PERCUSSION: percussion normal Cardio: COMMON NORMALS: no JVD, regular rate, regular rhythm, S1 normal heart sound present, S2 normal heart sound present, No gallops present (Cardio), No clicks present (Cardio), No murmurs present (Cardio), No rub (Cardio) and Peripheral pulses 2+ throughout RATE: regular rate RHYTHM: regular rhythm HEART SOUNDS: S1 normal heart sound present and S2 normal heart sound present PERIPHERAL PULSES: Peripheral pulses 2+ throughout GI: COMMON NORMALS: Normal to inspection, nondistended, normoactive bowel sounds present, Soft to palpation, non-tender, No hepatosplenomegaly present, no masses and no bruits PALPATION: Yes Soft to palpation and Yes No hepatosplenomegaly present Extremity: COMMON NORMALS: normal to inspection, full ROM, capillary refill normal, no calf tenderness and no pedal edema Neuro: COMMON NORMALS: patient oriented x3 SENSORIUM/ORIENTATION: Yes alert MENINGEAL SIGNS: Yes no meningeal signs Skin: COMMON NORMALS: no rashes or lesions noted, no wounds, turgor normal, no jaundice, no petechiae and no mottling GENERAL SKIN EXAM: no rashes or lesions noted and turgor normal Course Vital Signs: Vital signs: Vital Signs Temperature 97.7 F 07/30/20 16:09 Pulse Rate 87 07/30/20 16:09 Respiratory Rate 18 07/30/20 16:09 Blood Pressure 114/69 07/30/20 16:09 Pulse Oximetry 97 07/30/20 16:09 MDM - General Adult MDM Narrative: Medical decision making narrative: 40 year old male who is homeless and needs to get to get to a homeless detention away from [place]. He found one in [place] but did not have the resources to get there. We contacted the head of security and he approved for the hospital to pay for a taxi ride to [place]. The patient is counseled that this will not be a regular occurrence and he needs to make the best of this current opportunity. He voiced understanding and all questions answered. Medical Records: Attestation: I reviewed the patient's medical records. Discharge Plan Discharge Patient Disposition: Home Clinical Impression: Homeless single person Condition: Stable Prescriptions: Continued risperidone 1 mg tablet 1 mg PO BID 30 Days Qty: 60 RF: 3 Discharge Orders: Discharge ED (Routine); Ordered 07/30/20 Ordered By: Jaime Flores Discharge Diet: Usual diet Discharge Activity: Resume usual activity Activity Restrictions/Additional Instructions: Return fir any new symptoms. Follow up with your primary care provider within 3 days. Continue your home medications. Coding Level of Care Code ED Lead Shipper for Tracey Izquierdo
--- NOTE | 2020-07-30 16:59 | PC.NURSE ---
Patient has made multiple statements while here in the ER concerning needing a ride to [place]. Patient has tried multiple times to get a ride up to [place] and has not been able to get one.
--- NOTE | 2020-07-30 17:11 | PC.NURSE ---
Spoke with patient concerning need to go to [place], kathleen stated he was accepted into a homeless half-way called [facility], and needs to get up there to save his spot. He explained that he has been speaking with a binder caser there.
== END 2020-07-30 17:13 | disposition home or self-care (01) ==
PROVIDERS: Emergency Provider Family Medicine
DX: Z59.0 Homelessness (principal); F17.210 Nicotine dependence, cigarettes, uncomplicated
CPT/HCPCS: 99281

== ENCOUNTER 2020-09-16 17:02 | Emergency (ER) | payer SELFPAY ==
[2020-09-16 17:53] VITALS: BP 128/78; PULSE 85; RESP 18; TEMP 36.9; O2SAT 97; BMI 25.1
--- NOTE | 2020-09-16 18:11 | W.ED.UPPEXIN ---
HPI - Extremity Injury (Upper) General: Chief Complaint: Extremity Injury, Upper Stated Complaint: Finger Injury Time Seen by Provider: 09/16/20 18:11 Source: patient Mode of arrival: ambulatory Limitations: no limitations History of Present Illness: HPI narrative: Patient is a 40-year-old male who presents to ED today with a complaint of a left finger injury. Patient states 2 to 3 days ago he smashed the finger but tells me he does not remember how. He states he has had pain since. complaint: injury to: left and finger Onset (ago): day(s) Other Extremity Injury: Left: fingers Other injuries: none Place: home Severity: moderate Exacerbating factors: movement of extremity and other (palpation) Context: direct blow and crush Associated symptoms: Reports no associated symptoms Review of Systems Musc: Reports: extremity pain (L 5th finger) and extremity swelling Neuro: Denies: numbness in extremities or sensory changes [facility] ED PFSH: Medical History (Updated 09/16/20 @ 18:56 by KATE Mckinney) Anxiety Depression Methamphetamine use Schizophrenia Surgical History No pertinent past surgical history Social History Smoking and tobacco status: current every day smoker cigarettes Packs smoked per day: 0.5 Alcohol intake: never Current gender identity: Male Physical Exam Const: COMMON NORMALS: no acute distress, patient oriented x3, no limitations and alert GENERAL APPEARANCE: cooperative Extremity: OTHER: swelling, erythema, and tenderness localized to L 5th distal phalanx; no obvious felon formation; there is no damage to nail bed/nail plate/nail fold; he does report that a small amount of pus came from under his cuticle but I do not appreciate any drainage at this time Neuro: COMMON NORMALS: patient oriented x3, moves all extremities, no focal motor deficits and no sensory deficits noted SENSORIUM/ORIENTATION: Yes alert Skin: NARRATIVE SKIN EXAM: see extremity assessment for pertinent skin findings Course Vital Signs: Vital signs: Vital Signs Temperature 98.5 F 09/16/20 17:53 Pulse Rate 85 09/16/20 17:53 Respiratory Rate 18 09/16/20 17:53 Blood Pressure 128/78 09/16/20 17:53 Pulse Oximetry 97 04/20/21 17:53 MDM - Extremity Injury (Upper) MDM Narrative: Medical decision making narrative: Patient has a non-displaced distal phalanx fracture. Finger on exam does raise some concern for infection. I will place patient on Keflex. Recommend close follow-up and return to the emergency department if this worsens. I have tried to get patient orthopedic follow-up however he states he is homeless and does not have a working phone number, no family member to contact, mailing address. I told him he can return to the emergency department tomorrow and try to speak to case management and they may be able to get him an appointment date and time. Imaging Data^: XR L finger: My impression: non-displaced distal phalanx fracture Discharge Plan Discharge Patient Disposition: Home Clinical Impression: Fracture of distal phalanx of finger of left hand Condition: Stable Prescriptions: New cephalexin 500 mg capsule 500 mg PO Q6H 7 Days Qty: 28 RF: 0 No Action risperidone 1 mg tablet 1 mg PO BID 30 Days Qty: 60 RF: 3 Discharge Orders: Discharge ED (Routine); Ordered 09/16/20 Ordered By: Glory Reyes Patient Instructions: Fractures - Phalanx (Finger), Finger Fracture (ED) Activity Restrictions/Additional Instructions: As you have mentioned there is no way to mail/call/or contact you in regards to orthopedic follow-up. You may return to the emergency department and speak to the front man tomorrow to see if case management could speak to you and try to get you your appointment. Stay in your finger splint for the next [address] you on antibiotics for the redness and swelling. You need to return to the emergency department for worsening redness, swelling, pain, discharge, or any other concerns you may have. Coding Level of Care Code ED Travel Money Advisor for Tracey Fwsanthosh Exam Expanded Problem Focused
--- NOTE | 2020-09-16 18:17 | XR_ITS ---
WS: [id number] 3 views of the left fifth finger, 09/16/2020 Clinical Data: trauma; 5th Comparison: None. Findings: There is a transverse undisplaced fracture of the mid portion of the distal phalanx of the left fifth finger. The remainder of the finger is unremarkable. The soft tissue shows minimal swelling of the distal phalanx.. XR/XR finger LT min 2V [id number] Impression: Fracture of the distal phalanx of the left fifth finger.
[2020-09-16] MEDS: ibuprofen 800 mg tablet PO (19:39)
[2020-09-16 19:40] VITALS: PULSE 88; RESP 18; O2SAT 96
== END 2020-09-16 19:41 | disposition home or self-care (01) ==
PROVIDERS: Emergency Provider Physician Assistant
DX: S62.667A Nondisplaced fracture of distal phalanx of left little finger, initial encounter for closed fracture (principal); X58.XXXA Exposure to other specified factors, initial encounter; Z59.0 Homelessness; F17.210 Nicotine dependence, cigarettes, uncomplicated
CPT/HCPCS: 29130; 73140; 99283

== ENCOUNTER 2020-09-16 21:36 | Emergency (ER) | payer SELFPAY ==
[2020-09-16 21:43] VITALS: BP 114/72; PULSE 99; RESP 18; TEMP 36.2; O2SAT 97; BMI 23.7
--- NOTE | 2020-09-16 22:53 | W.ED.GENADLT ---
HPI - General Adult General: Chief complaint: General Medical Stated complaint: MHE/WANTS NPU Time Seen by Provider: 09/16/20 22:47 Source: patient Mode of arrival: ambulatory Limitations: no limitations History of Present Illness: HPI narrative: Patient states he is homeless and feels depressed. He has no plan of suicide or homicide. He has no plan on hurting himself. He was just here in the emergency room for a broken finger. He states it is cold and wants to warm up. He is asking for food. Onset (ago): unknown Radiation: non-radiation Severity: mild Pain Consistency: other (no pain) Associated symptoms: Reports no associated symptoms; Deny chest pain, dyspnea, headache(s), nausea, rash, palpitations or vomiting Review of Systems Const: Denies: fever(s) or chills Eyes: Denies: change in vision ENMT: Denies: throat pain Card: Denies: chest pain or palpitations Resp: Denies: dyspnea or wheezing GI: Denies: abdominal pain, nausea or vomiting : Denies: flank pain Musc: Reports: other; Denies: neck pain or back pain Skin/Breast: Denies: rash or pruritus Neuro: Denies: headache(s) or numbness in extremities Psych: Reports: depression; Denies: anxiety, panic attacks, hopelessness, auditory hallucinations, suicidal ideation or homicidal ideation Chaparro/Lymph: Denies: enlarged lymph nodes PFS ED PFSH: Medical History Anxiety Depression Methamphetamine use Schizophrenia Surgical History No pertinent past surgical history Social History Smoking and tobacco status: current every day smoker cigarettes Packs smoked per day: 0.5 Alcohol intake: never Current gender identity: Male Physical Exam Const: COMMON NORMALS: no acute distress, patient oriented x3, no limitations and well nourished EXAM LIMITATIONS: altered mental status GENERAL APPEARANCE: cooperative HENMT: COMMON NORMALS: normocephalic and atraumatic HEAD & SCALP: normocephalic and atraumatic FACE & SINUS: normal facial exam Eye: COMMON NORMALS: EOMs intact bilaterally Neck/C-Spine: COMMON NORMALS: full ROM, no lymphadenopathy, supple and no meningeal signs GENERAL: Yes normal visual inspection Lymph: LYMPHATIC: no lymphadenopathy noted Chest: COMMONS NORMALS: normal inspection of the chest and normal palpation of entire chest wall CHEST: No Ecchymosis present and No rash Resp: COMMON NORMALS: normal respiratory effort, No retractions and clear to auscultation bilaterally EFFORT & INSPECTION: No respiratory distress AUSCULTATION: clear to auscultation bilaterally Cardio: COMMON NORMALS: regular rate, regular rhythm and Peripheral pulses 2+ throughout JUGULAR VENOUS DISTENTION: no JVD RATE: regular rate RHYTHM: regular rhythm PERIPHERAL PULSES: Peripheral pulses 2+ throughout GI: COMMON NORMALS: Normal to inspection, nondistended, normoactive bowel sounds present and non-tender : COMMON NORMALS: Yes no CVA tenderness BLADDER/KIDNEY EXAM: Yes no CVA tenderness Back/Pelvis: COMMON NORMALS: no CVA tenderness Extremity: COMMON NORMALS: normal to inspection, full ROM and capillary refill normal Neuro: COMMON NORMALS: patient oriented x3, CN's II-XII intact bilaterally, no focal motor deficits and no sensory deficits noted MENINGEAL SIGNS: Yes no meningeal signs Psych: COMMON NORMALS: mental status grossly normal, Normal thought process present, speech normal, activity/motor behavior normal, denies hallucinations, denies homicidal ideation and denies suicidal ideation ATTITUDE: Yes Other attitude/behavior findings present (Psych) (mild depression) SPEECH: Yes normal speech THOUGHT PROCESS: Normal thought process present Skin: COMMON NORMALS: no rashes or lesions noted and no wounds GENERAL SKIN EXAM: no rashes or lesions noted Course Vital Signs: Vital signs: Vital Signs Temperature 97.1 F L 09/16/20 21:43 Pulse Rate 99 09/16/20 21:43 Respiratory Rate 18 09/16/20 21:43 Blood Pressure 114/72 09/16/20 21:43 Pulse Oximetry 97 09/16/20 21:43 MDM - General Adult MDM Narrative: Medical decision making narrative: Left hand in a splint. Nursing assessment reviewed. Patient is not suicidal. Patient is looking for a place to stay and is homeless and it is cold outside. Discharge Plan Discharge Patient Disposition: Home Clinical Impression: Homeless single person Depression Qualifiers: Depression Type: dysthymia Qualified Code(s): F34.1 - Dysthymic disorder Condition: Stable Prescriptions: New Zoloft 50 mg tablet 50 mg PO DAILY Qty: 14 RF: 2 No Action risperidone 1 mg tablet 1 mg PO BID 30 Days Qty: 60 RF: 3 cephalexin 500 mg capsule 500 mg PO Q6H 7 Days Qty: 28 RF: 0 Discharge Orders: Discharge ED (Routine); Ordered 09/16/20 Ordered By: Alban Bansal Referrals: Scar Denny MD [Physician] - 1-3 days (as needed.) Discharge Diet: Advance as tolerated Discharge Activity: Resume usual activity Patient Instructions: Opioid Safety Activity Restrictions/Additional Instructions: Follow-up with [facility] for assistance. Coding Level of Care Code ED Office Machines Sales Representative for Tracey Izquierdo
[2020-09-16] MEDS: sertraline 50 mg Tablet PO (23:25)
[2020-09-16 23:31] VITALS: BP 118/75; PULSE 94; RESP 19; O2SAT 99
== END 2020-09-16 23:31 | disposition home or self-care (01) ==
PROVIDERS: Emergency Provider Family Medicine
DX: F34.1 Dysthymic disorder (principal); Z59.0 Homelessness; F17.210 Nicotine dependence, cigarettes, uncomplicated
CPT/HCPCS: 99282

== ENCOUNTER 2020-09-17 20:17 | Emergency (ER) | payer SELFPAY ==
[2020-09-17 20:21] VITALS: BP 140/87; PULSE 102; RESP 16; TEMP 36.6; O2SAT 97; BMI 25.1
--- NOTE | 2020-09-17 20:35 | W.ED.EXTPRO ---
HPI - Extremity Problem General: Chief complaint: Extremity Injury, Upper Stated complaint: finger injury Time Seen by Provider: 09/17/20 20:18 Source: patient Mode of arrival: ambulatory Limitations: no limitations History of Present Illness: HPI Narrative: 40-year-old male who broke his left pinky finger 2 days ago. Patient had a splint placed but states he has lost it. He is here wanting another splint. He denies any new injuries. States his pain is a 5 out of 10. States it is worse with movement and improved with rest. Associated symptoms: Deny chest pain, fever(s) or rash Review of Systems Const: Denies: fever(s), chills, body aches or change in appetite Eyes: Denies: blurry vision or eye discomfort ENMT: Denies: throat pain or dental pain Card: Denies: chest pain Resp: Denies: dyspnea GI: Denies: abdominal pain, nausea, vomiting or diarrhea : Denies: dysuria Musc: Denies: neck pain or back pain Skin/Breast: Denies: rash Neuro: Denies: headache(s) Psych: Denies: depression Chaparro/Lymph: Denies: easy bruising All/Imm: Denies: urticaria PFSH ED PFSH: Medical History (Updated 09/17/20 @ 20:28 by Jefe Hennessy MD) Anxiety Depression Methamphetamine use Schizophrenia Surgical History No pertinent past surgical history Social History Smoking and tobacco status: current every day smoker cigarettes Packs smoked per day: 0.5 Alcohol intake: never Current gender identity: Male Physical Exam Const: COMMON NORMALS: no acute distress, patient oriented x3 and healthy appearing HENMT: COMMON NORMALS: normocephalic and atraumatic HEAD & SCALP: normocephalic and atraumatic Eye: COMMON NORMALS: Equal, round and reactive pupils present and EOMs intact bilaterally PUPIL: Yes Equal, round and reactive pupils present Neck/C-Spine: COMMON NORMALS: full ROM and supple Chest: COMMONS NORMALS: normal inspection of the chest and normal palpation of entire chest wall Resp: COMMON NORMALS: normal respiratory effort, No retractions, No use of accessory muscles and clear to auscultation bilaterally AUSCULTATION: clear to auscultation bilaterally Cardio: COMMON NORMALS: regular rate, regular rhythm and No murmurs present (Cardio) RATE: regular rate RHYTHM: regular rhythm GI: COMMON NORMALS: Normal to inspection, nondistended, normoactive bowel sounds present, Soft to palpation, non-tender and no masses PALPATION: Yes Soft to palpation Extremity: COMMON NORMALS: full ROM NARRATIVE EXTREMITY EXAM: Tenderness and swelling to distal phalanx of left pinky finger Neuro: COMMON NORMALS: patient oriented x3, moves all extremities and no focal motor deficits Psych: COMMON NORMALS: mental status grossly normal, Normal thought process present and cooperative THOUGHT PROCESS: Normal thought process present Skin: COMMON NORMALS: no rashes or lesions noted and no wounds GENERAL SKIN EXAM: no rashes or lesions noted Course Vital Signs: Vital signs: Vital Signs Temperature 97.8 F 09/17/20 20:21 Pulse Rate 102 H 09/17/20 20:21 Respiratory Rate 16 09/17/20 20:21 Blood Pressure 140/87 09/17/20 20:21 Pulse Oximetry 97 09/17/20 20:21 MDM - Extremity (Nontraumatic) MDM Narrative: Medical decision making narrative: Patient presents here with a distal phalanx fracture to his left pinky finger he has been seen for already but lost his splint. We will place him in a new splint he is stable for discharge. He has had no new injuries. Discharge Plan Discharge Patient Disposition: Home Clinical Impression: Fracture of distal phalanx of finger of left hand Condition: Stable Prescriptions: No Action risperidone 1 mg tablet 1 mg PO BID 30 Days Qty: 60 RF: 3 Zoloft 50 mg tablet 50 mg PO DAILY Qty: 14 RF: 2 cephalexin 500 mg capsule 500 mg PO Q6H 7 Days Qty: 28 RF: 0 Discharge Orders: Discharge ED (Routine); Ordered 09/17/20 Ordered By: Jefe Hennessy Referrals: Suzan Valiente MD [Physician] - 1-3 days Discharge Diet: Advance as tolerated Discharge Activity: Resume usual activity Patient Instructions: Finger Fracture (ED) Coding Level of Care Code ED Customer Greeter for Tracey Izquierdo
[2020-09-17] MEDS: naproxen 500 mg Tablet PO (20:40)
== END 2020-09-17 20:40 | disposition home or self-care (01) ==
PROVIDERS: Emergency Provider Emergency Medicine
DX: S62.617A Displaced fracture of proximal phalanx of left little finger, initial encounter for closed fracture (principal); X58.XXXA Exposure to other specified factors, initial encounter; F17.210 Nicotine dependence, cigarettes, uncomplicated
CPT/HCPCS: 99282

== ENCOUNTER 2020-09-18 15:10 | Emergency (ER) | payer SELFPAY ==
[2020-09-18 15:16] VITALS: BP 117/72; PULSE 127; RESP 18; TEMP 36.8; O2SAT 97; BMI 24.4
--- NOTE | 2020-09-18 15:39 | ED_ITS ---
HPI - Psych General: Chief Complaint: Psychiatric Symptoms Stated Complaint: KEVIN FEELING SUICIDAL Time Seen by Provider: 09/18/20 15:32 History of Present Illness: HPI Narrative: 40-year-old male presents emergency room stating he wants to be admitted to psych. He denies suicidal homicidal ideation he is mildly depressed. He states he wants to be admitted to psychiatry unit because he does not have anywhere else to go and he does not want to stay on the street. He had previously been on sertraline but he is completely out of that has been off it for several months now. MD complaint: feels depressed Onset (ago): year(s) History of same: Yes Relieving factors: none Exacerbating factors: none Associated symptoms: Reports depression; Deny auditory hallucinations, visual hallucinations, delusions, homicidal ideation, suicidal ideation or racing thoughts Treatments prior to arrival: none Review of Systems Const: Denies: fever(s), chills, body aches, change in appetite, fatigue or malaise ENMT: Denies: throat pain, ear or mastoid pain, nasal discharge or nasal congestion Card: Denies: chest pain, edema, dyspnea on exertion or orthopnea Resp: Denies: dyspnea, productive cough or non-productive cough GI: Denies: abdominal pain, nausea, vomiting, hematemesis, coffee ground emes is, diarrhea, constipation, bloating, hematochezia or melena : Denies: flank pain, dysuria, urinary frequency or urinary urgency Skin/Breast: Denies: rash or pruritus Psych: Reports: depression; Denies: visual hallucinations, auditory hallucinations, suicidal ideation or homicidal ideation [facility] ED PFSH: Medical History Anxiety Depression Methamphetamine use Schizophrenia Surgical History No pertinent past surgical history Social History Smoking and tobacco status: current every day smoker cigarettes Packs smoked per day: 0.5 Alcohol intake: never Current gender identity: Male Physical Exam Const: COMMON NORMALS: no acute distress GENERAL APPEARANCE: cooperative and comfortable ORIENTATION/CONSCIOUSNESS: Yes awake, Yes oriented to person, Yes oriented to place and Yes oriented to time HENMT: COMMON NORMALS: normocephalic, atraumatic and hearing grossly normal bilaterally HEAD & SCALP: normocephalic and atraumatic Eye: COMMON NORMALS: Equal, round and reactive pupils present, EOMs intact bilaterally, conjunctivae normal and no scleral icterus CONJUNCTIVA: Yes conjunctivae normal PUPIL: Yes Equal, round and reactive pupils present Neck/C-Spine: COMMON NORMALS: full ROM, no lymphadenopathy, supple and no JVD Resp: COMMON NORMALS: normal respiratory effort, No retractions, No use of accessory muscles and clear to auscultation bilaterally AUSCULTATION: clear to auscultation bilaterally Cardio: COMMON NORMALS: no JVD, regular rate, regular rhythm and No murmurs present (Cardio) RATE: regular rate RHYTHM: regular rhythm GI: COMMON NORMALS: Soft to palpation and No hepatosplenomegaly present AUSCULTATION: Yes normoactive bowel sounds PALPATION: Yes Soft to palpation, No Tenderness to palpation present (GI), No Guarding due to palpation present (GI) and Yes No hepatosplenomegaly present Extremity: COMMON NORMALS: normal to inspection, capillary refill normal, no clubbing, cyanosis or edema, no calf tenderness and no pedal edema Neuro: SENSORIUM/ORIENTATION: Yes oriented to person, Yes oriented to place and Yes oriented to time Psych: THOUGHT CONTENT: No delusions Skin: COMMON NORMALS: no rashes or lesions noted GENERAL SKIN EXAM: no rashes or lesions noted MDM - Psych MDM Narrative: Medical decision making narrative: Patient is neither suicidal or homicidal he simply looking for social service liaison options. He has a splint on his distal phalanx fracture and it looks stable is not having any pain there is really nothing we have to offer him at this point encourage him to look at other social service liaison options in the community foot discussed with him that we cannot admit him to the psych unit simply to accommodate a housing needs. Discharge Plan Discharge Patient Disposition: Home Clinical Impression: Homeless single person, Fracture of distal phalanx of finger of left hand, Depression Condition: Stable Prescriptions: No Action risperidone 1 mg tablet 1 mg PO BID 30 Days Qty: 60 RF: 3 Zoloft 50 mg tablet 50 mg PO DAILY Qty: 14 RF: 2 cephalexin 500 mg capsule 500 mg PO Q6H 7 Days Qty: 28 RF: 0 Discharge Orders: Discharge ED (Routine); Ordered 09/18/20 Ordered By: Kailash Quan Discharge Diet: Usual diet Discharge Activity: Resume usual activity Patient Instructions: Opioid Safety Activity Restrictions/Additional Instructions: Follow-up with [facility] Coding Level of Care Code ED Outsoles Channel Opener for Tracey Izquierdo
[2020-09-18 16:00] VITALS: BP 116/70; PULSE 100; RESP 18; TEMP 36.8; O2SAT 98
== END 2020-09-18 16:05 | disposition home or self-care (01) ==
PROVIDERS: Emergency Provider Family Medicine
DX: F32.9 Major depressive disorder, single episode, unspecified (principal); S62.639A Displaced fracture of distal phalanx of unspecified finger, initial encounter for closed fracture; X58.XXXA Exposure to other specified factors, initial encounter; Z59.0 Homelessness; F17.210 Nicotine dependence, cigarettes, uncomplicated
CPT/HCPCS: 99283

== ENCOUNTER 2020-10-29 21:46 | Emergency (ER) | payer SELFPAY ==
[2020-10-29 21:54] VITALS: BP 103/67; PULSE 67; RESP 16; TEMP 36.6; O2SAT 99; BMI 23.7
--- NOTE | 2020-10-29 21:58 | W.ED.PSYCH ---
HPI - Psych General: Chief Complaint: Psychiatric Symptoms Stated Complaint: SI Time Seen by Provider: 10/29/20 21:47 Source: patient Mode of arrival: ambulatory Limitations: no limitations History of Present Illness: HPI Narrative: 40-year-old male who is very well-known to ER comes in stating that he needs to go to the stress unit. He told me that it is raining outside and is homeless and that he does not want to stay out in the rain is making him depressed. He has no specific suicidal plan. Denies any worsening improving factors. Associated symptoms: Reports depression Review of Systems Const: Denies: fever(s), chills, body aches or change in appetite Eyes: Denies: blurry vision or eye discomfort ENMT: Denies: throat pain or dental pain Card: Denies: chest pain Resp: Denies: dyspnea GI: Denies: abdominal pain, nausea, vomiting or diarrhea : Denies: dysuria Musc: Denies: neck pain or back pain Skin/Breast: Denies: rash Neuro: Denies: headache(s) Psych: Reports: depression Chaparro/Lymph: Denies: easy bruising All/Imm: Denies: urticaria PFS ED PFSH: Medical History (Updated 10/29/20 @ 22:01 by Jefe Hennessy MD) Anxiety Depression Methamphetamine use Schizophrenia Surgical History No pertinent past surgical history Social History Smoking and tobacco status: current every day smoker cigarettes Packs smoked per day: 0.5 Alcohol intake: never Current gender identity: Male Physical Exam Const: COMMON NORMALS: no acute distress, patient oriented x3 and healthy appearing HENMT: COMMON NORMALS: normocephalic and atraumatic HEAD & SCALP: normocephalic and atraumatic Eye: COMMON NORMALS: Equal, round and reactive pupils present and EOMs intact bilaterally PUPIL: Yes Equal, round and reactive pupils present Neck/C-Spine: COMMON NORMALS: full ROM and supple Chest: COMMONS NORMALS: normal inspection of the chest and normal palpation of entire chest wall Resp: COMMON NORMALS: normal respiratory effort, No retractions, No use of accessory muscles and clear to auscultation bilaterally AUSCULTATION: clear to auscultation bilaterally Cardio: COMMON NORMALS: regular rate, regular rhythm and No murmurs present (Cardio) RATE: regular rate RHYTHM: regular rhythm GI: COMMON NORMALS: Normal to inspection, nondistended, normoactive bowel sounds present, Soft to palpation, non-tender and no masses PALPATION: Yes Soft to palpation Extremity: COMMON NORMALS: normal to inspection and full ROM Neuro: COMMON NORMALS: patient oriented x3, moves all extremities and no focal motor deficits Psych: COMMON NORMALS: mental status grossly normal, Normal thought process present and cooperative THOUGHT PROCESS: Normal thought process present Skin: COMMON NORMALS: no rashes or lesions noted and no wounds GENERAL SKIN EXAM: no rashes or lesions noted Course Vital Signs: Vital signs: Vital Signs Temperature 97.9 F 10/29/20 21:54 Pulse Rate 67 10/29/20 21:54 Respiratory Rate 16 10/29/20 21:54 Blood Pressure 103/67 10/29/20 21:54 Pulse Oximetry 99 10/29/20 21:54 MDM - Psych MDM Narrative: Medical decision making narrative: Patient presents here with depression and has a history of malingering to get out of the rain. Patient was evaluated by Dr. Denny he is not actively suicidal and he feels he is stable for discharge. Patient discharged at this time. Discharge Plan Discharge Patient Disposition: Home Clinical Impression: Depression Qualifiers: Depression Type: unspecified Qualified Code(s): F32.9 - Major depressive disorder, single episode, unspecified Condition: Stable Prescriptions: No Action risperidone 1 mg tablet 1 mg PO BID 30 Days Qty: 60 RF: 3 Zoloft 50 mg tablet 50 mg PO DAILY Qty: 14 RF: 2 Discharge Orders: Discharge ED (Routine); Ordered 10/29/20 Ordered By: Jefe Hennessy Discharge Diet: Advance as tolerated Discharge Activity: Resume usual activity Patient Instructions: Depression (ED) Coding Level of Care Code ED Machine Filler Shredder for Tracey Izquierdo Exam Comprehensive
== END 2020-10-29 22:14 | disposition home or self-care (01) ==
LOC: ER 22:04
PROVIDERS: Emergency Provider Emergency Medicine
DX: F32.9 Major depressive disorder, single episode, unspecified (principal); F17.210 Nicotine dependence, cigarettes, uncomplicated
CPT/HCPCS: 99281

== ENCOUNTER 2020-11-06 18:56 | Emergency (ER) | payer SELFPAY ==
[2020-11-06 18:59] VITALS: BP 114/73; PULSE 84; RESP 14; TEMP 36.4; O2SAT 97; BMI 25.1
[2020-11-06 19:10] VITALS: BMI 24.4
[2020-11-06 19:17] VITALS: BP 134/79; PULSE 80; RESP 16; TEMP 36.6; O2SAT 97
--- NOTE | 2020-11-06 23:30 | ED_ITS ---
HPI - Psych General: Chief Complaint: Psychiatric Symptoms Stated Complaint: ANXIETY/OVERHEATED Time Seen by Provider: 11/06/20 19:07 History of Present Illness: HPI Narrative: Edgar comes in saying he does not having where to go has been hot outside patient said he is not suicidal but when screening questions were done he said a had thoughts of suicide for years. He is not actively wanting kill himself or hurting by. Says he wants something eat and he wants a ride to [place]. complaint: other (Homelessness) Onset (ago): year(s) Duration: constant Associated symptoms: Reports suicidal ideation (Has had thoughts of suicide for years not currently suicidal); Deny depression Review of Systems Narrative: Patient is hungry Const: Denies: fever(s), chills or body aches Eyes: Denies: change in vision or blurry vision ENMT: Denies: throat pain or nasal congestion Card: Denies: chest pain or dyspnea on exertion Resp: Denies: dyspnea, productive cough or non-productive cough GI: Denies: abdominal pain, nausea or vomiting : Denies: difficulty urinating Musc: Denies: extremity pain Skin/Breast: Denies: rash Neuro: Denies: headache(s) Psych: Reports: anxiety (Has been doing meth said he did 10 of meth here recently) and suicidal ideation (Has had thoughts of suicide for years not currently suicidal); Denies: depression Chaparro/Lymph: Denies: easy bruising COUNT INCLUDES THE [facility] ED PFSH: Medical History (Updated 11/06/20 @ 20:42 by ADAMARIS Mike) Anxiety Depression Methamphetamine use Schizophrenia Surgical History No pertinent past surgical history Social History Smoking and tobacco status: current every day smoker cigarettes Packs smoked per day: 0.5 Alcohol intake: never Current gender identity: Male Physical Exam Const: COMMON NORMALS: no acute distress, average body habitus and patient oriented x3 HENMT: COMMON NORMALS: normocephalic HEAD & SCALP: normal to inspection and normocephalic FACE & SINUS: normal facial exam Eye: COMMON NORMALS: conjunctivae normal GENERAL EYE: appearance normal, both eyes and all related structures CONJUNCTIVA: Yes conjunctivae normal Neck/C-Spine: COMMON NORMALS: no JVD Chest: COMMONS NORMALS: normal inspection of the chest Resp: COMMON NORMALS: normal respiratory effort and clear to auscultation bilaterally AUSCULTATION: clear to auscultation bilaterally Cardio: COMMON NORMALS: no JVD, regular rate and regular rhythm RATE: regular rate RHYTHM: regular rhythm GI: COMMON NORMALS: Normal to inspection, nondistended, normoactive bowel sounds present Extremity: COMMON NORMALS: normal to inspection and full ROM Neuro: COMMON NORMALS: patient oriented x3 Psych: COMMON NORMALS: mental status grossly normal APPEARANCE: Yes grossly normal ATTITUDE: Yes agitated ACTIVITY/MOTOR BEHAVIOR: Yes appropriate eye contact OTHER: Again patient interacts that is not suicidal all he has had thoughts for years of suicide. Said he just wants to go to [place] needs her right up there and he is going to look for a ride. Course Vital Signs: Vital signs: Vital Signs Temperature 97.9 F 11/06/20 19:17 Pulse Rate 80 11/06/20 19:17 Respiratory Rate 16 11/06/20 19:17 Blood Pressure 134/79 11/06/20 19:17 Pulse Oximetry 97 11/06/20 19:17 MDM - Psych MDM Narrative: Medical decision making narrative: Edgar is well-known to the ER. Patient is not suicidal at the present. He was given a sandwich and some drink he felt much better said he is going get a ride to [place]. Patient was seen by telehealth through Dr. Denny. Dr. Denny systems said that he is good to go. Discharge Plan Discharge Patient Disposition: Home Clinical Impression: Homeless single person, Methamphetamine use Condition: Stable Prescriptions: No Action risperidone 1 mg tablet 1 mg PO BID 30 Days Qty: 60 RF: 3 Zoloft 50 mg tablet 50 mg PO DAILY Qty: 14 RF: 2 Discharge Orders: Discharge ED (Routine); Ordered 11/06/20 Ordered By: Dejon Virgen Discharge Diet: Usual diet Discharge Activity: Limit activity as instructed Activity Restrictions/Additional Instructions: Follow-up with [facility] as scheduled. Coding Level of Care Code ED Medical Record Assistant for Tracey Izquierdo
== END 2020-11-06 20:47 | disposition home or self-care (01) ==
PROVIDERS: Emergency Provider Nurse Practitioner Family
DX: Z59.0 Homelessness (principal); F15.90 Other stimulant use, unspecified, uncomplicated; F17.210 Nicotine dependence, cigarettes, uncomplicated
CPT/HCPCS: 99282

== ENCOUNTER 2020-11-27 23:00 | Emergency (ER) | payer SELFPAY ==
--- NOTE | 2020-11-27 23:12 | W.ED.GENADLT ---
HPI - General Adult General: Chief complaint: General Medical Stated complaint: SI Time Seen by Provider: 11/27/20 23:01 Source: patient Mode of arrival: ambulatory Limitations: no limitations History of Present Illness: HPI narrative: 40-year-old male who is homeless states it has been raining all day outside he is wet and needed a dry place to come to. States he is also very hungry. He has no medical complaints at this time. He has no psychiatric complaints either. He is well-appearing here. Associated symptoms: Deny chest pain, dyspnea, headache(s), nausea, rash or vomiting Review of Systems Const: Denies: fever(s), chills, body aches or change in appetite Eyes: Denies: blurry vision or eye discomfort ENMT: Denies: throat pain or dental pain Card: Denies: chest pain Resp: Denies: dyspnea GI: Denies: abdominal pain, nausea, vomiting or diarrhea : Denies: dysuria Musc: Denies: neck pain or back pain Skin/Breast: Denies: rash Neuro: Denies: headache(s) Psych: Denies: depression Chaparro/Lymph: Denies: easy bruising All/Imm: Denies: urticaria PFSH ED PFSH: Medical History (Updated 11/27/20 @ 23:34 by Jefe Hennessy MD) Anxiety Depression Methamphetamine use Schizophrenia Surgical History No pertinent past surgical history Social History Smoking and tobacco status: current every day smoker cigarettes Packs smoked per day: 0.5 Alcohol intake: never Current gender identity: Male Physical Exam Const: COMMON NORMALS: no acute distress, patient oriented x3 and healthy appearing HENMT: COMMON NORMALS: normocephalic and atraumatic HEAD & SCALP: normocephalic and atraumatic Eye: COMMON NORMALS: Equal, round and reactive pupils present and EOMs intact bilaterally PUPIL: Yes Equal, round and reactive pupils present Neck/C-Spine: COMMON NORMALS: full ROM and supple Chest: COMMONS NORMALS: normal inspection of the chest and normal palpation of entire chest wall Resp: COMMON NORMALS: normal respiratory effort, No retractions, No use of accessory muscles and clear to auscultation bilaterally AUSCULTATION: clear to auscultation bilaterally Cardio: COMMON NORMALS: regular rate, regular rhythm and No murmurs present (Cardio) RATE: regular rate RHYTHM: regular rhythm GI: COMMON NORMALS: Normal to inspection, nondistended, normoactive bowel sounds present, Soft to palpation, non-tender and no masses PALPATION: Yes Soft to palpation Extremity: COMMON NORMALS: normal to inspection and full ROM Neuro: COMMON NORMALS: patient oriented x3, moves all extremities and no focal motor deficits Psych: COMMON NORMALS: mental status grossly normal, Normal thought process present and cooperative THOUGHT PROCESS: Normal thought process present Skin: COMMON NORMALS: no rashes or lesions noted and no wounds GENERAL SKIN EXAM: no rashes or lesions noted Course Reevaluation(s): Reevaluation #1: Patient is now complaining that he is having suicidal thoughts. We will have Dr. Denny evaluate him over telemetry psych. Time: 23:34 Vital Signs: Vital signs: Vital Signs Temperature 98 F 11/27/20 23:47 Pulse Rate 86 11/27/20 23:47 Respiratory Rate 16 11/27/20 23:47 Blood Pressure 136/76 11/27/20 23:47 Pulse Oximetry 98 11/27/20 23:47 MDM - General Adult MDM Narrative: Medical decision making narrative: Patient presents here with homelessness along with depression. He denied suicidality to me and I had patient evaluated by Dr. Denny and he is cleared here and stable for discharge. I do not believe he is a threat to himself or others and neither does Dr. Denny Discharge Plan Discharge Patient Disposition: Home Clinical Impression: Homeless single person, Depression Condition: Stable Prescriptions: No Action risperidone 1 mg tablet 1 mg PO BID 30 Days Qty: 60 RF: 3 Zoloft 50 mg tablet 50 mg PO DAILY Qty: 14 RF: 2 Discharge Orders: Discharge ED (Routine); Ordered 11/27/20 Ordered By: Jefe Hennessy Discharge Diet: Advance as tolerated Discharge Activity: Resume usual activity Patient Instructions: Depression (ED) Coding Level of Care Code ED Magazine Publisher for Chg Fwd Exam Comprehensive
[2020-11-27 23:13] VITALS: BP 130/81; PULSE 77; RESP 18; TEMP 36.9; O2SAT 98; BMI 24.4
[2020-11-27 23:47] VITALS: BP 136/76; PULSE 86; RESP 16; TEMP 36.6; O2SAT 98
--- NOTE | 2020-12-04 19:52 | PC.NURSE ---
11/27/2020 2313 Patient initially denied any SI then during triage changed his comments to the fact that he was. Dr. Hennessy notified
== END 2020-11-28 00:08 | disposition home or self-care (01) ==
PROVIDERS: Emergency Provider Emergency Medicine
DX: F32.9 Major depressive disorder, single episode, unspecified (principal); Z59.0 Homelessness; F17.210 Nicotine dependence, cigarettes, uncomplicated
CPT/HCPCS: 99281

== ENCOUNTER 2020-12-11 16:00 | Emergency (ER) | payer SELFPAY ==
[2020-12-11 16:34] VITALS: BP 122/77; PULSE 89; RESP 16; TEMP 36.7; O2SAT 95; BMI 23.7
--- NOTE | 2020-12-11 17:04 | PC.NURSE ---
WHEN ATTEMPTING TO GET PT CHANGED INTO PSYCH SCRUBS AND GIVE A URINE SAMPLE HE STATED THAT HE WANTED TO LEAVE. PT WAS ASKED BY THIS NURSE WHY HE CAME HERE IF HE DIDN'T WANT TO STAY. PT RESPONDED I DON'T KNOW I JUST WANT TO GO. PT DID AGREE TO STAY AT THIS TIME AND CHANGED WITH NO ISSUES
--- NOTE | 2020-12-11 17:07 | PC.NURSE ---
PTS BELONGINGS ARE PLACED IN A PT BAG, LABELED AND PLACED IN THE SMALL COPY ROOM NEXT TO VERTICAL FLOW.
--- NOTE | 2020-12-11 17:08 | PC.NURSE ---
ANGEL IS IN THE ROOM AT THIS TIME
[2020-12-11 17:12] LABS: Basophils # 0.1 10^3/uL (0.0-0.1); Basophils % 0.7 %; Eosinophils # 0.2 10^3/uL (0.0-0.8); Eosinophils % 2.6 %; Hematocrit 43.8 % (42.0-52.0); Hemoglobin 14.3 g/dL (11.7-16.6); Lymphocytes # 2.2 10^3/uL (0.8-4.8); Lymphocytes % 24.2 %; Mean Corpuscular HGB Conc 32.6 g/dL (30.0-36.0); Mean Corpuscular Hemoglobin 29.4 pg (28.0-34.0); Mean Corpuscular Volume 90.1 fL (80-94); Mean Platelet Volume 10.1 fL (7.4-10.4); Monocytes # 1.1 10^3/uL (0.2-0.9); Monocytes % 11.8 %; Neutrophils # 5.55 10^3/uL (1.8-7.7); Neutrophils % 60.5 %; Nucleated Red Blood Cells % 0 %; Platelet Count 272 10^3/cmm (130-400); Red Blood Count 4.86 10^6/uL (4.1-5.3); White Blood Count 9.2 10^3/uL (4.0-10.0)
--- NOTE | 2020-12-11 17:18 | W.ED.PSYCH ---
HPI - Psych General: Chief Complaint: Psychiatric Symptoms Stated Complaint: SI, Hearing voices Time Seen by Provider: 12/11/20 17:13 History of Present Illness: HPI Narrative: Mr. Edgar Carranza comes in today for complaints of hallucinations, and suicidal thoughts. Patient has been off his medications for about 1 month. Patient has a history of methamphetamine use, schizophrenia, cannabis abuse, homelessness, and anxiety. Patient feels suicidal and has a plan jump from a colleen. Patient reports wanting to get back on his medication. Auditory hallucinations are telling patient that he is worthless and needs to kill himself. complaint: suicidal ideation Onset (ago): day(s) Duration: getting worse History of same: Yes Relieving factors: medication Exacerbating factors: drug use Context: recent drug abuse Associated symptoms: Reports auditory hallucinations and suicidal ideation Treatments prior to arrival: none If self harm: has plan Review of Systems General: Reports: 10 or more systems reviewed and unremarkable except in HPI and below Psych: Reports: auditory hallucinations and suicidal ideation [facility] ED PFSH: Medical History (Updated 12/11/20 @ 19:31 by ADAMARIS Cancino) Anxiety Depression Methamphetamine use Schizophrenia Surgical History No pertinent past surgical history Social History Smoking and tobacco status: current every day smoker cigarettes Packs smoked per day: 0.5 Alcohol intake: never Current gender identity: Male Physical Exam Const: COMMON NORMALS: no acute distress and patient oriented x3 GENERAL APPEARANCE: cooperative HENMT: COMMON NORMALS: normocephalic and Normal external nose present HEAD & SCALP: normal to inspection and normocephalic NOSE: Normal external nose present MOUTH: Normal oral and palatal mucosa present Eye: GENERAL EYE: appearance normal, both eyes and all related structures Neck/C-Spine: COMMON NORMALS: full ROM Chest: COMMONS NORMALS: normal inspection of the chest Resp: COMMON NORMALS: normal respiratory effort EFFORT & INSPECTION: Yes able to speak in complete sentences Cardio: COMMON NORMALS: regular rate and regular rhythm RATE: regular rate RHYTHM: regular rhythm GI: COMMON NORMALS: non-tender Back/Pelvis: COMMON NORMALS: thoracic and lumbar spine normal to inspection Extremity: COMMON NORMALS: normal to inspection Neuro: COMMON NORMALS: patient oriented x3 and moves all extremities Psych: COMMON NORMALS: cooperative and speech normal APPEARANCE: Yes disheveled ATTITUDE: Yes Other attitude/behavior findings present (Psych) (restless) ACTIVITY/MOTOR BEHAVIOR: Yes fidgeting SPEECH: Yes normal speech MOOD & AFFECT: Yes euthymic mood THOUGHT PROCESS: Circumstantial thought process present THOUGHT CONTENT: Yes Suicidality present ATTENTION/CONCENTRATION: Yes attention grossly intact MEMORY/COGNITION: Yes memory grossly intact INSIGHT: Fair insight present (Psych) JUDGEMENT: Fair judgement present (Psych) Skin: COMMON NORMALS: no rashes or lesions noted GENERAL SKIN EXAM: no rashes or lesions noted Course Consultations: Consultation #1: 1920, discussed with Dr. Denny, psychiatrist, for patient to be admitted. Dr. Denny wished to talk to Mr. Almazan prior to further consideration of admission or treatment. We have arranged for telehealth for consult. Vital Signs: Vital signs: Vital Signs Temperature 98.1 F 12/11/20 16:34 Pulse Rate 89 12/11/20 16:34 Respiratory Rate 16 12/11/20 16:34 Blood Pressure 122/77 12/11/20 16:34 Pulse Oximetry 95 12/11/20 16:34 MDM - Psych MDM Narrative: Medical decision making narrative: Patient comes in today for complaints of anxiety, suicidal thoughts, and auditory hallucinations. Patient has a history of schizophrenia, and methamphetamine use. Patient is cooperative. Patient appears well. Patient appears no acute distress. Respirations are even lungs are clear to auscultation. Skin is warm and dry. Differential diagnosis includes but not limited to acute psychosis, substance use disorder, suicidal ideation. Dr. Denny talked with patient regarding his methamphetamine use and concerns. Patient decided that he did not want to be admitted and did not want to commit to cessation of his methamphetamines. Lab Data: Labs: Lab Results 12/11/20 12/11/20 12/11/20 Range/Units 16:50 16:50 16:55 WBC 9.2 (4.0-10.0) 10^3/ uL RBC 4.86 (4.1-5.3) 10^6/u L Hgb 14.3 (11.7-16.6) g/dL Hct 43.8 (42.0-52.0) % MCV 90.1 (80-94) fL MCH 29.4 (28.0-34.0) pg MCHC 32.6 (30.0-36.0) g/dL RDW 13.0 (12.1-15.1) % Plt Count 272 (130-400) 10^3/c mm MPV 10.1 (7.4-10.4) fL Neut % (Auto) 60.5 % Lymph % (Auto) 24.2 % Tillman % (Auto) 11.8 % Eos % (Auto) 2.6 % Baso % (Auto) 0.7 % Neut # (Auto) 5.55 (1.8-7.7) 10^3/u L Lymph # (Auto) 2.2 (0.8-4.8) 10^3/u L Tillman # (Auto) 1.1 H (0.2-0.9) 10^3/u L Eos # (Auto) 0.2 (0.0-0.8) 10^3/u L Baso # (Auto) 0.1 (0.0-0.1) 10^3/u L Nucleated RBC % (a uto) 0 % Nucleated RBCs # 0.0 /100WBC Sodium (136-145) mmol/L Potassium (3.5-5.1) mmol/L Chloride (98-107) mmol/L Carbon Dioxide (22-29) mmol/L Anion Gap (5-19) BUN (6-20) mg/dL Creatinine (0.7-1.2) mg/dL GFR Calculation (90-130) mL/min Glucose (65-115) mg/dL Calculated Osmolal ity (285-295) mOsm/k g Calcium (8.5-10.5) mg/dL Total Bilirubin (0.15-1.2) mg/dL AST (0-40) U/L ALT (0-41) U/L Alkaline Phosphata se (40-130) IU/L Total Protein (6.6-8.7) g/dL Albumin (3.5-5.2) g/dL Globulin (1.3-4.6) g/dL Urine Color Yellow (Yellow) Urine Appearance Cloudy (CLEAR) Urine pH 5 (5-7) Ur Specific Gravit y 1.025 (1.005-1.030) Urine Protein 1+ H (Negative) Urine Glucose (UA) Norm (Normal) Urine Ketones 1+ H (Negative) Urine Blood 3+ H (Negative) Urine Nitrate Negative (Negative) Urine Bilirubin Neg (Negative) Urine Urobilinogen Norm (Negative) mg/dL Ur Leukocyte Carla ase 1+ H (Negative) Urine RBC 80-100 H (0-2) /hpf Urine WBC 25-40 H (0-5) /hpf Ur Squamous Epith Cells 5-10 H (0-5) /hpf Amorphous Sediment Not Reportable Urine Bacteria 1+ H (NONE) /hpf Salicylates (3-10) mg/dL Urine Opiates Scre en Negative (Negative) ng/mL Acetaminophen (10-30) ug/mL Ur Barbiturates Sc reen Negative (Negative) ng/mL Ur Phencyclidine S crn Negative (Negative) ng/mL Ur Amphetamines Sc reen Positive H (Negative) ng/mL U Benzodiazepines Scrn Negative (Negative) ng/mL Urine Cocaine Scre en Negative (Negative) ng/mL U Marijuana (THC) Screen Positive H (Negative) ng/mL Ethyl Alcohol (0-10) mg/dL 12/11/20 Range/Units 16:55 WBC (4.0-10.0) 10^3/ uL RBC (4.1-5.3) 10^6/u L Hgb (11.7-16.6) g/dL Hct (42.0-52.0) % MCV (80-94) fL MCH (28.0-34.0) pg MCHC (30.0-36.0) g/dL RDW (12.1-15.1) % Plt Count (130-400) 10^3/c mm MPV (7.4-10.4) fL Neut % (Auto) % Lymph % (Auto) % Tillman % (Auto) % Eos % (Auto) % Baso % (Auto) % Neut # (Auto) (1.8-7.7) 10^3/u L Lymph # (Auto) (0.8-4.8) 10^3/u L Tillman # (Auto) (0.2-0.9) 10^3/u L Eos # (Auto) (0.0-0.8) 10^3/u L Baso # (Auto) (0.0-0.1) 10^3/u L Nucleated RBC % (a uto) % Nucleated RBCs # /100WBC Sodium 138 (136-145) mmol/L Potassium 3.9 (3.5-5.1) mmol/L Chloride 102 (98-107) mmol/L Carbon Dioxide 26 (22-29) mmol/L Anion Gap 13.9 (5-19) BUN 18 (6-20) mg/dL Creatinine 0.8 (0.7-1.2) mg/dL GFR Calculation 107.1 (90-130) mL/min Glucose 84 (65-115) mg/dL Calculated Osmolal ity 287 (285-295) mOsm/k g Calcium 9.0 (8.5-10.5) mg/dL Total Bilirubin 1.2 (0.15-1.2) mg/dL AST 32 (0-40) U/L ALT 21 (0-41) U/L Alkaline Phosphata se 104 (40-130) IU/L Total Protein 7.4 (6.6-8.7) g/dL Albumin 4.5 (3.5-5.2) g/dL Globulin 2.9 (1.3-4.6) g/dL Urine Color (Yellow) Urine Appearance (CLEAR) Urine pH (5-7) Ur Specific Gravit y (1.005-1.030) Urine Protein (Negative) Urine Glucose (UA) (Normal) Urine Ketones (Negative) Urine Blood (Negative) Urine Nitrate (Negative) Urine Bilirubin (Negative) Urine Urobilinogen (Negative) mg/dL Ur Leukocyte Carla ase (Negative) Urine RBC (0-2) /hpf Urine WBC (0-5) /hpf Ur Squamous Epith Cells (0-5) /hpf Amorphous Sediment Urine Bacteria (NONE) /hpf Salicylates < 0.3 L (3-10) mg/dL Urine Opiates Scre en (Negative) ng/mL Acetaminophen < 5.0 L (10-30) ug/mL Ur Barbiturates Sc reen (Negative) ng/mL Ur Phencyclidine S crn (Negative) ng/mL Ur Amphetamines Sc reen (Negative) ng/mL U Benzodiazepines Scrn (Negative) ng/mL Urine Cocaine Scre en (Negative) ng/mL U Marijuana (THC) Screen (Negative) ng/mL Ethyl Alcohol 15 H (0-10) mg/dL Discharge Plan Discharge Patient Disposition: Home Clinical Impression: Substance use disorder Schizophrenia Qualifiers: Schizophrenia type: unspecified Qualified Code(s): F20.9 - Schizophrenia, unspecified Condition: Stable Prescriptions: No Action risperidone 1 mg tablet 1 mg PO BID 30 Days Qty: 60 RF: 3 sertraline [Zoloft] 50 mg tablet 50 mg PO DAILY Qty: 14 RF: 2 Discharge Orders: Discharge ED (Routine); Ordered 12/11/20 Ordered By: Jose L Duncan Discharge Diet: Usual diet Discharge Activity: Increase activity as tolerated Patient Instructions: Opioid Safety Activity Restrictions/Additional Instructions: Drink plenty of fluids. Activity as tolerated. Follow-up with primary care for further instruction. Return to the ER for worsening symptoms or new concerns. Coding Level of Care Code ED Program Director Scouting for Tracey Izquierdo Exam Comprehensive
[2020-12-11 17:21] LABS: Add Urine Microscopic? YES; Bilirubin Urine Neg (Negative); Blood Urine 3+ (Negative); Glucose Urine UA Norm (Normal); Ketones Urine 1+ (Negative); Leukocyte Esterase Urine 1+ (Negative); Nitrate Urine Negative (Negative); Protein Urine 1+ (Negative); Specific Gravity, Urine 1.025 (1.005-1.030); Urine Appearance Cloudy (CLEAR); Urine Color Yellow (Yellow); Urobilinogen Urine Norm (Negative); pH Urine 5 (5-7)
[2020-12-11 17:29] LABS: Amphetamines Screen Urine Positive (Negative); Barbiturates Screen Urine Negative (Negative); Benzodiazepines Screen Urine Negative (Negative); Cocaine Screen Urine Negative (Negative); Opiate Screen Urine Negative (Negative); PCP Screen Urine Negative (Negative); THC Screen Urine Positive (Negative)
[2020-12-11 17:31] LABS: Alanine Aminotransferase 21 U/L (0-41); Albumin Level 4.5 g/dL (3.5-5.2); Alcohol Level 15 mg/dL (0-10); Alkaline Phosphatase 104 IU/L (40-130); Anion Gap 13.9 (5-19); Aspartate Amino Transferase 32 U/L (0-40); Blood Urea Nitrogen 18 mg/dL (6-20); Carbon Dioxide 26 mmol/L (22-29); Chloride 102 mmol/L (98-107); Globulin 2.9 g/dL (1.3-4.6); Glomerular Filtration Rate 107.1 mL/min (90-130); Glucose 84 mg/dL (65-115); Osmolality Calculated 287 mOsm/kg (285-295); Potassium 3.9 mmol/L (3.5-5.1); Sodium 138 mmol/L (136-145); Total Bilirubin 1.2 mg/dL (0.15-1.2); Total Protein 7.4 g/dL (6.6-8.7)
[2020-12-11 17:40] LABS: Acetaminophen < 5.0 ug/mL (10-30); Salicylate < 0.3 mg/dL (3-10)
[2020-12-11 17:55] LABS: Add Urine Culture? Yes; Bacteria Urine 1+ /hpf; RBC Urine 80-100 /hpf (0-2); WBC Urine 25-40 /hpf (0-5)
[2020-12-11] MEDS: LORazepam 1 mg Tablet PO (18:21)
[2020-12-11] MEDS: risperiDONE 1 mg Tablet PO (18:21)
[2020-12-11] MEDS: sulfamethoxazole-trimeth DS 160-800 mg Tablet 1 TAB PO (18:21)
[2020-12-11] MEDS: cefTRIAXone 1,000 MG in lidocaine 1% 2.1 ML 1 MG IM (19:47)
[2020-12-11 19:59] VITALS: BP 122/77; PULSE 89; RESP 16; TEMP 36.9; O2SAT 95
== END 2020-12-11 20:04 | disposition home or self-care (01) ==
PROVIDERS: Family Medicine; Emergency Provider Nurse Practitioner Family
DX: F20.9 Schizophrenia, unspecified (principal); F15.99 Other stimulant use, unspecified with unspecified stimulant-induced disorder; F17.210 Nicotine dependence, cigarettes, uncomplicated
CPT/HCPCS: 80053; 80306; 80307; 81001; 85025; 87077; 87086; 87186; 96372; 99283; J0696

== ENCOUNTER 2021-01-21 10:10 | Emergency (ER) | payer SELFPAY ==
[2021-01-21 10:40] VITALS: BP 125/75; PULSE 72; RESP 16; TEMP 36.6; O2SAT 100; BMI 24.4
--- NOTE | 2021-01-21 11:02 | ED_ITS ---
HPI - Anxiety General: Chief Complaint: Anxiety Stated Complaint: anxiety, requesting med changes Time Seen by Provider: 01/21/21 10:12 History of Present Illness: HPI narrative: 40-year-old male presents emergency room planing of anxiety and pression. He is usually seen by primary care by one of the [facility] doctors. He did receives prescription for risperidone and sertraline but has not filled them because he did not think he can afford them. He told the nurse he was wanting to get Klonopin he did not asked that of me today. He denies suicidal or homicidal ideation or any specific problem he just wanted his medications refilled he wanted us to dispense them from the emergency room. MD complaint: anxiety Associated symptoms: Deny chest pain, chills, fever(s), malaise, nausea or vomiting Review of Systems Const: Denies: fever(s), chills, body aches, change in appetite, fatigue or malaise Card: Denies: chest pain, edema, dyspnea on exertion or orthopnea Resp: Denies: dyspnea, productive cough or non-productive cough GI: Denies: abdominal pain, nausea, vomiting, hematemesis, coffee ground emesis, diarrhea, constipation, bloating, hematochezia or melena [facility] ED PFSH: Medical History Anxiety Depression Methamphetamine use Schizophrenia Surgical History No pertinent past surgical history Social History Smoking and tobacco status: current every day smoker cigarettes Packs smoked per day: 0.5 Alcohol intake: never Current gender identity: Male Physical Exam Const: COMMON NORMALS: no acute distress GENERAL APPEARANCE: cooperative and comfortable ORIENTATION/CONSCIOUSNESS: Yes awake HENMT: COMMON NORMALS: normocephalic, atraumatic and hearing grossly normal bilaterally HEAD & SCALP: normocephalic and atraumatic Neck/C-Spine: COMMON NORMALS: no JVD Resp: COMMON NORMALS: normal respiratory effort, No retractions, No use of accessory muscles and clear to auscultation bilaterally AUSCULTATION: clear to auscultation bilaterally Cardio: COMMON NORMALS: no JVD, regular rate, regular rhythm and No murmurs present (Cardio) RATE: regular rate RHYTHM: regular rhythm GI: COMMON NORMALS: Soft to palpation and No hepatosplenomegaly present AUSCULTATION: Yes normoactive bowel sounds PALPATION: Yes Soft to palpation, No Tenderness to palpation present (GI), No Guarding due to palpation present (GI) and Yes No hepatosplenomegaly present Skin: COMMON NORMALS: no rashes or lesions noted GENERAL SKIN EXAM: no rashes or lesions noted Course Vital Signs: Vital signs: Vital Signs Temperature 97.9 F 01/21/21 10:40 Pulse Rate 72 01/21/21 10:40 Respiratory Rate 16 01/21/21 10:40 Blood Pressure 125/75 01/21/21 10:40 Pulse Oximetry 100 01/21/21 10:40 MDM - Anxiety MDM Narrative: Medical decision making narrative: Patient repeatedly denies any suicidal homicidal ideation. His only reason for coming to the ER is wanting to get medications dispensed to him. At this point he is not even asking for any other medications. He denies any other problems ongoing. His exam is unremarkable discussed with the patient his best option is to proceed to [address] program through per specific pharmacies in town where he will get subsidized prescriptions through that program redirected him to those pharmacies. Discussed with him that we cannot dispense when other pharmacies are open since we are not a outpatient pharmacy and we can only dispense when other pharmacies are closed and at that time we can only dispense enough until the pharmacies reopen. Discharge Plan Discharge Patient Disposition: Home Clinical Impression: Anxiety, Depression Condition: Stable Prescriptions: No Action risperidone 1 mg tablet 1 mg PO BID 30 Days Qty: 60 RF: 3 sertraline [Zoloft] 50 mg tablet 50 mg PO DAILY Qty: 30 RF: 3 Discharge Orders: Discharge ED (Routine); Ordered 01/21/21 Ordered By: Kailash Quan Patient Instructions: Opioid Safety Coding Level of Care Code ED Executive Chairman Of The Board for Tracey Fwd Exam Detailed
== END 2021-01-21 11:06 | disposition home or self-care (01) ==
PROVIDERS: Emergency Provider Family Medicine
DX: F41.9 Anxiety disorder, unspecified (principal); F32.9 Major depressive disorder, single episode, unspecified; F17.210 Nicotine dependence, cigarettes, uncomplicated
CPT/HCPCS: 99281

== ENCOUNTER 2021-03-25 17:28 | Emergency (ER) | payer SELFPAY ==
[2021-03-25 17:53] VITALS: BP 110/73; PULSE 77; RESP 16; TEMP 36.6; O2SAT 98; BMI 24.4
--- NOTE | 2021-03-25 18:20 | ED_ITS ---
HPI - Psych General: Chief Complaint: Psychiatric Symptoms Stated Complaint: Paranoid Schizophrenia Complications Time Seen by Provider: 03/25/21 17:58 Source: patient Mode of arrival: ambulatory Limitations: no limitations History of Present Illness: HPI Narrative: 40-year-old male very well-known to the ER. Along the room he states that he is homeless and and straining is ca used him increased stress and anxiety he states he has had suicidal thoughts had multiple admissions here before for suicidality. Denies any specific plan. Denies any worsening improving factors. Associated symptoms: Reports depression Review of Systems Const: Denies: fever(s), chills, body aches or change in appetite Eyes: Denies: blurry vision or eye discomfort ENMT: Denies: throat pain or dental pain Card: Denies: chest pain Resp: Denies: dyspnea GI: Denies: abdominal pain, nausea, vomiting or diarrhea : Denies: dysuria Musc: Denies: neck pain or back pain Skin/Breast: Denies: rash Neuro: Denies: headache(s) Psych: Reports: depression Chaparro/Lymph: Denies: easy bruising All/Imm: Denies: urticaria PFSH ED PFSH: Medical History Anxiety Depression Methamphetamine use Psychiatric care Schizophrenia Surgical History No pertinent past surgical history Social History Smoking and tobacco status: current every day smoker cigarettes Packs smoked per day: 0.5 Alcohol intake: never Current gender identity: Male Physical Exam Const: COMMON NORMALS: no acute distress, patient oriented x3 and healthy appearing HENMT: COMMON NORMALS: normocephalic and atraumatic HEAD & SCALP: normocephalic and atraumatic Eye: COMMON NORMALS: Equal, round and reactive pupils present and EOMs intact bilaterally PUPIL: Yes Equal, round and reactive pupils present Neck/C-Spine: COMMON NORMALS: full ROM and supple Chest: COMMONS NORMALS: normal inspection of the chest and normal palpation of entire chest wall Resp: COMMON NORMALS: normal respiratory effort, No retractions, No use of accessory muscles and clear to auscultation bilaterally AUSCULTATION: clear to auscultation bilaterally Cardio: COMMON NORMALS: regular rate, regular rhythm and No murmurs present (Cardio) RATE: regular rate RHYTHM: regular rhythm GI: COMMON NORMALS: Normal to inspection, nondistended, normoactive bowel sounds present, Soft to palpation, non-tender and no masses PALPATION: Yes Soft to palpation Extremity: COMMON NORMALS: normal to inspection and full ROM Neuro: COMMON NORMALS: patient oriented x3, moves all extremities and no focal motor deficits Psych: COMMON NORMALS: mental status grossly normal, Normal thought process present and cooperative THOUGHT PROCESS: Normal thought process present Skin: COMMON NORMALS: no rashes or lesions noted and no wounds GENERAL SKIN EXAM: no rashes or lesions noted Course Vital Signs: Vital signs: Vital Signs Temperature 97.8 F 03/25/21 17:53 Pulse Rate 77 03/25/21 17:53 Respiratory Rate 16 03/25/21 17:53 Blood Pressure 110/73 03/25/21 17:53 Pulse Oximetry 98 03/25/21 17:53 MDM - Psych MDM Narrative: Medical decision making narrative: Patient presents here with depression patient not suicidal he was evaluated by Dr. Denny who agrees patient not a harm to himself and he is stable for discharge. He is well- appearing here we will discharge him he is to follow-up his PCP and return if worsening. He understands agrees to plan. Discharge Plan Discharge Patient Disposition: Home Clinical Impression: Depression, Homeless Condition: Stable Prescriptions: No Action risperidone 1 mg tablet 1 mg PO BID 30 Days Qty: 60 RF: 3 sertraline [Zoloft] 50 mg tablet 50 mg PO DAILY Qty: 30 RF: 3 Discharge Orders: Discharge ED (Routine); Ordered 03/25/21 Ordered By: Jefe Hennessy Discharge Diet: Advance as tolerated Discharge Activity: Resume usual activity Patient Instructions: Depression (ED) Coding Level of Care Code ED Real Estate Management Specialist for Tracey Fwd Exam Comprehensive
--- NOTE | 2021-03-25 18:31 | PC.NURSE ---
Per provider don't draw blood or urine
== END 2021-03-25 18:47 | disposition home or self-care (01) ==
PROVIDERS: Emergency Provider Emergency Medicine
DX: F32.A Depression, unspecified (principal); Z59.00 Homelessness unspecified; F17.210 Nicotine dependence, cigarettes, uncomplicated
CPT/HCPCS: 99282

== ENCOUNTER 2025-04-03 18:32 | Emergency (ER) | payer SELFPAY ==
[2025-04-03 18:38] VITALS: BP 127/76; PULSE 84; RESP 18; TEMP 36.6; O2SAT 97; BMI 23.7
--- OUTSIDE RECORDS SUMMARY | 2025-04-03 18:38 | XMS_ITS | Encounter Summary ---
Author Organization [facility] Address [address] [place] [address] Care Team Providers Care Family Specialist Name Role Phone Unavailable Primary Care Provider Unavailabl e Encounter Details Date Type Department Care Team (Latest Contact Info) Description 06/05/2004 Outpatient Historical [address] [address] Humberto Addison, TECHNICAL SUPERVISOR [address], [place] [id number] HEPATITIS C ACUTE W/O HEPATIC COMA (Primary Dx) Social History Tobacco Use Types Packs/Day Years Used Date Smoking Tobacco: Never Assessed Sex and Gender Information Value Date Recorded Sex Assigned at Not on file Legal Sex Male 3:17 AM APPLICATION DEVELOPMENT DIRECTOR Gender Identity Not on file Sexual Orientation Not on file documented as of this encounter Plan of Treatment Not on file documented as of this encounter Procedures Procedure Name Priority Date/Time Associated Diagnosis Comments ACUTE HEPATITIS PANEL Routine 06/05/2004 3:30 PM APPLICATION DEVELOPMENT DIRECTOR DRUG SCREEN, URINE Routine 06/05/2004 3: 30 PM APPLICATION DEVELOPMENT DIRECTOR documented in this encounter Results * (ABNORMAL) DRUG SCREEN, URINE (06/05/2004 3:30 PM APPLICATION DEVELOPMENT DIRECTOR) AMPHETAMINE QUAL, URINE Drug Negative Drug Negative INTERFACE SYSTEM BARBITURATE QUAL, URINE Drug Negative Drug Negative INTERFACE SYSTEM BENZODIAZEPINE QUAL, URINE Drug Positive(A) Drug Negative INTERFACE SYSTEM CANNABINOIDS QUAL, URINE Drug Positive(A) Drug Negative INTERFACE SYSTEM COCAINE QUAL URINE Drug Negative Drug Negative INTERFACE SYSTEM OPIATE QUAL, URINE Drug Negative Drug Negative INTERFACE SYSTEM PCP QUAL, URINE Drug Negative Drug Negative INTERFACE SYSTEM 06/05/2004 3:30 PM APPLICATION DEVELOPMENT DIRECTOR Humberto Addison NP URINE ORDERABLES Final Result Performing Organization Address [facility] Phone Number INTERFACE SYSTEM Refer to clinic/hospital department * (ABNORMAL) ACUTE HEPATITIS PANEL (06/05/2004 3:30 PM APPLICATION DEVELOPMENT DIRECTOR) HEPATITIS B SURFACE AG Negative Negative INTERFACE SYSTEM HEPATITIS B CORE IGM NEGATIVE NEGATIVE INTERFACE SYSTEM HEPATITIS A IGM Negative Negative INTE RFACE SYSTEM HEPATITIS C AB Positive(A) Negative INT ERFACE SYSTEM Comment: Performed by E.I.A. methodology. If positive, CDC guidelines recommend confirmation with supplemental assay (e.g. RIBA.) The specimen will be retained for 7 days. Please contact the Immunology Laboratory if a confirmation by RIBA is desired. 06/05/2004 3:30 PM APPLICATION DEVELOPMENT DIRECTOR Humberto Addison NP CHEMISTRY ORDERABLES Final Re sult Performing Organization Address [facility] Phone Number INTERFACE SYSTEM Refer to clinic/hospital department documented in this encounter Visit Diagnoses Diagnosis Acute hepatitis C without mention of hepatic coma(070.51)- Primary Acute hepatitis C without mention of hepatic coma documented in this encounter
--- OUTSIDE RECORDS SUMMARY | 2025-04-03 18:38 | XMS_ITS | Encounter Summary ---
Author Organization [facility] Address [address] [place] [address] Care Team Providers Care Light Rail Operator Name Role Phone Unavailable Primary Care Provider Unavailabl e Encounter Details Date Type Department Care Team (Late st Contact Info) Description 03/18/2008 Inpatient Historical [facility] IN BED Samm Fletcher MD NO ADDRESS ON FILE Social History Tobacco Use Types Packs/Day Years Used Date Smoking Tobacco: Never Assessed Sex and Gender Information Value Date Recorded Sex Assigned at Not on file Legal Sex Male 3:17 AM CASING SOAKER Gender Identity Not on file Sexual Orientation Not on file documented as of this encounter Plan of Treatment Not on file documented as of this encounter Procedures Procedure Name Priority Date/Time Associated Diagnosis Comments VALPROIC ACID LEVEL, TOTAL Routine 03/21/2008 7:15 AM CDT VALPROIC ACID LEVEL, TOTAL Routine 03/20/2008 8:24 AM CDT VITAMIN B12 AND FOLATE Routine 03/19/2008 7:50 AM CDT TSH Routine 03/19/2008 7:50 AM CDT documented in this encounter Results * (ABNORMAL) VALPROIC ACID LEVEL, TOTAL (03/21/2008 7:15 AM CDT) VALPROIC ACID TOTAL 102.1(H) 50.0 - 100.0 mcg/mL [facility] Blood specimen (specimen) 03/21/2008 7:15 AM CDT 03/21/2008 8:16 AM CDT us Samm Fletcher MD CHEMISTRY ORDERABLES Final Res ult INTERFACE SYSTEM Refer to clinic/hospital department [facility] CLIA# [id number] [address] [place] [address] * VALPROIC ACID LEVEL, TOTAL (03/20/2008 8:24 AM CDT) VALPROIC ACID TOTAL 59.4 50.0 - 100.0 mcg/mL [facility] Blood specimen (specimen) 03/20/2008 8:24 AM CDT 03/20/2008 8:24 AM CDT Samm Fletcher MD CHEMISTRY ORDERABLES Final Res ult Performing Organization Address [facility] Phone Number INTERFACE SYSTEM Refer to clinic/hospital department [facility] CLIA# [id number] [facility] [place] [address] * TSH (03/19/2008 7:50 AM CDT) Pathologist [facility] TSH 1.072 0.350 - 5.500 uIU/ml [facility] Blood specimen (specimen) 03/19/2008 7:50 AM CDT 03/19/2008 8:18 AM CDT us Samm Fletcher MD CHEMISTRY ORDERABLES Final Res ult Performing Organization Address [facility] Phone Number INTERFACE SYSTEM Refer to clinic/hospital department [facility] CLIA# [id number] [address] [place] [id number] * VITAMIN B12 AND FOLATE (03/19/2008 7:50 AM CDT) VITAMIN B12 599 211 - 911 pg/dL [facility] FOLATE, SERUM 23.76 >=5.38 ng/dL [facility] Blood specimen (specimen) 03/19/2008 7:50 AM CDT 03/19/2008 8:18 AM CDT us Samm Fletcher MD CHEMISTRY ORDERABLES Final Res ult INTERFACE SYSTEM Refer to clinic/hospital department [facility] CLIA# [id number] [address] [place] [address] documented in this encounter Visit Diagnoses Not on filedocumented in this encounter
--- OUTSIDE RECORDS SUMMARY | 2025-04-03 18:38 | XMS_ITS | Clinical Summary ---
Author Organization [employer] [facility] Address [address] [facility] Attn: Epic Prelude ADT EMELYNOBDULIO GONZALES [address] Care Team Providers Care Jboss Developer Name Role Phone Unavailable Primary Care Provider Unavailabl e Allergies Active Allergy Reactions Criticality Noted Date Comments Haloperidol Lactate Other (See Comments) 2021 Patient states he gets a back bend when he takes haldol. Medications ARIPiprazole (ABILIFY) 15 mg tablet Take 1 Tablet (15 mg) by mouth daily. 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 Gender Identity Not on file Sexual Orientation Not on file Last Filed Vital Signs Vital Sign Reading Time Taken Comments Blood Pressure 129/83 02/19/2024 12:57 AM CDT Pulse 69 09/17/2021 8:00 PM CDT Temperature 36.9 C (98.4 F) 02/19/2024 12:57 AM CDT Respiratory Rate 20 02/19/2024 12:57 AM CDT Oxygen Saturation 97% 02/19/2024 12:57 AM CDT Inhaled Oxygen Concentration - - Weight 74.8 kg (165 lb) 02/19/2024 12:57 AM CDT Height 180.3 cm (5' 11 ) 02/19/2024 12:57 AM CDT Body Mass Index 23.01 02/19/2024 12:57 AM CDT Plan of Treatment Health Maintenance Due Date Last Done Comments HEPATITIS B VACCINES (3 of 3 - 3-dose series) 02/10/1998 12/16/1997, 08/08/1996 HPV VACCINES (1 - 3-dose SCDM series) 2007 DTAP/TDAP/TD VACCINES (1 - Tdap) 11/09/2012 11/09/19 13 INFLUENZA VACCINE (#1) [address] [place] [id number] [facility] [place] [address] [place] [id number] [address] [place] [place] [id number] Advance Directives For more information, please contact: [phone] * Full Code (Latest Code Status on File) Date Activated Date Inactivated Comments 09/16/2021 3:03 PM 09/18/2021 12:56 PM * Full Code Date Activated Date Inactivated Comments 09/13/2021 11:56 AM 09/16/2021 1:02 PM
--- OUTSIDE RECORDS SUMMARY | 2025-04-03 18:38 | XMS_ITS | Encounter Summary ---
Author Organization [facility] Address [address] [place] [address] Care Team Providers Care Riveting Machine Operator Automatic Name Role Phone Unavailable Primary Care Provider Unavailabl e Encounter Details Date Type Department Care Team (Latest Contact Info) Description 09/23/2003 Outpatient Historical [facility] [address] [place] [address] AMBULANCE, [facility] TOXIC EFFECT NONMED SUBST NOS (Primary Dx) Social History Tobacco Use Types Packs/Day Years Used Date Smoking Tobacco: Never Assessed Sex and Gender Information Value Date Recorded Sex Assigned at Not on file Legal Sex Male 3:17 AM VINEYARD TENDER Gender Identity Not on file Sexual Orientation Not on file documented as of this encounter Plan of Treatment Not on file documented as of this encounter Visit Diagnoses Diagnosis Toxic effect of unspecified substance, chiefly nonmedicinal as to source(989.9)- Primary Toxic effect of unspecified substance, chiefly nonmedicinal as to source documented in this encounter
--- OUTSIDE RECORDS SUMMARY | 2025-04-03 18:38 | XMS_ITS | Clinical Summary ---
Author Organization [facility] Address [address] [place] [address] Care Team Providers Care [employer] Name Role Phone Unavailable Primary Care Provider Unavailabl e Allergies No known active allergies Medications No known medications Active Problems Problem Noted Date Diagnosed Date Cigarette dependence 02/21/2016 Immunizations Immunization Administration Dates Next Due Hepatitis B Vaccine 12/16/1997,08/08/1996 Social History Tobacco Use Types Packs/Day Years Used Date Smoking Tobacco: Every Day Cigarettes Smokeless Tobacco: Never Alcohol Use Standard Drinks/Week Comments No 0 (1 standard drink = 0.6 oz pur e alcohol) Sex and Gender Information Value Date Recorded Sex Assigned at Not on file Legal Sex Male 3:17 AM SCALE AGENT Gender Identity Not on file Sexual Orientation Not on file Last Filed Vital Signs Vital Sign Reading Time Taken Comments Blood Pressure 112/86 10/19/2016 9:48 AM CDT Pulse 100 02/19/2013 9:21 PM CDT Temperature 36.5 C (97.7 F) 10/19/2016 9:48 AM CDT Respiratory Rate 14 10/19/2016 9:48 AM CDT Oxygen Saturation 98% 10/19/2016 9:48 AM CDT Inhaled Oxygen Concentration - - Weight 74.8 kg (165 lb) 10/19/2016 9:48 AM CDT Height 180.3 cm (5' 11 ) 10/19/2016 9:48 AM CDT Body Mass Index 23.01 10/19/2016 9:48 AM CDT Plan of Treatment Health Maintenance Due Date Last Done Comments HEPATITIS B VACCINES (3 of 3 - 3-dose series) 02/10/1998 12/16/1997, 08/08/1996 DTAP/TDAP/TD VACCINES (1 - Tdap) 1999 HPV VACCINES (1 - 3-dose SCDM series) 2007 INFLUENZA VACCINE (#1) 2024 Insurance [place]ICAID [place]
--- OUTSIDE RECORDS SUMMARY | 2025-04-03 18:38 | XMS_ITS | Encounter Summary ---
Author Organization [facility] Address [address] [place] [address] Care Team Providers Care Work Order Detailer Name Role Phone Unavailable Primary Care Provider Unavailabl e Encounter Details Date Type Department Care Team (Latest Contact Info) Description 08/25/2004 Outpatient Historical [facility] [address] [place] [address] [facility] SHORTNESS OF BREATH (Primary Dx) Social History Tobacco Use Types Packs/Day Years Used Date Smoking Tobacco: Never Assessed Sex and Gender Information Value Date Recorded Sex Assigned at Not on file Legal Sex Male 3: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
--- OUTSIDE RECORDS SUMMARY | 2025-04-03 18:38 | XMS_ITS | Encounter Summary ---
Author Organization [facility] Address [address] [place] [address] Care Team Providers Care Cash Manager Name Role Phone Unavailable Primary Care Provider Unavailabl e Encounter Details Date Type Department Care Team (Latest Contact Info) Description 06/24/2004 Outpatient Historical [facility] Medicine [address] [address] Mitzi Blanchard MD [address] [place] [phone] HEPATITIS B CARRIER (CMS/HCC) (Primary Dx); ABNORMAL LIVER FUNCTION STUDY Social History Tobacco Use Types Packs/Day Years Used Date Smoking Tobacco: Never Assessed Sex and Gender Information Value Date Recorded Sex Assigned at Not on file Legal Sex Male 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
--- OUTSIDE RECORDS SUMMARY | 2025-04-03 18:38 | XMS_ITS | Encounter Summary ---
Author Organization [employer] Address [address] [place] [address] Care Team Providers Care Bulk Truck Driver Name Role Phone Unavailable Primary Care Provider Unavailabl e Encounter Details Date Type Department Care Team (Latest Contact Info) Description 01/28/[address] 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
--- OUTSIDE RECORDS SUMMARY | 2025-04-03 18:38 | XMS_ITS | Encounter Summary ---
Author Organization [facility] Address [address] [place] [address] Care Team Providers Care Dispersion Mixer Name Role Phone Unavailable Primary Care Provider Unavailabl e Encounter Details Date Type Department Care Team (Latest Contact Info) Description 06/05/2004 Outpatient Historical [facility] Medicine [address] [address] Mitzi Blanchard MD [address] [place] [id number] MEMORY LOSS (Primary Dx); HEPATITIS C CARRIER (CMS/HCC); HEAD INJURY UNSPECIFIED Social History Tobacco Use Types Packs/Day Years Used Date Smoking Tobacco: Never Assessed Sex and Gender Information Value Date Recorded Sex Assigned at Not on file Legal 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
--- OUTSIDE RECORDS SUMMARY | 2025-04-03 18:38 | XMS_ITS | Clinical Summary ---
Author Organization [facility] Address [address] [place] [address] Phone Care Team Providers Care Tar Distributor Operator Name Role Phone Unavailable Primary Care Provider Unavailabl e Allergies Active Allergy Reactions Criticality Noted Date Comments Haloperidol Other Medium 04/21/2020 Back bend spell Medications clonazePAM (KlonoPIN) 1 mg tablet Take 1 mg by mouth 2 (two) times a day. Active hydrOXYzine HCL (Atarax) 25 mg tablet Take 1 tablet (25 mg total) by mouth every 6 (six) hours for 3 days. 12 tablet 04/25/2020 Active risperiDONE (Risperdal) 1 mg tablet Take 1 mg by mouth 2 (two) times a day. 05/28/2020 Active Active Problems No known active problems Social History Tobacco Use Types Packs/Day Years Used Date Smoking Tobacco: Every Day Cigarettes 1 6 Smokeless Tobacco: Never Tobacco Cessation:Ready to Q uit: No; Counseling Given: Yes Alcohol Use Standard Drinks/Week Comments Not Currently 0 (1 standard drink = 0.6 oz pur e alcohol) Sex and Gender Information Value Date Recorded Sex Assigned at Not on file Legal Sex Male 12:10 PM CDT Gender Identity Not on file Sexual Orientation Not on file Last Filed Vital Signs Vital Sign Reading Time Taken Comments Blood Pressure 122/73 08/03/2020 9:15 PM FANCY WIRE DRAWER Pulse 108 08/03/2020 9:15 PM FANCY WIRE DRAWER Temperature 36.1 C (96.9 F) 08/03/2020 9:15 PM FANCY WIRE DRAWER Respiratory Rate 18 08/03/2020 9:15 PM FANCY WIRE DRAWER Oxygen Saturation 97% 08/03/2020 9:15 PM FANCY WIRE DRAWER Inhaled Oxygen Concentration - - Weight 77.9 kg (171 lb 11.8 oz) 08/03/2020 9:15 PM FANCY WIRE DRAWER Height 180.3 cm (5' 11 ) 08/03/2020 9:15 PM FANCY WIRE DRAWER Body Mass Index 23.95 08/03/2020 9:15 PM FANCY WIRE DRAWER Plan of Treatment Health Maintenance Due Date Last Done Comments Lipid Panel 1980 MMR Vaccines (1 of 1 - Stand brenda series) 1981 DTaP,Tdap,and Td Vaccines (1 - Tdap) 1987 Varicella Vaccines (1 of 2 - 13+ 2-dose series) 1993 Depression Screening 1998 Social Drivers of Health (SDoH) 1998 Hepatitis B Vaccines (1 of 3 - 19+ 3-dose series) 1999 HPV Vaccines (1 - 3-dose SCD M series) 2007 COVID-19 Vaccine (1 - 2023-2 5 season) 2025 Influenza Vaccine (#1) 2025 Pneumococcal Vaccine: 50+ Ye ars (1 of 1 - PCV) 2030 Zoster Vaccines (1 of 2) 2030 RSV Vaccines (1 - 1-dose 75+ series) 2055 HIB Vaccines Aged Out No longer eligi ble based on patient's age to complete this topic Hepatitis A Vaccines Aged Out No long er eligible based on patient's age to complete this topic IPV Vaccines Aged Out No longer eligi ble based on patient's age to complete this topic Meningococcal B Vaccine Aged Out No l onger eligible based on patient's age to complete this topic Meningococcal Vaccine Aged Out No bridgett delmer eligible based on patient's age to complete this topic Pneumococcal Vaccine Aged Out No long er eligible based on patient's age to complete this topic Rotavirus Vaccines Aged Out No longer eligible based on patient's age to complete this topic
[2025-04-03 20:20] VITALS: BP 117/78
--- NOTE | 2025-04-03 21:00 | ED_ITS ---
HPI - URI/Sore Throat General: Chief Complaint: Upper Respiratory Infection Stated Complaint: Cold Symptoms Time Seen by Provider: 04/03/25 20:05 Source: patient Mode of arrival: ambulatory Limitations: no limitations History of Present Illness: Patient is a 44-year-old male present to the emergency department upper respiratory symptoms. States over the past couple of days he has had bodyaches, congestion, and a cough. No sick contacts reported. States he is just here for medications. No pertinent past medical history. Vital stable. Onset (ago): day(s) Severity: mild Associated symptoms: Reports nasal congestion; Deny abdominal pain, chills, chest pain, diarrhea, ear or mastoid pain, fever(s), headache(s), nausea or vomiting Related Data Previous Rx's ?Medication ?Instructions ?Recorded diclofenac potassium 50 mg tablet 50 mg PO BIDWMURALI [place] in #30 tabs 04/10/21 risperidone 1 mg tablet 1 mg PO BID 30 days #60 tabs 04/11/21 sertraline 50 mg tablet (Zoloft) 50 mg PO DAILY mental health #30 04/11/21 tabs Allergies Allergy/AdvReac Type Severity Reaction Status Date / Time haloperidol (From Haldol) AdvReac ADR-Agitate Verified 04/10/21 08:58 d Review of Systems General: Reports: 10 or more systems reviewed and unremarkable except in HPI and below Const: Reports: body aches; Denies: fever(s), chills or fatigue Eyes: Denies: change in vision ENMT: Reports: nasal congestion; Denies: throat pain, ear or mastoid pain or nasal discharge Card: Denies: chest pain, palpitations, swelling of feet/ankles or lightheadedness Resp: Reports: non-productive cough; Denies: dyspnea, productive cough or wheezing GI: Denies: abdominal pain, nausea, vomiting, diarrhea or constipation : Denies: flank pain, difficulty urinating, dysuria or urinary frequency Musc: Denies: neck pain, back pain or joint pain Skin/Breast: Denies: rash Neuro: Denies: headache(s), numbness in extremities or weakness in extremities PFSH ED PFSH: Medical History Saleh's palsy Strain of thoracic back region Methamphetamine use Schizophrenia Depression Anxiety Surgical History No pertinent past surgical history Social History Alcohol intake: never Substance/Drug Use: never Current gender identity: Male Physical Exam Const: COMMON NORMALS: no acute distress and no limitations GENERAL APPEARANCE: cooperative, comfortable and well developed ORIENTATION/CONSCIOUSNESS: Yes awake HENMT: COMMON NORMALS: normocephalic, atraumatic and hearing grossly normal bilaterally HEAD & SCALP: normocephalic and atraumatic Eye: COMMON NORMALS: Equal, round and reactive pupils present, EOMs intact bilaterally and conjunctivae normal CONJUNCTIVA: Yes conjunctivae normal PUPIL: Yes Equal, round and reactive pupils present Neck/C-Spine: COMMON NORMALS: full ROM, supple and no JVD Resp: COMMON NORMALS: normal respiratory effort, No retractions, No use of accessory muscles and clear to auscultation bilaterally AUSCULTATION: clear to auscultation bilaterally Cardio: COMMON NORMALS: no JVD, regular rate, regular rhythm, No clicks present (Cardio), No murmurs present (Cardio) and No rub (Cardio) RATE: regular rate RHYTHM: regular rhythm Extremity: COMMON NORMALS: normal to inspection, full ROM and capillary refill normal Skin: COMMON NORMALS: no rashes or lesions noted GENERAL SKIN EXAM: no rashes or lesions noted Course Vital Signs: Vital signs: Vital Signs Temperature 97.9 F 04/03/25 18:38 Pulse Rate 84 04/03/25 18:38 Respiratory Rate 18 04/03/25 18:38 Blood Pressure 117/78 04/03/25 20:20 Pulse Oximetry 97 04/03/25 18:38 Oxygen Delivery Me thod Room Air 04/03/25 18:38 MDM - URI/Sore Throat Medical Decision Making Patient presenting with flulike symptoms. Stated he was just here for medications to make him feel better. Viral swab was negative, the exam overall unremarkable. He is clinically stable, he is given Zofran for nausea and Toradol shot. Discharged stable condition as condition has improved. Lab Data Laboratory Results Influenza A (PCR) Negative (Negative) 04/03/25 20:11 Influenza Type B (PCR) Negative (Negative) 04/03/25 20:11 RSV (PCR) Negative (Negative) 04/03/25 20:11 SARS-CoV-2 (PCR) Negative (Negative) 04/03/25 20:11 No radiology studies performed this visit Discharge Plan Discharge Patient Disposition: Home Clinical Impression: Viral infection Condition: Stable Prescriptions: No Action diclofenac potassium 50 mg tablet 50 mg PO BIDWMEAL Qty: 30 1RF sertraline [Zoloft] 50 mg tablet 50 mg PO DAILY Qty: 30 3RF Rx Instructions: for depression risperidone 1 mg tablet 1 mg PO BID 30 Days Qty: 60 3RF Rx Instructions: 340 B medication Discharge Orders: Discharge ED (Routine); Ordered 04/03/25 Ordered By: Ethan Wallis Patient Instructions: Patient Portal & [facility] Instructions Activity Restrictions/Additional Instructions: You have been diagnosed with a viral infection. Motrin and Tylenol for body aches and fevers. Drink plenty of fluids. Contact precaution. Return with any new or worsening. Print Language: Estonian Coding Level of Care Code ED Deputy Chief Counsel for Tracey Izquierdo
[2025-04-03 21:05] LABS: Respiratory Syncytial Virus Ce NEGATIVE (Negative); SARS-CoV-2 PCR NEGATIVE (Negative)
== END 2025-04-03 21:21 | disposition home or self-care (01) ==
PROVIDERS: Emergency Medicine; Emergency Provider Physician Assistant
DX: B34.9 Viral infection, unspecified (principal); Z11.52 Encounter for screening for COVID-19
CPT/HCPCS: 87637; 96372; 99284; J1885; Q0162